=== PATIENT | male | born 1960 | race Caucasian/White ===

== ENCOUNTER 2020-10-14 05:18 | Inpatient (IN) ==
--- OUTSIDE RECORDS SUMMARY | 2020-10-14 05:21 | External Medical Summary | Continuity of Care Document ---
:1960 Author Name Ministerio Mijares Address Unavailable Unavailable , Care Team Providers Name Role Phone Sylvester JACK Unavailable [email or web address] Unavailable Unavailable Problems Active medical history not documented Allergies and Adverse Reactions Allergy history not documented Medications Medications not documented Procedures Procedures not documented Immunizations Immunizations not documented Plan of Treatment Planned Observations Planned Goals not documented Results No Known Results Results not documented Encounters Appointment; Norma Phan DO 31-Oct-2016 14:20 Encounter Diagnosis: Problem not documented
[2020-10-14] MEDS ORDERED: SODIUM CHLORIDE 0.9% 500 ML IV ONE (05:52)
--- NOTE | 2020-10-14 06:05 | Emergency Department Note ---
History of Present Illness General Chief complaint: Diarrhea Stated complaint: DIARRHEA/HEADACHE Time Seen by Provider: 10/14/20 05:35 Source: patient and EMS Mode of arrival: EMS Limitations: no limitations History of Present Illness This patient is a 60-year-old male who presents to the emergency department via EMS for evaluation of an episode of diarrhea. The patient states that he woke up and felt like he had to use the bathroom and was unable to make it there in time. Patient has some slurred speech on arrival here, but when asked about this states "my speech is always slurred when someone wakes me up in the middle of the night." Patient states that he had a very mild headache earlier in the day, but denies any other symptoms. He states that he is feeling fine at this time. He has some chronic back pain which has been unchanged. Patient admits to taking 2 Tylenol PM and 10 mg of oxycodone prior to bed last night. He denies any alcohol use or other drug use. He denies chest pain, shortness of breath, numbness or weakness. Home Medications Medication Instructions Recorded Confirmed Type amlodipine 2.5 mg PO DAILY 10/14/20 10/14/20 History aspirin 650 mg PO DAILY 10/14/20 10/14/20 History duloxetine 30 mg PO BID 10/14/20 10/14/20 History furosemide 40 mg PO DAILY 10/14/20 10/14/20 History gabapentin See Rx Instructions .ROUTE .COMPLEX 10/14/20 10/14/20 History isosorbide mononitrate 60 mg PO DAILY 10/14/20 10/14/20 History levothyroxine 112 mcg PO DAILY 10/14/20 10/14/20 History losartan 25 mg PO DAILY 10/14/20 10/14/20 History metoprolol succinate 100 mg PO DAILY 10/14/20 10/14/20 History nitroglycerin 0.4 mg SUBLINGUAL UD PRN 10/14/20 10/14/20 History oxycodone 10 mg PO QID PRN 10/14/20 10/14/20 History potassium chloride 10 meq PO DAILY 10/14/20 10/14/20 History rosuvastatin 40 mg PO QPM 10/14/20 10/14/20 History spironolactone 25 mg PO DAILY 10/14/20 10/14/20 History Allergies Allergy/AdvReac Type Severity Reaction Status Date / Time No Known Allergies Allergy Unverified 10/14/20 05:49 Past Med/Surg History Medical History Chronic back pain Coronary artery disease "NSTEMI 01/28/14 cardiac cath 01/30/14 demonstrated 3-vessel disease" Dyslipidemia Hypertension Hypothyroidism Non-STEMI (non-ST elevated myocardial infarction) Social History Smoking Status: Never smoker Tobacco Type: Smokeless Tobacco (Dip or Chew) Cigarettes Per Day: Vapes; Second Hand Exposure: No; Do You Dip or Chew Tobacco: No; Tobacco Cessation Education Requested by Patient: No Hx Alcohol Use: No Hx Substance Use: Yes Last Used Substance: Unknown Preferred Language: Panamanian Communication Ability: Effective Communication Ability Comment: too lethargic to follow commands Stores Despatch Hand Required: No Beliefs That Will Affect Care: None Current Living Situation: Spouse Other Information That Helps Us Care for You: No Feels Safe at Home: Yes Safety Concerns: Feels Safe At This Time Assistive Devices: Oxygen - Continuous Review of Systems A total of 10 systems reviewed and were otherwise negative Physical Exam Vital Signs Vital Signs - 24 hr 10/14/20 05:22 10/14/20 05:24 10/14/20 05:34 Temperature 37 C Temperature Source Oral Pulse Rate 82 77 76 Pulse Rate from SpO2 Sensor 83 77 Respiratory Rate 15 16 14 Respiratory Effort / Characteristics Non-Labored Spontaneous Respiratory Depth Normal Respiratory Pattern Regular Blood Pressure 99/58 L 99/58 L 106/67 Blood Pressure Mean 92 71 73 Pulse Oximetry 91 87 L 93 Oxygen Delivery Method Room Air Nasal Cannula Oxygen Flow Rate 2 3 Sepsis Recent Fever Within 48 Hours No Sepsis New/Unexplained Change in Mental Status No Sepsis Action Taken by Nursing No Action Required 10/14/20 06:00 10/14/20 06:27 Temperature Temperature Source Pulse Rate 75 77 Pulse Rate from SpO2 Sensor 75 77 Respiratory Rate 12 11 L Respiratory Effort / Characteristics Respiratory Depth Respiratory Pattern Blood Pressure 140/78 132/101 H Blood Pressure Mean 104 106 Pulse Oximetry 91 96 Oxygen Delivery Method Nasal Cannula Nasal Cannula Oxygen Flow Rate 3 5 Sepsis Recent Fever Within 48 Hours Sepsis New/Unexplained Change in Mental Status Sepsis Action Taken by Nursing VITALS: Vitals are noted on the nurse's note and reviewed by myself. GENERAL: This is a 60-year-old male, lying supine in bed in no significant distress. SKIN: The skin was without rashes, erythema, edema, or bruising. There is no tenting of the skin. Capillary reflex less than 2 seconds. EARS: External auditory canals clear, tympanic membranes pearly lockhart without erythema or effusion bilaterally. EYES: Pupils equal round and reactive to light and accommodation. Extraocular movements intact. MOUTH: Mucous membranes moist. Tonsils are not enlarged. Pharynx without erythema or exudate. NECK: Supple without nuchal rigidity. No lymphadenopathy. HEART: Regular rate and rhythm without murmurs gallops or rubs. LUNGS: Clear to auscultation bilaterally without wheezes, rales or rhonchi. ABDOMEN: Positive bowel sounds x 4. Obese abdomen. Soft, nontender to palpation. MUSCULOSKELETAL: Full range of motion throughout. Strength 5/5 throughout. NEURO: Patient was alert and oriented to person place and time. Normal sensation. No focal neurological deficits. Negative Romberg and pronator drift. Course Administered Medications Discontinued Medications Amlodipine Besylate (Amlodipine Besylate 5 Mg Tab) 2.5 mg PO DAILY BIRD Stop: 11/14/20 08:59 Last Admin: 10/15/20 08:07 Dose: 2.5 mg Documented by: [id number] Aspirin (Aspirin Chew 324 Mg) 324 mg PO NOW STA Stop: 10/14/20 10:09 Last Admin: 10/14/20 10:32 Dose: 324 mg Documented by: [id number] Aspirin (Aspirin 325 Mg Ectab) 650 mg PO DAILY BIRD Stop: 11/14/20 08:59 Last Admin: 10/15/20 08:07 Dose: 650 mg Documented by: [id number] Duloxetine HCl (Duloxetine Hcl 30 Mg Cap) 30 mg PO BID BIRD Stop: 11/13/20 20:59 Last Admin: 10/15/20 08:07 Dose: 30 mg Documented by: [id number] Admin: 10/14/20 20:09 Dose: Not Given Documented by: [id number] Sodium Chloride (Nss) 500 mls @ 999 mls/hr IV .Q31M ONE Stop: 10/14/20 06:22 Last Infusion: 10/14/20 07:07 Dose: 0 mls/hr Documented by: [id number] Admin: 10/14/20 06:30 Dose: 999 mls/hr Documented by: [id number] Naloxone HCl 5 mg/ Sodium (Chloride) 112.5 mls @ 8 mls/hr IV .Q14H4M BIRD; Protocol Stop: 11/13/20 12:29 Last Titration: 10/14/20 18:42 Dose: 0 mg/hr, 0 mls/hr Documented by: [id number] Admin: 10/14/20 13:01 Dose: 0.36 mg/hr, 8 mls/hr Documented by: [id number] Cosigned by: [id number] Sodium Chloride (Nss 1000ml) 1,000 mls @ 125 mls/hr IV .Q8H [facility] Stop: 10/14/20 20:59 Last Infusion: 10/14/20 22:16 Dose: 0 mls/hr Documented by: [id number] Admin: 10/14/20 13:24 Dose: 125 mls/hr Documented by: [id number] Ioversol (Optiray 320 125ml) 120 ml IV ONCE ONE Stop: 10/14/20 12:59 Last Admin: 10/14/20 12:59 Dose: 120 ml Documented by: [id number] Isosorbide Mononitrate (Isosorbide [place] Extended Rel 60 Mg Tabcr) 60 mg PO DAILY [facility] Stop: 11/14/20 08:59 Last Admin: 10/15/20 08:07 Dose: 60 mg Documented by: [id number] Levothyroxine Sodium (Levothyroxine Sodium 112 Mcg Tablet) 112 mcg PO DAILYBB [facility] Stop: 11/14/20 06:29 Last Admin: 10/15/20 05:59 Dose: 112 mcg Documented by: [id number] Metoprolol Succinate (Metoprolol Succ 50mg Ext Rel Tab) 100 mg PO DAILY [facility] Stop: 11/14/20 08:59 Last Admin: 10/15/20 08:07 Dose: 100 mg Documented by: [id number] Naloxone HCl (Naloxone Hcl 0.4 Mg/1 Ml Vial/Carp) Confirm Administered Dose 0.4 mg .ROUTE .STK-MED ONE Stop: 10/14/20 12:08 Last Admin: 10/14/20 12:25 Dose: 0.4 mg Documented by: [id number] Naloxone HCl (Naloxone Hcl 0.4 Mg/1 Ml Vial/Carp) Confirm Administered Dose 0.4 mg .ROUTE .STK-MED ONE Stop: 10/14/20 12:16 Last Admin: 10/14/20 12:24 Dose: 0.2 mg Documented by: [id number] Naloxone HCl (Naloxone Hcl 0.4 Mg/1 Ml Vial/Carp) 0.3 mg IV NOW ONE Stop: 10/14/20 12:46 Last Admin: 10/14/20 13:23 Dose: 0.3 mg Documented by: [id number] Medical Decision Making Differential Diagnosis Overdose, toxicologic, infection, hypoglycemia, electrolyte abnormalities, cardiac sources, intracerebral event, neurologic, trauma, as well as other pathologies. Medical Records Attestation: I reviewed the patient's medical records. Home Medications Current Medication List: was personally reviewed by me Laboratory Data Attestation: I reviewed the patient's lab results. Result diagrams: 10/15/20 04:13 10/15/20 04:13 Lab Results 10/14/20 10/14/20 10/14/20 Range/Units 05:35 05:35 06:04 WBC 12.62 H (4.8-10.8) K/uL RBC 4.69 L (4.7-6.1) M/uL Hgb 14.3 (14.0-18.0) g/dL Hct 44.4 (42-52) % MCV 94.7 (80-100) fL MCH 30.5 (25-34) pg MCHC 32.2 (32-36) g/dL RDW Std Deviation 49.4 H (36.4-46.3) fL RDW Coeff of Maribel 14.4 (11.5-14.5) % Plt Count 231 (130-400) K/uL MPV 10.2 (7.4-10.4) fL Immature Gran % (Auto) 0.5 % Neut % (Auto) 73.3 % Lymph % (Auto) 14.1 % [place] % (Auto) 10.2 % Eos % (Auto) 1.7 % Baso % (Auto) 0.2 % Neut # (Auto) 9.26 H (1.4-6.5) K/uL Lymph # (Auto) 1.78 (1.2-3.4) K/uL [place] # (Auto) 1.29 H (0.11-0.59) K/uL Eos # (Auto) 0.21 (0-0.5) K/uL Baso # (Auto) 0.02 (0-0.2) K/uL Immature Gran # (Auto) 0.06 H (0.00-0.02) K/uL Sodium 133 L (136-145) mmol/L Potassium 3.9 (3.5-5.1) mmol/L Chloride 97 L (98-107) mmol/L Carbon Dioxide 24 (21-32) mmol/L Anion Gap 12.0 H (3-11) BUN 27 H (7-18) mg/dl Creatinine 1.67 H (0.6-1.4) mg/dl Est Cr Clr Drug Dosing 59.5 ml/min Est GFR ( Amer) 50.4 Est GFR (Non-Af Amer) 43.5 BUN/Creatinine Ratio 16.1 (10-20) Glucose 197 H (70-99) mg/dl Calcium 8.8 (8.5-10.1) mg/dl Total Bilirubin 0.4 (0.2-1) mg/dl AST 22 (15-37) U/L ALT 30 (12-78) U/L Alkaline Phosphatase 95 (45-117) U/L Troponin I 0.439 H* (0-0.045) ng/ml Total Protein 7.3 (6.4-8.2) gm/dl Albumin 3.8 (3.4-5.0) gm/dl Globulin 3.5 (2.5-4.0) gm/dl Albumin/Globulin Ratio 1.1 (0.9-2) Ethyl Alcohol mg/dL < 3.0 (0-3) mg/dl Imaging Data Attestation: I personally reviewed and interpreted this imaging study as follows: Radiologist's Impression: CT HEAD: No acute infarct or intracranial hemorrhage Radiologist: Audi Gomez MD ECG Data Attestation: I personally reviewed and interpreted this ECG as follows: Indication: + toxicologic Rate (beats per minute): 79 Rhythm: + normal sinus ECG Intervals/blocks: + Incomplete right bundle branch block ECG [place]: + Right axis deviation ECG ST segments: + Nonspecific ST abnormalities Change: the following changes noted (incomplete RBBB) MDM Narrative The patient is a 60-year-old male who presents today for evaluation of an episode of diarrhea. The patient woke up in the middle of the night with an urgency to have a bowel movement but was unable to make it to the bathroom. On arrival here, he is slurring his speech but otherwise has no complaints other than his chronic back pain. Patient does admit that he took 2 tablets of Tylenol PM as well as 10 mg of oxycodone prior to bed last night. He was hypox ic on arrival. I suspect he is hypoxic secondary to polypharmacy. He has no focal neurological findings and a head CT is negative. Patient was found to have an elevated troponin of 0.439 on blood work. An EKG does not show any acute ischemic changes. Again, patient states that he has no chest pain or shortness of breath but does appear to be somewhat diaphoretic. Patient will need to be admitted for further care. [facility] the patient for further care. Impression & Plan Opioid overdose, Hypoxia, CHAD (acute kidney injury), Non-STEMI (non-ST elevated myocardial infarction) Discharge Plan Visit Data Chief Complaint: Diarrhea Stated Complaint: DIARRHEA/HEADACHE ED Provider: Darci Loving ED Midlevel Provider: Liberty De Anda Discharge Problem: Opioid overdose, Hypoxia, CHAD (acute kidney injury), Non-STEMI (non-ST elevated myocardial infarction) Patient Disposition: Admitted As Inpatient Discharge Instructions Interventions: ED Discharge Assessment Last Done: 10/14/20 15:10 Discharge Problem: Opioid overdose Qualifiers: Encounter type: initial encounter Injury intent: undetermined intent Qualified Code(s): T40.2X4A - Poisoning by other opioids, undetermined, initial encounter
[2020-10-14 06:06] LABS: Basophils # (auto) 0.02 K/uL (0-0.2); Basophils % (auto) 0.2 %; Eosinophils # (auto) 0.21 K/uL (0-0.5); Eosinophils % (auto) 1.7 %; Hematocrit (blood only) 44.4 % (42-52); Hemoglobin 14.3 g/dL (14.0-18.0); Immature Granulocytes # (auto) 0.06 K/uL (0.00-0.02); Immature Granulocytes % (auto) 0.5 %; Lymphocytes # (auto) 1.78 K/uL (1.2-3.4); Lymphocytes % (auto) 14.1 %; Mean Corpuscular Hemoglobin 30.5 pg (25-34); Mean Corpuscular Hgb Conc 32.2 g/dL (32-36); Mean Corpuscular Volume 94.7 fL (80-100); Mean Platelet Volume 10.2 fL (7.4-10.4); Monocytes # (auto) 1.29 K/uL (0.11-0.59); Monocytes % (auto) 10.2 %; Neutrophils # (auto) 9.26 K/uL (1.4-6.5); Neutrophils % (auto) 73.3 %; Platelet Count 231 K/uL (130-400); RDW Coefficient of Variation 14.4 % (11.5-14.5); RDW Standard Deviation 49.4 fL (36.4-46.3); Red Blood Count 4.69 M/uL (4.7-6.1); White Blood Count 12.62 K/uL (4.8-10.8)
[2020-10-14 06:16] LABS: Albumin Level 3.8 gm/dl (3.4-5.0); BUN Creatinine Ratio 16.1 (10-20); Calcium 8.8 mg/dl (8.5-10.1); Creatinine Clr Calc Pharmacy 59.5 ml/min; Est GFR (African American) 50.4; Est GFR (Non-African American) 43.5; Potassium 3.9 mmol/L (3.5-5.1)
[2020-10-14 06:23] LABS: Albumin Globulin Ratio 1.1 (0.9-2); Bilirubin,Total 0.4 mg/dl (0.2-1); Globulin 3.5 gm/dl (2.5-4.0); Total Protein 7.3 gm/dl (6.4-8.2); Troponin I 0.439 ng/ml (0-0.045)
--- NOTE | 2020-10-14 07:23 | CT Scan Report ---
CT SCAN OF THE BRAIN WITHOUT IV CONTRAST CLINICAL HISTORY: Slurred speech. Lethargy. COMPARISON STUDY: No priors. TECHNIQUE: Unenhanced axial CT scan of the brain is performed from the vertex to the skull base. A d ose lowering technique was utilized adhering to the principles of ALARA. CT DOSE: 537.48 mGy.cm FINDINGS: Brain parenchyma: The brain parenchyma is normal in appearance. There is no hemorrhage, mass effect, or evidence of acute territorial ischemia by CT criteria. Nice-white matter differentiation is preser dora. No extra-axial fluid collection is seen. Ventricles, sulci, cisterns: Normal in configuration. Intracranial vasculature: The visualized intracranial vasculature at the skull base is normal in appe arance. Calvarium: Unremarkable. Sinuses and mastoids: The visualized paranasal sinuses are clear. The mastoid air cells are well pneu matized. Orbits: The bony orbits are grossly intact. IMPRESSION: There is no hemorrhage, mass effect, or evidence of acute territorial ischemia by CT shivam reyez. ACT 112: Negative or not required by law. Electronically signed by: Shane Serrato M.D. 10/14/2020 7:21 AM
--- NOTE | 2020-10-14 09:20 | History & Physical Report ---
Date of Service October 14, 2020 Assessment & Plan (1) Acute respiratory failure with hypoxia: Noted to have periods of apnea in ED - spoke with who reported that pt keeps his oxycodone with him typically. ED nursing found in pt's pants. With nursing present, bottle was counted. Script was filled for 120 pills two days ago - 99 pills were left in the bottle. Pt is prescribed 1 tab 4x/day PRN. Pt was also to be worked up for TAI as outpatient but never followed up. notes that pt has had a cough that "sounds wet" for the past 2-3 days with associated orthopnea and chest burning, similar to prior NSTEMI in 2014. - Continue supplemental O2 - Given Narcan in the ED with improvement in mental status although still somewhat confused at times - Trend troponins, monitory on telemetry - Check ECHO - Consult cardiology due to concern for NSTEMI, hx of significant CAD, elevated troponin - ABG checked and reveals pH of 7.09, pCO2 100, pO2 56, HCO3 30 - CTA chest completed ( aware of risk of worsening kidney function with contrast in the setting of CHAD but agreeable to proceed, will give additional IVF) - atelectasis vs. viral pnuemonia, no PE (2) Opioid overdose: Unclear if intentional or accidental. Pt's reports increasing symptoms of depression and irritability with statements of frustration regarding his quality of life. However, she is unaware of an intentional overdose. Pt is missing 21 pills of oxycodone 10 mg from the prescription filled on 10/12/20. Oxycodone pill bottle given to nursing. - Suicide precautions for now - Monitor pt closely s/p Narcan administration (3) Diarrhea: Unclear etiology. Per and pt, this is ongoing for several days - Checked stool for C. diff - negative - Will give IVF hydration - NPO until mental status improves - Consider GI consult if persistent (4) Hypothyroidism: - TSH in AM - Continue levothyroxine (5) Hypertension: BP in ED is stable - reports that she thinks pt took his AM meds. Will continue to monitor. (6) Low back pain with bilateral sciatica: Ongoing issues with chronic back pain that has been worse recently - pt was considering surgery but since he is considered high risk from cardiac standpoint, his reports he has not found a surgeon willing to proceed at this time - Holding opioids in the setting of overdose - Holding NSAIDs due to CHAD - Will use prn Tylenol for now (7) Dyslipidemia: Resume statin once mental status improves and able to tolerate po (8) Coronary artery disease: See plan for #1 - telemetry, trend trops, ECHO, cardio eval (9) Metabolic acidosis: Ongoing issues with diarrhea (10) Respiratory acidosis: Treating with Narcan-patient improved. (11) Acute renal failure: Suspect due to increased use of diuretics at home and ongoing diarrhea - Received one liter of IVF in ED - will give second liter at 125 cc/hr. If c ontinued NPO, may need to give additional fluids - Consult nephrology - spoke with Dr. Rock - Follow labs updated by phone multiple times. All questions answered. Pt seen and evaluated with attending physician, Dr. Menjivar. Plan of care discussed and as outlined above and in her addendum. Hayden Gallego PA-C History of Present Illness Chief Complaint: Diarrhea, confusion Primary Care Provider: Sami Sosa This is a 60 y/o male with a PMH of CAD s/p CABG, prior NSTEMI, hypothyroid, HTN, dyslipidemia, and chronic back pain with radiculopathy who presented to the ED via EMS with diarrhea and confusion. History from the patient is un obtainable so the chart was extensively reviewed. Additional history obtained from pt's via phone. She reports that pt has had ongoing issues with fluid retention over the past several months. Diuretics have been titrated without significant improvement. Legs may be significantly swollen at times. Over the past 2-3 days, pt has developed a cough that "sounds wet" per . Associated orthopnea. He has complained of progressive dyspnea on exertion that takes several minutes of rest to improve. Pt's reports that he will get short of breath just walking to the kitchen and back. Of note, he has also been complaining of chest burning for the past 2-3 days, which is similar to just prior to his CABG in 2013. This burning has become constant per the , but pt has refused to allow her to contact his cardiology. She thinks that a repeat cardiac cath was offered at one point but that pt declined. Also over the past 2-3 days, pt has apparently developed nausea and vomiting. He used his 's Zofran with improvement. Intermittent diarrhea for several days. Early this morning, pt's woke up to find that he had been incontinent of urine and stool in the bed. Pt attempted to get up to go to the bathroom and was lethargic, unsteady and staggering with slurred speech. When she went to try to help him, he became combative so she called the pt's brother, an EMT, to come over and help. EMS was called and was eventually able to get pt calm enough to transport. He was noted to be hypoxic so O2 applied in route but it does not appear that pt received any medications. Per , pt "took a handful of meds" just prior to coming to hospital. She thinks that these were his morning meds. Pt told the ED earlier that he had taken two Tylenol PM around 2 am this morning but his denies that they even have Tylenol PM in the house, stating he likely would have taken regular Tylenol. The pt keeps his oxycodone in his pocket so she is unsure how much of that he may have taken. She reports that pt was acting normally when he went to bed last evening without any confusion, lethargy or slurring of speech. She denies that he has ever been combative before. Allergies Allergy/AdvReac Type Severity Reaction Status Date / Time No Known Allergies Allergy Unverified 10/14/20 05:49 Home Medications Medication Instructions Recorded Confirmed Type amlodipine 2.5 mg PO DAILY 10/14/20 10/14/20 History aspirin 650 mg PO DAILY 10/14/20 10/14/20 History duloxetine 30 mg PO BID 10/14/20 10/14/20 History furosemide 40 mg PO DAILY 10/14/20 10/14/20 History gabapentin See Rx Instructions .ROUTE .COMPLEX 10/14/20 10/14/20 History isosorbide mononitrate 60 mg PO DAILY 10/14/20 10/14/20 History levothyroxine 112 mcg PO DAILY 10/14/20 10/14/20 History losartan 25 mg PO DAILY 10/14/20 10/14/20 History metoprolol succinate 100 mg PO DAILY 10/14/20 10/14/20 History nitroglycerin 0.4 mg SUBLINGUAL UD PRN 10/14/20 10/14/20 History oxycodone 10 mg PO QID PRN 10/14/20 10/14/20 History potassium chloride 10 meq PO DAILY 10/14/20 10/14/20 History rosuvastatin 40 mg PO QPM 10/14/20 10/14/20 History spironolactone 25 mg PO DAILY 10/14/20 10/14/20 History Past Med/Surg History Medical History Chronic back pain Coronary artery disease "NSTEMI 01/28/14 cardiac cath 01/30/14 demonstrated 3-vessel disease" Dyslipidemia Hypertension Hypothyroidism Non-STEMI (non-ST elevated myocardial infarction) Social History Smoking Status: Never smoker Tobacco Type: Smokeless Tobacco (Dip or Chew) Cigarettes Per Day: Vapes; Second Hand Exposure: No; Do You Dip or Chew Tobacco: No; Tobacco Cessation Education Requested by Patient: No Hx Alcohol Use: No Hx Substance Use: Yes Last Used Substance: Unknown Preferred Language: Telugu Communication Ability: Impaired Communication Ability Comment: too lethargic to follow commands Neck Skewer Required: No Beliefs That Will Affect Care: None Current Living Situation: Spouse Other Information That Helps Us Care for You: No Feels Safe at Home: Yes Safety Concerns: Feels Safe At This Time Assistive Devices: Glasses Review of Systems Review of Systems: Unobtainable due to reduced consciousness Physical Exam Constitutional: + obese and + lethargic (but opens eyes to sternal rub - unable to answer any questions); no acute distress Neck: trachea midline Respiratory: no respiratory distress and no labored breathing Auscultation: + diminished lung sounds; no rales, no rhonchi and no wheezes two episodes of apnea while in the room with resultant decrease in sats to upper 70s - pt aroused to sternal rub with immediate improvement of sats to mid 90s Cardiovascular: Rate/Rhythm: regular rate and regular rhythm Heart Sounds: no click, no gallop and no murmur Vessels: radial pulses present Extremities: + edema (1+ bilateral LE edema to just below knees) Gastrointestinal (Abdomen): Inspection/Auscultation: normal bowel sounds Percussion/Palpation: abdomen soft Skin: no rashes, warm and dry Neurologic: + confused Results & Data Results & Data ([facility]) Vital Signs (Past 12 Hours) Vital Signs Temp Pulse Resp BP Pulse Ox 10/14/20 09:00 73 13 112/71 96 10/14/20 08:31 73 12 95 10/14/20 08:30 73 13 116/85 95 10/14/20 08:16 80 91 10/14/20 08:07 125/77 10/14/20 08:06 76 19 93 10/14/20 08:01 76 14 92 10/14/20 08:00 77 16 92 10/14/20 07:31 75 18 93 10/14/20 07:30 75 20 144/100 H 92 10/14/20 07:24 75 24 93 10/14/20 07:01 73 25 H 94 10/14/20 07:00 73 30 H 139/94 94 10/14/20 06:31 75 18 95 10/14/20 06:30 76 26 H 143/104 H 96 10/14/20 06:28 76 17 95 10/14/20 06:27 77 11 L 132/101 H 96 10/14/20 06:00 75 12 140/78 91 10/14/20 05:34 76 14 106/67 93 10/14/20 05:24 37 C 77 16 99/58 L 87 L 10/14/20 05:22 82 15 99/58 L 91 Laboratory Results Laboratory Results - last 24 hr 10/14/20 10/14/20 10/14/20 05:35 05:35 06:04 WBC 12.62 H RBC 4.69 L Hgb 14.3 Hct 44.4 MCV 94.7 MCH 30.5 MCHC 32.2 RDW Std Deviation 49.4 H RDW Coeff of Maribel 14.4 Plt Count 231 MPV 10.2 Immature Gran % (Auto) 0.5 Neut % (Auto) 73.3 Lymph % (Auto) 14.1 [place] % (Auto) 10.2 Eos % (Auto) 1.7 Baso % (Auto) 0.2 Neut # (Auto) 9.26 H Lymph # (Auto) 1.78 [place] # (Auto) 1.29 H Eos # (Auto) 0.21 Baso # (Auto) 0.02 Immature Gran # (Auto) 0.06 H ABG pH ABG pCO2 ABG pO2 ABG HCO3 ABG O2 Saturation ABG Base Excess Parth Test Barometric Pressure Oxygen Given Sodium 133 L Potassium 3.9 Chloride 97 L Carbon Dioxide 24 Anion Gap 12.0 H BUN 27 H Creatinine 1.67 H Est Cr Clr Drug Dosing 59.5 Est GFR ( Amer) 50.4 Est GFR (Non-Af Amer) 43.5 BUN/Creatinine Ratio 16.1 Glucose 197 H Calcium 8.8 Total Bilirubin 0.4 AST 22 ALT 30 Alkaline Phosphatase 95 Troponin I 0.439 H* Total Protein 7.3 Albumin 3.8 Globulin 3.5 Albumin/Globulin Ratio 1.1 Stl C. diff Tox B Gene Acetaminophen Ethyl Alcohol mg/dL < 3.0 COVID-19 Eval Order SARS-CoV-2, RNA, NAAT 10/14/20 10/14/20 10/14/20 10:15 10:20 12:10 WBC RBC Hgb Hct MCV MCH MCHC RDW Std Deviation RDW Coeff of Maribel Plt Count MPV Immature Gran % (Auto) Neut % (Auto) Lymph % (Auto) [place] % (Auto) Eos % (Auto) Baso % (Auto) Neut # (Auto) Lymph # (Auto) [place] # (Auto) Eos # (Auto) Baso # (Auto) Immature Gran # (Auto) ABG pH ABG pCO2 ABG pO2 ABG HCO3 ABG O2 Saturation ABG Base Excess Parth Test Barometric Pressure Oxygen Given Sodium Potassium Chloride Carbon Dioxide Anion Gap BUN Creatinine Est Cr Clr Drug Dosing Est GFR ( Amer) Est GFR (Non-Af Amer) BUN/Creatinine Ratio Glucose Calcium Total Bilirubin AST ALT Alkaline Phosphatase Troponin I 1.370 H* Total Protein Albumin Globulin Albumin/Globulin Ratio Stl C. diff Tox B Gene Negative Cdiff Gene Acetaminophen < 2 L Ethyl Alcohol mg/dL COVID-19 Eval Order SARS-CoV-2, RNA, NAAT 10/14/20 10/14/20 10/14/20 12:10 12:10 Unknown WBC RBC Hgb Hct MCV MCH MCHC RDW Std Deviation RDW Coeff of Maribel Plt Count MPV Immature Gran % (Auto) Neut % (Auto) Lymph % (Auto) [place] % (Auto) Eos % (Auto) Baso % (Auto) Neut # (Auto) Lymph # (Auto) [place] # (Auto) Eos # (Auto) Baso # (Auto) Immature Gran # (Auto) ABG pH 7.09 L* ABG pCO2 100 H ABG pO2 56 L ABG HCO3 30 H ABG O2 Saturation 84.0 L ABG Base Excess -3.2 Parth Test Pos Barometric Pressure 735.5 Oxygen Given 15L Sodium 132 L Potassium 4.8 D Chloride 97 L Carbon Dioxide 30 Anion Gap 5.0 BUN 29 H Creatinine 1.94 H Est Cr Clr Drug Dosing 51.2 Est GFR ( Amer) 42.1 Est GFR (Non-Af Amer) 36.3 BUN/Creatinine Ratio 14.8 Glucose 173 H Calcium 8.3 L Total Bilirubin AST ALT Alkaline Phosphatase Troponin I Total Protein Albumin Globulin Albumin/Globulin Ratio Stl C. diff Tox B Gene Acetaminophen Ethyl Alcohol mg/dL COVID-19 Eval [facility] SARS-CoV-2, RNA, NAAT 10/14/20 Unknown WBC RBC Hgb Hct MCV MCH MCHC RDW Std Deviation RDW Coeff of Maribel Plt Count MPV Immature Gran % (Auto) Neut % (Auto) Lymph % (Auto) [place] % (Auto) Eos % (Auto) Baso % (Auto) Neut # (Auto) Lymph # (Auto) [place] # (Auto) Eos # (Auto) Baso # (Auto) Immature Gran # (Auto) ABG pH ABG pCO2 ABG pO2 ABG HCO3 ABG O2 Saturation ABG Base Excess Parth Test Barometric Pressure Oxygen Given Sodium Potassium Chloride Carbon Dioxide Anion Gap BUN Creatinine Est Cr Clr Drug Dosing Est GFR ( Amer) Est GFR (Non-Af Amer) BUN/Creatinine Ratio Glucose Calcium Total Bilirubin AST ALT Alkaline Phosphatase Troponin I Total Protein Albumin Globulin Albumin/Globulin Ratio Stl C. diff Tox B Gene Acetaminophen Ethyl Alcohol mg/dL COVID-19 Eval Order SARS-CoV-2, RNA, NAAT NEGATIVE Diagnostic Findings CT Head 10/14/20 - IMPRESSION: There is no hemorrhage, mass effect, or evidence of acute territorial ischemia by CT criteria. Chest X-ray 10/14/20 - IMPRESSION: 1. Cardiomegaly. 2. Postsurgical changes of a midline sternotomy. 3. Ill-definition of the left heart border. While likely secondary to prior surgery, airspace opacities in this region cannot be excluded. 4. Low lung volumes. Medications Administered Discontinued Medications Aspirin (Aspirin Chew 324 Mg) 324 mg PO NOW STA Stop: 10/14/20 10:09 Last Admin: 10/14/20 10:32 Dose: 324 mg Documented by: [id number] Sodium Chloride (Nss) 500 mls @ 999 mls/hr IV .Q31M ONE Stop: 10/14/20 06:22 Last Infusion: 10/14/20 07:07 Dose: 0 mls/hr Documented by: [id number] Admin: 10/14/20 06:30 Dose: 999 mls/hr Documented by: [id number] Code Status & VTE Plan VTE Prophylaxis Plan VTE Prophylaxis will be ordered: Yes Supervising Physician Co-Signing Physician Notes I have seen and examined the patient and have discussed the case with the provider above. I agree with the assessment and plan as stated with the following exceptions. The patient is a 60 yo obese man with a h/o chronic oxycodone use for chrnoic pain who presented to the ER via EMS combative and hypoxic after being found in a pool of feces by spouse. On initial discussion with the provider above, the patient was demonstrating intermittent apneic episodes with somnolence that would return to normal when he was awakened. At bedside, the patient was having significant stool incontinence and was in the bathroom independently using the facilities. I was then notified by Cardiology that the patient had later been found to have belly breathing and somnolence, and was given Narcan 0.6mg IV and was placed on a Narcan drip. Within minutes he was oriented to self and place and was more alert and breathing easier. ABG at the time of narcan administration reflected a sever nonanion gap metabolic acidosis likley from the bicarbonate loss from the ongoing diarrhea, and a respiratory acidosis likley 2/2 opiate overdose. Although the patient denied intentional overdose, spouse reports recent concerns of depression, so he was placed on suicide precautions. History from his seemed to suggest a possible heart failure exacerbation with orthopnea, progressive SOB with ex ertion, chest burning, intermittent leg swelling. However, CXR is clear and lungs are clear to auscultation throughout. There is no evidence of JVD or pitting edema. The current clinical picture would be concerning for dehydration from GI losses. C-diff was ruled out. Cont hydration efforts. Check KUB to rule out ileus/obstruction causing nausea and vomiting. Hold narcotics and cont narcan infusion until patient is ventilating normally reliably. Consider bicarb drip to help correct metabolic acidosis-will discuss with Nephrology. Monitor on one to one for now. Appreciate cardiac thoughts regarding elevated trop. Less likely ACS but will cont to trend. NPO until KUB comes back clear and patient is mentating and ventilating at baseline. DO Otto Reassessed patient a couple of hours later. Repeat ABG reveals improving acidosis. Patient awakens to voice and is oriented x 3. He is cooperative and feeling fine aside from some chronic back pain. Narcan drip stopped. Stool culture ordered. UDS pending. Cont 1:1 monitoring for now out of concern for possible intentional overdose. Will ask psychiatry to also evaluate the patient now that he is awake and able to converse. KUB was negative for ileus/obstruction. sms (1) Diarrhea Diarrhea type: unspecified type Qualified Code(s): R19.7 - Diarrhea, unspecified (2) Hypothyroidism Hypothyroidism type: unspecified Qualified Code(s): E03.9 - Hypothyroidism, unspecified (3) Low back pain with bilateral sciatica Chronicity: chronic (4) Hypertension Hypertension type: essential hypertension Qualified Code(s): I10 - Essential (primary) hypertension
--- NOTE | 2020-10-14 09:44 | XRay Report ---
XR chest 1V portable CLINICAL HISTORY: hypoxia COMPARISON STUDY: 01/28/2014 FINDINGS: There are postsurgical changes of a midline sternotomy. The heart is enlarged. There are lo w lung volumes. The left heart border is ill-defined. This may relate to prior surgery. There is no d efinite parenchymal consolidation. There are no pleural effusions. IMPRESSION: 1. Cardiomegaly 2. Postsurgical changes of a midline sternotomy 3. Ill-definition of the left heart border. While likely secondary to prior surgery, airspace opaciti es in this region cannot be excluded 4. Low lung volumes. ACT 112: Negative or not required by law. Electronically signed by: Elmer Wallace M.D. 10/14/2020 9:42 AM
[2020-10-14] MEDS ORDERED: ASPIRIN CHEW 324 MG PO STA (10:08)
[2020-10-14] MEDS ORDERED: ACETAMINOPHEN 325 MG TAB PO PRN (11:16)
[2020-10-14] MEDS ORDERED: NALOXONE HCL 0.4 MG/1 ML VIAL/CARP ONE ×2 (12:07→12:15)
[2020-10-14] MEDS ORDERED: NALOXONE HCL 1 MG in SODIUM CHLORIDE 0.9% 1000ML 1,000 ML IV PRN (12:14)
[2020-10-14] MEDS ORDERED: STAT IV Infusion **Titration per Protocol STA (12:19)
[2020-10-14 12:22] LABS: Base Excess ABG -3.2 mEq/L (-9-1.8); HCO3 ABG 30 mmol/L (19-24); PCO2 ABG 100 mmHg (35-46); PO2 ABG 56 mmHg (80-95)
[2020-10-14 12:24] LABS: pH ABG 7.09 (7.35-7.45)
[2020-10-14 12:25] LABS: Allen Test Pos (Pos)
[2020-10-14] MEDS ORDERED: NALOXONE HCL 5 MG in 0.9 % SODIUM CHLORIDE 100 ML IV SCH (12:30)
[2020-10-14] MEDS: NALOXONE HCL 0.4 MG/1 ML VIAL/CARP IV ONE ×2 (12:30→13:23)
[2020-10-14 12:38] LABS: BUN Creatinine Ratio 14.8 (10-20); Calcium 8.3 mg/dl (8.5-10.1); Creatinine Clr Calc Pharmacy 51.2 ml/min; Est GFR (African American) 42.1; Est GFR (Non-African American) 36.3; Potassium 4.8 mmol/L (3.5-5.1)
[2020-10-14] MEDS ORDERED: OPTIRAY 320 125ml IV ONE (12:58)
[2020-10-14] MEDS ORDERED: SODIUM CHLORIDE 0.9% 1000ML 1,000 ML IV SCH (13:00)
--- NOTE | 2020-10-14 13:11 | CT Scan Report ---
CT angio chest PE protocol CT DOSE: 533.81 mGycm HISTORY: 60 years-old Male with PE. Acute chest pain with shortness of breath and hypoxia TECHNIQUE: Multiple CTA images of the chest were obtained after the intravenous administration of 120 ml Optiray 320. Coronal and sagittal MIPS were obtained from the axial data set and were submitted for review. All measurements were obtained according to NASCET criteria. A dose lowering technique w as utilized adhering to the principles of ALARA. COMPARISON: Chest radiograph of same day FINDINGS: CTA: Moderate cardiomegaly with prior median sternotomy and CABG. Moderate [place] coronary artery calcific ations. There is no thoracic aortic aneurysm or dissection. There is patency of the imaged great vess els. There is suboptimal evaluation of the pulmonary arterial tree secondary to contrast bolus timing and respiratory motion artifact. The segmental and subsegmental branches particularly are not well s een. No pulmonary emboli identified. CT CHEST: The thyroid is not imaged. No adenopathy. Gynecomastia. No pneumothorax, pleural effusion or overt pu lmonary edema. Mild dependent predominant subpleural groundglass densities with linear consolidation. There is decreased AP dimension of the trachea and bronchi. No suspicious pulmonary nodules or kvng s. Mild nonspecific distal esophageal wall thickening. Hepatomegaly with hepatic steatosis. Degenerative changes of the shoulders and spine. No acute fracture or suspicious bone lesion. IMPRESSION: 1. No evidence of pulmonary emboli. 2. Cardiomegaly with prior median sternotomy and CABG. 3. Subpleural and dependent predominant groundglass and linear consolidative opacities are suggestive of atelectasis. A nonspecific pneumonitis such as viral pneumonia could appear similarly however is considered less likely. 4. No pleural effusion or adenopathy. 5. Hepatomegaly with hepatic steatosis. ACT 112: Negative or not required by law. The above report was generated using voice recognition software. It may contain grammatical, syntax o r spelling errors. Electronically signed by: Craig Tidwell M.D. 10/14/2020 1:09 PM
--- NOTE | 2020-10-14 13:17 | Cardiology Consultation ---
Date of Consultation October 14, 2020 Assessment & Plan (1) Opioid overdose: (2) Narcotic induced mental alteration: (3) Acute respiratory failure with hypoxia and hypercapnia: (4) Elevated troponin I level: (5) CHAD (acute kidney injury): (6) Coronary artery disease: 60-year-old patient presented to the emergency department due to bowel incontinence and altered mental status. It appears his symptoms are secondary to narcotic overdose. Treated with 0.6 mg of Narcan acutely at bedside with significant cognitive improvement. Patient no longer obstructing airway with improved oxygen saturations. ABG reviewed while patient obtunded demonstrating significant acidosis with hypercarbia and hypoxia. ER physician/internal medicine to consider continuous Narcan infusion to maintain acceptable mental status. I do not believe the patient requires acute intubation given positive clinical results with IV Narcan. Utilize BiPAP as needed. In regard to his elevated troponin, I suspect this is a type II event in the setting of hypoxia, known severe multivessel coronary disease with incomplete revascularization, and narcotic overdose. Most recent cardiac catheterization results reviewed demonstrating a chronically occluded right coronary artery. Chronic RCA occlusion likely responsible for apical ischemia noted on his last 2 Lexiscan nuclear stress tests. Recommend repeat cardiac enzymes x3 sets. Preliminary review of bedside 2D transthoracic echocardiogram demonstrates hyperdynamic LV systolic function without regional wall motion abnormality. The right ventricle was not well visualized, however, appears grossly normal in size without significant dysfunction. There is no indirect evidence of pulmonary hypertension. Recommend holding diuretic therapy and angiotensin receptor blair given acute renal insufficiency. As mental status improves, beta-blair can be restarted, however, I would recommend divided doses while hospitalized, 25 mg 4 times daily. 45 minutes critical care time spent evaluating patient, discussing instituting plan of care with consultants and ER staff, as well as discussion with patient's via telephone. History of Present Illness Reason for Consultation: Elevated troponin hypoxia Requesting Physician: Dr. Menjivar Attending Physician: Ana Menjivar, DO History of Present Illness Patient seen and examined at the bedside. Minimally responsive to sternal rub. Opens his eyes, however, does not follow commands. Intermittently hypoxic and obstructing his airway with inspiration. Paradoxical thoraco-abdominal respiratory movements noted. Unable to offer history at this time. Per his , patient found in bed this a.m. incontinent of stool. Chart reviewed. Patient apparently consumed 20 mg of oxycodone as well as Tylenol PM early this a.m. reports profound diarrhea over the past 3 days. No fever or chills. Unaware of patients oral intake while she is working. States patient takes oxycodone 3 times per day as prescribed, however, she notes he becomes profoundly diuretic when his prescriptions run out. Patient has a history of severe CAD with incomplete revascularization in the setting of non-STEMI 2015. He received a CRAIG to LAD, and a saphenous vein graft to left circumflex marginal branch. Chronically occluded right coronary artery was not bypassed. Cardiac catheterization performed in 2015 in the setting of chronic angina demonstrated patent bypass grafting x2, severe [place] vessel disease including chronically occluded right coronary artery. Has undergone nuclear stress testing on 2 occasions over the past 4 years. Both test positive for inducible ischemia involving the anterior apex. Repeat cardiac catheterization was not performed due to stable functional capacity and anginal pattern. Complex cardiovascular history (copied from [employer] medical record)noted below. 1. Multivessel coronary disease identified after hospitalization with acute carbon monoxide poisoning, January 2004. 2. Status post coronary artery bypass grafting in 02/14/2014 with incomplete revascularization, receiving a CRAIG graft to the LAD, saphenous vein graft to the circumflex obtuse marginal to ungrafted right coronary artery. 3. Severe [place] vessel disease by cardiac catheterization, 05/2016, with patent grafts. 4. Repeat diagnostic cardiac catheterization 05/19/2016 revealed patent left internal mammary artery graft to left anterior descending, patent saphenous vein graft to the circumflex obtuse marginal with excellent distal runoff, chronically occluded RCA, generally preserved LV systolic function. 5. Class III angina pectoris. 6. Hypertension. 7. Chronic back pain with radiculopathy. Allergies Allergy/AdvReac Type Severity Reaction Status Date / Time No Known Allergies Allergy Unverified 10/14/20 05:49 Home Medications Medication Instructions Recorded Confirmed Type amlodipine 2.5 mg PO DAILY 10/14/20 10/14/20 History aspirin [Aspirin Low Dose] 81 mg PO DAILY 10/14/20 10/14/20 History clotrimazole-betamethasone 1 applic TOPICAL BID 10/14/20 10/14/20 History duloxetine 30 mg PO BID 10/14/20 10/14/20 History furosemide 40 mg PO DAILY 10/14/20 10/14/20 History gabapentin See Rx Instructions .ROUTE .COMPLEX 10/14/20 10/14/20 History isosorbide mononitrate 60 mg PO DAILY 10/14/20 10/14/20 History levothyroxine 112 mcg PO DAILY 10/14/20 10/14/20 History losartan 25 mg PO DAILY 10/14/20 10/14/20 History metoprolol succinate 100 mg PO DAILY 10/14/20 10/14/20 History nitroglycerin 0.4 mg SUBLINGUAL UD PRN 10/14/20 10/14/20 History oxycodone 10 mg PO QID PRN 10/14/20 10/14/20 History potassium chloride 10 meq PO DAILY 10/14/20 10/14/20 History rosuvastatin 40 mg PO QPM 10/14/20 10/14/20 History spironolactone 25 mg PO DAILY 10/14/20 10/14/20 History Patient History Medical History Chronic back pain Coronary artery disease "NSTEMI 01/28/14 cardiac cath 01/30/14 demonstrated 3-vessel disease" Dyslipidemia Hypertension Hypothyroidism Non-STEMI (non-ST elevated myocardial infarction) Social History Smoking Status: Never smoker Tobacco Type: Smokeless Tobacco (Dip or Chew) Cigarettes Per Day: Vapes; Second Hand Exposure: No; Do You Dip or Chew Tobacco: No; Tobacco Cessation Education Requested by Patient: No Hx Alcohol Use: No Hx Substance Use: Yes Last Used Substance: Unknown Preferred Language: Vietnamese Communication Ability: Impaired Communication Ability Comment: too lethargic to follow commands Activity Director Required: No Beliefs That Will Affect Care: None Current Living Situation: Spouse Other Information That Helps Us Care for You: No Feels Safe at Home: Yes Safety Concerns: Feels Safe At This Time Assistive Devices: Glasses Review of Systems Review of Systems: Unobtainable due to cognitive status Physical Exam Constitutional: + intoxicated appearing and + obese; no acute distress Respiratory: + retractions, + uses accessory muscles and + paradoxical thoraco-abdominal movement Cardiovascular: Rate/Rhythm: regular rate and regular rhythm Heart Sounds: normal S1 and normal S2; no murmur Vessels: no JVD and no carotid bruit Extremities: no edema Gastrointestinal (Abdomen): Inspection/Auscultation: + abdomen distended; no abdominal edema Percussion/Palpation: abdomen nontender, no guarding and abdomen not rigid Skin: no rashes and no dry skin Neurologic: + obtunded Results & Data ([facility]) Vital Signs (Past 12 Hours) Vital Signs Temp Pulse Resp BP Pulse Ox 10/14/20 12:01 64 13 162/70 H 93 10/14/20 12:00 68 15 97 10/14/20 11:31 68 10/14/20 11:30 67 13 131/112 H 10/14/20 11:01 67 16 97 10/14/20 11:00 66 13 113/85 90 10/14/20 10:32 66 11 L 96 10/14/20 10:31 63 15 120/70 10/14/20 10:30 66 15 10/14/20 10:28 65 14 92 10/14/20 10:27 66 15 106/71 95 10/14/20 10:25 26 H 95 10/14/20 09:49 93 10/14/20 09:48 74 16 110/62 96 10/14/20 09:31 71 12 110/62 95 10/14/20 09:30 71 12 96 10/14/20 09:01 72 15 96 10/14/20 09:00 73 13 112/71 96 10/14/20 08:31 73 12 95 10/14/20 08:30 73 13 116/85 95 10/14/20 08:16 80 91 10/14/20 08:07 125/77 10/14/20 08:06 76 19 93 10/14/20 08:01 76 14 92 10/14/20 08:00 77 16 92 10/14/20 07:31 75 18 93 10/14/20 07:30 75 20 144/100 H 92 10/14/20 07:24 75 24 93 10/14/20 07:01 73 25 H 94 10/14/20 07:00 73 30 H 139/94 94 10/14/20 06:31 75 18 95 10/14/20 06:30 76 26 H 143/104 H 96 10/14/20 06:28 76 17 95 10/14/20 06:27 77 11 L 132/101 H 96 10/14/20 06:00 75 12 140/78 91 10/14/20 05:34 76 14 106/67 93 10/14/20 05:24 37 C 77 16 99/58 L 87 L 10/14/20 05:22 82 15 99/58 L 91 (1) Opioid overdose Encounter type: initial encounter Injury intent: undetermined intent Qualified Code(s): T40.2X4A - Poisoning by other opioids, undetermined, initial encounter (2) Coronary artery disease Coronary Disease-Associated Artery/Lesion type: [place] artery [place] vs. transplanted heart: [place] heart Associated angina: angina presence unspecified Qualified Code(s): I25.10 - Atherosclerotic heart disease of [place] coronary artery without angina pectoris
--- NOTE | 2020-10-14 14:52 | Electrocardiogram Report ---
Test Reason : Blood Pressure : / mmHG Vent. Rate : 079 BPM Atrial Rate : 079 BPM P-R Int : 162 ms QRS Dur : 098 ms QT Int : 394 ms P-R-T Axes : 041 095 043 degrees QTc Int : 451 ms Normal sinus rhythm Rightward axis Incomplete right bundle branch block Nonspecific T wave abnormality Abnormal ECG When compared with ECG of 29-JAN-2014 08:33, Incomplete right bundle branch block is now Present Confirmed by Primo Ortiz ([id number]) on 10/14/2020 2:51:51 PM Referred By: Confirmed By:Rob Ortiz
--- NOTE | 2020-10-14 15:26 | XRay Report ---
KUB HISTORY: rule out obstruction/opiate use, nausea. Vomiting. COMPARISON: None. FINDINGS: Mildly distended gas and debris filled stomach. There is also a gas and stool-filled colon which is at the upper limits of normal. No dilated loops of small bowel identified. Residual contrast within the urinary system from the recent chest CTA. No renal calculi. No ureteral calculi. No pneu moperitoneum or pneumatosis. IMPRESSION: 1. Mildly distended gas and debris filled stomach. 2. No dilated loops of small bowel identified. ACT 112: Negative or not required by law. Electronically signed by: Alfred Baldwin M.D. 10/14/2020 3:25 PM
[2020-10-14 16:08] LABS: Appearance Urine Clear (Clear); Bilirubin Urine Negative (Negative); Blood Urine Negative (Negative); Color Urine Yellow; Glucose Urine UA Negative (Negative); Ketones Urine Negative (Negative); Leukocyte Esterase Urine Negative (Negative); Nitrite Urine Negative (Negative); Protein Urine Negative (Negative); Specific Gravity Urine > 1.045 (1.000-1.030); Urobilinogen Urine Negative (Negative)
[2020-10-14 16:29] LABS: Base Excess ABG -2.9 mEq/L (-9-1.8); HCO3 ABG 26 mmol/L (19-24); Oxygen Saturation ABG 94.6 % (90-95); PCO2 ABG 62 mmHg (35-46); PO2 ABG 79 mmHg (80-95); pH ABG 7.23 (7.35-7.45)
[2020-10-14 16:47] LABS: Allen Test Pos (Pos)
[2020-10-14] MEDS: DULoxetine HCL 30 MG CAP PO SCH (20:09)
[2020-10-15 03:38] LABS: Amphetamines+Metham, Urine Neg (Neg); Barbiturates, Urine Neg (Neg); Benzodiazepine, Urine Neg (Neg); Cocaine, Urine Neg (Neg); MDMA (Ecstacy), Urine Neg (Neg); Methadone, Urine Neg (Neg); Opiate, Urine Pos (Neg); Phencyclidine, Urine Neg (Neg)
[2020-10-15 04:30] LABS: Base Excess ABG 1.1 mEq/L (-9-1.8); HCO3 ABG 28 mmol/L (19-24); Oxygen Saturation ABG 91.3 % (90-95); PCO2 ABG 58 mmHg (35-46); PO2 ABG 69 mmHg (80-95); pH ABG 7.31 (7.35-7.45)
[2020-10-15 04:36] LABS: Hematocrit (blood only) 38.8 % (42-52); Hemoglobin 12.8 g/dL (14.0-18.0); Mean Corpuscular Hemoglobin 31.1 pg (25-34); Mean Corpuscular Volume 94.2 fL (80-100); Platelet Count 173 K/uL (130-400); Red Blood Count 4.12 M/uL (4.7-6.1); White Blood Count 8.26 K/uL (4.8-10.8)
[2020-10-15 04:37] LABS: Allen Test Pos (Pos); RDW Coefficient of Variation 14.5 % (11.5-14.5); RDW Standard Deviation 49.3 fL (36.4-46.3)
[2020-10-15 04:53] LABS: BUN Creatinine Ratio 21.9 (10-20); Calcium 7.6 mg/dl (8.5-10.1); Creatinine Clr Calc Pharmacy 103.5 ml/min; Est GFR (African American) 98.5
[2020-10-15 04:57] LABS: Basophils # (auto) 0.01 K/uL (0-0.2); Basophils % (auto) 0.1 %; Eosinophils # (auto) 0.21 K/uL (0-0.5); Eosinophils % (auto) 2.5 %; Immature Granulocytes # (auto) 0.02 K/uL (0.00-0.02); Immature Granulocytes % (auto) 0.2 %; Lymphocytes # (auto) 1.26 K/uL (1.2-3.4); Lymphocytes % (auto) 15.3 %; Monocytes # (auto) 0.78 K/uL (0.11-0.59); Monocytes % (auto) 9.4 %; Neutrophils # (auto) 5.98 K/uL (1.4-6.5); Neutrophils % (auto) 72.5 %
[2020-10-15 05:03] LABS: Thyroid Stimulating Hormone 0.984 uIu/ml (0.300-4.500)
[2020-10-15] MEDS ORDERED: LEVOTHYROXINE SODIUM 112 MCG TABLET PO SCH (06:30)
[2020-10-15] MEDS ORDERED: PNEUMOCOCCAL Polysaccharide Vaccine 25mcg/0.5mL vial/Syr IM ONE (08:00)
[2020-10-15] MEDS: DULoxetine HCL 30 MG CAP PO SCH (08:07)
[2020-10-15] MEDS ORDERED: ISOSORBIDE MONO EXTENDED REL 60 MG TABCR PO SCH (09:00)
[2020-10-15] MEDS ORDERED: METOPROLOL SUCC 50MG EXT REL TAB PO SCH (09:00)
[2020-10-15] MEDS ORDERED: ASPIRIN 325 MG ECTAB PO SCH (09:00)
[2020-10-15] MEDS ORDERED: amLODIPine BESYLATE 5 MG TAB PO SCH (09:00)
--- NOTE | 2020-10-15 11:19 | Cardiology Progress Note ---
Date of Service October 15, 2020 Assessment & Plan (1) Opioid overdose: 60-year-old male with chronic narcotic dependence secondary to severe chronic back pain, underlying stable chronic ischemic heart disease and class II-III angina pectoris status post coronary bypass grafting 2013 with incomplete revascularization. Patient admitted yesterday with obtundation with marked acidosis and hypoventilation secondary to narcotic use superimposed on suspected underlying sleep apnea/hypoventilation syndrome. Recent course complicated by diarrhea and dehydration with renal insufficiency Troponins elevated on admission however without associated wall motion abnormality on echocardiogram or EKG abnormality in comparison to prior. Findings reflect type II demand based ischemia secondary to marked acidosis and hypoxia rather than acute coronary syndrome Recommendations: Patient resuming usual metoprolol succinate dosing. Continue to hold losartan and diuretics until GI issues stabilized. Patient previously referred for sleep medicine evaluation unfulfilled but still necessary and may warrant initiation inpatient if to remain in hospital Patient with previous issues with narcotic usage, assessment and treatment warranted (2) Narcotic induced mental alteration: (3) Acute respiratory failure with hypoxia and hypercapnia: (4) Elevated troponin I level: (5) CHAD (acute kidney injury): (6) Coronary artery disease: Admission and Anticipated Discharge Date Admission Date: October 14, 2020 Subjective Patient was seen and examined, chart, medications, telemetry reviewed. Patient denies any complaints this morning. Somewhat unbelieving of severity of condition yesterday Currently no chest pains or shortness of breath no dizziness or lightheadedness. No arrhythmias on telemetry Physical Exam Constitutional: WD/WN, vitals as above Eyes: PERRL, conjunctivae normal, anicteric sclerae ENMT: external ear and nose normal, oropharynx normal Neck: trachea midline, no thyromegaly Respiratory: normal respiratory effort, lungs clear to auscultation Cardiovascular: Rate/Rhythm: regular rate and regular rhythm Heart Sounds: normal S1 and normal S2; no gallop and no murmur Palpation: normal PMI Vessels: normal carotid upstroke and radial pulses present; no JVD and no carotid bruit Extremities: no edema Gastrointestinal (Abdomen): normal bowel sounds, soft, nontender, no hepatosplenomegaly Musculoskeletal: no cyanosis or clubbing, extremities motor strength 5/5 Skin: no rashes, warm and dry Neurologic: PERRL, EOMI, accommodation nl, no face palsy, no dysarthria Psychiatric: A+Ox3, euthymic affect Results & Data ([facility]) Vital Signs (Past 12 Hours) Vital Signs Temp Pulse Pulse Resp BP Pulse Ox 10/15/20 09:45 90 10/15/20 04:27 36.6 C 90 16 122/66 94 10/15/20 03:33 87 16 88 L 10/14/20 23:43 82 16 92 10/14/20 23:42 36.9 C 81 20 104/63 93 Laboratory Results Laboratory Results - last 24 hr 10/14/20 10/14/20 10/14/20 10:15 12:10 12:10 WBC RBC Hgb Hct MCV MCH MCHC RDW Std Deviation RDW Coeff of Maribel Plt Count MPV Immature Gran % (Auto) Neut % (Auto) Lymph % (Auto) Jay % (Auto) Eos % (Auto) Baso % (Auto) Neut # (Auto) Lymph # (Auto) Jay # (Auto) Eos # (Auto) Baso # (Auto) Immature Gran # (Auto) ABG pH ABG pCO2 ABG pO2 ABG HCO3 ABG O2 Saturation ABG Base Excess Parth Test Barometric Pressure Oxygen Given Sodium 132 L Potassium 4.8 D Chloride 97 L Carbon Dioxide 30 Anion Gap 5.0 BUN 29 H Creatinine 1.94 H Est Cr Clr Drug Dosing 51.2 Est GFR ( Amer) 42.1 Est GFR (Non-Af Amer) 36.3 BUN/Creatinine Ratio 14.8 Glucose 173 H Calcium 8.3 L Troponin I 1.370 H* TSH Urine Color Urine Appearance Urine pH Ur Specific Soso Urine Protein Urine Glucose (UA) Urine Ketones Urine Blood Urine Nitrite Urine Bilirubin Urine Urobilinogen Ur Leukocyte Esterase Stl C. diff Tox B Gene Negative Cdiff Gene Urine Opiates Screen U Codeine Confrm GC/MS Ur Morphine (GC/MS) Ur Hydrocodone (GC/MS) Ur Norhydrocodone Ur Noroxycodone Urine Oxycodone (GC/MS) U Oxymorphone GC/MS Ur Methadone, Qual Ur Hydromorphone (GC/MS) Urine Barbiturates Ur Phencyclidine (PCP) U Amphetamin/Meth Scrn MDMA (Ecstasy) Screen U Benzodiazepines Scrn Ur Cocaine Metabolite U Marijuana (THC) Screen Drug Screen Comment 10/14/20 10/14/20 10/14/20 12:10 16:00 16:12 WBC RBC Hgb Hct MCV MCH MCHC RDW Std Deviation RDW Coeff of Maribel Plt Count MPV Immature Gran % (Auto) Neut % (Auto) Lymph % (Auto) Jay % (Auto) Eos % (Auto) Baso % (Auto) Neut # (Auto) Lymph # (Auto) Jay # (Auto) Eos # (Auto) Baso # (Auto) Immature Gran # (Auto) ABG pH 7.09 L* 7.23 L ABG pCO2 100 H 62 H ABG pO2 56 L 79 L ABG HCO3 30 H 26 H ABG O2 Saturation 84.0 L 94.6 ABG Base Excess -3.2 -2.9 Parth Test Pos Pos Barometric Pressure 735.5 735.8 Oxygen Given 15L O2 FLOW RATE 4 Sodium Potassium Chloride Carbon Dioxide Anion Gap BUN Creatinine Est Cr Clr Drug Dosing Est GFR ( Amer) Est GFR (Non-Af Amer) BUN/Creatinine Ratio Glucose Calcium Troponin I TSH Urine Color Yellow Urine Appearance Clear Urine pH 5.0 Ur Specific Soso > 1.045 H Urine Protein Negative Urine Glucose (UA) Negative Urine Ketones Negative Urine Blood Negative Urine Nitrite Negative Urine Bilirubin Negative Urine Urobilinogen Negative Ur Leukocyte Esterase Negative Stl C. diff Tox B Gene Urine Opiates Screen U Codeine Confrm GC/MS Ur Morphine (GC/MS) Ur Hydrocodone (GC/MS) Ur Norhydrocodone Ur Noroxycodone Urine Oxycodone (GC/MS) U Oxymorphone GC/MS Ur Methadone, Qual Ur Hydromorphone (GC/MS) Urine Barbiturates Ur Phencyclidine (PCP) U Amphetamin/Meth Scrn MDMA (Ecstasy) Screen U Benzodiazepines Scrn Ur Cocaine Metabolite U Marijuana (THC) Screen Drug Screen Comment 10/14/20 10/15/20 10/15/20 17:28 01:30 01:30 WBC RBC Hgb Hct MCV MCH MCHC RDW Std Deviation RDW Coeff of Maribel Plt Count MPV Immature Gran % (Auto) Neut % (Auto) Lymph % (Auto) Jay % (Auto) Eos % (Auto) Baso % (Auto) Neut # (Auto) Lymph # (Auto) Jay # (Auto) Eos # (Auto) Baso # (Auto) Immature Gran # (Auto) ABG pH ABG pCO2 ABG pO2 ABG HCO3 ABG O2 Saturation ABG Base Excess Parth Test Barometric Pressure Oxygen Given Sodium Potassium Chloride Carbon Dioxide Anion Gap BUN Creatinine Est Cr Clr Drug Dosing Est GFR ( Amer) Est GFR (Non-Af Amer) BUN/Creatinine Ratio Glucose Calcium Troponin I 0.890 H* TSH Urine Color Urine Appearance Urine pH Ur Specific Soso Urine Protein Urine Glucose (UA) Urine Ketones Urine Blood Urine Nitrite Urine Bilirubin Urine Urobilinogen Ur Leukocyte Esterase Stl C. diff Tox B Gene Urine Opiates Screen Pos H U Codeine Confrm GC/MS Pending Ur Morphine (GC/MS) Pending Ur Hydrocodone (GC/MS) Pending Ur Norhydrocodone Pending Ur Noroxycodone Pending Urine Oxycodone (GC/MS) Pending U Oxymorphone GC/MS Pending Ur Methadone, Qual Neg Ur Hydromorphone (GC/MS) Pending Urine Barbiturates Neg Ur Phencyclidine (PCP) Neg U Amphetamin/Meth Scrn Neg MDMA (Ecstasy) Screen Neg U Benzodiazepines Scrn Neg Ur Cocaine Metabolite Neg U Marijuana (THC) Screen Neg Drug Screen Comment Pending 10/15/20 10/15/20 10/15/20 01:30 04:13 04:13 WBC 8.26 RBC 4.12 L Hgb 12.8 L Hct 38.8 L MCV 94.2 MCH 31.1 MCHC 33.0 RDW Std Deviation 49.3 H RDW Coeff of Maribel 14.5 Plt Count 173 MPV 10.0 Immature Gran % (Auto) 0.2 Neut % (Auto) 72.5 Lymph % (Auto) 15.3 Jay % (Auto) 9.4 Eos % (Auto) 2.5 Baso % (Auto) 0.1 Neut # (Auto) 5.98 Lymph # (Auto) 1.26 Jay # (Auto) 0.78 H Eos # (Auto) 0.21 Baso # (Auto) 0.01 Immature Gran # (Auto) 0.02 ABG pH ABG pCO2 ABG pO2 ABG HCO3 ABG O2 Saturation ABG Base Excess Parth Test Barometric Pressure Oxygen Given Sodium 136 Potassium 4.0 D Chloride 103 Carbon Dioxide 29 Anion Gap 4.0 BUN 21 H Creatinine 0.96 D Est Cr Clr Drug Dosing 103.5 Est GFR ( Amer) 98.5 Est GFR (Non-Af Amer) 85.0 BUN/Creatinine Ratio 21.9 H Glucose 161 H Calcium 7.6 L Troponin I TSH 0.984 Urine Color Urine Appearance Urine pH Ur Specific Soso Urine Protein Urine Glucose (UA) Urine Ketones Urine Blood Urine Nitrite Urine Bilirubin Urine Urobilinogen Ur Leukocyte Esterase Stl C. diff Tox B Gene Urine Opiates Screen U Codeine Confrm GC/MS Cancelled Ur Morphine (GC/MS) Cancelled Ur Hydrocodone (GC/MS) Cancelled Ur Norhydrocodone Cancelled Ur Noroxycodone Cancelled Urine Oxycodone (GC/MS) Cancelled U Oxymorphone GC/MS Cancelled Ur Methadone, Qual Ur Hydromorphone (GC/MS) Cancelled Urine Barbiturates Ur Phencyclidine (PCP) U Amphetamin/Meth Scrn MDMA (Ecstasy) Screen U Benzodiazepines Scrn Ur Cocaine Metabolite U Marijuana (THC) Screen Drug Screen Comment Cancelled 10/15/20 04:13 WBC RBC Hgb Hct MCV MCH MCHC RDW Std Deviation RDW Coeff of Maribel Plt Count MPV Immature Gran % (Auto) Neut % (Auto) Lymph % (Auto) Jay % (Auto) Eos % (Auto) Baso % (Auto) Neut # (Auto) Lymph # (Auto) Jay # (Auto) Eos # (Auto) Baso # (Auto) Immature Gran # (Auto) ABG pH 7.31 L ABG pCO2 58 H ABG pO2 69 L ABG HCO3 28 H ABG O2 Saturation 91.3 ABG Base Excess 1.1 Parth Test Pos Barometric Pressure 734.1 Oxygen Given 4L Sodium Potassium Chloride Carbon Dioxide Anion Gap BUN Creatinine Est Cr Clr Drug Dosing Est GFR ( Amer) Est GFR (Non-Af Amer) BUN/Creatinine Ratio Glucose Calcium Troponin I TSH Urine Color Urine Appearance Urine pH Ur Specific Soso Urine Protein Urine Glucose (UA) Urine Ketones Urine Blood Urine Nitrite Urine Bilirubin Urine Urobilinogen Ur Leukocyte Esterase Stl C. diff Tox B Gene Urine Opiates Screen U Codeine Confrm GC/MS Ur Morphine (GC/MS) Ur Hydrocodone (GC/MS) Ur Norhydrocodone Ur Noroxycodone Urine Oxycodone (GC/MS) U Oxymorphone GC/MS Ur Methadone, Qual Ur Hydromorphone (GC/MS) Urine Barbiturates Ur Phencyclidine (PCP) U Amphetamin/Meth Scrn MDMA (Ecstasy) Screen U Benzodiazepines Scrn Ur Cocaine Metabolite U Marijuana (THC) Screen Drug Screen Comment (1) Opioid overdose Encounter type: initial encounter Injury intent: undetermined intent Qualified Code(s): T40.2X4A - Poisoning by other opioids, undetermined, initial encounter (2) Coronary artery disease Coronary Disease-Associated Artery/Lesion type: [place] artery [place] vs. transplanted heart: [place] heart Associated angina: angina presence unspecified Qualified Code(s): I25.10 - Atherosclerotic heart disease of [place] coronary artery without angina pectoris
--- NOTE | 2020-10-15 13:00 | Psychiatric Consultation ---
Date of Consultation October 15, 2020 Impression / Recommendations Impression 60-year-old male from [place] who has a history of multiple medical problems, no psychiatric history, and presented with altered mental status and hypoxia suspected to be due from polypharmacy/narcotic overdose. He had filled oxycodone 10 mg #120 tabs 2 days prior, and initially it appeared 21 tabs were missing, but 18 of those have now been located. He did respond to Narcan in the ER, so some element of his AMS was related to opiate use. He also had several days of GI and respiratory symptoms, which could have contributed to AMS as well. Although his expresses concerns for worsening mood, he adamantly denies symptoms of depression and other psychiatric conditions, and there may be an element of denial. There is no evidence to suggest an intentional overdose or suicide attempt, and from a psychiatric perspective, he is appropriate for discharge. There is the obvious concern about polypharmacy and respiratory depression with daily opiates in the context of his multiple medical problems, and I advised the patient that this would require ongoing discussion with his prescribing physician/PCP. Primary team indicated they would be contacting him to notify him of the hospitalization and these concerns. Patient is considered low risk for suicide as he does not have a known mental illness, no history of psychiatric treatment or suicide attempts, is , and denies thoughts of harming himself. Although he had an episode of agitation/combativeness while altered/intoxicated, his denies that he has any history of violence, he has not endorsed thoughts to harm others here, and he is at low risk of violence to others. Risk Factors Assessment Male: Yes : Yes Do You Have Access To A Gun?: Yes Health Problems: Yes Mental Health Diagnoses: No Substance Use Disorders: Yes Previous Attempt: No Family History of Suicide: No Previous Psychiatric Hospitalization: No Hopelessness: No Protective Factors Assessment : Yes Responsible for Young Children: No Employed: No Stable Relationships: Yes Supportive Family: Yes Good Rapport with Provider: Yes Psych History Identifying Data 60-year-old male who lives with his in [place], has no psychiatric history, but a history of coronary artery disease, chronic back pain and opiate dependence, presented to the ER yesterday morning via EMS with fecal incontinence and altered mental status, admitted for hypoxia thought to be due to polypharmacy. Psychiatry was consulted due to concerns for oxycodone overdose. Chief Complaint "Just waiting to go home". History of Present Illness According to the records, patient presented to the ER via EMS, had slurred speech on presentation, and said that he had taken oxycodone and Tylenol PM prior to going to bed, then woke up needing to use the bathroom, but was unable to make it in time. In the ER he had acute respiratory failure with hypoxia, and staff found a bottle of oxycodone 10 mg tabs in his pants, #120 pills which had been filled 2 days prior, and only 99 were left in the bottle. He received Narcan in the ED with improved mental status, but remained confused. UDS was positive for opiates, and his reported that he had been more depressed and irritable recently, making frustrated statements about his quality of life. She said he had seemed normal when he went to bed the night prior, was not confused or lethargic, and denied any knowledge of suicidality. In the peer specialist hours, she woke to find that he had been incontinent in the bed, and when he tried to get up to go to the bathroom, he was lethargic, unsteady, staggering, and had slurred speech. When she tried to help him, he became combative, so she called his brother to come over and help. EMS responded and brought him to the hospital. She reported but said that he had taken "a handful of meds" before coming to the hospital, which she thought were his normal morning medications. Cardiology was consulted due to elevated troponin and concerns for NSTEMI, as his said he had been complaining of chest burning, cough, and shortness of breath for the past 2-3 days. The chemistry quality control technician believed his troponin was elevated in response to hypoxia, caused by narcotic overdose. The liaison nurse contacted his for collateral information; she reported he keeps his medications scattered throughout the home and she had been unable to find his pill organizers to confirm his report that his extra oxycodone were at home in his med minder. She is concerned that he is depressed, but he minimizes his issues and has refused to talk to a counselor when she has encouraged it. She thinks that the holidays are difficult for him because their son moved away and cut off all contact with them 6 years ago, and she does not know why. She did not believe he had taken an intentional overdose. was called back with the patient in the room, and she was able to locate #18 tablets of oxycodone in the patient's Synthroid pill bottle at home. In my assessment, the patient states that he does not remember most of the day yesterday, initially stating he remembers eating breakfast, but then says "I have a really bad memory," and cannot tell me anything else that occurred prior to hospitalization. He says he thinks he might have taken a couple of Benadryl tablets in the evening for congestion, but notes that he does this frequently and has never had this type of reaction. He believes he took all his other prescribed medications correctly, and adamantly denies ever taking more oxycodone than he is prescribed. He denies symptoms of depression, anxiety, darron, and psychosis, and denies ever having suicidal thoughts. He states that he relies on his memory to know what medications he has taken throughout the day, but now thinks that he should start using a med minder. He has refused to sign a release for his PCP, stating he does not want him to think "there is something wrong with my head." Past Psychiatric History Previous Psych History: Denies Outpatient Services: None Previous Psych Admissions: Denies Do You Have Access To A Gun?: Yes History of Previous Suicide Attempt: No Past Medication Trials: Cymbalta prescribed for pain Allergies Allergy/AdvReac Type Severity Reaction Status Date / Time No Known Allergies Allergy Unverified 10/14/20 05:49 Home Medications Medication Instructions Recorded Confirmed Type amlodipine 2.5 mg PO DAILY 10/14/20 10/14/20 History aspirin 650 mg PO DAILY 10/14/20 10/14/20 History duloxetine 30 mg PO BID 10/14/20 10/14/20 History furosemide 40 mg PO DAILY 10/14/20 10/14/20 History gabapentin See Rx Instructions .ROUTE .COMPLEX 10/14/20 10/14/20 History isosorbide mononitrate 60 mg PO DAILY 10/14/20 10/14/20 History levothyroxine 112 mcg PO DAILY 10/14/20 10/14/20 History losartan 25 mg PO DAILY 10/14/20 10/14/20 History metoprolol succinate 100 mg PO DAILY 10/14/20 10/14/20 History nitroglycerin 0.4 mg SUBLINGUAL UD PRN 10/14/20 10/14/20 History oxycodone 10 mg PO QID PRN 10/14/20 10/14/20 History potassium chloride 10 meq PO DAILY 10/14/20 10/14/20 History rosuvastatin 40 mg PO QPM 10/14/20 10/14/20 History spironolactone 25 mg PO DAILY 10/14/20 10/14/20 History Substance Abuse History Opiate dependence, states he has been on prescription opiates for 8-10 years for chronic back pain Personal History Living Arrangements: Home Living Arrangements Comments: With in [place] 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) Marital Status: Number Of Children: 1 adult son who lives in [place] and has no contact with him or his Beliefs That Will Affect Care: None Patient History Medical History Chronic back pain Coronary artery disease "NSTEMI 01/28/14 cardiac cath 01/30/14 demonstrated 3-vessel disease" Dyslipidemia Hypertension Hypothyroidism Non-STEMI (non-ST elevated myocardial infarction) Social History Smoking Status: Never smoker Tobacco Type: Smokeless Tobacco (Dip or Chew) Cigarettes Per Day: Vapes; Second Hand Exposure: No; Do You Dip or Chew Tobacco: No; Tobacco Cessation Education Requested by Patient: No Hx Alcohol Use: No Hx Substance Use: Yes Last Used Substance: Unknown Preferred Language: Comoran Communication Ability: Impaired Communication Ability Comment: too lethargic to follow commands Aniline Press Worker Required: No Beliefs That Will Affect Care: None Current Living Situation: Spouse Other Information That Helps Us Care for You: No Feels Safe at Home: Yes Safety Concerns: Feels Safe At This Time Assistive Devices: Oxygen - Continuous Physical Exam Psychiatric: Orientation: alert and cooperative Overweight white male appearing his stated age, dressed in a hospital gown, reclining in bed awake and in no acute distress. O2 nasal cannula in place. Eye Contact: + fair eye contact Motor Behavior: no abnormal motor movements Speech: normal rate/rhythm/volume of speech Affect: euthymic affect and mood congruent with affect "Fine." Thought Process: goal directed thought process Thought Content: reality based without delusions Suicidal Thoughts: denies suicidal thoughts Homicidal Thoughts: denies homicidal thoughts Hallucinations: no auditory hallucinations and no visual hallucinations Cognition: attention grossly intact and language grossly intact; + recent memory not intact Insight: + poor insight Judgement: + limited judgement Vital Signs (Past 24 Hours): Last Vital Signs Temp 37.2 C 10/15/20 08:00 Pulse 90 10/15/20 09:45 Resp 16 10/15/20 08:00 BP 118/72 10/15/20 08:00 Pulse Ox 94 10/15/20 08:00 Review of Systems All systems reviewed & are unremarkable except as noted in Subjective Results & Data (PSY) Medications Administered Amlodipine Besylate (Amlodipine Besylate 5 Mg Tab) 2.5 mg PO DAILY [facility] Stop: 11/14/20 08:59 Last Admin: 10/15/20 08:07 Dose: 2.5 mg Documented by: [id number] Aspirin (Aspirin 325 Mg Ectab) 650 mg PO DAILY [facility] Stop: 11/14/20 08:59 Last Admin: 10/15/20 08:07 Dose: 650 mg Documented by: [id number] Duloxetine HCl (Duloxetine Hcl 30 Mg Cap) 30 mg PO BID [facility] Stop: 11/13/20 20:59 Last Admin: 10/15/20 08:07 Dose: 30 mg Documented by: [id number] Admin: 10/14/20 20:09 Dose: Not Given Documented by: [id number] Isosorbide Mononitrate (Isosorbide [place] Extended Rel 60 Mg Tabcr) 60 mg PO DAILY [facility] Stop: 11/14/20 08:59 Last Admin: 10/15/20 08:07 Dose: 60 mg Documented by: [id number] Levothyroxine Sodium (Levothyroxine Sodium 112 Mcg Tablet) 112 mcg PO DAILYBB [facility] Stop: 11/14/20 06:29 Last Admin: 10/15/20 05:59 Dose: 112 mcg Documented by: [id number] Metoprolol Succinate (Metoprolol Succ 50mg Ext Rel Tab) 100 mg PO DAILY [facility] Stop: 11/14/20 08:59 Last Admin: 10/15/20 08:07 Dose: 100 mg Documented by: [id number] Coding Level of Care Code 85013 [facility] Intl Hosp Care Lvl 3
--- NOTE | 2020-10-15 16:33 | Hospitalist Progress Note ---
Date of Service October 15, 2020 Assessment & Plan (1) Acute respiratory failure with hypoxia: Noted to have periods of apnea in ED - spoke with who reported that pt keeps his oxycodone with him typically. ED nursing found in pt's pants. With nursing present, bottle was counted. Script was filled for 120 pills two days ago - 99 pills were left in the bottle. Pt is prescribed 1 tab 4x/day PRN. Pt was also to be worked up for [facility] as outpatient but never followed up. notes that pt has had a cough that "sounds wet" for the past 2-3 days with associated orthopnea and chest burning, similar to prior NSTEMI in 2014. - Continue supplemental O2 - Given Narcan in the ED with improvement in mental status although still somewhat confused at times - Trend troponins, monitory on telemetry - Check ECHO - Consult cardiology due to concern for NSTEMI, hx of significant CAD, elevated troponin - ABG checked and reveals pH of 7.09, pCO2 100, pO2 56, HCO3 30 - CTA chest completed ( aware of risk of worsening kidney function with contrast in the setting of CHAD but agreeable to proceed, will give additional IVF) - atelectasis vs. viral pnuemonia, no PE (2) Opioid overdose: Unclear if intentional or accidental. Pt's reports increasing symptoms of depression and irritability with statements of frustration regarding his quality of life. However, she is unaware of an intentional overdose. Pt is missing 21 pills of oxycodone 10 mg from the prescription filled on 10/12/20. Oxycodone pill bottle given to nursing. - Suicide precautions for now - Monitor pt closely s/p Narcan administration (3) Diarrhea: Unclear etiology. Per and pt, this is ongoing for several days - Checked stool for C. diff - negative - Will give IVF hydration - NPO until mental status improves - Consider GI consult if persistent (4) Hypothyroidism: - TSH in AM - Continue levothyroxine (5) Hypertension: BP in ED is stable - reports that she thinks pt took his AM meds. Will continue to monitor. (6) Low back pain with bilateral sciatica: Ongoing issues with chronic back pain that has been worse recently - pt was considering surgery but since he is considered high risk from cardiac standpoint, his reports he has not found a surgeon willing to proceed at this time - Holding opioids in the setting of overdose - Holding NSAIDs due to CHAD - Will use prn Tylenol for now (7) Dyslipidemia: Resume statin once mental status improves and able to tolerate po (8) Coronary artery disease: See plan for #1 - telemetry, trend trops, ECHO, cardio eval (9) Metabolic acidosis: Ongoing issues with diarrhea (10) Respiratory acidosis: Treating with Narcan-patient improved. (11) Acute renal failure: Suspect due to increased use of diuretics at home and ongoing diarrhea - Received one liter of IVF in ED - will give second liter at 125 cc/hr. If c ontinued NPO, may need to give additional fluids - Consult nephrology - spoke with Dr. Rock - Follow labs updated by phone multiple times. All questions answered. Pt seen and evaluated with attending physician, Dr. Menjivar. Plan of care discussed and as outlined above and in her addendum. Hayden Gallego PA-C Admission and Anticipated Discharge Date Admission Date: October 14, 2020 Results & Data Results & Data ([facility]) Vital Signs (Past 12 Hours) Vital Signs Temp Pulse Pulse Resp BP Pulse Ox 10/15/20 09:45 90 10/15/20 08:00 37.2 C 88 16 118/72 94 Laboratory Results Short CBC 10/15/20 Range/Units 04:13 WBC 8.26 (4.8-10.8) K/uL Hgb 12.8 L (14.0-18.0) g/dL Hct 38.8 L (42-52) % Plt Count 173 (130-400) K/uL BMP 10/15/20 04:13 Sodium 136 Potassium 4.0 D Chloride 103 Carbon Dioxide 29 BUN 21 H Creatinine 0.96 D Glucose 161 H Calcium 7.6 L Cardiac Enzymes 10/14/20 Range/Units 17:28 Troponin I 0.890 H* (0-0.045) ng/ml Medications Administered Current Inpatient Medications Acetaminophen (Acetaminophen 325 Mg Tab) 650 mg PO Q6H PRN PRN Reason: Pain or Fever Stop: 11/13/20 11:15 Amlodipine Besylate (Amlodipine Besylate 5 Mg Tab) 2.5 mg PO DAILY [facility] Stop: 11/14/20 08:59 Last Admin: 10/15/20 08:07 Dose: 2.5 mg Documented by: Aspirin (Aspirin 325 Mg Ectab) 650 mg PO DAILY [facility] Stop: 11/14/20 08:59 Last Admin: 10/15/20 08:07 Dose: 650 mg Documented by: Duloxetine HCl (Duloxetine Hcl 30 Mg Cap) 30 mg PO BID [facility] Stop: 11/13/20 20:59 Last Admin: 10/15/20 08:07 Dose: 30 mg Documented by: Isosorbide Mononitrate (Isosorbide [place] Extended Rel 60 Mg Tabcr) 60 mg PO DAILY [facility] Stop: 11/14/20 08:59 Last Admin: 10/15/20 08:07 Dose: 60 mg Documented by: Levothyroxine Sodium (Levothyroxine Sodium 112 Mcg Tablet) 112 mcg PO DAILYBB [facility] Stop: 11/14/20 06:29 Last Admin: 10/15/20 05:59 Dose: 112 mcg Documented by: Metoprolol Succinate (Metoprolol Succ 50mg Ext Rel Tab) 100 mg PO DAILY [facility] Stop: 11/14/20 08:59 Last Admin: 10/15/20 08:07 Dose: 100 mg Documented by: (1) Opioid overdose Encounter type: initial encounter Injury intent: undetermined intent Qualified Code(s): T40.2X4A - Poisoning by other opioids, undetermined, initial encounter (2) Diarrhea Diarrhea type: unspecified type Qualified Code(s): R19.7 - Diarrhea, unspecified (3) Hypothyroidism Hypothyroidism type: unspecified Qualified Code(s): E03.9 - Hypothyroidism, unspecified (4) Hypertension Hypertension type: essential hypertension Qualified Code(s): I10 - Essential (primary) hypertension (5) Low back pain with bilateral sciatica Chronicity: chronic (6) Coronary artery disease Coronary Disease-Associated Artery/Lesion type: [place] artery [place] vs. transplanted heart: [place] heart Associated angina: angina presence unspecified Qualified Code(s): I25.10 - Atherosclerotic heart disease of [place] coronary artery without angina pectoris
[2020-10-15 17:55] VITALS: BP 107/67; PULSE 90; TEMP 98.6; O2SAT 93
--- NOTE | 2020-10-15 23:47 | Discharge Summary ---
Date of Service October 15, 2020 Admission HPI Per Admitting Provider This is a 60 y/o male with a PMH of CAD s/p CABG, prior NSTEMI, hypothyroid, HTN, dyslipidemia, and chronic back pain with radiculopathy who presented to the ED via EMS with diarrhea and confusion. History from the patient is unobtainable so the chart was extensively reviewed. Additional history obtained from pt's via phone. She reports that pt has had ongoing issues with fluid retention over the past several months. Diuretics have been titrated without significant improvement. Legs may be significantly swollen at times. Over the past 2-3 days, pt has developed a cough that "sounds wet" per . Associated orthopnea. He has complained of progressive dyspnea on exertion that takes several minutes of rest to improve. Pt's reports that he will get short of breath just walking to the kitchen and back. Of note, he has also been complaining of chest burning for the past 2-3 days, which is similar to just prior to his CABG in 2013. This burning has become constant per the , but pt has refused to allow her to contact his cardiology. She thinks that a repeat cardiac cath was offered at one point but that pt declined. Also over the past 2-3 days, pt has apparently developed nausea and vomiting. He used his 's Zofran with improvement. Intermittent diarrhea for several days. Early this morning, pt's woke up to find that he had been incontinent of urine and stool in the bed. Pt attempted to get up to go to the bathroom and was lethargic, unsteady and staggering with slurred speech. When she went to try to help him, he became combative so she called the pt's brother, an EMT, to come over and help. EMS was called and was eventually able to get pt calm enough to transport. He was noted to be hypoxic so O2 applied in route but it does not appear that pt received any medications. Per , pt "took a handful of meds" just prior to coming to hospital. She thinks that these were his morning meds. Pt told the ED earlier that he had taken two Tylenol PM ar ound 2 am this morning but his denies that they even have Tylenol PM in the house, stating he likely would have taken regular Tylenol. The pt keeps his oxycodone in his pocket so she is unsure how much of that he may have taken. She reports that pt was acting normally when he went to bed last evening without any confusion, lethargy or slurring of speech. She denies that he has ever been combative before. Principal Diagnosis Acute respiratory failure with hypoxia Toxic metabolic encephalopathy Metabolic acidosis 2/2 diarrhea with additional respiratory acidosis 2/2 hypopnea in setting of opioid overdose Acute renal failure-resolved Demand ischemia Morbid obesity Chronic opiate use Diarrhea Discharge Exam Not performed, Patient left AMA Discharge Data Allergies Allergy/AdvReac Type Severity Reaction Status Date / Time No Known Allergies Allergy Unverified 10/14/20 05:49 Consultations 10/14/20 06:57 ED Decision to Admit Stat 10/14/20 08:36 Consult Cardiology Routine 10/14/20 18:35 Consult Psychiatry Routine Ordered Studies 10/14/20 05:51 CT head/brain wo con Urgent 10/14/20 11:30 CT angio chest PE protocol Stat Hospital Course (1) Acute respiratory failure with hypoxia: Noted to have periods of apnea in ED - spoke with who reported that pt keeps his oxycodone with him typically. ED nursing found in pt's pants. With nursing present, bottle was counted. Script was filled for 120 pills two days ago - 99 pills were left in the bottle. Pt is prescribed 1 tab 4x/day PRN. Pt was also to be worked up for [facility] as outpatient but never followed up. notes that pt has had a cough that "sounds wet" for the past 2-3 days with associated orthopnea and chest burning, similar to prior NSTEMI in 2013. - Continue supplemental O2 - Given Narcan in the ED with improvement in mental status although still somewhat confused at times - Trend troponins, monitory on telemetry - Check ECHO - Consult cardiology due to concern for NSTEMI, hx of significant CAD, elevated troponin - ABG checked and reveals pH of 7.09, pCO2 100, pO2 56, HCO3 30 - CTA chest completed ( aware of risk of worsening kidney function with contrast in the setting of CHAD but agreeable to proceed, will give additional IVF) - atelectasis vs. viral pnuemonia, no PE (2) Opioid overdose: Unclear if intentional or accidental. Pt's reports increasing symptoms of depression and irritability with statements of frustration regarding his quality of life. However, she is unaware of an intentional overdose. Pt is missing 21 pills of oxycodone 10 mg from the prescription filled on 10/12/20. Oxycodone pill bottle given to nursing. - Suicide precautions for now - Monitor pt closely s/p Narcan administration (3) Diarrhea: Unclear etiology. Per and pt, this is ongoing for several days - Checked stool for C. diff - negative - Will give IVF hydration - NPO until mental status improves - Consider GI consult if persistent (4) Hypothyroidism: - TSH in AM - Continue levothyroxine (5) Hypertension: BP in ED is stable - reports that she thinks pt took his AM meds. Will continue to monitor. (6) Low back pain with bilateral sciatica: Ongoing issues with chronic back pain that has been worse recently - pt was considering surgery but since he is considered high risk from cardiac standpoint, his reports he has not found a surgeon willing to proceed at this time - Holding opioids in the setting of overdose - Holding NSAIDs due to CHAD - Will use prn Tylenol for now (7) Dyslipidemia: Resume statin once mental status improves and able to tolerate po (8) Coronary artery disease: See plan for #1 - telemetry, trend trops, ECHO, cardio eval (9) Metabolic acidosis: Ongoing issues with diarrhea (10) Respiratory acidosis: Treating with Narcan-patient improved. (11) Acute renal failure: Suspect due to increased use of diuretics at home and ongoing diarrhea - Received one liter of IVF in ED - will give second liter at 125 cc/hr. If continued NPO, may need to give additional fluids - Consult nephrology - spoke with Dr. Rock - Follow labs updated by phone multiple times. All questions answered. Pt seen and evaluated with attending physician, Dr. Menjivar. Plan of care discussed and as outlined above and in her addendum. Hayden Gallego PA-C (12) Toxic encephalopathy: Discharge Plan Discharge Items Patient Disposition: Against Medical Advice Reason For Visit: DIARRHEA,HYPOXIA Activity: Resume your previous activity Non-emergency contact: Primary Care Provider Follow-up/Referrals: Sami Sosa [Primary Care Provider] - Pending Studies at Discharge: No Stand-Alone Forms: [facility] Medications and DC Order Prescriptions: Continued spironolactone 25 mg tablet 25 mg PO DAILY RF: 0 nitroglycerin 0.4 mg tablet, sublingual 0.4 mg sublingual UD PRN (Reason: Chest Pain) RF: 0 oxycodone 10 mg tablet 10 mg PO QID PRN (Reason: Pain) RF: 0 losartan 25 mg tablet 25 mg PO DAILY RF: 0 potassium chloride 10 mEq tablet,ER particles/crystals 10 meq PO DAILY RF: 0 furosemide 40 mg tablet 40 mg PO DAILY RF: 0 gabapentin 300 mg capsule See Rx Instructions .ROUTE .COMPLEX RF: 0 isosorbide mononitrate 60 mg tablet extended release 24 hr 60 mg PO DAILY RF: 0 duloxetine 30 mg capsule,delayed release(DR/EC) 30 mg PO BID RF: 0 amlodipine 5 mg tablet 2.5 mg PO DAILY RF: 0 levothyroxine 112 mcg tablet 112 mcg PO DAILY RF: 0 rosuvastatin 40 mg tablet 40 mg PO QPM RF: 0 metoprolol succinate 100 mg tablet extended release 24 hr 100 mg PO DAILY RF: 0 aspirin 325 mg Tablet 650 mg PO DAILY RF: 0 Discharge Orders: Left Against Medical Advice (Routine); Ordered 10/15/20 Ordered By: Ana Menjivar Admission Data Admit Date/Time: 10/14/20 08:36 Attending Provider: Ana Menjivar Admit Provider: Ana Menjivar Primary Care Provider: Sami Sosa Other Providers: Ayden Duque ; Haile Dias ; Nancy Taylor ; Alirio Dickey ; Hayes Loving ; Daryn Helm ; Janeth Angulo ; Gilmar Horowitz ; Dianne Barragan ; Caron Smith ; Shilpa Sanches ; Julius Soria I. ; Elicia Crowder ; Mary Benitez ; Khushi Calix ; Santi Peacock
[2020-10-17 11:47] LABS: Codeine Urine NEGATIVE ng/mL (<50); Hydrocodone Urine NEGATIVE ng/mL (<50); Hydromor Urine NEGATIVE ng/mL (<50); Morphine Urine NEGATIVE ng/mL (<50); Norhydrocodone Conf Ur NEGATIVE ng/mL (<50); Noroxycodone Urine 4610 ng/mL (<50); Oxycodone Urine 7330 ng/mL (<50); Oxymorph Urine 1510 ng/mL (<50)
== END 2020-10-15 17:55 | disposition left against medical advice (07) | DRG 917 ==
LOC: ED 05:18 → EDINP 08:36 → 1E 15:59 → 2S 22:50 → 1E 23:41

== ENCOUNTER 2022-04-27 00:29 | Inpatient (IN) ==
[2022-04-27] MEDS ORDERED: HYDROmorphone INJ 1 MG/ML SYRINGE IV STA (00:55)
[2022-04-27] MEDS ORDERED: ONDANSETRON INJ 2 MG/ML 2 ML VIAL IV STA (00:55)
--- NOTE | 2022-04-27 01:11 | Emergency Department Note ---
Impression & Plan Dental abscess, Hypoxia Admit to the [facility] ED Provider Note NAME: ADILIA ACHARYA AGE: 61 SEX: M ARRIVES VIA: Walk-In INFORMANT: Patient and his ED PROVIDER(S): Ellie Benson DO CHIEF COMPLAINT: Dental infection PLAN: Disposition: Admit to the [facility] Condition: Guarded MEDICAL DECISION MAKING: This is a 61-year-old male patient who presents to the emergency department with a fractured tooth and swelling to the left side of his face. Patient is a type II diabetic. Throughout his work-up in the emergency department, the patient had episodes of hypoxia and hypotension. He was placed on supplemental oxygen. His O2 dropped as low as 71% on room air. He had to be placed on supplemental oxygen and remained there. He had a CTA of his chest to rule out PE. This was negative. He required supplemental oxygen and IV crystalloid therapy to support his pressure. I am unsure as to the cause of the hypoxia. Chest CT was negative. I did add on CT of the soft tissues of the neck as a possible cause of compression of his airway. This is currently pending. Although, the patient is not having any stridor, respiratory distress or difficulty with his breathing. I di the patient has received IV antibiotics for the dental abscess. [facility] for [facility] to the hospital. Triage Nursing notes reviewed and agree with them. Additional history obtained from his is at the bedside Vital Signs: reviewed and remarkable for tachycardia Differential diagnosis: Dental abscess, dentalgia, fractured tooth, PE, pneumonia, airway impingement ER treatment provided: IV Dilaudid, IV Zofran, IV normal saline boluses IV Rocephin Diagnostics interpreted by me: ECG: Normal sinus rhythm at a rate of 89 with flattened T waves in the lateral leads. No ST segment elevation or signs of ischemia. There is no ectopy. Cardiac Monitoring: Normal sinus rhythm at a rate of 82 Laboratory studies: See below Imaging studies: As per stat rad CTA CHEST: No pulmonary embolism detected. No acute findings along the aorta. Dependent atelectatic changes within the visualized lungs. Please note that the lung bases are incompletely visualized. Sternotomy and CABG changes. No other acute findings. CT septations of neck: Pending Portable chest x-ray: As per my interpretation No acute pulmonary infiltrates or consolidations HPI: 61/M arrives for evaluation of dental pain. The patient presents to the emergency department with left-sided jaw pain and swelling. He states that he fractured a tooth and contacted his dentist who recommended he come to the emergency department because of his previous history of cardiac issues. Patient is also noticed some shortness of breath and diaphoresis. ROS: See above HPI for pertinent positives & negatives. A total of 10 systems reviewed and were otherwise negative. PAST MEDICAL HISTORY:See Below PAST SURGICAL HISTORY:See Below FAMILY HISTORY:See Below SOCIAL HISTORY:See Below HOME MEDICATIONS:See list ALLERGIES:None VITALS:See Below PHYSICAL EXAMINATION: HEENT: Head - normocephalic and atraumatic. Pupils are equal, round, and reactive to light. Extraocular eye muscles are intact, and sclera are anicteric. Nose - moist nasal mucosa without discharge. Mouth - moist buccal mucosa. There is a fractured molar on the left lower mouth. This is quite tender to palpation. There is surrounding gingival erythema and edema. Oropharynx is nonerythematous and there is no tonsillar exudate or edema noted. Ears-normal TMs. There is significant edema to the left side of the face over the left mandible that extends down to the neck and posterior towards the ear. Neck: Supple; no cervical lymphadenopathy or JVD Heart: Regular rate and rhythm. There is a normal S1 and S2 with no murmurs, clicks, or gallops appreciated. Lungs: Clear to auscultation bilaterally with no wheezes, rales, or rhonchi. Abdomen: Soft, completely nontender, nondistended, with good bowel sounds. There are no palpable pulsatile masses or hepatosplenomegaly. There is no g uarding, rigidity, or rebound noted. Extremities: No evidence of cyanosis, clubbing, or edema. There are easily palpable peripheral pulses. Skin: Pale, warm and diaphoretic with good turgor and no rashes. ED COURSE: Times/Reassessments: 0040: Patient was evaluated in room C 12. IV lock was initiated and labs were drawn as above. An order was placed for continuous cardiac monitoring. The patient was in a sinus tachycardia at 102. Patient will go for a chest x-ray. An order was placed for IV Dilaudid and IV Zofran. The patient kept having episodes of hypoxia and hypotension. He was bolused with IV normal saline solution and went for CT a of the chest to rule out PE. This was negative. Patient was treated with IV Rocephin for the dental abscess. The decision was made to admit the patient. I will talk to the [facility] Hospitalist. Patient will go back for a soft tissue neck x-ray to ensure there is no evidence of impingement upon the airway from this dental abscess. I have personally spent greater than 50 minutes of critical care time in the direct management of this patient. This includes bedside care, interpretation of diagnostic studies, and testing, discussion with consultants, patient, and family members, and other required patient management activities. This 50 minutes is in excess of all separately billable procedures. Ellie Benson DO Past Med/Surg History Medical History Chronic back pain Coronary artery disease "NSTEMI 01/28/14 cardiac cath 01/30/14 demonstrated 3-vessel disease" Dyslipidemia Hypertension Hypothyroidism Non-STEMI (non-ST elevated myocardial infarction) Social History Smoking Status: Never smoker Tobacco Type: Smokeless Tobacco (Dip or Chew) Cigarettes Per Day: Vapes; Second Hand Exposure: No; Hx Alcohol Use: No Hx Substance Use: No Preferred Language: Canadian Communication Ability: Effective Double Needle Stitcher Required: No Beliefs That Will Affect Care: None marital status: Current Living Situation: Spouse Other Information That Helps Us Care for You: No Feels Safe at Home: Yes Safety Concerns: Feels Safe At This Time Assistive Devices: Cane Allergies Allergies Allergy/AdvReac Type Severity Reaction Status Date / Time No Known Allergies Allergy Unverified 10/14/20 05:49 Home Meds Home Medications Medication Instructions Recorded Confirmed amlodipine 5 mg tablet 2.5 mg PO DAILY 10/14/20 04/27/22 aspirin 325 mg tablet 650 mg PO DAILY 10/14/20 04/27/22 gabapentin 300 mg capsule See Rx Instructions .Route .COMPLEX 10/14/20 04/27/22 isosorbide mononitrate 60 mg 60 mg PO DAILY 10/14/20 04/27/22 tablet,extended release 24 hr levothyroxine 112 mcg tablet 112 mcg PO DAILY 10/14/20 04/27/22 losartan 25 mg tablet 25 mg PO DAILY 10/14/20 04/27/22 metoprolol succinate 100 mg 100 mg PO DAILY 10/14/20 04/27/22 tablet,extended release 24 hr nitroglycerin 0.4 mg sublingual 0.4 mg sublingual UD PRN Chest Pain 10/14/20 04/27/22 tablet potassium chloride 10 mEq 10 meq PO DAILY 10/14/20 04/27/22 tablet,extended release(part/cryst) rosuvastatin 40 mg tablet 40 mg PO QPM 10/14/20 04/27/22 spironolactone 25 mg tablet 25 mg PO DAILY 10/14/20 04/27/22 diclofenac sodium 75 mg 75 tab PO BID 04/27/22 04/27/22 tablet,delayed release empagliflozin 25 mg tablet 25 mg PO DAILY 04/27/22 04/27/22 (Jardiance) evolocumab 140 mg/mL subcutaneous 1 ea subcut 04/27/22 pen injector (Salomón Edgar) fenofibrate 54 mg tablet 54 mg PO DAILY 04/27/22 04/27/22 furosemide 40 mg tablet 40 mg PO DAILY 04/27/22 04/27/22 metformin 500 mg tablet 500 mg PO BID 04/27/22 04/27/22 venlafaxine 75 mg capsule,extended 75 cap PO DAILY 04/27/22 04/27/22 release 24 hr Previous Rx's Medication Instructions Recorded penicillin V potassium 500 mg 500 mg PO BID 10 days #20 tabs 04/27/22 tablet Results & Data (ED) Vital Signs Vital Signs - 24 hr 04/27/22 00:34 04/27/22 01:40 04/27/22 01:40 Temperature 36.7 C Temperature Source Temporal Artery Scan Pulse Rate 100 H 85 Pulse Rhythm Regular Respiratory Rate 18 Respiratory Effort / Characteristics Non-Labored Spontaneous Respiratory Depth Normal Blood Pressure 105/67 Blood Pressure Mean 79 Blood Pressure Position Sitting Pulse Oximetry 95 87 L 97 Oxygen Delivery Method Room Air Nasal Cannula Nasal Cannula Oxygen Flow Rate 0 2 Sepsis Recent Fever Within 48 Hours No Sepsis New/Unexplained Change in Mental Status N/A Sepsis Action Taken by Nursing No Action Required Oxygen Flow Rate - Titration 2 Pulse Oximetry Post Tiitration 97 Laboratory Data Result diagrams: 04/28/22 05:40 04/28/22 05:40 Lab Results 04/27/22 04/27/22 04/27/22 Range/Units 01:12 01:12 04:16 WBC 7.47 (4.8-10.8) K/ul RBC 4.94 (4.63-6.08) M/uL Hgb 14.8 (14.0-18.0) g/dl Hct 45.0 (40.1-51.0) % MCV 91.1 (80.0-100.0) fL MCH 30.0 (25.0-34.0) pg MCHC 32.9 (32.0-36.0) g/dL RDW Std Deviation 48.6 H (36.4-46.3) fL RDW Coeff of Maribel 14.6 H (11.5-14.5) % Plt Count 181 (130-400) K/uL MPV 10.4 (9.4-12.4) fL Immature Gran % (Auto) 0.7 % Neut % (Auto) 72.9 % Lymph % (Auto) 15.0 % Sherman % (Auto) 9.2 % Eos % (Auto) 1.5 % Baso % (Auto) 0.7 % Neut # (Auto) 5.45 (1.4-6.5) K/uL Lymph # (Auto) 1.12 L (1.2-3.4) K/uL Sherman # (Auto) 0.69 (0.24-0.82) K/uL Eos # (Auto) 0.11 (0-0.50) K/uL Baso # (Auto) 0.05 (0-0.2) K/uL Immature Gran # (Auto) 0.05 H (0.00-0.02) K/uL Sodium 136 (136-145) mmol/L Potassium 3.4 L (3.5-5.1) mmol/L Chloride 98 (98-107) mmol/L Carbon Dioxide 26 (21-32) mmol/L Anion Gap 12 H (3-11) BUN 19 (6-23) mg/dl Creatinine 1.40 (0.6-1.4) mg/dl Est Cr Clr Drug Dosing 68.0 ml/min Est GFR ( Amer) 62.0 ml/min Est GFR (Non-Af Amer) 53.5 ml/min BUN/Creatinine Ratio 13.6 (10-20) Glucose 178 H (70-99(Fasting)) mg/dl Calcium 9.2 (8.5-10.1) mg/dl Troponin I High Sens 6.7 (0-20) pg/ml SARS-CoV-2, RNA, NAAT NEGATIVE (NEGATIVE) Administered Medications Acetaminophen (Acetaminophen 325 Mg Tab) 650 mg PO Q4H PRN PRN Reason: Pain or Fever Stop: 05/27/22 08:22 Last Admin: 04/28/22 08:19 Dose: 650 mg Documented By: Admin: 04/27/22 22:52 Dose: 650 mg Documented By: Admin: 04/27/22 14:29 Dose: 650 mg Documented By: Fenofibrate (Fenofibrate Nanocrystallized 48 Mg Tablet) 48 mg PO DAILY [facility] Stop: 05/28/22 08:59 Last Admin: 04/28/22 08:19 Dose: 48 mg Documented By: TAMIKA Furosemide (Furosemide 40 Mg Tab) 40 mg PO DAILY [facility] Stop: 05/28/22 08:59 Last Admin: 04/28/22 08:19 Dose: 40 mg Documented By: TAMIKA Gabapentin (Gabapentin 300 Mg Cap) 300 mg PO BID@1400,2100 [facility] Stop: 05/27/22 14:59 Last Admin: 04/28/22 15:48 Dose: 300 mg Documented By: Admin: 04/27/22 19:55 Dose: 300 mg Documented By: Admin: 04/27/22 16:22 Dose: 300 mg Documented By: Gabapentin (Gabapentin 600 Mg Tab) 600 mg PO DAILY@0800 [facility] Stop: 05/28/22 07:59 Last Admin: 04/28/22 08:19 Dose: 600 mg Documented By: TAMIKA Hydromorphone HCl (Hydromorphone Inj 1 Mg/Ml Syringe) 1 mg IV Q8H PRN PRN Reason: Severe Pain Stop: 05/11/22 09:14 Last Admin: 04/28/22 02:42 Dose: 1 mg Documented By: Admin: 04/27/22 19:15 Dose: 1 mg Documented By: Admin: 04/27/22 10:20 Dose: 1 mg Documented By: Ampicillin Sodium/Sulbactam Sodium 3,000 mg/ Sodium Chloride 108 mls @ 200 mls/hr IV Q6H BIRD; Protocol Stop: 05/04/22 08:22 Last Admin: 04/28/22 15:48 Dose: 200 mls/hr Documented By: Infusion: 04/28/22 09:23 Dose: 0 mls/hr Documented By: Admin: 04/28/22 08:28 Dose: 200 mls/hr Documented By: Infusion: 04/28/22 02:35 Dose: 0 mls/hr Documented By: Admin: 04/28/22 02:02 Dose: 200 mls/hr Documented By: Infusion: 04/27/22 20:28 Dose: 0 mls/hr Documented By: Admin: 04/27/22 19:55 Dose: 200 mls/hr Documented By: Infusion: 04/27/22 13:53 Dose: 0 mls/hr Documented By: Admin: 04/27/22 13:20 Dose: 200 mls/hr Documented By: Infusion: 04/27/22 09:52 Dose: 0 mls/hr Documented By: Admin: 04/27/22 09:19 Dose: 200 mls/hr Documented By: Isosorbide Mononitrate (Isosorbide Sherman Extended Rel 60 Mg Tabcr) 60 mg PO DAILY [facility] Stop: 05/28/22 08:59 Last Admin: 04/28/22 08:19 Dose: 60 mg Documented By: TAMIKA Levothyroxine Sodium (Levothyroxine Sodium 112 Mcg Tablet) 112 mcg PO DAILYBB [facility] Stop: 05/28/22 06:29 Last Admin: 04/28/22 06:18 Dose: 112 mcg Documented By: BLAYNE Metoprolol Succinate (Metoprolol Succ 50mg Ext Rel Tab) 100 mg PO DAILY [facility] Stop: 05/28/22 08:59 Last Admin: 04/28/22 08:19 Dose: 100 mg Documented By: TAMIKA Ondansetron HCl (Ondansetron Inj 2 Mg/Ml 2 Ml Vial) 4 mg IV Q6H PRN PRN Reason: Nausea Stop: 05/27/22 08:22 Last Admin: 04/27/22 15:54 Dose: 4 mg Documented By: Rosuvastatin Calcium (Rosuvastatin Calcium 20 Mg Tab) 40 mg PO QPM B[facility] Stop: 05/27/22 20:59 Last Admin: 04/27/22 19:55 Dose: 40 mg Documented By: BLAYNE Venlafaxine HCl (Venlafaxine Hcl Xr 75 Mg Capxr) 75 mg PO DAILY [facility] Stop: 05/28/22 08:59 Last Admin: 04/28/22 08:19 Dose: 75 mg Documented By: TAMIKA Discontinued Medications Bupivacaine HCl (Bupivacaine/Epinephrine 0.5% 1:200,000 1.8 Ml Carp) Confirm Administered Dose 10.8 ml .ROUTE .STK-MED ONE Stop: 04/28/22 11:45 Last Admin: 04/28/22 13:10 Dose: 5.4 ml Documented By: CALLUM Chlorhexidine Gluconate (Chlorhexidine Gluconate 0.12% 480 Ml) Confirm Administered Dose 480 ml .ROUTE .STK-MED ONE Stop: 04/28/22 11:45 Last Admin: 04/28/22 13:02 Dose: 60 ml Documented By: CALLUM Hydromorphone HCl (Hydromorphone Inj 1 Mg/Ml Syringe) 1 mg IV NOW STA Stop: 04/27/22 00:56 Last Admin: 04/27/22 01:19 Dose: 1 mg Documented By: EMILI Ceftriaxone Sodium (Rocephin) 2,000 mg in 70 mls @ 140 mls/hr IV NOW STA Stop: 04/27/22 02:18 Last Infusion: 04/27/22 02:40 Dose: 0 mls/hr Documented By: Admin: 04/27/22 02:03 Dose: 140 mls/hr Documented By: EMILI Sodium Chloride (Nss 1000ml) 1,000 mls @ 100 mls/hr IV .Q10H BIRD Stop: 05/27/22 08:22 Last Infusion: 04/27/22 17:33 Dose: 0 mls/hr Documented By: Admin: 04/27/22 09:01 Dose: 100 mls/hr Documented By: Insulin Aspart (Insulin Aspart Per Unit) 0 units SC Q6H BIRD Stop: 05/27/22 08:22 Last Admin: 04/28/22 13:24 Dose: Not Given Documented By: Admin: 04/28/22 06:11 Dose: Not Given Documented By: Admin: 04/28/22 00:10 Dose: Not Given Documented By: Admin: 04/27/22 17:57 Dose: 4 units Documented By: Co-signed By: ROLANDA Admin: 04/27/22 12:28 Dose: Not Given Documented By: Co-signed By: ROLANDA Admin: 04/27/22 09:21 Dose: Not Given Documented By: Co-signed By: ROLANDA Ioversol (Optiray 320 125ml) 125 ml IV ONCE ONE Stop: 04/27/22 04:37 Last Admin: 04/27/22 04:37 Dose: 106 ml Documented By: EUGENIO Ketorolac Tromethamine (Ketorolac 30 Mg/Ml Vial) Confirm Administered Dose 30 mg .ROUTE .STK-MED ONE Stop: 04/27/22 02:21 Last Admin: 04/27/22 06:49 Dose: Not Given Documented By: EMILI Ketorolac Tromethamine (Ketorolac Tromethamine 15 Mg/Ml Vial) 15 mg IV NOW ONE Stop: 04/27/22 22:30 Last Admin: 04/27/22 22:52 Dose: 15 mg Documented By: BLAYNE Ondansetron HCl (Ondansetron Inj 2 Mg/Ml 2 Ml Vial) 4 mg IV NOW STA Stop: 04/27/22 00:56 Last Admin: 04/27/22 01:18 Dose: 4 mg Documented By: EMILI Ondansetron HCl (Ondansetron Inj 2 Mg/Ml 2 Ml Vial) 4 mg IV ONCE PRN PRN Reason: PACU Use Only-Nausea/Vomiting Stop: 04/28/22 21:44 Last Admin: 04/28/22 13:53 Dose: 4 mg Documented By: RADHA Oxycodone/Acetaminophen (Oxycodone/Acetaminophen 5mg/325mg Tab) Confirm Administered Dose 2 tab PO .STK-MED ONE Stop: 04/27/22 03:12 Last Admin: 04/27/22 06:49 Dose: Not Given Documented By: EMILI Oxycodone/Acetaminophen (Oxycodone/Acetaminophen 10-325 Tab) 1 tab PO NOW STA Stop: 04/28/22 10:42 Last Admin: 04/28/22 11:12 Dose: 1 tab Documented By: TAMIKA Potassium Chloride (Potassium Chloride Crtab 20 Meq Tabcr) 40 meq PO NOW STA Stop: 04/27/22 09:14 Last Admin: 04/27/22 10:20 Dose: 40 meq Documented By: Discharge Plan Visit Data Chief Complaint: Dental/Oral Stated Complaint: L SIDE JAW PAIN, SWELLING - X3 DAYS ED Provider: Ellie Benson Discharge Problem: Dental abscess, Hypoxia Patient Disposition: Admitted As Inpatient Discharge Instructions Interventions: ED Discharge Assessment Last Done: 04/27/22 07:53
[2022-04-27 01:22] LABS: Basophils # (auto) 0.05 K/uL (0-0.2); Basophils % (auto) 0.7 %; Eosinophils # (auto) 0.11 K/uL (0-0.50); Eosinophils % (auto) 1.5 %; Hemoglobin 14.8 g/dl (14.0-18.0); Immature Granulocytes # (auto) 0.05 K/uL (0.00-0.02); Immature Granulocytes % (auto) 0.7 %; Lymphocytes # (auto) 1.12 K/uL (1.2-3.4); Mean Corpuscular Hgb Conc 32.9 g/dL (32.0-36.0); Mean Corpuscular Volume 91.1 fL (80.0-100.0); Mean Platelet Volume 10.4 fL (9.4-12.4); Monocytes # (auto) 0.69 K/uL (0.24-0.82); Monocytes % (auto) 9.2 %; Neutrophils # (auto) 5.45 K/uL (1.4-6.5); Neutrophils % (auto) 72.9 %; Platelet Count 181 K/uL (130-400); RDW Coefficient of Variation 14.6 % (11.5-14.5); RDW Standard Deviation 48.6 fL (36.4-46.3); Red Blood Count 4.94 M/uL (4.63-6.08); White Blood Count 7.47 K/ul (4.8-10.8)
[2022-04-27 01:41] LABS: BUN Creatinine Ratio 13.6 (10-20); Calcium 9.2 mg/dl (8.5-10.1); Est GFR (Non-African American) 53.5 ml/min; Potassium 3.4 mmol/L (3.5-5.1)
[2022-04-27] MEDS ORDERED: cefTRIAXone SODIUM 2,000 MG/70 ML BAG IV STA (01:49)
[2022-04-27] MEDS ORDERED: KETOROLAC 30 MG/ML VIAL ONE (02:20)
[2022-04-27] MEDS ORDERED: oxyCODONE/ACETAMINOPHEN 5mg/325mg TAB PO ONE (03:11)
[2022-04-27] MEDS ORDERED: OPTIRAY 320 125ml IV ONE (04:36)
[2022-04-27 05:32] LABS: Troponin I High Sensitivity 6.7 pg/ml (0-20)
--- NOTE | 2022-04-27 07:12 | CT Scan Report ---
CT angio chest PE protocol CLINICAL HISTORY: HYPOXIA, R/O PE TECHNIQUE: Multidetector row helical CT of the chest was performed with angiographic protocol. Radford l and sagittal reformations were obtained. Coronal and sagittal MIPS were obtained from the axial naomi a set and were submitted for review. Automated dose lowering techniques and/or adjustment according to patient size were utilized for this exam. Comparison: Comparison is made to CTA chest 10/14/2020 FINDINGS: Lungs and pleura: Atelectasis versus scarring is seen in the dependent portions of the lungs. There i s a pleural-based 5 mm nodule at the left lower lobe (series 4 image 77). Heart and pericardium: Heart size is normal. No pericardial effusion. Vessels: No evidence of pulmonary embolism. Mediastinum and alaina: There is a 7 mm right hilar node. Chest wall and lower neck: Gynecomastia is noted bilaterally. Abdomen: Unremarkable. Bones: Degenerative changes in the thoracic spine. IMPRESSION: 1. No evidence of pulmonary embolism. 2. 5 mm nodule at the left lower lobe. According to Fleischner criteria, no follow-up is required in low risk patients, in high-risk patients, a 12 month follow-up CT can be optionally performed. ACT 112: Negative or not required by law. Electronically signed by: Vik House M.D. 04/27/2022 7:11 AM
--- NOTE | 2022-04-27 07:30 | CT Scan Report ---
CT SCAN OF THE NECK WITHOUT IV CONTRAST CLINICAL HISTORY: Hypoxia. Clinical concern for airway narrowing. COMPARISON STUDY: Cervical spine radiographs dated 08/06/2015. TECHNIQUE: Unenhanced CT scan of the soft tissues of the neck was performed from the skull base to th e upper chest. Images are reviewed in the axial, sagittal, and coronal planes. IV contrast was not a dministered for this examination. Note that the examination is significantly suboptimal without IV co ntrast. A dose lowering technique was utilized adhering to the principles of ALARA. CT DOSE: 655.67 mGycm FINDINGS: Pharynx: The unenhanced pharyngeal soft tissues are grossly normal in appearance. The pharyngeal airw ay is widely patent. There is no evidence of mass lesion. The vocal cords are symmetric. The paraphar yngeal fat is well maintained. The prevertebral/retropharyngeal soft tissues are within normal limits . The epiglottis is normal. Soft tissues: There is superficial and deep soft tissue infiltration identified overlying the left as pect of the mandible. Subcutaneous soft tissue edema extends inferiorly to the level of the thyroid c artilage. No organized fluid collection is identified on this unenhanced examination. There is underl delio periodontal disease involving left mandibular molars. Lymphadenopathy: No cervical lymphadenopathy is seen Thyroid: Normal in size and attenuation. Salivary glands: The parotid and submandibular glands are within normal limits. Brain parenchyma: The visualized brain parenchyma at the skull base is normal in appearance. Skeletal structures: Imaged portions of the calvarium at the skull base are within normal limits. The cervical spine appears intact. No lytic or blastic lesion is seen. Sinuses and mastoids: The paranasal sinuses are clear. The mastoid air cells are well pneumatized. Orbits: The bony orbits are intact. Orbital contents are normal as visualized. Upper chest: The patient is status post midline sternotomy. The visualized upper lobe lung parenchyma appears clear. The trachea is widely patent. IMPRESSION: 1. There is evidence of cellulitis involving the left facial soft tissues overlying the mandible and extending into the left anterior neck as above. This may related to underlying periodontal disease an d clinical correlation will be required. 2. No organized fluid collection is seen to suggest abscess on this unenhanced examination. 3. The unenhanced pharyngeal soft tissues are grossly normal. ACT 112: Negative or not required by law. Electronically signed by: Shane Serrato M.D. 04/27/2022 7:28 AM
--- NOTE | 2022-04-27 07:39 | XRay Report ---
XR chest 1V portable CLINICAL HISTORY: sob TECHNIQUE: Single frontal radiograph of the chest was obtained. Comparison: Comparison is made to chest radiograph 10/14/2020 FINDINGS: Median sternotomy wires are unchanged. Cardiomegaly is noted. The lungs are clear. No evidence of ple ural effusion or pneumothorax. IMPRESSION: No acute chest disease. ACT 112: Negative or not required by law. Electronically signed by: Vik House M.D. 04/27/2022 7:37 AM
[2022-04-27] MEDS ORDERED: NITROGLYCERIN SL 0.4 MG/TAB TAB SL PRN (08:23)
[2022-04-27] MEDS ORDERED: SODIUM CHLORIDE 0.9% 1000ML 1,000 ML IV SCH (08:23)
[2022-04-27] MEDS ORDERED: POLYETHYLENE (MIRALAX) 17 GM PACK PO PRN (08:23)
[2022-04-27] MEDS ORDERED: ONDANSETRON INJ 2 MG/ML 2 ML VIAL IV PRN (08:23)
[2022-04-27] MEDS ORDERED: POTASSIUM CHLORIDE CRTAB 20 MEQ TABCR PO STA (09:13)
[2022-04-27] MEDS: AMPICILLIN/SULBACTAM SOD 3,000 MG in 0.9 % SODIUM CHLORIDE 100 ML IV SCH ×3 (09:19→19:55)
[2022-04-27] MEDS: INSULIN ASPART PER UNIT SC SCH ×3 (09:21→17:57)
--- NOTE | 2022-04-27 09:48 | History and Physical Report ---
DATE OF ADMISSION: 04/27/2022. CHIEF COMPLAINT: Left dental abscess and facial cellulitis. HISTORY OF PRESENT ILLNESS: This 61-year-old male with past medical history significant for type 2 diabetes, hyperlipidemia, CAD status post CABG in 2013, hypertension, chronic kidney disease stage II, back pain, depression, obesity, who presents with a left lower dental abscess and facial cellulitis. The patient since 2 weeks ago, he broke up the teeth and filling came out, and he tried to call his dentist, but could not get an appointment, but last 2 days, the swelling got worse and has a lot of pain, he called a dentist on the phone and because of his cardiac history, they advised to get cleared by Cardiology and advised to go to the ER. In the ER, he was somewhat hypoxic oxygen sats in 80s, requiring 2 liters of oxygen. The patient says even before Dilaudid was given, he was hypoxic. The patient says since he had CABG in 2013 he gets short of breath on exertion but rest is okay. He says he did not check if he has any fever. He is swallowing okay, has some mild headache because of this pain is shooting into the left ear and head. Denies any dizziness. In the right eye he is somewhat blurry from the pain, some runny nose from the pain, no cough, no chest pain. He was taking Advil for last few days and thinks it irritated his stomach and caused nausea, he was given Zofran in the ER, the nausea improved. Denies abdominal pain. Denies any blood in stools. He says his stools are always black because of what he eats. Denies any hematuria, no swelling in the legs, no rash, resting comfortably currently. ALLERGIES: No known drug allergies. PAST MEDICAL HISTORY: As mentioned above. PAST SURGICAL HISTORY: CABG. MEDICATIONS: As per [facility], the patient is on gabapentin 800 mg p.o. t.i.d., metformin 500 mg p.o. b.i.d., lovastatin 40 mg p.o. daily, diclofenac sodium 75 mg p.o. b.i.d. with food, venlafaxine 75 mg p.o. daily, Jardiance 25 mg p.o. daily, Repatha 140 mg in the skin every 14 days, isosorbide mononitrate ER 60 mg p.o. daily, Tylenol 500 mg p.o. q. 6 hours p.r.n., amlodipine 2.5 mg p.o. daily, fenofibrate 54 mg p.o. daily, Lasix 40 mg p.o. daily plus additional 1, 2, 3 days per week, levothyroxine 112 mcg p.o. daily, losartan 25 mg p.o. daily, nitroglycerin 0.4 mg sublingual p.r.n., Klor-Con 10 mEq p.o. daily, Toprol-XL 100 mg p.o. daily, spironolactone 25 mg p.o. daily, aspirin 650 mg p.o. daily. FAMILY HISTORY: Significant for father has cancer, heart disorder. Brother has heart disorder. Mother has heart disorder. SOCIAL HISTORY: . No smoking. Chews one can every couple of days. No alcohol use. No drug use. REVIEW OF SYSTEMS: As per HPI. Rest of the review of systems is negative. PHYSICAL EXAMINATION: GENERAL: The patient is obese, not in acute distress. VITAL SIGNS: Temperature 36.7, pulse 67, respiratory rate 16, blood pressure 96/79, oxygen 96% on 2 liters, was 87% on room air. HEENT: Pupils equal, round and reactive to light. Oral mucosa moist. Left facial swelling seen with tenderness on touch and redness. NECK: No JVD. No neck masses seen. CARDIOVASCULAR: S1 and S2 heard. Regular rate and rhythm. No murmur, no gallop. RESPIRATORY SYSTEM: Normal AP diameter. No accessory muscle use. No wheezing, no crackles. ABDOMEN: Soft, bowel sounds present, nontender, no distention. CENTRAL NERVOUS SYSTEM: Cranial nerves II-XII grossly intact, nonfocal. EXTREMITIES: No edema, no erythema. LABORATORY DATA: WBC 7.4, hemoglobin 14.8, hematocrit 45, platelets 181. Sodium 136, potassium 3.4, chloride 98, bicarbonate 26, BUN 19, creatinine 1.4, serum glucose 178, calcium 9.2, total troponin I high sensitivity 6.7. SARS-CoV-2 rapid test negative. IMAGING: Chest CTA, no evidence of pulmonary embolism. 5 mm left lower lobe. Soft tissue and neck CT results are pending. EKG: Normal sinus rhythm at a rate of 89, No acute st changes. ASSESSMENT AND PLAN: This 61-year-old male presents with a dental abscess and hypoxemia in the ER. 1. Dental abscess, dental pain going on for the last 2 weeks when the teeth broke in left lower jaw. ladt couple of days pain got worse and face started swelling We will treat him with IV Unasyn. Orofacial surgery consult. Will keep him n.p.o. until seen by dental surgeon. Monitor in the hospital. 2. Hypoxia. The patient does get short of breath on exertion since his CABG in 2013. He is requiring oxygen in the ER, probably from the pain. The CTA of the chest was unremarkable. Soft tissue neck CT is pending. We will closely monitor. 3. History of coronary artery disease, status post coronary artery bypass grafting. Continue his home medication of statin, beta blair and aspirin. The patient is on high-dose of aspirin. Cardiology consulted for cardiac clearance. 4. Chronic kidney disease, stage II. We will follow the labs. 5. History of hypertension. Continue his home medication of amlodipine, isosorbide mononitrate, Lasix, metoprolol, losartan, spironolactone. We will monitor the blood pressure. 6. Depression. Follow up with PCP. 7. Diabetes. Hold his metformin and Jardiance. Placed on insulin sliding scale, we will follow the blood sugars. 8. Obesity. Needs counseling. 9. Deep venous thrombosis prophylaxis. Sequential compression devices for now. DISPOSITION: Closely monitor in [employer]. Level 1 full code. Expect to discharge home and follow up with family doctor. Job ID: [id number] [facility]
[2022-04-27] MEDS: HYDROmorphone INJ 1 MG/ML SYRINGE IV PRN ×2 (10:20→19:15)
--- NOTE | 2022-04-27 11:27 | Electrocardiogram Report ---
Test Reason : Blood Pressure : / mmHG Vent. Rate : 089 BPM Atrial Rate : 089 BPM P-R Int : 150 ms QRS Dur : 088 ms QT Int : 360 ms P-R-T Axes : 000 060 130 degrees QTc Int : 438 ms Poor data quality, interpretation may be adversely affected Normal sinus rhythm Lateral infarct , age undetermined Incomplete right bundle branch block Poor R wave progression, consider anterior UT vs. lead placement vs. LVH Abnormal ECG When compared with ECG of 14-OCT-2020 05:25, Lateral infarct is now Present T wave inversion now evident in Lateral leads Confirmed by Primo Ortiz ([id number]) on 04/27/2022 11:27:01 AM Referred By: REFERRED SELF Confirmed By:Rob Ortiz
[2022-04-27] MEDS: ACETAMINOPHEN 325 MG TAB PO PRN ×2 (14:29→22:52)
--- NOTE | 2022-04-27 15:14 | Cardiology Consultation ---
Date of Consultation April 27, 2022 Assessment & Plan (1) Preop cardiovascular exam: (2) Coronary artery disease of kashia artery with stable angina pectoris: (3) Dental abscess: (4) Hypoxia: (5) CHAD (acute kidney injury): Plan 61-year-old patient presented to ER secondary to facial swelling, dental abscess, and cellulitis. No recent anginal symptoms or decline in functional capacity. He is not use sublingual nitroglycerin in several months. No ischemic changes per ECG. Incidentally, hypoxia noted on admission although he is relatively asymptomatic. Chronicity unknown. CTA of the chest without evidence of pulmonary embolus. Does not appear overtly volume overloaded, however, recommend discontinuation of IV fluids due to history of chronic heart failure with preserved ejection fraction. Consider dose of IV Lasix pending review of a.m. labs. Repeat resting 2D transthoracic echocardiogram. Continue other outpatient cardiovascular medications as previously ordered. History of Present Illness Reason for Consultation: preop cardiac evaluation Requesting Physician: Dr. Peacock Attending Physician: Luis Alberto Pepper MD History of Present Illness 61-year-old patient presented emergency department with left-sided facial abscess and cellulitis. Complex cardiovascular history listed below. Presented to the emergency department per direction of oral surgeon regarding left-sided abscess and facial swelling. Denies any recent chest pain or unusual shortness of breath. In the ER, noted to be hypoxic. Reports intermittent low oxygen level since his bypass surgery in 2013. No history of obstructive sleep apnea. CTA performed on admission without evidence of pulmonary embolus. He restarted on intravenous normal saline due to mildly elevated creatinine. Denies orthopnea or PND. No edema or recent weight gain. Cardiac problem list: 1. Multivessel coronary disease identified after hospitalization with acute carbon monoxide poisoning, January 2004. 2. Status post coronary artery bypass grafting in 02/14/2014 with incomplete rev ascularization, receiving a CRAIG graft to the LAD, saphenous vein graft to the circumflex obtuse marginal to ungrafted right coronary artery. 3. Severe kashia vessel disease by cardiac catheterization, 05/2016, with patent grafts. 4. Repeat diagnostic cardiac catheterization 05/19/2016 revealed patent left internal mammary artery graft to left anterior descending, patent saphenous vein graft to the circumflex obtuse marginal with excellent distal runoff, chronically occluded RCA, generally preserved LV systolic function. 5. Class III angina pectoris. 6. Hypertension. 7. Chronic back pain with radiculopathy. 8. Type 2 diabetes mellitus 9. Dyslipidemia, with past poor tolerance to ezetimibe. 10. Hypertriglyceridemia 11. Hyponatremia Allergies Allergy/AdvReac Type Severity Reaction Status Date / Time No Known Allergies Allergy Unverified 10/14/20 05:49 Home Medications Medication Instructions Recorded Confirmed Type amlodipine 5 mg tablet 2.5 mg PO DAILY 10/14/20 04/27/22 History aspirin 325 mg tablet 650 mg PO DAILY 10/14/20 04/27/22 History gabapentin 300 mg capsule See Rx Instructions .Route .COMPLEX 10/14/20 04/27/22 History isosorbide mononitrate 60 mg 60 mg PO DAILY 10/14/20 04/27/22 History tablet,extended release 24 hr levothyroxine 112 mcg tablet 112 mcg PO DAILY 10/14/20 04/27/22 History losartan 25 mg tablet 25 mg PO DAILY 10/14/20 04/27/22 History metoprolol succinate 100 mg 100 mg PO DAILY 10/14/20 04/27/22 History tablet,extended release 24 hr nitroglycerin 0.4 mg sublingual 0.4 mg sublingual UD PRN Chest Pain 10/14/20 04/27/22 History tablet potassium chloride 10 mEq 10 meq PO DAILY 10/14/20 04/27/22 History tablet,extended release(part/cryst) rosuvastatin 40 mg tablet 40 mg PO QPM 10/14/20 04/27/22 History spironolactone 25 mg tablet 25 mg PO DAILY 10/14/20 04/27/22 History diclofenac sodium 75 mg 75 tab PO BID 04/27/22 04/27/22 History tablet,delayed release empagliflozin 25 mg tablet 25 mg PO DAILY 04/27/22 04/27/22 History (Jardiance) evolocumab 140 mg/mL subcutaneous 1 ea subcut 04/27/22 History pen injector (Salomón Edgar) fenofibrate 54 mg tablet 54 mg PO DAILY 04/27/22 04/27/22 History furosemide 40 mg tablet 40 mg PO DAILY 04/27/22 04/27/22 History metformin 500 mg tablet 500 mg PO BID 04/27/22 04/27/22 History penicillin V potassium 500 mg 500 mg PO BID 10 days #20 tabs 04/27/22 Rx tablet venlafaxine 75 mg capsule,extended 75 cap PO DAILY 04/27/22 04/27/22 History release 24 hr Patient History Medical History Chronic back pain Coronary artery disease "NSTEMI 01/28/14 cardiac cath 01/30/14 demonstrated 3-vessel disease" Dyslipidemia Hypertension Hypothyroidism Non-STEMI (non-ST elevated myocardial infarction) Social History Smoking Status: Never smoker Tobacco Type: Smokeless Tobacco (Dip or Chew) Cigarettes Per Day: Vapes; Second Hand Exposure: No; Hx Alcohol Use: No Hx Substance Use: No Preferred Language: Ecuadorean Communication Ability: Effective Blocker And Polisher Gold Wheel Required: No Beliefs That Will Affect Care: None marital status: Current Living Situation: Spouse Other Information That Helps Us Care for You: No Feels Safe at Home: Yes Safety Concerns: Feels Safe At This Time Assistive Devices: Cane Review of Systems Review of Systems: All systems reviewed & are unremarkable except as noted in Subjective Physical Exam Constitutional: WD/WN, vitals as above Respiratory: normal respiratory effort, lungs clear to auscultation Cardiovascular: Rate/Rhythm: regular rate and regular rhythm Heart Sounds: normal S1 and normal S2; no murmur Vessels: no JVD and no carotid bruit Extremities: no edema Gastrointestinal (Abdomen): Inspection/Auscultation: abdomen normal to inspection; abdomen not distended Percussion/Palpation: abdomen soft; abdomen nontender, no guarding and abdomen not rigid Neurologic: CN's II-XI intact bilaterally and moves all extremities; no focal motor deficits Psychiatric: A+Ox3, euthymic affect Results & Data ([facility]) Vital Signs (Past 12 Hours) Vital Signs Temp Pulse Pulse Resp BP Pulse Ox Pulse Ox 04/27/22 11:33 70 04/27/22 08:23 96 04/27/22 11:07 36.5 C 74 19 102/63 92 04/27/22 08:32 04/27/22 08:25 36.5 C 70 20 123/71 90 04/27/22 07:03 67 16 96/79 L 96 04/27/22 06:07 114/73 04/27/22 05:59 70 16 94/55 L 96 O2 Del Method O2 Del Method O2 Flow Rate O2 Flow Rate 04/27/22 11:33 04/27/22 08:23 Nasal Cannula 2 04/27/22 11:07 Nasal Cannula 2 04/27/22 08:32 Nasal Cannula 2 04/27/22 08:25 Nasal Cannula 2 04/27/22 07:03 Nasal Cannula 2 04/27/22 06:07 04/27/22 05:59 Nasal Cannula 2 Diagnostic Findings June 01, 2020 TTE Interpretation Summary (as per Dr. Brown): The LV wall thickness is mildly increased (concentric). The left ventricular wall motion is normal by limited analysis. All left ventricular segments are not visualized. The qualitative LV ejection fraction is 55-59% (normal). The left ventricular diastolic function is mildly abnormal (grade I). There is no significant valvular heart disease noted on technically limited assessement June 01, 2020 Lexiscan Interpretation Summary (as per Dr. Brown): Lexiscan nuclear cardiac stress test positive for reversible ischemia involving the apical anterior wall and apex. Gated SPECT imaging reveals subtle apical hypokinesis. The left ventricular ejection fraction was calculated to be >70 % Compared to the prior study dated 01/24/2018, the findings are similar without significant interval change. ECG Additional Comments: ECG: Normal sinus rhythm, age-indeterminate lateral infarct, incomplete right bundle branch block, poor R wave progression.
--- NOTE | 2022-04-27 15:18 | Hospitalist Progress Note ---
Date of Service April 27, 2022 Assessment & Plan (1) Preop cardiovascular exam: (2) Dental abscess: Plan 61-year-old male with PMH of T2DM, HLD, CAD s/p CABG 2013, HTN, CKD stage II, back pain, depression, obesity presented to our ED 04/27 with left lower dental abscess and facial cellulitis. Per patient, his tooth broke up 2 weeks ago [employer] and filling came out, was not able to get hold of his dentist, and since last 2 days [employer] the swelling got worse with lot of pain and finally he was able to get hold of his dentist who advised him to get cleared by cardiology given his cardiac history and advised him to go to ER. Is being managed for the following: #. Dental abscess/facial cellulitis x left side Broke left molar 2 weeks ago, dental filling came out, had increased swelling and pain since 2 days [employer]. Patient's dentist directed him to ER and also advised him for cardiology clearance. At presentation, patient reported swallowing was fine but he had pain opening his mouth and hence his eating had been affected. Admitting soft tissue neck CT: Evidence of cellulitis on left facial soft tissues overlying the mandible and extending into the left anterior neck. No fluid collection noted. Pharyngeal soft tissues grossly normal. Patient started on Unasyn 04/27, continue with the same. Pain Mx. Pt reporting better pain control at bedside. Cardiology and orofacial surgery consult placed, await recommendation. Patient n.p.o. until seen by OF surgeon. C/w iVF for now. #. Abnormal CTA chest: Admitting CTA chest with 5 mm nodule at left lower lobe. Needs follow-up CT chest in 12-month if headaches patient, will d/w with the patient tomorrow. #. Hypoxia: Patient reports shortness of breath on exertion since CABG in 2013. He is currently requiring 2 L nasal cannula oxygen. We will get a two-step test prior to discharge. CT of the chest was unremarkable at admission. #. Other chronic medical conditions: CAD status post CABG, CKD stage II, HTN, depression, diabetes, obesity Continue with/resume home meds as and when able. Hypertensive medication on hold due to blood pressure being low normal side, resume gradually. #. DVT prophylaxis: SCDs for now in anticipation of any surgical intervention. Chemoprophylaxis if no surgery planned. #. CODE STATUS: Full code Admission and Anticipated Discharge Date Admission Date: April 27, 2022 Subjective Patient seen and examined at bedside as a follow-up of dental abscess/dental pain and dyspnea on exertion since his CABG 2013. Patient was lying in bed, on 2 L bilateral lower EXTR, LAD, no new acute events overnight. Patient reports left cheek pain overnight and in the morning requiring pain medication. At bedside exam, patient reports pain getting better. Patient remains n.p.o. until seen by dental surgeon. Patient reports moving bowels okay. Patient reports shortness of breath on exertion since his CABG 2013. Patient denies fever/headache/dizziness/chest pain/palpitation/belly pain/other review of symptoms. Physical Exam Physical Exam: GENERAL: Alert and oriented x3. NAD, on 2L NC O2. HEENT: No pallor, no icterus. Pupils equal, round and reactive to light. Oral mucosa moist. Lt cheek with induration, tenderness and swelling. Rt buccal mucosa looks engorged and erythematous. NECK: No JVD, no neck masses. HEART: S1 and S2 heard. Regular rate and rhythm. No murmur, no gallop. RESPIRATORY SYSTEM: Normal AP diameter. No accessory muscle use. No wheezing, no crackles. ABDOMEN: Soft, bowel sounds present, nontender, no distention. CENTRAL NERVOUS SYSTEM: No facial droop. Speech is clear. Obeys simple commands. Moves extremities. EXTREMITIES: No edema, no erythema seen. Results & Data Results & Data ([facility]) Vital Signs (Past 12 Hours) Vital Signs Temp Pulse Pulse Resp BP Pulse Ox Pulse Ox 04/27/22 11:33 70 04/27/22 08:23 96 04/27/22 11:07 36.5 C 74 19 102/63 92 04/27/22 08:32 04/27/22 08:25 36.5 C 70 20 123/71 90 04/27/22 07:03 67 16 96/79 L 96 04/27/22 06:07 114/73 04/27/22 05:59 70 16 94/55 L 96 O2 Del Method O2 Del Method O2 Flow Rate O2 Flow Rate 04/27/22 11:33 04/27/22 08:23 Nasal Cannula 2 04/27/22 11:07 Nasal Cannula 2 04/27/22 08:32 Nasal Cannula 2 04/27/22 08:25 Nasal Cannula 2 04/27/22 07:03 Nasal Cannula 2 04/27/22 06:07 04/27/22 05:59 Nasal Cannula 2
[2022-04-27] MEDS: GABAPENTIN 300 MG CAP PO SCH ×2 (16:22→19:55)
--- NOTE | 2022-04-27 17:29 | Oral/Maxillofacial Consult ---
Date of Consultation April 27, 2022 History of Present Illness Reason for Consultation: acute facial swelling left side Attending Physician: Luis Alberto Pepper MD History of Present Illness Oral Maxillofacial Surgery Exam Present Complaint: I have pain/swelling/drainage from my infected lower left molar tooth. Symptoms have been ongoing for a while about 2 week ever since a large filling fractured # 19 area. Oral Exam: Finding--Gross subperiosteal infection left side from area #17-22, tender gingival tissue with deep pocket formation.Tooth # 19 is fractured and removal is clinical indicated. Imaging: large fracture # 19 and deep lesion associated with # 21--extraction # 19 with I &D needed CT SCAN OF THE NECK WITHOUT IV CONTRAST CLINICAL HISTORY: Hypoxia. Clinical concern for airway narrowing. FINDINGS: Pharynx: The unenhanced pharyngeal soft tissues are grossly normal in appearance. The pharyngeal airway is widely patent. There is no evidence of mass lesion. The vocal cords are symmetric. The parapharyngeal fat is well maintained. The prevertebral/retropharyngeal soft tissues are within normal limits. The epiglottis is normal. Soft tissues: There is superficial and deep soft tissue infiltration identified overlying the left aspect of the mandible. Subcutaneous soft tissue edema extends inferiorly to the level of the thyroid cartilage. No organized fluid collection is identified on this unenhanced examination. There is underlying periodontal disease involving left mandibular molars. Lymphadenopathy: No cervical lymphadenopathy is seen Thyroid: Normal in size and attenuation. Salivary glands: The parotid and submandibular glands are within normal limits. Brain parenchyma: The visualized brain parenchyma at the skull base is normal in appearance. Skeletal structures: Imaged portions of the calvarium at the skull base are within normal limits. The cervical spine appears intact. No lytic or blastic lesion is seen. Sinuses and mastoids: The paranasal sinuses are clear. The mastoid air cells are well pneumatized. Orbits: The bony orbits are intact. Orbital contents are normal as visualized. Upper chest: The patient is status post midline sternotomy. The visualized upper lobe lung parenchyma appears clear. The trachea is widely patent. IMPRESSION: 1. There is evidence of cellulitis involving the left facial soft tissues overlying the mandible and extending into the left anterior neck as above. This may related to underlying periodontal disease and clinical correlation will be required. 2. No organized fluid collection is seen to suggest abscess on this unenhanced examination. 3. The unenhanced pharyngeal soft tissues are grossly normal. Soft tissue: floor of the mouth, tongue, hard/soft palate, posterior pharyngeal area all with in normal limits, no pathology or abnormal findings noted. Gross swelling lower left mucobuccal fold and submandibular gland area. Oral Care: Overall oral care is fair Occlusion: Class I TMJ exam: No pop, clicking, pain, good ROM, No history of TMJ injury or dysfunction Periodontal exam: moderate gingival tissue inflammation with evidence of ongoing chronic periodontal pathology. Has not been to a dentist for some time Head/Neck exam: Neck is supple, FROM, Able to extend and flex neck w/o difficulty, no masses, no abnormalities, no airway issues, ? sleep apnea by history and neck size Treatment Plan: Extraction of # 19 is medically necessary to establish drainage and for adequate treatment of the acute infection with an oral I&D Set up with general anesthesia in hospital vs. surgical due to complexity of the procedure I reviewed the treatment plan and consent with the patient Understanding was expressed. Time was given for questions regarding the surgery, risks and post op care. Discussed alternative to treatment--procedure as planned, Do not do surgery I&D with extraction of # 19 is medically necessary The following teeth are decayed and fractured and removal is indicated SAADIA:# 19 possible others depending on findings at the time of the surgery Risks discussed: Bleeding,Pain,swelling,infection, dry socket, delayed healing, nerve injury to face,lips,tongue,chin area which could be permanent (rare). TMJ, jaw stiffness, change in bite (rare), ear pain (referred). Sinus problems like fistula or infection. Need to leave a small root fragment in place to avoid injury to nerve or sinus. Relationship of wisdom teeth to nerve/sinus and risk of jaw fracture. Home care reviewed: tooth brushing, rinsing, follow up care with Dr Winslow. diet=oydct-ktdk-hyke dental. need for general dental evaluation for on going care Discussed activity level, driving/work while on Rx pain Meds. Surgery to be set up once medically cleared by Hospital medicine and Cardiology Allergies Allergy/AdvReac Type Severity Reaction Status Date / Time No Known Allergies Allergy Unverified 10/14/20 05:49 Home Medications Medication Instructions Recorded Confirmed Type amlodipine 5 mg tablet 2.5 mg PO DAILY 10/14/20 04/27/22 History aspirin 325 mg tablet 650 mg PO DAILY 10/14/20 04/27/22 History gabapentin 300 mg capsule See Rx Instructions .Route .COMPLEX 10/14/20 04/27/22 History isosorbide mononitrate 60 mg 60 mg PO DAILY 10/14/20 04/27/22 History tablet,extended release 24 hr levothyroxine 112 mcg tablet 112 mcg PO DAILY 10/14/20 04/27/22 History losartan 25 mg tablet 25 mg PO DAILY 10/14/20 04/27/22 History metoprolol succinate 100 mg 100 mg PO DAILY 10/14/20 04/27/22 History tablet,extended release 24 hr nitroglycerin 0.4 mg sublingual 0.4 mg sublingual UD PRN Chest Pain 10/14/20 04/27/22 History tablet potassium chloride 10 mEq 10 meq PO DAILY 10/14/20 04/27/22 History tablet,extended release(part/cryst) rosuvastatin 40 mg tablet 40 mg PO QPM 10/14/20 04/27/22 History spironolactone 25 mg tablet 25 mg PO DAILY 10/14/20 04/27/22 History diclofenac sodium 75 mg 75 tab PO BID 04/27/22 04/27/22 History tablet,delayed release empagliflozin 25 mg tablet 25 mg PO DAILY 04/27/22 04/27/22 History (Jardiance) evolocumab 140 mg/mL subcutaneous 1 ea subcut 04/27/22 History pen injector (Salomón Edgar) fenofibrate 54 mg tablet 54 mg PO DAILY 04/27/22 04/27/22 History furosemide 40 mg tablet 40 mg PO DAILY 04/27/22 04/27/22 History metformin 500 mg tablet 500 mg PO BID 04/27/22 04/27/22 History penicillin V potassium 500 mg 500 mg PO BID 10 days #20 tabs 04/27/22 Rx tablet venlafaxine 75 mg capsule,extended 75 cap PO DAILY 04/27/22 04/27/22 History release 24 hr Patient History Medical History Chronic back pain Coronary artery disease "NSTEMI 01/28/14 cardiac cath 01/30/14 demonstrated 3-vessel disease" Dyslipidemia Hypertension Hypothyroidism Non-STEMI (non-ST elevated myocardial infarction) Social History (Reviewed 07/13/22 @ 16:20 by FABIÁN Bajwa Smoking Status: Never smoker Tobacco Type: Smokeless Tobacco (Dip or Chew) Cigarettes Per Day: Vapes; Second Hand Exposure: No; Hx Alcohol Use: No Hx Substance Use: No Preferred Language: Barbadian Communication Ability: Effective Development Chemist Required: No Beliefs That Will Affect Care: None marital status: Current Living Situation: Spouse Other Information That Helps Us Care for You: No Feels Safe at Home: Yes Safety Concerns: Feels Safe At This Time Assistive Devices: Cane Results & Data ([facility]) Vital Signs (Past 12 Hours) Vital Signs Temp Pulse Pulse Resp BP Pulse Ox Pulse Ox 04/27/22 16:42 68 04/27/22 15:28 36.7 C 64 20 125/71 95 04/27/22 11:33 70 04/27/22 08:23 96 04/27/22 11:07 36.5 C 74 19 102/63 92 04/27/22 08:32 04/27/22 08:25 36.5 C 70 20 123/71 90 04/27/22 07:03 67 16 96/79 L 96 04/27/22 06:07 114/73 04/27/22 05:59 70 16 94/55 L 96 O2 Del Method O2 Del Method O2 Flow Rate O2 Flow Rate 04/27/22 16:42 04/27/22 15:28 Nasal Cannula 2 04/27/22 11:33 04/27/22 08:23 Nasal Cannula 2 04/27/22 11:07 Nasal Cannula 2 04/27/22 08:32 Nasal Cannula 2 04/27/22 08:25 Nasal Cannula 2 04/27/22 07:03 Nasal Cannula 2 04/27/22 06:07 04/27/22 05:59 Nasal Cannula 2 PG Care Time/CCT Total # of Minutes Spent Total Time Spent with Patient: Total time spent is greater than 50% in coordination of care (as documented) at patient's floor/unit and/or counseling patient: Coding Level of Care Code 92858 Inpt Consult Level 3
[2022-04-27] MEDS: ROSUVASTATIN CALCIUM 20 MG TAB PO SCH (19:55)
[2022-04-27] MEDS ORDERED: KETOROLAC TROMETHAMINE 15 MG/ML VIAL IV ONE (22:29)
[2022-04-28] MEDS: INSULIN ASPART PER UNIT SC SCH ×5 (00:10→21:31)
[2022-04-28] MEDS: AMPICILLIN/SULBACTAM SOD 3,000 MG in 0.9 % SODIUM CHLORIDE 100 ML IV SCH ×4 (02:02→20:41)
[2022-04-28] MEDS: HYDROmorphone INJ 1 MG/ML SYRINGE IV PRN (02:42)
[2022-04-28 06:11] LABS: Hematocrit (blood only) 39.3 % (40.1-51.0); Hemoglobin 12.6 g/dl (14.0-18.0); Mean Corpuscular Hemoglobin 30.3 pg (25.0-34.0); Mean Corpuscular Hgb Conc 32.1 g/dL (32.0-36.0); Mean Corpuscular Volume 94.5 fL (80.0-100.0); Mean Platelet Volume 9.6 fL (9.4-12.4); Platelet Count 154 K/uL (130-400); RDW Coefficient of Variation 14.6 % (11.5-14.5); RDW Standard Deviation 50.6 fL (36.4-46.3); Red Blood Count 4.16 M/uL (4.63-6.08); White Blood Count 5.97 K/ul (4.8-10.8)
[2022-04-28] MEDS: LEVOTHYROXINE SODIUM 112 MCG TABLET PO SCH (06:18)
[2022-04-28 06:48] LABS: BUN Creatinine Ratio 15.1 (10-20); Calcium 8.3 mg/dl (8.5-10.1); Creatinine Clr Calc Pharmacy 111.4 ml/min; Est GFR (African American) 107.7 ml/min; Est GFR (Non-African American) 92.9 ml/min; Magnesium 2.3 mg/dl (1.7-2.4); Potassium 3.9 mmol/L (3.5-5.1)
[2022-04-28 07:41] LABS: Estimated Average Glucose 174 mg/dl; Hemoglobin A1C 7.7 % (4.5-5.6)
[2022-04-28] MEDS: GABAPENTIN 600 MG TAB PO SCH (08:19)
[2022-04-28] MEDS: METOPROLOL SUCC 50MG EXT REL TAB PO SCH (08:19)
[2022-04-28] MEDS: ISOSORBIDE MONO EXTENDED REL 60 MG TABCR PO SCH (08:19)
[2022-04-28] MEDS: VENLAFAXINE HCL XR 75 MG CAPXR PO SCH (08:19)
[2022-04-28] MEDS: FENOFIBRATE NANOCRYSTALLIZED 48 MG TABLET PO SCH (08:19)
[2022-04-28] MEDS: FUROSEMIDE 40 MG TAB PO SCH (08:19)
[2022-04-28] MEDS: ACETAMINOPHEN 325 MG TAB PO PRN (08:19)
[2022-04-28] MEDS ORDERED: oxyCODONE/ACETAMINOPHEN 10-325 TAB PO STA (10:41)
[2022-04-28] MEDS ORDERED: SUGAMMADEX SODIUM 200 MG/2 ML VIAL IV ONE (11:24)
[2022-04-28] MEDS ORDERED: PROPOFOL IV EMULSION 10 MG/ML 20 ML VIAL IV ONE ×2 (11:32→12:53)
[2022-04-28] MEDS ORDERED: ONDANSETRON INJ 2 MG/ML 2 ML VIAL ONE (11:32)
[2022-04-28] MEDS ORDERED: DEXAMETHASONE SOD INJ 4 MG/ML VIAL ONE (11:32)
[2022-04-28] MEDS ORDERED: fentaNYL citrate 100 MCG/2 ML VIAL ONE (11:33)
[2022-04-28] MEDS ORDERED: SUCCINYLCHOLINE CHLORIDE 20 MG/ML 10 ML VIAL IV ONE (11:33)
[2022-04-28] MEDS ORDERED: BUPIVACAINE/EPINEPHRINE 0.5% 1:200,000 1.8 ML CARP ONE (11:44)
[2022-04-28] MEDS ORDERED: CHLORHEXIDINE GLUCONATE 0.12% 480 ML ONE (11:44)
--- NOTE | 2022-04-28 11:54 | Anesthesiology Consultation ---
Date of Service April 28, 2022 Assessment & Plan Chart Review Chart Review: Acceptable Risk for Surgery and Patient NOT seen in Pre Admission Testing Consults Requested none ASA ASA4 Proposed Anesthesia Anesthesia Type: General History Surgery Operation Date: 04/28/22 08:20 Proposed Procedures p Incision and Drainage Left Face - Benigno Winslow, DMD s Extraction Tooth 19 - Benigno Winslow DMD Height/Weight Height: 5 ft 9 in Weight: 115 kg Allergies Allergy/AdvReac Type Severity Reaction Status Date / Time No Known Allergies Allergy Unverified 10/14/20 05:49 Medications Home Medications Medication Instructions Recorded Confirmed Last Taken amlodipine 5 mg tablet 2.5 mg PO DAILY 10/14/20 04/27/22 Unknown aspirin 325 mg tablet 650 mg PO DAILY 10/14/20 04/27/22 Unknown gabapentin 300 mg capsule See Rx Instructions .Route .COMPLEX 10/14/20 04/27/22 Unknown isosorbide mononitrate 60 mg 60 mg PO DAILY 10/14/20 04/27/22 Unknown tablet,extended release 24 hr levothyroxine 112 mcg tablet 112 mcg PO DAILY 10/14/20 04/27/22 Unknown losartan 25 mg tablet 25 mg PO DAILY 10/14/20 04/27/22 Unknown metoprolol succinate 100 mg 100 mg PO DAILY 10/14/20 04/27/22 Unknown tablet,extended release 24 hr nitroglycerin 0.4 mg sublingual 0.4 mg sublingual UD PRN Chest Pain 10/14/20 04/27/22 Unknown tablet potassium chloride 10 mEq 10 meq PO DAILY 10/14/20 04/27/22 Unknown tablet,extended release(part/cryst) rosuvastatin 40 mg tablet 40 mg PO QPM 10/14/20 04/27/22 Unknown spironolactone 25 mg tablet 25 mg PO DAILY 10/14/20 04/27/22 Unknown diclofenac sodium 75 mg 75 tab PO BID 04/27/22 04/27/22 Unknown tablet,delayed release empagliflozin 25 mg tablet 25 mg PO DAILY 04/27/22 04/27/22 Unknown (Jardiance) evolocumab 140 mg/mL subcutaneous 1 ea subcut 04/27/22 Unknown pen injector (Salomón Edgar) fenofibrate 54 mg tablet 54 mg PO DAILY 04/27/22 04/27/22 Unknown furosemide 40 mg tablet 40 mg PO DAILY 04/27/22 04/27/22 Unknown metformin 500 mg tablet 500 mg PO BID 04/27/22 04/27/22 Unknown penicillin V potassium 500 mg 500 mg PO BID 10 days #20 tabs 04/27/22 Unknown tablet venlafaxine 75 mg capsule,extended 75 cap PO DAILY 04/27/22 04/27/22 Unknown release 24 hr Active Medications Generic Name Dose Route Start Last Admin Trade Name Freq PRN Reason Stop Dose Admin Acetaminophen 650 mg 04/27/22 08:23 04/28/22 08:19 Acetaminophen 325 Mg Tab PO 05/27/22 08:22 650 mg Q4H PRN Administration Pain or Fever Fenofibrate 48 mg 04/28/22 09:00 04/28/22 08:19 Fenofibrate Nanocrystallized 48 Mg Tablet PO 05/28/22 08:59 48 mg DAILY BIRD Administration Furosemide 40 mg 04/28/22 09:00 04/28/22 08:19 Furosemide 40 Mg Tab PO 05/28/22 08:59 40 mg DAILY BIRD Administration Gabapentin 300 mg 04/27/22 15:00 04/27/22 19:55 Gabapentin 300 Mg Cap PO 05/27/22 14:59 300 mg BID@1400,2100 BIRD Administration Gabapentin 600 mg 04/28/22 08:00 04/28/22 08:19 Gabapentin 600 Mg Tab PO 05/28/22 07:59 600 mg DAILY@0800 BIRD Administration Hydromorphone HCl 1 mg 04/27/22 09:15 04/28/22 02:42 Hydromorphone Inj 1 Mg/Ml Syringe IV 05/11/22 09:14 1 mg Q8H PRN Administration Severe Pain Ampicillin Sodium/Sulbactam 108 mls @ 200 mls/hr 04/27/22 08:23 04/28/22 09:23 Sodium 3,000 mg/ Sodium IV 05/04/22 08:22 Infused Chloride Q6H BIRD Infusion Protocol Insulin Aspart 0 units 04/27/22 08:23 04/28/22 06:11 Insulin Aspart Per Unit SC 05/27/22 08:22 Not Given Q6H BIRD Isosorbide Mononitrate 60 mg 04/28/22 09:00 04/28/22 08:19 Isosorbide [place] Extended Rel 60 Mg Tabcr PO 05/28/22 08:59 60 mg DAILY BIRD Administration Levothyroxine Sodium 112 mcg 04/28/22 06:30 04/28/22 06:18 Levothyroxine Sodium 112 Mcg Tablet PO 05/28/22 06:29 112 mcg DAILYBB BIRD Administration Metoprolol Succinate 100 mg 04/28/22 09:00 04/28/22 08:19 Metoprolol Succ 50mg Ext Rel Tab PO 05/28/22 08:59 100 mg DAILY BIRD Administration Ondansetron HCl 4 mg 04/27/22 08:23 04/27/22 15:54 Ondansetron Inj 2 Mg/Ml 2 Ml Vial IV 05/27/22 08:22 4 mg Q6H PRN Administration Nausea Rosuvastatin Calcium 40 mg 04/27/22 21:00 04/27/22 19:55 Rosuvastatin Calcium 20 Mg Tab PO 05/27/22 20:59 40 mg QPM BIRD Administration Venlafaxine HCl 75 mg 04/28/22 09:00 04/28/22 08:19 Venlafaxine Hcl Xr 75 Mg Capxr PO 05/28/22 08:59 75 mg DAILY BIRD Administration Past Medical History Medical History Chronic back pain Coronary artery disease "NSTEMI 01/28/14 cardiac cath 01/30/14 demonstrated 3-vessel disease" Dyslipidemia Hypertension Hypothyroidism Non-STEMI (non-ST elevated myocardial infarction) Exercise / Class Metabolic Activity III < 4 Walking/Shop/Light housework Past Surgical History s/p CABG 2013; s/p cardiac cath 2015 Past Anesthesia History No Hx of Anesthesia Complications and No Family Hx of Anesthesia Complications History of PONV No Hx of PONV and No Hx of Motion Sickness Social History Smoking Status: Never smoker tobacco type: smokeless tobacco Smoking cigarettes per day: Vapes Hx Alcohol Use: No Hx Substance Use: No substance use type: opiates Last Used Substance: Unknown Physical Exam Vital Signs Last Vital Signs Temp 36.7 C 04/28/22 10:57 Pulse 72 04/28/22 10:57 Resp 19 04/28/22 10:57 BP 107/57 L 04/28/22 10:57 Pulse Ox 90 04/28/22 10:57 O2 Del Method 04/28/22 10:57 O2 Flow Rate 2 04/28/22 03:08 Testing Laboratory Results 04/28/22 05:40 04/28/22 05:40 Hemoglobin A1c 7.7 % (4.5-5.6) H 04/28/22 05:40 04/28/22 04/28/22 04/28/22 11:37 06:04 00:05 POC Glucose 231 H 96 148 H Electrocardiogram Date: 04/27/22 Findings: + NSR @ (@ 89;Lateral infarct,age ?;IRBBB;poor R wave progression) Chest X-Ray Date: 04/27/22 Findings: + NAD and + cardiomegaly Echocardiogram Date: 04/28/22 EF: 60% LV Function: normal RWMA: + none Other Findings: + LVH (mild) and + diastolic dysfunction (Grade 1) Valvular Disease: + no significant valvular disease RV-mildly dilated;NL RV Fxn
--- NOTE | 2022-04-28 12:31 | History & Physical Bridge Note ---
Date of Service April 28, 2022 History & Physical Bridge Note I have examined the patient, reviewed the History & Physical and in the interval since the performance of the History & Physical I have noted the following changes of clinical significance: no changes noted. OK for surgery Echo - WNL We will plan I&D and extraction of # 19
[2022-04-28] MEDS ORDERED: SUCCINYLCHOLINE 100MG/5ML SYR IV ONE (12:47)
[2022-04-28] MEDS ORDERED: FLUMAZENIL 0.1 MG/1 ML 10 ML VIAL IV PRN (13:44)
[2022-04-28] MEDS ORDERED: ePHEDrine sulfate 50 MG/ML AMP IV PRN (13:44)
[2022-04-28] MEDS ORDERED: NALOXONE HCL 0.4 MG/1 ML VIAL/CARP IV PRN (13:44)
[2022-04-28] MEDS ORDERED: PROMETHAZINE HCL 12.5 MG in SODIUM CHLORIDE 0.9% 50 ML IV PRN (13:44)
[2022-04-28] MEDS ORDERED: LABETALOL HCL IV 5 MG/ML 20ML IV PRN (13:44)
[2022-04-28] MEDS ORDERED: ONDANSETRON INJ 2 MG/ML 2 ML VIAL IV PRN (13:44)
[2022-04-28] MEDS ORDERED: ATROPINE SULFATE 0.1 MG/ML 10ML SYR IV PRN (13:44)
[2022-04-28] MEDS ORDERED: HYDROmorphone INJ 1 MG/ML SYRINGE IV PRN (13:44)
[2022-04-28] MEDS ORDERED: fentaNYL citrate 100 MCG/2 ML VIAL IV PRN (13:44)
--- NOTE | 2022-04-28 14:23 | Anesthesiology Progress Note ---
Date of Service April 28, 2022 Anesthesia Post Procedure Vital Signs Vital Signs: Temp Pulse Pulse Pulse Resp BP BP 04/28/22 14:20 36.6 C 81 20 133/81 04/28/22 13:50 83 20 146/81 H 04/28/22 13:40 87 18 151/89 H 04/28/22 14:10 82 18 148/81 H 04/28/22 14:00 83 18 158/85 H 04/28/22 13:30 94 H 20 124/71 04/28/22 13:28 36.3 C L 91 H 18 157/105 H 04/28/22 12:05 04/28/22 12:05 37.2 C 75 20 107/60 04/28/22 10:57 36.7 C 72 19 107/57 L 04/28/22 06:20 36.5 C 68 18 130/81 04/28/22 06:21 76 04/28/22 03:08 36.7 C 70 17 128/78 04/27/22 22:25 71 04/27/22 22:38 36.4 C L 69 17 138/82 04/27/22 19:15 04/27/22 19:52 36.4 C L 68 18 126/82 04/27/22 16:42 68 04/27/22 15:28 36.7 C 64 20 125/71 Pulse Ox O2 Del Method O2 Flow Rate 04/28/22 14:20 94 Nasal Cannula 3 04/28/22 13:50 94 Nasal Cannula 3 04/28/22 13:40 92 Oxymask 4 04/28/22 14:10 95 Nasal Cannula 3 04/28/22 14:00 93 Nasal Cannula 3 04/28/22 13:30 90 Oxymask 6 04/28/22 13:28 89 L Oxymask 6 04/28/22 12:05 Nasal Cannula 2 04/28/22 12:05 93 Room Air 04/28/22 10:57 90 Room Air 04/28/22 06:20 95 Room Air 04/28/22 06:21 04/28/22 03:08 97 Nasal Cannula 2 04/27/22 22:25 04/27/22 22:38 98 Nasal Cannula 2 04/27/22 19:15 Nasal Cannula 2 04/27/22 19:52 95 Nasal Cannula 2 04/27/22 16:42 04/27/22 15:28 95 Nasal Cannula 2 Pain Intensity Left Face: Pain Intensity: 0 Transfer of Care Handoff Completed per policy Notes Mental Status: alert / awake / arousable Patient Amnestic to Procedure: Yes Nausea / Vomiting: adequately controlled Pain: adequately controlled Airway Patency, RR, SpO2: stable & adequate BP & HR: stable & adequate Hydration State: stable & adequate Anesthetic Complications: no major complications apparent
[2022-04-28] MEDS ORDERED: Nursing to Pharmacy Communication SCH (14:45)
[2022-04-28] MEDS: GABAPENTIN 300 MG CAP PO SCH ×2 (15:48→20:41)
[2022-04-28] MEDS ORDERED: ACETAMINOPHEN 325 MG TAB PO PRN (16:43)
--- NOTE | 2022-04-28 16:51 | Hospitalist Progress Note ---
Date of Service April 28, 2022 Assessment & Plan (1) Preop cardiovascular exam: (2) Dental abscess: Plan 61-year-old male with PMH of T2DM, HLD, CAD s/p CABG 2013, HTN, CKD stage II, back pain, depression, obesity presented to our ED 04/27 with left lower dental abscess and facial cellulitis. Per patient, his tooth broke up 2 weeks ago [employer] and filling came out, was not able to get hold of his dentist, and since last 2 days [employer] the swelling got worse with lot of pain and finally he was able to get hold of his dentist who advised him to get cleared by cardiology given his cardiac history and advised him to go to ER. Is being managed for the following: #. Dental abscess/facial cellulitis x left side Broke left molar 2 weeks ago, dental filling came out, had increased swelling and pain since 2 days [employer]. Patient's dentist directed him to ER and also advised him for cardiology clearance. At presentation, patient reported swallowing was fine but he had pain opening his mouth and hence his eating had been affected. Admitting soft tissue neck CT: Evidence of cellulitis on left facial soft tissues overlying the mandible and extending into the left anterior neck. No fluid collection noted. Pharyngeal soft tissues grossly normal. Patient started on Unasyn 04/27, continue with the same. Pain Mx. Pt reports percocet works better than dilaudid, changing prn dilaudid to percocet. Cardiology eval for preop clearance. 04/28 ECHO: EF 60-65%, Gr I diastolic dysfxn, no significant valvular pathology. Orofacial surgery on board, for likely Sx today. Resume diet when cleared per OFMS. #. Abnormal CTA chest: Admitting CTA chest with 5 mm nodule at left lower lobe. Pt reports never smoking. #. Hypoxia: Patient reports shortness of breath on exertion since CABG in 2013. He is using 1-2 L O2 NC on and off. We will get a two-step test prior to discharge. CTA chest was unremarkable at admission. #. Other chronic medical conditions: CAD status post CABG, CKD stage II, HTN, depression, diabetes, obesity Continue with/resume home meds as and when able. Pt reports taking aspirin 1-2 tabs 325 mg daily as needed for pain but aware he is supposed to take 81 mg daily. will change to baby aspirin upon DC. Hypertensive medication on hold due to blood pressure being low normal side, resume as appropriate. #. DVT prophylaxis: SCDs for now in anticipation of any surgical intervention. Chemoprophylaxis when cleared per surgeon. #. CODE STATUS: Full code Admission and Anticipated Discharge Date Admission Date: April 27, 2022 Subjective Patient seen and examined at bedside as a follow-up of dental abscess/dental pain and dyspnea on exertion since his CABG 2013. Patient was lying in bed, on RA, LAD, no new acute events overnight. Patient reports left cheek pain ongoing but not worsening, somewhat better w/ pain meds. Patient remains n.p.o. until seen by dental surgeon//??Sx today. Patient reports moving bowels okay. Patient reports shortness of breath on exertion since his CABG 2013 but appears to be doing fine on RA at bedside exam today. Patient denies fever/headache/dizziness/chest pain/palpitation/belly pain/other review of symptoms. Physical Exam Physical Exam: GENERAL: Alert and oriented x3. NAD, on RA HEENT: No pallor, no icterus. Pupils equal, round and reactive to light. Oral mucosa moist. Lt cheek with induration, tenderness and swelling. Rt buccal mucosa looks engorged and erythematous. NECK: No JVD, no neck masses. HEART: S1 and S2 heard. Regular rate and rhythm. No murmur, no gallop. RESPIRATORY SYSTEM: Normal AP diameter. No accessory muscle use. No wheezing, no crackles. ABDOMEN: Soft, bowel sounds present, nontender, no distention. CENTRAL NERVOUS SYSTEM: No facial droop. Speech is clear. Obeys simple commands. Moves extremities. EXTREMITIES: No edema, no erythema seen. Results & Data Results & Data ([facility]) Vital Signs (Past 12 Hours) Vital Signs Temp Pulse Pulse Pulse Resp BP BP 04/28/22 16:15 36.6 C 75 16 108/72 04/28/22 15:45 36.6 C 80 16 106/67 04/28/22 15:15 36.8 C 82 16 120/82 04/28/22 15:00 36.8 C 78 14 118/78 04/28/22 14:45 36.8 C 79 14 115/75 04/28/22 14:20 36.6 C 81 20 133/81 04/28/22 13:50 83 20 146/81 H 04/28/22 13:40 87 18 151/89 H 04/28/22 14:10 82 18 148/81 H 04/28/22 14:00 83 18 158/85 H 04/28/22 13:30 94 H 20 124/71 04/28/22 13:28 36.3 C L 91 H 18 157/105 H 04/28/22 12:05 04/28/22 12:05 37.2 C 75 20 107/60 04/28/22 10:57 36.7 C 72 19 107/57 L 04/28/22 06:20 36.5 C 68 18 130/81 04/28/22 06:21 76 Pulse Ox O2 Del Method O2 Flow Rate 04/28/22 16:15 92 Nasal Cannula 1 04/28/22 15:45 92 Nasal Cannula 1 04/28/22 15:15 93 Nasal Cannula 2 04/28/22 15:00 92 Nasal Cannula 2 04/28/22 14:45 92 Nasal Cannula 2 04/28/22 14:20 94 Nasal Cannula 3 04/28/22 13:50 94 Nasal Cannula 3 04/28/22 13:40 92 Oxymask 4 04/28/22 14:10 95 Nasal Cannula 3 04/28/22 14:00 93 Nasal Cannula 3 04/28/22 13:30 90 Oxymask 6 04/28/22 13:28 89 L Oxymask 6 04/28/22 12:05 Nasal Cannula 2 04/28/22 12:05 93 Room Air 04/28/22 10:57 90 Room Air 04/28/22 06:20 95 Room Air 04/28/22 06:21
[2022-04-28] MEDS: oxyCODONE/ACETAMINOPHEN 10-325 TAB PO PRN (17:14)
[2022-04-28] MEDS: ROSUVASTATIN CALCIUM 20 MG TAB PO SCH (20:41)
--- NOTE | 2022-04-28 21:39 | Operative Report ---
PG Post Operative Report Pre & Post Diagnosis Operation Date: 04/28/22 08:20 Pre-Op Diagnosis: Left Submandibular Abscess Post-Op Diagnosis: Left Submandibular Abscess I identified the patient and participated in the time-out.: Yes Procedure Operation Date: 04/28/22 08:20 Actual Procedures p Incision and Drainage Left Submandibular Abscess, (Not Applicable) - Benigno Winslow DMD s Extraction of Tooth #19(Not Applicable) - Benigno Winslow DMD Surgeon Benigno Winslow DMD Spray Painter none Estimated Blood Loss 10 Findings Consistent with Post-Op Diagnosis very swollen submandibular, subperiosteal and masseteric space left side Specimens I&D Drains not needed Anesthesia Type General Complications none Indications acute facial swelling Description of Procedure Diagnosis: K12.2 / K04.6 Left submandibular gland space, subperiosteal and masseteric space left side, infected # 19 Procedures: Intraoral I&D CPT 17808 K12.2 Extraction of # 19 D7210 K04.6 Actual Procedures p Incision and Drainage Submandibular Abscess; Removal of Tooth #19 (Not Applicable) - Benigno Winslow DMD Once cleared for surgery general anesthesia was achieved, the eyes were protected by the anesthesia dept criteria. A time out was take for patient ID, antibiotics, equipment and position verification once all agreed the procedure began. Local anesthesia using Marcaine with a vasoconstrictor ( 1.8 ml per site) given into right inferior alveolar nerve A throat pack was placed after the oral cavity was irrigated with saline. Once a surgical level of anesthesia was obtained and the local anesthesia was given time for the blocks the surgery was started. I turned my attention to the infection which was located in the floor subperiosteal, submandibular and masseter space The tongue was slightly elevated and there was also swelling associated with tooth # 19 ( see CT scan report) Incision and Drainage Using a 15 blade an incision was made lateral to the alveolar ridge to the very swollen mucobuccal fold to drain the submandibular gland space, subperiosteal and masseteric space left side Once the incision was made a lot of pus extruded from the site. This drainage was cultured for anaerobic and aerobic bacteria. A curved hemostat was carefully placed into the infected space along the lateral side of the lower jaw and into the very swollen submandibular, subperiosteal and masseteric spaces. Some further drainage was now allowed to escape. I palpated the cheek and submandibular area and no further drainage was expressed. The area was irrigated with at least 100 ml of NS solution. I now turned my attention to remove the # 19 tooth. Lower # 19 The full thick Muco-periosteal flap was made on the facial aspect from # 17-21. The flap was reflected to expose the the subperiosteal space the bone adjacent to # 19 The bone rongeur was used to remove bone, the tooth was removed with a 301 elevator, the nerve was intact, there was a large amount of granulation tissue on the apex and some more pus that was expressed. The socket was irrigated and curetted. The surrounding tissue was grossly infected and was trimmed to allow closure with a 2-0 chromic. Completion of case: I inspected the sites to insure all bleeding was controlled. I removed the throat pack and suctioned the throat. Al gauze pressure dressing was placed. All instrument and sponge count was correct. the patient was allowed to awake from the anesthesia. Once full awake the anesthesia tube was removed and the patient was taken to the recovery room with all vital sign stable. The patient tolerated the surgery very well. I will follow the patient in my office, Rx and instructions will be given upon discharge. I attest to the content of the Intraoperative Record and any orders documented therein. Any exceptions are noted below.
[2022-04-29] MEDS: oxyCODONE/ACETAMINOPHEN 10-325 TAB PO PRN ×2 (00:48→13:19)
[2022-04-29] MEDS: AMPICILLIN/SULBACTAM SOD 3,000 MG in 0.9 % SODIUM CHLORIDE 100 ML IV SCH ×3 (01:56→14:17)
[2022-04-29] MEDS: LEVOTHYROXINE SODIUM 112 MCG TABLET PO SCH (05:19)
[2022-04-29] MEDS: FUROSEMIDE 40 MG TAB PO SCH (08:02)
[2022-04-29] MEDS: GABAPENTIN 600 MG TAB PO SCH (08:03)
[2022-04-29] MEDS: FENOFIBRATE NANOCRYSTALLIZED 48 MG TABLET PO SCH (08:03)
[2022-04-29] MEDS: VENLAFAXINE HCL XR 75 MG CAPXR PO SCH (08:03)
[2022-04-29] MEDS: ISOSORBIDE MONO EXTENDED REL 60 MG TABCR PO SCH (08:03)
[2022-04-29] MEDS: METOPROLOL SUCC 50MG EXT REL TAB PO SCH (08:03)
[2022-04-29] MEDS: INSULIN ASPART PER UNIT SC SCH ×3 (08:08→17:14)
[2022-04-29 08:56] LABS: Hematocrit (blood only) 36.8 % (40.1-51.0); Hemoglobin 12.2 g/dl (14.0-18.0); Mean Corpuscular Hgb Conc 33.2 g/dL (32.0-36.0); Mean Corpuscular Volume 90.4 fL (80.0-100.0); Mean Platelet Volume 9.3 fL (9.4-12.4); Platelet Count 198 K/uL (130-400); RDW Coefficient of Variation 14.3 % (11.5-14.5); RDW Standard Deviation 46.8 fL (36.4-46.3); Red Blood Count 4.07 M/uL (4.63-6.08); White Blood Count 6.15 K/ul (4.8-10.8)
[2022-04-29 09:09] LABS: BUN Creatinine Ratio 16.7 (10-20); Calcium 8.4 mg/dl (8.5-10.1); Creatinine Clr Calc Pharmacy 99.7 ml/min; Est GFR (African American) 97.8 ml/min; Est GFR (Non-African American) 84.4 ml/min; Potassium 3.9 mmol/L (3.5-5.1)
[2022-04-29 09:15] LABS: Magnesium 2.4 mg/dl (1.7-2.4); Phosphorus 1.2 mg/dl (2.5-4.9)
[2022-04-29] MEDS ORDERED: SODIUM PHOSPHATE 3 MMOL/1 ML INFUSION IV STA (09:53)
[2022-04-29] MEDS ORDERED: SODIUM PHOSPHATE 30 MMOL in DEXTROSE 5% 500 ML IV ONE (10:15)
--- NOTE | 2022-04-29 13:08 | Discharge Summary ---
Date of Service April 29, 2022 Admission HPI Per Admitting Provider DATE OF ADMISSION: 04/27/2022. CHIEF COMPLAINT: Left dental abscess and facial cellulitis. HISTORY OF PRESENT ILLNESS: This 61-year-old male with past medical history significant for type 2 diabetes, hyperlipidemia, CAD status post CABG in 2013, hypertension, chronic kidney disease stage II, back pain, depression, obesity, who presents with a left lower dental abscess and facial cellulitis. The patient since 2 weeks ago, he broke up the teeth and filling came out, and he tried to call his dentist, but could not get an appointment, but last 2 days, the swelling got worse and has a lot of pain, he called a dentist on the phone and because of his cardiac history, they advised to get cleared by Cardiology and advised to go to the ER. In the ER, he was somewhat hypoxic oxygen sats in 80s, requiring 2 liters of oxygen. The patient says even before Dilaudid was given, he was hypoxic. The patient says since he had CABG in 2013 he gets short of breath on exertion but rest is okay. He says he did not check if he has any fever. He is swallowing okay, has some mild headache because of this pain is shooting into the left ear and head. Denies any dizziness. In the right eye he is somewhat blurry from the pain, some runny nose from the pain, no cough, no chest pain. He was taking Advil for last few days and thinks it irritated his stomach and caused nausea, he was given Zofran in the ER, the nausea improved. Denies abdominal pain. Denies any blood in stools. He says his stools are always black because of what he eats. Denies any hematuria, no swelling in the legs, no rash, resting comfortably currently. ALLERGIES: No known drug allergies. PAST MEDICAL HISTORY: As mentioned above. PAST SURGICAL HISTORY: CABG. MEDICATIONS: As per [facility], the patient is on gabapentin 800 mg p.o. t.i.d., metformin 500 mg p.o. b.i.d., lovastatin 40 mg p.o. daily, diclofenac sodium 75 mg p.o. b.i.d. with food, venlafaxine 75 mg p.o. daily, Jardiance 25 mg p.o. daily, Repatha 140 mg in the skin every 14 days, isosorbide mononitrate ER 60 mg p.o. daily, Tylenol 500 mg p.o. q. 6 hours p.r.n., amlodipine 2.5 mg p.o. daily, fenofibrate 54 mg p.o. daily, Lasix 40 mg p.o. daily plus additional 1, 2, 3 days per week, levothyroxine 112 mcg p.o. daily, losartan 25 mg p.o. daily, nitroglycerin 0.4 mg sublingual p.r.n., Klor-Con 10 mEq p.o. daily, Toprol-XL 100 mg p.o. daily, spironolactone 25 mg p.o. daily, aspirin 650 mg p.o. daily. FAMILY HISTORY: Significant for father has cancer, heart disorder. Brother has heart disorder. Mother has heart disorder. SOCIAL HISTORY: . No smoking. Chews one can every couple of days. No alcohol use. No drug use. REVIEW OF SYSTEMS: As per HPI. Rest of the review of systems is negative. Admission Exam Per Admitting Provider GENERAL: The patient is obese, not in acute distress. VITAL SIGNS: Temperature 36.7, pulse 67, respiratory rate 16, blood pressure 96/79, oxygen 96% on 2 liters, was 87% on room air. HEENT: Pupils equal, round and reactive to light. Oral mucosa moist. Left facial swelling seen with tenderness on touch and redness. NECK: No JVD. No neck masses seen. CARDIOVASCULAR: S1 and S2 heard. Regular rate and rhythm. No murmur, no gallop. RESPIRATORY SYSTEM: Normal AP diameter. No accessory muscle use. No wheezing, no crackles. ABDOMEN: Soft, bowel sounds present, nontender, no distention. CENTRAL NERVOUS SYSTEM: Cranial nerves II-XII grossly intact, nonfocal. EXTREMITIES: No edema, no erythema. Principal Diagnosis Facial infection left side Discharge Exam GENERAL: Alert and oriented x3. NAD, on RA, obese. HEENT: No pallor, no icterus. Pupils equal, round and reactive to light. Oral mucosa moist. Lt cheek w/ improved swelling and tenderness, no induration. Rt buccal mucosa looks w/ improved erythema and some swelling, # 19 extracted. NECK: No JVD, no neck masses. HEART: S1 and S2 heard. Regular rate and rhythm. No murmur, no gallop. RESPIRATORY SYSTEM: Normal AP diameter. No accessory muscle use. No wheezing, no crackles. ABDOMEN: Soft, bowel sounds present, nontender, no distention. CENTRAL NERVOUS SYSTEM: No facial droop. Speech is clear. Obeys simple commands. Moves extremities. EXTREMITIES: No edema, no erythema seen. Discharge Data Allergies Allergy/AdvReac Type Severity Reaction Status Date / Time No Known Allergies Allergy Unverified 10/14/20 05:49 Consultations 04/27/22 06:11 ED Decision to Admit Stat 04/27/22 08:23 Consult Cardiology Routine Consult Oromaxillofacial Surgery Routine Procedures Performed Operation Date: 04/28/22 08:20 Actual Procedures p Incision and Drainage Left Submandibular Abscess, (Not Applicable) - Benigno Winslow DMD s Extraction of Tooth #19(Not Applicable) - Benigno Winslow DMD Ordered Studies 04/27/22 04:35 CT angio chest PE protocol Urgent 04/27/22 05:59 CT neck soft tissues [CT soft tissue neck wo con] Stat Hospital Course (1) Preop cardiovascular exam: (2) Dental abscess: Plan 61-year-old male with PMH of T2DM, HLD, CAD s/p CABG 2013, HTN, CKD stage II, back pain, depression, obesity presented to our ED 04/27 with left lower dental abscess and facial cellulitis. Per patient, his tooth broke up 2 weeks ago PHYSICAL MEDICINE PHYSICIAN and filling came out, was not able to get hold of his dentist, and since last 2 days PHYSICAL MEDICINE PHYSICIAN the swelling got worse with lot of pain and finally he was able to get hold of his dentist who advised him to get cleared by cardiology given his cardiac history and advised him to go to ER. He was managed for the following: #. Dental abscess/facial cellulitis x left side Broke left molar 2 weeks ago, dental filling came out, had increased swelling and pain since 2 days PHYSICAL MEDICINE PHYSICIAN. Patient's dentist directed him to ER and also advised him for cardiology clearance. At presentation, patient reported swallowing was fine but he had pain opening his mouth and hence his eating had been affected. Admitting soft tissue neck CT: Evidence of cellulitis on left facial soft tissues overlying the mandible and extending into the left anterior neck. No fluid collection noted. Pharyngeal soft tissues grossly normal. Cardiology eval for preop clearance. 04/28 ECHO: EF 60-65%, Gr I diastolic dysfxn, no significant valvular pathology. Unasyn 04/27, being changed to oral penicillin upon discharge. Probiotics added. Percocet added as needed for pain. Patient to follow-up with PCP in 1 week and dentist in 1 to 2 weeks upon discharge. Continue with soft diet. #. Abnormal CTA chest: Admitting CTA chest with 5 mm nodule at left lower lobe. Pt reports never smoking. #. Hypoxia: Patient reports shortness of breath on exertion since CABG in 2013. Not needing oxygen and does not feel any discomfort or chest pain. CTA chest was unremarkable at admission. #. Other chronic medical conditions: CAD status post CABG, CKD stage II, HTN, depression, diabetes, obesity Continue with/resume home meds as and when able. Pt reports taking aspirin 1-2 tabs 325 mg daily as needed for pain but aware he is supposed to take 81 mg daily. will change to baby aspirin upon DC. Home meds: Resume as appropriate. #. CODE STATUS: Full code Patient being discharged to home with following instruction at the point of discharge: Follow-up with your PCP within 1 week time. Follow-up with your dentist in 1 to 2-week time upon discharge. Take antibiotics as prescribed to complete the course. Probiotics will be added. Get your blood work CBC, Phosphorous level and CMP in a week time and have the results forwarded to your primary care physician. You will be discharged with few days worth of pain medication, if you have ongoing/increasing pain, you will need evaluation by your PCP for further management/prescription of pain meds. Take your medications as prescribed. Total Time Total Time Spent Total Time Spent (In Minutes): 35 Discharge Plan Discharge Items Patient Disposition: Home - Self-Care Reason For Visit: DENTAL ABCESS Discharge Diagnosis: Facial infection left side Activity: Resume your previous activity Bathing: No limitations Exercise/Sports: Gradually increase as tolerated Driving/Machine Use: Resume 3 days after discharge Weightbearing: Full weightbearing Non-emergency contact: Primary Care Provider, Surgeon and Photoengraving Printer Call non-emergency contact if: your temperature is above 101.5 and your wound has increased drainage Follow-up/Referrals: Cristian Desai MD [Primary Care Provider] - (Date & Time 05/02/2022 11:20 AM Provider Cristian Desai MD Department Family Medicine [facility] ) Benigno Winslow, DMD [Physician] - Diet: Full liquid Diet Texture: Easy to Chew Addtl Attending Provider Instructions: ADDITIONAL ACTIVITY RECOMMENDATIONS: * Helm teeth after every meal. It is very important to keep your mouth clean to prevent infection. * Starting tonight rinse with the Peridex as directed then 2 x a day * it is very important to keep well hydrated, this prevents fever and possible dry socket pain SPECIAL CARE INSTRUCTIONS: *It is not uncommon that between day 2-4 that your swelling will be at its worst this is very normal, do not be alarmed. * To help with the tissue swelling and hardness apply heat (hot water bottle or heating pad) for the next 4-5 days, as often as possible. * Tomorrow start rinsing your mouth with 1/2 teaspoon salt in 8 ounces warm water. This rinse should be used every 4-6 hours. * You may experience slight nausea. To prevent this, never take your medication on an empty stomach. If nauseated, take small sips of shona melecio until you feel better; then you may start on applesauce and toast. * Some swelling is common. It should gradually decrease within 4-5 days. * A certain amount of bleeding is to be expected. It is often possible to control mild oozing by placing folded gauze over the area and biting down for 30 minutes. If you are unable to control excessive bleeding, call Dr Winslow at [phone] * You may experience some discomfort for a few days. If pain or swelling increases, Call Dr Winslow * There is no need for a follow up check up - if you need to see me please call so we can arrange follow up--Seeing a dentist for a cleaning and general dental exam would be best. * office address--[address] phone # [phone] Addtl Project Management Professor Provider Instructions: Follow-up with your PCP within 1 week time. Follow-up with your dentist in 1 to 2-week time upon discharge. Take antibiotics as prescribed to complete the course. Probiotics will be added. Get your blood work CBC, Phosphorous level and CMP in a week time and have the results forwarded to your primary care physician. You will be discharged with few days worth of pain medication, if you have ongoing/increasing pain, you will need evaluation by your PCP for further management/prescription of pain meds. Take your medications as prescribed. Pending Studies at Discharge: Yes (04/28 left mandibular operative culture) Stand-Alone Forms: My [facility], Smoking Cessation Medications and DC Order Prescriptions: New penicillin V potassium 500 mg tablet 500 mg PO BID 10 Days Qty: 20 0RF Probiotic 3 billion cell capsule 3,000 mmu cells PO DAILY 14 Days Qty: 14 0RF Rx Instructions: administer with a meal oxycodone-acetaminophen [Percocet] 10-325 mg tablet 1 tab PO Q8H PRN (Reason: pain (scale score 7-10)) 5 Days Qty: 15 0RF aspirin 81 mg tablet,delayed release (DR/EC) 81 mg PO DAILY Qty: 30 0RF Continued spironolactone 25 mg tablet 25 mg PO DAILY nitroglycerin 0.4 mg tablet, sublingual 0.4 mg sublingual UD PRN (Reason: Chest Pain) losartan 25 mg tablet 25 mg PO DAILY potassium chloride 10 mEq tablet,ER particles/crystals 10 meq PO DAILY gabapentin 300 mg capsule See Rx Instructions .ROUTE .COMPLEX Rx Instructions: take 2 capsules in the morning,1 in the afternoon and 1 in the evening isosorbide mononitrate 60 mg tablet extended release 24 hr 60 mg PO DAILY amlodipine 5 mg tablet 2.5 mg PO DAILY levothyroxine 112 mcg tablet 112 mcg PO DAILY rosuvastatin 40 mg tablet 40 mg PO QPM metoprolol succinate 100 mg tablet extended release 24 hr 100 mg PO DAILY furosemide 40 mg tablet 40 mg PO DAILY metformin 500 mg tablet 500 mg PO BID venlafaxine 75 mg capsule,extended release 24hr 75 cap PO DAILY diclofenac sodium 75 mg tablet,delayed release (DR/EC) 75 tab PO BID fenofibrate 54 mg tablet 54 mg PO DAILY Jardiance 25 mg tablet 25 mg PO DAILY Repatha SureClick 140 mg/mL pen injector 1 ea SUBCUT Discontinued aspirin 325 mg Tablet 650 mg PO DAILY Discharge Orders: Discharge Order (Routine); Ordered 04/29/22 Ordered By: Luis Alberto Pepper Admission Data Admit Date/Time: 04/27/22 07:09 Attending Provider: Luis Alberto Pepper Admit Provider: Santi Peacock Primary Care Provider: Cristian Desai Other Providers: Santi Peacock ; Kael Martínez ; Benigno Winslow
[2022-04-29] MEDS: GABAPENTIN 300 MG CAP PO SCH (13:20)
== END 2022-04-29 18:28 | disposition home or self-care (01) | DRG 158 ==
LOC: SUATTDRO → ED 00:29 → SUATTDRO 07:09 → 2S 07:09
DX: I50.32 Chronic diastolic (congestive) heart failure; Z79.890 Hormone replacement therapy; I25.110 Atherosclerotic heart disease of native coronary artery with unstable angina pectoris; Z79.82 Long term (current) use of aspirin; F32.A Depression, unspecified; E78.5 Hyperlipidemia, unspecified; E03.9 Hypothyroidism, unspecified; F17.220 Nicotine dependence, chewing tobacco, uncomplicated; N18.2 Chronic kidney disease, stage 2 (mild); Z79.84 Long term (current) use of oral hypoglycemic drugs; E66.9 Obesity, unspecified; Z95.1 Presence of aortocoronary bypass graft; K12.2 Cellulitis and abscess of mouth; I13.0 Hypertensive heart and chronic kidney disease with heart failure and stage 1 through stage 4 chronic kidney disease, or unspecified chronic kidney disease; L03.211 Cellulitis of face; E11.22 Type 2 diabetes mellitus with diabetic chronic kidney disease; R09.02 Hypoxemia; Z68.37 Body mass index [BMI] 37.0-37.9, adult

== ENCOUNTER 2024-02-21 00:33 | Inpatient (IN) ==
[2024-02-21] MEDS: ONDANSETRON INJ 2 MG/ML 2 ML VIAL IV STA (01:21)
[2024-02-21] MEDS: KETOROLAC 30 MG/ML VIAL IV STA (01:22)
[2024-02-21] MEDS: MoRPHine SULFATE 4 MG/ML 1 ML CARP\\VIAL IV PRN ×2 (01:23→12:15)
[2024-02-21] MEDS: dexAMETHasone**PF** 10 MG/ML VIAL IV ONE (01:23)
[2024-02-21 02:03] LABS: Alanine Aminotransferase 23 U/L (7-52); Albumin Globulin Ratio 1.4 (0.9-2); Albumin Level 3.9 gm/dl (3.4-5.0); Alkaline Phosphatase 50 U/L (34-104); Anion Gap 11 (3-11); BUN Creatinine Ratio 35.4 (10-20); Bilirubin,Total 0.4 mg/dl (0.2-1.0); Blood Urea Nitrogen 34 mg/dl (6-23); Calcium 9.1 mg/dl (8.6-10.3); Carbon Dioxide 25 mmol/L (21-32); Chloride 101 mmol/L (98-107); Creatinine Clr Calc Pharmacy 96.4 ml/min; Est GFR (African American) 96.4 ml/min; Est GFR (Non-African American) 83.2 ml/min; Globulin 2.7 gm/dl (2.5-4.0); Glucose 140 mg/dl (70-99(Fasting)); Sodium 137 mmol/L (136-145); Total Protein 6.6 gm/dl (6.0-8.3); Troponin I High Sensitivity 7.4 pg/ml (0-20)
[2024-02-21 03:01] LABS: Potassium 3.5 mmol/L (3.5-5.1)
--- NOTE | 2024-02-21 03:02 | Emergency Department Note ---
History of Present Illness General Chief complaint: Back Injury/Pain Stated complaint: LOW BACK PAIN Time Seen by Provider: 02/21/24 00:35 History of Present Illness Maximum Pain Intensity: 8 This is a 63-year-old male presenting to the emergency department for evaluation of low back pain. Patient has history of low back pain that seems to be worsening over the past few weeks. He does not have any previous injury or trauma, and no previous back surgery. Patient was initially seen in this ER about [address] scan was performed and showed some chronic disease. He was given medication here which did help his symptoms. Patient followed up with his PCP, and was started on steroids. Patient states over the past 2 days his back pain has worsened. Tonight the patient was having more pain in his bilateral legs and into his thighs, when he had acute onset back pain causing him to fall down stairs at home. He primarily has injuries to his lower legs and feet, and was unable to stand and walk because of his fall. He does arrive to the ER via EMS. He rates his discomfort an 8/10 that worsens with certain movement. No fevers or chills. No head, neck, or chest symptoms. Home Medications Medication Instructions Recorded Confirmed Type amlodipine 5 mg tablet (Norvasc) 2.5 mg PO QAM 10/14/20 02/21/24 History isosorbide mononitrate 60 mg 90 mg PO QAM 10/14/20 02/21/24 History tablet,extended release 24 hr losartan 25 mg tablet (Cozaar) 25 mg PO QAM 10/14/20 02/21/24 History metoprolol succinate 100 mg 100 mg PO QAM 10/14/20 02/21/24 History tablet,extended release 24 hr nitroglycerin 0.4 mg sublingual 0.4 mg sublingual UD PRN Chest Pain 10/14/20 02/21/24 History tablet potassium chloride 10 mEq 10 meq PO QAM 10/14/20 02/21/24 History tablet,extended release(part/cryst) rosuvastatin 40 mg tablet (Crestor) 40 mg PO QPM 10/14/20 02/21/24 History spironolactone 25 mg tablet 25 mg PO QAM 10/14/20 02/21/24 History diclofenac sodium 75 mg 75 mg PO BID 04/27/22 02/21/24 History tablet,delayed release fenofibrate 54 mg tablet 54 mg PO QAM 04/27/22 02/21/24 History furosemide 40 mg tablet 40 mg PO QAM 04/27/22 02/21/24 History metformin 500 mg tablet 500 mg PO BIDM 04/27/22 02/21/24 History aspirin 325 mg tablet 650 mg PO QAM 02/07/23 02/21/24 History bupropion HCl 300 mg 24 hr tablet, 300 mg PO QAM 02/07/23 02/21/24 History extended release (Wellbutrin XL) acetaminophen 500 mg tablet 1,000 mg PO Q6H PRN Pain 04/05/23 02/21/24 History levothyroxine 200 mcg tablet 200 mcg PO DAILYBB 07/18/23 02/21/24 History duloxetine 30 mg capsule,delayed 30 mg PO QAM #30 caps 07/25/23 02/21/24 Rx release empagliflozin 10 mg tablet 10 mg PO DAILY 09/06/23 02/21/24 History (Jardiance) gabapentin 800 mg tablet 800 mg PO TID 09/06/23 02/21/24 History semaglutide 0.25 mg or 0.5 mg (2 0.5 mg subcut WK 09/06/23 02/21/24 History mg/3 mL) subcutaneous pen injector (Ozempic) glipizide 5 mg tablet, extended 5 mg PO DAILYBB 02/21/24 02/21/24 History release 24 hr tramadol 50 mg tablet 50 mg PO Q8H PRN Pain 02/21/24 02/21/24 History Allergies Allergy/AdvReac Type Severity Reaction Status Date / Time ezetimibe [From Zetia] AdvReac Intermediate HALLUCINATIONS/DIZZINESS/DISORIENTATION--PER Verified 02/21/24 01:10 GMG Past Med/Surg History Medical History Metabolic encephalopathy Angina, class III Postoperative pulmonary edema Obesity Hx of shortness of breath "has been ongoing for the past couple of years, had told his doctors, but they have not done anything about it. mainly feels its due to weight and body changes over the last few years." RG (dyspnea on exertion) ongoing "years" Chronic ischemic heart disease Peripheral neuropathy Nausea after anesthesia Diabetes mellitus, type 2 03/07/23 Ha1c: 9.1% Depression Scrotal swelling s/p trauma 01/14/23 Acute renal failure CHAD (acute kidney injury) Chronic back pain L4-L5-S1, HERNIATED DISCS Coronary artery disease NSTEMI 2013- s/p CABG x2 (CRAIG to LAD, SVG to OM, RCA not bypassed). Cath 2016: patent bypass grafts but severe [place] vessel CAD Dyslipidemia familial hypercholesterolemia Hypothyroidism Hypertension Surgical History History of hydrocelectomy 04/05/23 R scrotal hydrocelectomy, scrotal exploration R; [place]: Glidescope #3, ETT#7.5 HiLo Oral (per records, elective Glidescope 11/17 Mallampati III, thick neck) Hx of hernia repair LT INGUINAL A CHILD History of tonsillectomy and adenoidectomy Hx of CABG CABG x 2 2013, with incomplete revascularization, receiving a CRAIG graft to the LAD, saphenous vein graft to the circumflex obtuse marginal to ungrafted right coronary artery History of cardiac cath 05/19/2016 revealed patent left internal mammary artery graft to left anterior descending, patent saphenous vein graft to the circumflex obtuse marginal with excellent distal runoff, chronically occluded RCA, generally preserved LV systolic function History of incision and drainage (04/28/22) Incision and Drainage Left Submandibular Abscess, Dr. Winslow, DMD 04/28/22 ([place]: Glidescope #3, ETT# 7.5 HiLo Oral) Social History Smoking Status: Former smoker Tobacco Type: Smokeless Tobacco (Dip or Chew) Cigarettes Per Day: Vapes; Second Hand Exposure: No; Do You Dip or Chew Tobacco: No; Hx Alcohol Use: No Hx Substance Use: No Preferred Language: Kazakh Communication Ability: Effective Community Service Officer Required: No Beliefs That Will Affect Care: None marital status: Current Living Situation: Spouse Current Living Situation Comment: with Feels Safe at Home: Yes Assistive Devices: Cane Review of Systems A total of 10 systems reviewed and were otherwise negative Physical Exam Vital Signs Vital Signs - 24 hr 02/21/24 00:31 02/21/24 00:43 02/21/24 01:40 Temperature 36.7 C Temperature Source Oral Pulse Rate 72 78 Pulse Rate [Apical] 76 Pulse Rhythm Regular Pulse Rhythm [Apical] Regular Pulse Strength Normal Pulse Strength [Apical] Normal Respiratory Rate 18 16 Respiratory Effort / Characteristics Non-Labored Non-Labored Respiratory Depth Normal Normal Respiratory Pattern Regular Regular Blood Pressure 154/75 H Blood Pressure [Right Arm] 160/86 H Blood Pressure Mean 101 Blood Pressure Mean [Right Arm] 110 Blood Pressure Position Sitting Blood Pressure Position [Right Arm] Pulse Oximetry 90 92 Oxygen Delivery Method Room Air Room Air Oxygen Flow Rate Sepsis Recent Fever Within 48 Hours No Sepsis New/Unexplained Change in Mental Status No Sepsis Action Taken by Nursing No Action Required 02/21/24 02:30 02/21/24 04:00 02/21/24 04:32 Temperature Temperature Source Pulse Rate 76 Pulse Rate [Apical] 69 76 Pulse Rhythm Pulse Rhythm [Apical] Regular Regular Pulse Strength Pulse Strength [Apical] Normal Normal Respiratory Rate 16 16 Respiratory Effort / Characteristics Spontaneous Non-Labored Labored Respiratory Depth Normal Normal Respiratory Pattern Regular Agonal Blood Pressure Blood Pressure [Right Arm] 131/84 178/103 H Blood Pressure Mean Blood Pressure Mean [Right Arm] 99 128 Blood Pressure Position Blood Pressure Position [Right Arm] Right Lateral Pulse Oximetry 95 93 Oxygen Delivery Method Nasal Cannula Nasal Cannula Oxygen Flow Rate 2 2 Sepsis Recent Fever Within 48 Hours Sepsis New/Unexplained Change in Mental Status Sepsis Action Taken by Nursing VITALS: Vitals are noted on the nurse's note and reviewed by myself. Vital signs stable. GENERAL: Well-developed, well-nourished, obese white male, who is in no acute distress and resting comfortably. Patient is cooperative with the examination. HEAD: Normocephalic atraumatic. NECK: Supple without nuchal rigidity. No lymphadenopathy. No thyromegaly. Cervical spine is nontender. HEART: Regular rate and rhythm without murmurs gallops or rubs. LUNGS: Clear to auscultation bilaterally without wheezes, rales or rhonchi. No retractions or accessory muscle use. BACK: Diffuse tenderness throughout the lower lumbar spine. Movement of the patient causes significant reported discomfort and exam is limited. ABDOMEN: Positive normal bowel sounds x 4. Soft, nontender, without masses or organomegaly. No guarding or rebound tenderness. MUSCULOSKELETAL: Multiple abrasions noted to the bilateral lower legs. No saddle paresthesias. DTRs intact. Notable ecchymosis and edema to the midfoot of the bilateral feet. NEURO: Patient was alert and oriented to person place and time. CN II through XII grossly intact. Course Administered Medications Insulin Aspart (Insulin Aspart Per Unit Charge) 0 units SC ACHS BIRD Stop: 03/22/24 05:34 Last Admin: 02/21/24 06:04 Dose: Not Given Documented By: KG Lidocaine (Lidocaine 5% 1 Patch) 1 patch TD QAM BIRD Stop: 03/22/24 04:19 Last Admin: 02/21/24 06:08 Dose: 1 patch Documented By: KG Discontinued Medications Dexamethasone Sodium Phosphate (DexamethasonePf 10 Mg/Ml Vial) 10 mg IV NOW ONE Stop: 02/21/24 00:49 Last Admin: 02/21/24 01:23 Dose: 10 mg Documented By: KG Hydromorphone HCl (Hydromorphone Inj 0.5 Mg/0.5 Ml Syr) 0.5 mg IV NOW STA Stop: 02/21/24 01:57 Last Admin: 02/21/24 03:21 Dose: 0.5 mg Documented By: KG Ketorolac Tromethamine (Ketorolac 30 Mg/Ml Vial) 30 mg IV NOW STA Stop: 02/21/24 00:49 Last Admin: 02/21/24 01:22 Dose: 30 mg Documented By: KG Lorazepam (Lorazepam 1 Mg/1 Ml Syr Ed Inj Use) 1 mg IV ONE STA Stop: 02/21/24 01:56 Last Admin: 02/21/24 03:21 Dose: 1 mg Documented By: KG Losartan Potassium (Losartan Potassium 50 Mg Tab) 50 mg PO NOW STA Stop: 02/21/24 04:44 Last Admin: 02/21/24 06:08 Dose: 50 mg Documented By: KG Morphine Sulfate (Morphine Sulfate 4 Mg/Ml 1 Ml Carp\\Vial) 4 mg IV Q30M PRN PRN Reason: Pain Stop: 03/06/24 00:47 Last Admin: 02/21/24 01:23 Dose: 4 mg Documented By: KG Ondansetron HCl (Ondansetron Inj 2 Mg/Ml 2 Ml Vial) 4 mg IV NOW STA Stop: 02/21/24 00:51 Last Admin: 02/21/24 01:21 Dose: 4 mg Documented By: KG Medical Decision Making Differential Diagnosis Differential diagnosis: Etiologies such as tendon or ligamentous injury, contusion, fracture, cervical/vertebral injury, dislocation, intra-abdominal process, pneumothorax, intrathoracic trauma, intracranial injury, soft tissue injury, neurologic process, as well as other traumatic pathologies were entertained. Laboratory Data 02/21/24 02:33 02/21/24 02:33 Lab Results 02/21/24 02/21/24 Range/Units 01:10 02:33 WBC Cancelled 12.29 H RBC Cancelled 4.41 L Hgb Cancelled 13.2 L Hct Cancelled 40.5 L MCV Cancelled 91.8 MCH Cancelled 29.9 MCHC Cancelled 32.6 RDW Std Deviation Cancelled 52.0 H RDW Coeff of Maribel Cancelled 15.7 H Plt Count Cancelled 196 MPV Cancelled 9.8 Immature Gran % (Auto) Cancelled 1.7 Neut % (Auto) Cancelled 65.7 Lymph % (Auto) Cancelled 19.0 [place] % (Auto) Cancelled 6.0 Eos % (Auto) Cancelled 7.2 Baso % (Auto) Cancelled 0.4 Neut # (Auto) Cancelled 8.07 H Lymph # (Auto) Cancelled 2.33 [place] # (Auto) Cancelled 0.74 H Eos # (Auto) Cancelled 0.89 H Baso # (Auto) Cancelled 0.05 Immature Gran # (Auto) Cancelled 0.21 H Absolute Nucleated RBC Cancelled Nucleated RBC % (auto) Cancelled Neutrophils % (Manual) Cancelled Band Neutrophils % Cancelled Lymphocytes % (Manual) Cancelled Prolymphocyte % Cancelled Reactive Lymphs % (Man) Cancelled Monocytes % (Manual) Cancelled Eosinophils % (Manual) Cancelled Basophils % (Manual) Cancelled Metamyelocytes % (Man) Cancelled Myelocytes % (Man) Cancelled Promyelocytes % (Man) Cancelled Blast Cells % (Manual) Cancelled Plasma Cell % (Manual) Cancelled Other Cells % Cancelled Nucleated RBC % Cancelled Neutrophils # (Manual) Cancelled Band Neutrophils # Cancelled Total Absolute Neuts Cancelled Lymphocytes # (Manual) Cancelled Prolymphocyte # Cancelled Reactive Lymphs # Cancelled Total Abs Lymphocytes Cancelled Monocytes # (Manual) Cancelled Eosinophils # (Manual) Cancelled Basophils # (Manual) Cancelled Metamyelocytes # (Man) Cancelled Myelocytes # (Manual) Cancelled Promyelocytes # (Man) Cancelled Blast Cells # (Man) Cancelled Plasma Cell # (Manual) Cancelled Other Cells # Cancelled Nucleated RBCs # (Man) Cancelled Hypersegmented Neuts Cancelled Hyposegmented Neuts Cancelled Hypogranular Neuts Cancelled Large Granular Lymphs Cancelled # Lrg Granular Lymphs Cancelled Hairy Cells Cancelled Smudge Cells Cancelled Toxic Granulation Cancelled Toxic Vacuolation Cancelled Dohle Bodies Cancelled Tanisha Rods Cancelled Platelet Estimate Cancelled Hypogranular Platelets Cancelled Giant Platelets Cancelled Platelet Satelliting Cancelled RBC Morphology Cancelled Polychromasia Cancelled Hypochromasia Cancelled Poikilocytosis Cancelled Basophilic Stippling Cancelled Anisocytosis Cancelled Microcytosis Cancelled Macrocytosis Cancelled Spherocytes Cancelled Pappenheimer Bodies Cancelled Sickle Cells Cancelled Target Cells Cancelled Tear Drop Cells Cancelled Ovalocytes Cancelled Stomatocytes Cancelled [place] Bodies Cancelled Echinocytes Cancelled Acanthocytes (Spur) Cancelled Rouleaux Cancelled RBC Agglutinates Cancelled Schistocytes Cancelled Peripher Smr Path Cons Cancelled Sezary Cell Cancelled Sodium 137 (136-145) mmol/L Potassium TNP 3.5 Chloride 101 (98-107) mmol/L Carbon Dioxide 25 (21-32) mmol/L Anion Gap 11 (3-11) BUN 34 H (6-23) mg/dl Creatinine 0.96 (0.6-1.4) mg/dl Est Cr Clr Drug Dosing 96.4 ml/min Est GFR ( Amer) 96.4 ml/min Est GFR (Non-Af Amer) 83.2 ml/min BUN/Creatinine Ratio 35.4 H (10-20) Glucose 140 H (70-99(Fasting)) mg/dl Calcium 9.1 (8.6-10.3) mg/dl Magnesium 2.4 (1.7-2.4) mg/dl Total Bilirubin 0.4 (0.2-1.0) mg/dl AST TNP 17 ALT 23 (7-52) U/L Alkaline Phosphatase 50 (34-104) U/L Troponin I High Sens 7.4 (0-20) pg/ml B-Natriuretic Peptide 47 (0-100) pg/ml Total Protein 6.6 (6.0-8.3) gm/dl Albumin 3.9 (3.4-5.0) gm/dl Globulin 2.7 (2.5-4.0) gm/dl Albumin/Globulin Ratio 1.4 (0.9-2) TSH 5.305 H (0.300-4.500) uIu/ml Free T4 0.78 (0.61-1.60) ng/dl Blood Parasites ID Cancelled MDM Narrative Physical exam and history were performed. Nursing notes, EMR, and Medication List were personally reviewed. No social concerns were identified as barriers to patients care. Patient appears to have ongoing back pain that seems to have worsened this evening. He did have a fall down several stairs due to his back pain this evening. IV access was established and labs were obtained. Patient was given IV morphine, IV Zofran, IV Toradol, IV Decadron, IV Dilaudid, and IV Ativan. MRI was ordered. Patient's blood work is as above and was reviewed. He does not have a grossly elevated white blood cell count, gross anemia, bandemia, or significant electrolyte imbalance. Transaminases are not diagnostic. X-rays of his feet were reviewed and do not show obvious fracture. Chest x-ray without obvious findings. Patient had continued and significant pain with laying flat. We did attempt MRI twice, and he was not able to tolerate the imaging study. The patient did start to desaturate after being given the Dilaudid, and additional narcotics were paused. He did recover with nasal cannula oxygen. Overall the patient does not appear well for discharge home. He has significant difficulty with ambulating. Escalation of care is necessary. I did reach out to the on-call [facility] hospitalist, who agreed to evaluate the patient here in the ER. Please see their dictation for further patient course, plan, disposition. The chart was completed utilizing [employer] Speech Voice Recognition Software. Grammatical errors, random word insertions, pronoun errors, and incomplete sentences are an occasional consequence of this system due to software limitations, ambient noise, and hardware issues. Any formal questions or concerns about the content, text, or information contained within the body of this dictation should be directly addressed to the provider for clarification. . Impression & Plan Intractable back pain, Low back pain with bilateral sciatica, Fall Discharge Plan Visit Data Chief Complaint: Back Injury/Pain Stated Complaint: LOW BACK PAIN ED Provider: Raimundo Zepeda ED Midlevel Provider: Gurinder Boateng Discharge Problem: Intractable back pain, Low back pain with bilateral sciatica, Fall Discharge Instructions Interventions: ED Discharge Assessment Last Done: 02/21/24 06:15
[2024-02-21 03:08] LABS: Basophils # (auto) 0.05 K/uL (0.00-0.20); Basophils % (auto) 0.4 %; Eosinophils # (auto) 0.89 K/uL (0.00-0.50); Eosinophils % (auto) 7.2 %; Hematocrit (blood only) 40.5 % (42.0-52.0); Hemoglobin 13.2 g/dl (14.0-18.0); Immature Granulocytes # (auto) 0.21 K/uL (0.01-0.20); Immature Granulocytes % (auto) 1.7 %; Lymphocytes # (auto) 2.33 K/uL (1.20-3.40); Mean Corpuscular Hemoglobin 29.9 pg (25.0-34.0); Mean Corpuscular Hgb Conc 32.6 g/dL (32.0-36.0); Mean Corpuscular Volume 91.8 fL (80.0-100.0); Mean Platelet Volume 9.8 fL (9.4-12.4); Monocytes # (auto) 0.74 K/uL (0.11-0.59); Neutrophils # (auto) 8.07 K/uL (1.40-6.50); Neutrophils % (auto) 65.7 %; Platelet Count 196 K/uL (130-400); RDW Coefficient of Variation 15.7 % (11.5-14.5); Red Blood Count 4.41 M/uL (4.70-6.10); White Blood Count 12.29 K/ul (4.8-10.8)
[2024-02-21] MEDS: LORazepam 1 MG/1 ML SYR ED Inj Use IV STA (03:21)
[2024-02-21] MEDS: HYDROmorphone INJ 0.5 MG/0.5 ML SYR IV STA (03:21)
[2024-02-21] MEDS ORDERED: MoRPHine SULFATE 4 MG/ML 1 ML CARP\\VIAL IV PRN (04:21)
[2024-02-21 04:41] LABS: Magnesium 2.4 mg/dl (1.7-2.4)
[2024-02-21 05:14] LABS: Thyroid Stimulating Hormone 5.305 uIu/ml (0.300-4.500)
[2024-02-21] MEDS ORDERED: CARBOHYDRATES FOR HYPOGLYCEMIA PO PRN (05:33)
[2024-02-21] MEDS ORDERED: GLUCOSE 10 TAB/TUBE PO PRN (05:33)
[2024-02-21] MEDS ORDERED: GLUCOSE 40% GEL 15 GM TUBE PO PRN (05:33)
[2024-02-21] MEDS ORDERED: GLUCAGON FOR INJ 1 MG VIAL SQ PRN (05:33)
[2024-02-21] MEDS ORDERED: DEXTROSE 50% 50 ML SYRINGE IV PRN (05:33)
[2024-02-21] MEDS ORDERED: NITROGLYCERIN SL 0.4 MG/TAB TAB SL PRN (05:41)
[2024-02-21 05:50] LABS: T4 Free Thyroxine 0.78 ng/dl (0.61-1.60)
[2024-02-21] MEDS: INSULIN ASPART PER UNIT CHARGE SC SCH (06:04)
[2024-02-21] MEDS: LOSARTAN POTASSIUM 50 MG TAB PO STA (06:08)
[2024-02-21] MEDS: LIDOCAINE 5% 1 PATCH TD SCH (06:08)
--- NOTE | 2024-02-21 06:34 | History & Physical Report ---
Date of Service February 21, 2024 Assessment & Plan (1) Chest pain: Plan: Possibly from uncontrolled hypertension secondary to worsening lumbar radiculopathy, history weightbearing and recent fall, home NSAID Rx contributory to uncontrolled BP Rule out ACS given nitro relief, history CAD status post CABG Traumatic back/feet contusions rule out hematoma hyperlipidemia, on statin Rx DM2 on oral medications, suboptimal control as of recent hemoglobin A1c of 9.8 last year Hypothyroidism, TSH slightly elevated TAI on CPAP chronic anemia, hemoglobin at baseline mood disorder, stable OBS PCU Analgesia Titrate home BP meds Hold home NSAID given uncontrolled BP Follow troponin Cardiology consult Re: Chest pain N.p.o. until patient seen by cardiology in anticipation of ischemic workup CT lumbar spine, CT feet Re: Traumatic contusion rule out hematomae Hold home aspirin for now given possible hematoma Resume if H&H stable MRI lumbar spine if patient able to tolerate Orthopedic spine consult Re: Worsening back pain with radiculopathy symptoms Basal bolus insulin adjusted for n.p.o. status for now, ISS BG goal 1 10-1 40, update hemoglobin A1c DVT prophylaxis. SCDs Re: Multiple contusions/possible hematoma Full code Patient requesting updates providers. Ms. Jordyn Frias, contact #[phone]. Text document was generated using [employer] voice recognition software. It may contain grammatical or spelling errors. Kindly contact undersigned for clarification of any documentation item in question. Admission and Anticipated Discharge Date Admission Date: February 21, 2024 History of Present Illness Chief Complaint: Worsening back pain, fall, chest pain Primary Care Provider: Elroy Hughes MD History obtained from patient, family, and records. Medical history significant for CAD status post CABG, hypertension, hyperlipidemia, DM2 on oral medications, TAI on CPAP, hypothyroidism, chronic anemia (baseline hemoglobin 12-13), mood disorder Last confinement July 2023 under Urology service for right hydrocele. Postop course complicated by hypoxemia. 2 weeks ago, patient noted worsening of chronic back pain symptoms with radiation to his legs after carrying dog food over his shoulder. No fever, no chills, no incontinence symptoms. Patient consulted ER [address] days ago. Lumbar spine CT showed 1. Degenerative changes, as detailed above. 2. At L3-L4, moderate-severe central canal narrowing, effacement of the lateral recesses, and severe bilateral foraminal narrowing. 3. At L4-L5, severe bilateral foraminal narrowing with only mild central spinal canal narrowing. 4. At L5-S1, left central disc extrusion as detailed above. Mild canal narrowing with effacement of the left lateral recess, possibly impinging on the traversing left S1 nerve root. Severe bilateral foraminal narrowing. Patient discharged home with Flexeril prescription. Patient later started by PCP a few days later on prednisone course after follow- up visit. Last week, patient noted intermittent chest tightness occasionally going to his left arm. Some shortness of breath. Symptoms somewhat similar to heart attack in the past. Chest pain precipitated by uncontrolled back pain. Denies headache symptoms. Some fluid retention. Symptoms improved by nitroglycerin intake at home. Patient eventually ran out of nitro tabs as per . Worsening back pain causing patient to fall down the stairs at home yesterday. Patient unable to stand and walk because of fall. Painful bruising noted at the low back post fall as per . Bruising and swelling noted in the feet. Left leg somewhat weak No head trauma. Intractable discomfort at the ER. Highest SBP of 170s documented at the ER. Medical History as above Surgical History : CABG, hydrocele surgery, tonsillectomy, hernia repair Family History : Heart disease Personal/Social history : Non-smoker, no EtOH intake, disabled Allergies Allergy/AdvReac Type Severity Reaction Status Date / Time ezetimibe [From Zetia] AdvReac Intermediate HALLUCINATIONS/DIZZINESS/DISORIENTATION--PER Verified 02/21/24 01:10 GMG Home Medications Medication Instructions Recorded Confirmed Type amlodipine 5 mg tablet (Norvasc) 2.5 mg PO QAM 10/14/20 02/21/24 History isosorbide mononitrate 60 mg 90 mg PO QAM 10/14/20 02/21/24 History tablet,extended release 24 hr losartan 25 mg tablet (Cozaar) 25 mg PO QAM 10/14/20 02/21/24 History metoprolol succinate 100 mg 100 mg PO QAM 10/14/20 02/21/24 History tablet,extended release 24 hr nitroglycerin 0.4 mg sublingual 0.4 mg sublingual UD PRN Chest Pain 10/14/20 02/21/24 History tablet potassium chloride 10 mEq 10 meq PO QAM 10/14/20 02/21/24 History tablet,extended release(part/cryst) rosuvastatin 40 mg tablet (Crestor) 40 mg PO QPM 10/14/20 02/21/24 History spironolactone 25 mg tablet 25 mg PO QAM 10/14/20 02/21/24 History diclofenac sodium 75 mg 75 mg PO BID 04/27/22 02/21/24 History tablet,delayed release fenofibrate 54 mg tablet 54 mg PO QAM 04/27/22 02/21/24 History furosemide 40 mg tablet 40 mg PO QAM 04/27/22 02/21/24 History metformin 500 mg tablet 500 mg PO BIDM 04/27/22 02/21/24 History aspirin 325 mg tablet 650 mg PO QAM 02/07/23 02/21/24 History bupropion HCl 300 mg 24 hr tablet, 300 mg PO QAM 02/07/23 02/21/24 History extended release (Wellbutrin XL) acetaminophen 500 mg tablet 1,000 mg PO Q6H PRN Pain 04/05/23 02/21/24 History levothyroxine 200 mcg tablet 200 mcg PO DAILYBB 07/18/23 02/21/24 History duloxetine 30 mg capsule,delayed 30 mg PO QAM #30 caps 07/25/23 02/21/24 Rx release empagliflozin 10 mg tablet 10 mg PO DAILY 09/06/23 02/21/24 History (Jardiance) gabapentin 800 mg tablet 800 mg PO TID 09/06/23 02/21/24 History semaglutide 0.25 mg or 0.5 mg (2 0.5 mg subcut WK 09/06/23 02/21/24 History mg/3 mL) subcutaneous pen injector (Ozempic) glipizide 5 mg tablet, extended 5 mg PO DAILYBB 02/21/24 02/21/24 History release 24 hr tramadol 50 mg tablet 50 mg PO Q8H PRN Pain 02/21/24 02/21/24 History Past Med/Surg History Medical History Metabolic encephalopathy Angina, class III Postoperative pulmonary edema Obesity Hx of shortness of breath "has been ongoing for the past couple of years, had told his doctors, but they have not done anything about it. mainly feels its due to weight and body changes over the last few years." RG (dyspnea on exertion) ongoing "years" Chronic ischemic heart disease Peripheral neuropathy Nausea after anesthesia Diabetes mellitus, type 2 03/07/23 Ha1c: 9.1% Depression Scrotal swelling s/p trauma 01/14/23 Acute renal failure CHAD (acute kidney injury) Chronic back pain L4-L5-S1, HERNIATED DISCS Coronary artery disease NSTEMI 2013- s/p CABG x2 (CRAIG to LAD, SVG to OM, RCA not bypassed). Cath 2016: patent bypass grafts but severe [place] vessel CAD Dyslipidemia familial hypercholesterolemia Hypothyroidism Hypertension Surgical History History of hydrocelectomy 04/05/23 R scrotal hydrocelectomy, scrotal exploration R; [place]: Glidescope #3, ETT#7.5 HiLo Oral (per records, elective Glidescope / Mallampati III, thick neck) Hx of hernia repair LT INGUINAL A CHILD History of tonsillectomy and adenoidectomy Hx of CABG CABG x 2 2013, with incomplete revascularization, receiving a CRAIG graft to the LAD, saphenous vein graft to the circumflex obtuse marginal to ungrafted right coronary artery History of cardiac cath 05/19/2016 revealed patent left internal mammary artery graft to left anterior descending, patent saphenous vein graft to the circumflex obtuse marginal with excellent distal runoff, chronically occluded RCA, generally preserved LV systolic function History of incision and drainage (04/28/22) Incision and Drainage Left Submandibular Abscess, Dr. 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 Required: No Beliefs That Will Affect Care: None marital status: Current Living Situation: Spouse Current Living Situation Comment: with Other Information That Helps Us Care for You: No Feels Safe at Home: Yes Safety Concerns: Feels Safe At This Time Assistive Devices: BiPap, Cane and Walker Review of Systems Review of Systems: As per HPI, all other systems reviewed and negative Physical Exam Physical Exam: GENERAL: Slightly uncomfortable, pleasant, obese, no respiratory distress SKIN: Pallor, warm HEENT: Pale palpebral conjunctivae, no ptosis, dry buccal mucosa, nasal cannula in place NECK : Supple, short neck, no tenderness CHEST : CTA, no tenderness HEART : RRR, no obvious murmurs ABDOMEN: Marked distention, nontender BACK : Low back tenderness, positive bilateral straight leg raise test EXTREMITIES : Bilateral LE swelling, bipedal edema with overlying ecchymosis, multiple abrasions over upper and lower extremities NEUROLOGIC : Coherent, no facial asymmetry, gait and stance not assessed Results & Data Results & Data Vital Signs (Past 12 Hours) Vital Signs Temp Pulse Pulse Resp BP BP Pulse Ox 02/21/24 04:32 76 02/21/24 04:00 76 16 178/103 H 93 02/21/24 02:30 69 16 131/84 95 02/21/24 01:40 76 16 160/86 H 92 02/21/24 00:43 78 02/21/24 00:31 36.7 C 72 18 154/75 H 90 O2 Del Method O2 Flow Rate 02/21/24 04:32 02/21/24 04:00 Nasal Cannula 2 02/21/24 02:30 Nasal Cannula 2 02/21/24 01:40 Room Air 02/21/24 00:43 02/21/24 00:31 Room Air Laboratory Results Laboratory Results WBC 12.29 K/ul (4.8-10.8) H 02/21/24 02:33 RBC 4.41 M/uL (4.70-6.10) L 02/21/24 02:33 Hgb 13.2 g/dl (14.0-18.0) L 02/21/24 02:33 Hct 40.5 % (42.0-52.0) L 02/21/24 02:33 MCV 91.8 fL (80.0-100.0) 02/21/24 02:33 MCH 29.9 pg (25.0-34.0) 02/21/24 02:33 MCHC 32.6 g/dL (32.0-36.0) 02/21/24 02:33 RDW Std Deviation 52.0 fL (36.4-46.3) H 02/21/24 02:33 RDW Coeff of Maribel 15.7 % (11.5-14.5) H 02/21/24 02:33 Plt Count 196 K/uL (130-400) 02/21/24 02:33 MPV 9.8 fL (9.4-12.4) 02/21/24 02:33 Immature Gran % (Auto) 1.7 % 02/21/24 02:33 Neut % (Auto) 65.7 % 02/21/24 02:33 Lymph % (Auto) 19.0 % 02/21/24 02:33 Brown % (Auto) 6.0 % 02/21/24 02:33 Eos % (Auto) 7.2 % 02/21/24 02:33 Baso % (Auto) 0.4 % 02/21/24 02:33 Neut # (Auto) 8.07 K/uL (1.40-6.50) H 02/21/24 02:33 Lymph # (Auto) 2.33 K/uL (1.20-3.40) 02/21/24 02:33 Brown # (Auto) 0.74 K/uL (0.11-0.59) H 02/21/24 02:33 Eos # (Auto) 0.89 K/uL (0.00-0.50) H 02/21/24 02:33 Baso # (Auto) 0.05 K/uL (0.00-0.20) 02/21/24 02:33 Immature Gran # (Auto) 0.21 K/uL (0.01-0.20) H 02/21/24 02:33 Absolute Nucleated RBC Cancelled 02/21/24 01:10 Nucleated RBC % (auto) Cancelled 02/21/24 01:10 Neutrophils % (Manual) Cancelled 02/21/24 01:10 Band Neutrophils % Cancelled 02/21/24 01:10 Lymphocytes % (Manual) Cancelled 02/21/24 01:10 Prolymphocyte % Cancelled 02/21/24 01:10 Reactive Lymphs % (Man) Cancelled 02/21/24 01:10 Monocytes % (Manual) Cancelled 02/21/24 01:10 Eosinophils % (Manual) Cancelled 02/21/24 01:10 Basophils % (Manual) Cancelled 02/21/24 01:10 Metamyelocytes % (Man) Cancelled 02/21/24 01:10 Myelocytes % (Man) Cancelled 02/21/24 01:10 Promyelocytes % (Man) Cancelled 02/21/24 01:10 Blast Cells % (Manual) Cancelled 02/21/24 01:10 Plasma Cell % (Manual) Cancelled 02/21/24 01:10 Other Cells % Cancelled 02/21/24 01:10 Nucleated RBC % Cancelled 02/21/24 01:10 Neutrophils # (Manual) Cancelled 02/21/24 01:10 Band Neutrophils # Cancelled 02/21/24 01:10 Total Absolute Neuts Cancelled 02/21/24 01:10 Lymphocytes # (Manual) Cancelled 02/21/24 01:10 Prolymphocyte # Cancelled 02/21/24 01:10 Reactive Lymphs # Cancelled 02/21/24 01:10 Total Abs Lymphocytes Cancelled 02/21/24 01:10 Monocytes # (Manual) Cancelled 02/21/24 01:10 Eosinophils # (Manual) Cancelled 02/21/24 01:10 Basophils # (Manual) Cancelled 02/21/24 01:10 Metamyelocytes # (Man) Cancelled 02/21/24 01:10 Myelocytes # (Manual) Cancelled 02/21/24 01:10 Promyelocytes # (Man) Cancelled 02/21/24 01:10 Blast Cells # (Man) Cancelled 02/21/24 01:10 Plasma Cell # (Manual) Cancelled 02/21/24 01:10 Other Cells # Cancelled 02/21/24 01:10 Nucleated RBCs # (Man) Cancelled 02/21/24 01:10 Hypersegmented Neuts Cancelled 02/21/24 01:10 Hyposegmented Neuts Cancelled 02/21/24 01:10 Hypogranular Neuts Cancelled 02/21/24 01:10 Large Granular Lymphs Cancelled 02/21/24 01:10 # Lrg Granular Lymphs Cancelled 02/21/24 01:10 Hairy Cells Cancelled 02/21/24 01:10 Smudge Cells Cancelled 02/21/24 01:10 Toxic Granulation Cancelled 02/21/24 01:10 Toxic Vacuolation Cancelled 02/21/24 01:10 Dohle Bodies Cancelled 02/21/24 01:10 Tanisha Rods Cancelled 02/21/24 01:10 Platelet Estimate Cancelled 02/21/24 01:10 Hypogranular Platelets Cancelled 02/21/24 01:10 Giant Platelets Cancelled 02/21/24 01:10 Platelet Satelliting Cancelled 02/21/24 01:10 RBC Morphology Cancelled 02/21/24 01:10 Polychromasia Cancelled 02/21/24 01:10 Hypochromasia Cancelled 02/21/24 01:10 Poikilocytosis Cancelled 02/21/24 01:10 Basophilic Stippling Cancelled 02/21/24 01:10 Anisocytosis Cancelled 02/21/24 01:10 Microcytosis Cancelled 02/21/24 01:10 Macrocytosis Cancelled 02/21/24 01:10 Spherocytes Cancelled 02/21/24 01:10 Pappenheimer Bodies Cancelled 02/21/24 01:10 Sickle Cells Cancelled 02/21/24 01:10 Target Cells Cancelled 02/21/24 01:10 Tear Drop Cells Cancelled 02/21/24 01:10 Ovalocytes Cancelled 02/21/24 01:10 Stomatocytes Cancelled 02/21/24 01:10 Cobian-Novice Bodies Cancelled 02/21/24 01:10 Echinocytes Cancelled 02/21/24 01:10 Acanthocytes (Spur) Cancelled 02/21/24 01:10 Rouleaux Cancelled 02/21/24 01:10 RBC Agglutinates Cancelled 02/21/24 01:10 Schistocytes Cancelled 02/21/24 01:10 Peripher Smr Path Cons Cancelled 02/21/24 02:33 Sezary Cell Cancelled 02/21/24 01:10 Sodium 137 mmol/L (136-145) 02/21/24 01:10 Potassium 3.5 mmol/L (3.5-5.1) 02/21/24 02:33 Chloride 101 mmol/L (98-107) 02/21/24 01:10 Carbon Dioxide 25 mmol/L (21-32) 02/21/24 01:10 Anion Gap 11 (3-11) 02/21/24 01:10 BUN 34 mg/dl (6-23) H 02/21/24 01:10 Creatinine 0.96 mg/dl (0.6-1.4) 02/21/24 01:10 Est Cr Clr Drug Dosing 96.4 ml/min 02/21/24 01:10 Est GFR ( Amer) 96.4 ml/min 02/21/24 01:10 Est GFR (Non-Af Amer) 83.2 ml/min 02/21/24 01:10 BUN/Creatinine Ratio 35.4 (10-20) H 02/21/24 01:10 Glucose 140 mg/dl (70-99(Fasting)) H 02/21/24 01:10 Calcium 9.1 mg/dl (8.6-10.3) 02/21/24 01:10 Magnesium 2.4 mg/dl (1.7-2.4) 02/21/24 02:33 Total Bilirubin 0.4 mg/dl (0.2-1.0) 02/21/24 01:10 AST 17 U/L (13-39) 02/21/24 02:33 ALT 23 U/L (7-52) 02/21/24 01:10 Alkaline Phosphatase 50 U/L (34-104) 02/21/24 01:10 Troponin I High Sens 7.4 pg/ml (0-20) 02/21/24 01:10 B-Natriuretic Peptide 47 pg/ml (0-100) 02/21/24 02:33 Total Protein 6.6 gm/dl (6.0-8.3) 02/21/24 01:10 Albumin 3.9 gm/dl (3.4-5.0) 02/21/24 01:10 Globulin 2.7 gm/dl (2.5-4.0) 02/21/24 01:10 Albumin/Globulin Ratio 1.4 (0.9-2) 02/21/24 01:10 TSH 5.305 uIu/ml (0.300-4.500) H 02/21/24 02:33 Free T4 0.78 ng/dl (0.61-1.60) 02/21/24 02:33 Blood Parasites ID Cancelled 02/21/24 01:10 Diagnostic Findings Chest x-ray as per my interpretation no congestion EKG as per my interpretation : Rate 80, NSR, RAD, T wave abnormalities inferior and septal leads Code Status & VTE Plan VTE Prophylaxis Plan VTE Prophylaxis will be ordered: Yes
--- NOTE | 2024-02-21 06:45 | CT Scan Report ---
CT lumbar spine wo con CLINICAL HISTORY: worseing pain, contusion TECHNIQUE: Multidetector row helical CT of the lumbar spine was performed without administration of i ntravenous contrast. Coronal and sagittal reformations were obtained. Automated dose lowering techniq ues and/or adjustment according to patient size were utilized for this exam. Comparison: Comparison is made to CT lumbar spine 02/12/2024 FINDINGS: For counting purposes, the last complete intervertebral disc space is considered L5-S1. No acute fractures are identified. Degenerative changes are noted in the visualized spine. Vertebral body alignment is within normal limits. Surrounding soft tissues are unremarkable. IMPRESSION: Degenerative changes without evidence of acute bony injury. ACT 112: Negative or not required by law. Electronically signed by: Vik House M.D. 02/21/2024 6:42 AM
--- NOTE | 2024-02-21 06:50 | CT Scan Report ---
CT foot RT wo con, CT foot LT wo con CLINICAL HISTORY: swelling, hematoma TECHNIQUE: Multidetector row helical CT of the bilateral feet was performed without intravenous contr ast. Coronal and sagittal reformations were obtained. Automated dose lowering techniques and/or adjus tment according to patient size were utilized for this examination. CT DOSE: 2731.56 mGy.cm Comparison: None available at the time of this dictation. FINDINGS: The osseous structures are without fracture or dislocation. Mild degenerative changes are seen bilate rally. There is incidental note of bilateral os trigonum. Soft tissue swelling is seen on the dorsal aspect of the bilateral feet. IMPRESSION: Soft tissue swelling predominantly on the dorsal aspect of the bilateral feet. No acute bony abnormal ities. ACT 112: Negative or not required by law. Electronically signed by: Vik House M.D. 02/21/2024 6:48 AM
--- NOTE | 2024-02-21 06:56 | XRay Report ---
XR foot RT min 3V routine CLINICAL HISTORY: fall COMPARISON: None FINDINGS: Alignment of the right foot is anatomic. Tarsometatarsal joints are intact. There are no a cute fractures within the right foot. Dorsal forefoot soft tissue swelling is present. There are no o sseous lesions. There are no erosions. IMPRESSION: 1. No fracture or dislocation within the right foot. 2. Dorsal forefoot soft tissue swelling. ACT 112: Negative or not required by law. Electronically signed by: Terence Green M.D. 02/21/2024 6:54 AM
[2024-02-21 06:58] LABS: Estimated Average Glucose 166 mg/dl; Hemoglobin A1C 7.4 % (4.5-5.6)
[2024-02-21 07:03] LABS: Hematocrit (blood only) 42.3 % (42.0-52.0); Hemoglobin 13.8 g/dl (14.0-18.0)
--- NOTE | 2024-02-21 07:15 | XRay Report ---
XR chest 1V portable CLINICAL HISTORY: fall TECHNIQUE: Single frontal radiograph of the chest was obtained. Comparison: Comparison is made to chest radiograph 07/19/2023 FINDINGS: Median sternotomy wires are unchanged. Cardiomegaly is noted. The lungs are clear. No evidence of ple ural effusion or pneumothorax. IMPRESSION: No acute chest disease. ACT 112: Negative or not required by law. Electronically signed by: Vik House M.D. 02/21/2024 7:13 AM
--- NOTE | 2024-02-21 07:29 | XRay Report ---
XR foot LT min 3V routine CLINICAL HISTORY: fall TECHNIQUE: 3 views of the left foot were obtained. Comparison: None available at the time of this dictation. FINDINGS: No fractures are present. Mild degenerative changes are seen with a plantar enthesophyte noted. Os tr igonum is incidentally noted. Dorsal soft tissue swelling is seen. IMPRESSION: Soft tissue swelling is seen without evidence of underlying bony abnormality. ACT 112: Negative or not required by law. Electronically signed by: Vik House M.D. 02/21/2024 7:27 AM
[2024-02-21] MEDS: LEVOTHYROXINE SODIUM 200 MCG TABLET PO SCH (08:40)
[2024-02-21] MEDS: amLODIPine BESYLATE 5 MG TAB PO SCH (08:40)
[2024-02-21] MEDS: buPROPion XL 300 MG TABCR PO SCH (08:41)
[2024-02-21] MEDS: DULoxetine HCL 30 MG CAP PO SCH (08:41)
[2024-02-21] MEDS: FUROSEMIDE 40 MG TAB PO SCH (08:42)
[2024-02-21] MEDS: GABAPENTIN 800 MG TAB PO SCH (08:42)
[2024-02-21] MEDS: METOPROLOL SUCC 50MG EXT REL TAB PO SCH (08:43)
[2024-02-21] MEDS: ISOSORBIDE MONO EXTENDED REL 30 MG TABCR PO SCH (08:43)
[2024-02-21] MEDS: POTASSIUM CHLORIDE CRTAB 20 MEQ TABCR PO SCH (08:44)
[2024-02-21] MEDS: SPIRONOLACTONE 25 MG TAB PO SCH (08:44)
[2024-02-21] MEDS: LANTUS PER UNIT CHARGE SQ SCH (09:42)
--- NOTE | 2024-02-21 09:47 | Cardiology Consultation ---
Date of Consultation February 21, 2024 Assessment & Plan (1) Acute exacerbation of chronic low back pain: (2) Chest pain: (3) ASCVD (arteriosclerotic cardiovascular disease): (4) HTN, goal below 130/80: Plan Complex 63-year-old male admitted with acute on chronic back pain with car diology consultation requested due to chronic chest burning/indigestion. EKG without acute change. High-sensitivity troponin negative x 2. Chest x-ray clear though examination does reveal evidence of mild acute decompensated right heart failure. Chest discomfort likely precipitated by hypertension in the setting of increased NSAID use as well as volume overload with symptoms suggestive of both GI etiology and stable CCS class 3 angina pectoralis. Recommendations: Resting echocardiography Supplement potassium then low dose IV furosemide this afternoon Pantoprazole 40 mg/day Discontinue and avoid NSAID's if possible Resume ASA 81 mg/day as soon as possible (held on admission due to possible hematoma) Continue beta-blair therapy (metoprolol succinate), statin (rosuvastatin), amlodipine, isosorbide, losartan 25 mg/day, spironolactone, and Jardiance Improved compliance with medications and BiPAP therapy recommended. I spent a total of 64 minutes on the date of service in preparation, delivery, and documentation of the care provided to this patient excluding any time spent in the performance of separately billed services. This visit was a split-shared visit with the substantive portion of the medical decision making performed by the supervising net washer/billing provider. Supervising Physician Co-Signing Physician Notes I have reviewed the advance practitioner's documentation, and I agree with, and take responsibility for the plan of care. I have personally performed a history and physical examination on the patient. Patient was seen and personally examined.Complex 63-year-old known to cardiovascular service. Presents with predominant complaints of worsening back pain as well as chronic burning chest and indigestion after multiple nonsteroidal intake. No evidence of acute injury by troponin Exam suggest mild volume overload as well as uncontrolled hypertension on presentation now improved Plan as well outlined above I spent a total of 25 minutes on the date of service in preparation, delivery, and documentation of the care provided to this patient, excluding any time spent in the performance of separately billed services. History of Present Illness Reason for Consultation: Chest pain Requesting Physician: Dr. Gold Attending Physician: Dr. Rodriguez History of Present Illness Mr. Marcial Frias Sr. is a 63-year-old male who was in his usual state of health until about 2 weeks ago. Patient notes aggravating his lower back towards the end of January when carrying bags of dog food over his shoulder. Due to ongoing symptoms despite additional doses of Tylenol and Advil at home patient presented to [facility] ER on February 12, 2024. Imaging at that time was without acute findings. Patient was treated with acetaminophen, cyclobenzaprine, IM Toradol, and lidocaine patch. He was also given an IM injection of dexamethasone and 1 dose of Oxy IR and advised to follow-up with his PCP. Despite these measures he continued to have discomfort and was evaluated by his PCP on February 15, 2024 at which time a course of prednisone was prescribed unfortunately with ongoing lower back pain, bilateral thigh discomfort, left-sided sciatica, chronic urinary incontinence which may be a little worse over the last few weeks. Patient did suffer a fall down the stairs yesterday at home with bruising and swelling of the feet, worsening leg weakness. Cardiology consultation requested due to chest discomfort. Patient notes chronic burning indigestion type discomfort into the neck and down into the left arm. This can occur without rhyme or reason, both at rest and with activity. He notes difficulty distinguishing true indigestion from angina. Home nitroglycerin was reportedly outdated, last utilized a couple weeks ago. EKG on presentation revealed normal sinus rhythm at [address] segment change. High-sensitivity troponin 7.4 then 7.0 pg/mL. BNP 47. Chest x-ray without acute disease, clear lungs. 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 BiPAP therapy prescribed with patient averaging approximately 2 hours per night. Compliant with medications more or less. Problem List 1. Multivessel coronary disease identified after hospitalization with acute carbon monoxide poisoning, January 2004. 2. Status post coronary artery bypass grafting in 02/14/2014 with incomplete revascularization, receiving a CRAIG graft to the LAD, saphenous vein graft to the circumflex obtuse marginal to ungrafted right coronary artery. 3. Severe [place] vessel disease by cardiac catheterization, 05/2016, with patent grafts. 4. Repeat diagnostic cardiac catheterization 05/19/2016 revealed patent left internal mammary artery graft to left anterior descending, patent saphenous vein graft to the circumflex obtuse marginal with excellent distal runoff, chronically occluded RCA, generally preserved LV systolic function. 5. Class III angina pectoris. 6. Hypertension. 7. Chronic back pain with radiculopathy. 8. Type 2 diabetes mellitus Neuropathy Chronic kidney disease 9. Dyslipidemia 10. Hypertriglyceridemia 11. Hyponatremia 12. Hypothyroidism 13. Obstructive sleep apnea, prescribed BiPAP therapy, intermittently compliant 14. Depression 15. Hydrocele repair 16. Tonsillectomy 17. Inguinal hernia Family History: Positive for CAD in mother, father, and brother. Social History: Never smoker. Smokeless tobacco user. Social alcohol. No illegal drug use. 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 . Grown children. Allergies Allergy/AdvReac Type Severity Reaction Status Date / Time ezetimibe [From Zetia] AdvReac Intermediate HALLUCINATIONS/DIZZINESS/DISORIENTATION--PER Verified 02/21/24 01:10 GMG Home Medications Medication Instructions Recorded Confirmed Type amlodipine 5 mg tablet (Norvasc) 2.5 mg PO QAM 10/14/20 02/21/24 History isosorbide mononitrate 60 mg 90 mg PO QAM 10/14/20 02/21/24 History tablet,extended release 24 hr losartan 25 mg tablet (Cozaar) 25 mg PO QAM 10/14/20 02/21/24 History metoprolol succinate 100 mg 100 mg PO QAM 10/14/20 02/21/24 History tablet,extended release 24 hr nitroglycerin 0.4 mg sublingual 0.4 mg sublingual UD PRN Chest Pain 10/14/20 02/21/24 History tablet potassium chloride 10 mEq 10 meq PO QAM 10/14/20 02/21/24 History tablet,extended release(part/cryst) rosuvastatin 40 mg tablet (Crestor) 40 mg PO QPM 10/14/20 02/21/24 History spironolactone 25 mg tablet 25 mg PO QAM 10/14/20 02/21/24 History diclofenac sodium 75 mg 75 mg PO BID 04/27/22 02/21/24 History tablet,delayed release fenofibrate 54 mg tablet 54 mg PO QAM 04/27/22 02/21/24 History furosemide 40 mg tablet 40 mg PO QAM 04/27/22 02/21/24 History metformin 500 mg tablet 500 mg PO BIDM 04/27/22 02/21/24 History aspirin 325 mg tablet 650 mg PO QAM 02/07/23 02/21/24 History bupropion HCl 300 mg 24 hr tablet, 300 mg PO QAM 02/07/23 02/21/24 History extended release (Wellbutrin XL) acetaminophen 500 mg tablet 1,000 mg PO Q6H PRN Pain 04/05/23 02/21/24 History levothyroxine 200 mcg tablet 200 mcg PO DAILYBB 07/18/23 02/21/24 History duloxetine 30 mg capsule,delayed 30 mg PO QAM #30 caps 07/25/23 02/21/24 Rx release empagliflozin 10 mg tablet 10 mg PO DAILY 09/06/23 02/21/24 History (Jardiance) gabapentin 800 mg tablet 800 mg PO TID 09/06/23 02/21/24 History semaglutide 0.25 mg or 0.5 mg (2 0.5 mg subcut WK 09/06/23 02/21/24 History mg/3 mL) subcutaneous pen injector (Ozempic) glipizide 5 mg tablet, extended 5 mg PO DAILYBB 02/21/24 02/21/24 History release 24 hr tramadol 50 mg tablet 50 mg PO Q8H PRN Pain 02/21/24 02/21/24 History Patient History Medical History Metabolic encephalopathy Angina, class III Postoperative pulmonary edema Obesity Hx of shortness of breath "has been ongoing for the past couple of years, had told his doctors, but they have not done anything about it. mainly feels its due to weight and body changes over the last few years." RG (dyspnea on exertion) ongoing "years" Chronic ischemic heart disease Peripheral neuropathy Nausea after anesthesia Diabetes mellitus, type 2 03/07/23 Ha1c: 9.1% Depression Scrotal swelling s/p trauma 01/14/23 Acute renal failure CHAD (acute kidney injury) Chronic back pain L4-L5-S1, HERNIATED DISCS Coronary artery disease NSTEMI 2013- s/p CABG x2 (CRAIG to LAD, SVG to OM, RCA not bypassed). Cath 2016: patent bypass grafts but severe [place] vessel CAD Dyslipidemia familial hypercholesterolemia Hypothyroidism Hypertension Surgical History History of hydrocelectomy 04/05/23 R scrotal hydrocelectomy, scrotal exploration R; [place]: Glidescope #3, ETT#7.5 HiLo Oral (per records, elective Glidescope 2/ Mallampati III, thick neck) Hx of hernia repair LT INGUINAL A CHILD History of tonsillectomy and adenoidectomy Hx of CABG CABG x 2 2013, with incomplete revascularization, receiving a CRAIG graft to the LAD, saphenous vein graft to the circumflex obtuse marginal to ungrafted right coronary artery History of cardiac cath 05/19/2016 revealed patent left internal mammary artery graft to left anterior descending, patent saphenous vein graft to the circumflex obtuse marginal with excellent distal runoff, chronically occluded RCA, generally preserved LV systolic function History of incision and drainage (04/28/22) Incision and Drainage Left Submandibular Abscess, Dr. Winslow, DMD 04/28/22 ([place]: Glidescope #3, ETT# 7.5 HiLo Oral) Social History Smoking Status: Never smoker Tobacco Type: Smokeless Tobacco (Dip or Chew) Cigarettes Per Day: Vapes; Second Hand Exposure: No; Do You Dip or Chew Tobacco: Yes; Tobacco Cessation Education Requested by Patient: No Hx Alcohol Use: No Hx Substance Use: No Preferred Language: Tajik Communication Ability: Effective Fitter Helper Required: No Beliefs That Will Affect Care: None marital status: Current Living Situation: Spouse Current Living Situation Comment: with Other Information That Helps Us Care for You: No Feels Safe at Home: Yes Safety Concerns: Feels Safe At This Time Assistive Devices: BiPap, Cane and Walker Review of Systems Review of Systems: Complete review of systems is otherwise as stated above, negative, or noncontributory. Physical Exam Physical Exam: General: A&Ox3. NAD. HENT: Normocephalic. Atraumatic. Eyes: PER. Conjunctiva pink, sclera clear. Neck: No carotid bruits. Normal JVD. Heart: RRR, 74 bpm. No murmur. PMI is nondisplaced. Lungs: Diminished at the bases however clear to auscultation. Abdomen: +BS. Soft. No organomegaly. Extremities: 1+ pretibial edema. 1-2+ distal edema with soft tissue swelling and ecchymosis on the doral aspects of both feet. No overt cellulitis. No overt ischemia, cyanosis, or clubbing. Dorsalis pedis pulses are 1/4 bilaterally. Limited neurological examination is without focal deficits. Results & Data Vital Signs (Past 12 Hours) Vital Signs Temp Pulse Pulse Resp BP BP Pulse Ox 02/21/24 08:48 75 02/21/24 08:30 78 20 116/83 93 02/21/24 07:10 02/21/24 06:23 75 18 157/74 H 94 02/21/24 04:32 76 02/21/24 04:00 76 16 178/103 H 93 02/21/24 02:30 69 16 131/84 95 02/21/24 01:40 76 16 160/86 H 92 02/21/24 00:43 78 02/21/24 00:31 36.7 C 72 18 154/75 H 90 Pulse Ox O2 Del Method O2 Del Method O2 Flow Rate 02/21/24 08:48 02/21/24 08:30 Room Air 02/21/24 07:10 94 Room Air 02/21/24 06:23 Nasal Cannula 2 02/21/24 04:32 02/21/24 04:00 Nasal Cannula 2 02/21/24 02:30 Nasal Cannula 2 02/21/24 01:40 Room Air 02/21/24 00:43 02/21/24 00:31 Room Air Laboratory Results Cardiac Enzymes 02/21/24 02/21/24 02/21/24 Range/Units 01:10 02:33 06:30 AST TNP 17 Troponin I High Sens 7.4 7.0 (0-20) pg/ml B-Natriuretic Peptide 47 (0-100) pg/ml Coagulation 02/21/24 Range/Units 02:33 B-Natriuretic Peptide 47 (0-100) pg/ml CBC 02/21/24 02/21/24 02/21/24 Range/Units 01:10 02:33 06:30 WBC Cancelled 12.29 H RBC Cancelled 4.41 L Hgb Cancelled 13.2 L 13.8 L Hct Cancelled 40.5 L 42.3 Plt Count Cancelled 196 Neut # (Auto) Cancelled 8.07 H Lymph # (Auto) Cancelled 2.33 [place] # (Auto) Cancelled 0.74 H Eos # (Auto) Cancelled 0.89 H Baso # (Auto) Cancelled 0.05 Comprehensive Metabolic Panel 02/21/24 02/21/24 Range/Units 01:10 02:33 Sodium 137 (136-145) mmol/L Potassium TNP 3.5 Chloride 101 (98-107) mmol/L Carbon Dioxide 25 (21-32) mmol/L BUN 34 H (6-23) mg/dl Creatinine 0.96 (0.6-1.4) mg/dl Glucose 140 H (70-99(Fasting)) mg/dl Calcium 9.1 (8.6-10.3) mg/dl AST TNP 17 ALT 23 (7-52) U/L Alkaline Phosphatase 50 (34-104) U/L Total Protein 6.6 (6.0-8.3) gm/dl Albumin 3.9 (3.4-5.0) gm/dl Intake and Output 02/20/24 02/21/24 02/21/24 22:59 06:59 14:59 Other: Weight 113.2 kg Weight Measurement Method Built in [facility]
[2024-02-21] MEDS: POTASSIUM CHLORIDE CRTAB 20 MEQ TABCR PO ONE (12:14)
[2024-02-21] MEDS: PANTOprazole 40 MG TAB PO SCH (12:14)
[2024-02-21] MEDS: *FENOFIBRATE*ORDER AWAITING ACTION SCH (15:13)
--- NOTE | 2024-02-21 18:05 | Communication Note ---
Date of Service: February 21, 2024 Patient seen and examined at bedside. Is lying in the bed; reports pain in lower back and weakness in bilateral lower extremity (left > right) Evaluated by cardiology; recommend echocardiogram, IV Lasix, aspirin, beta- blair, amlodipine. Patient unable to undergo MRI lumbar spine due to pain. IV Dilaudid and Xanax order for possible scan Appreciate orthospine input PT OT eval Will order Medrol Dosepak On physical examination; Constitutional: Alert oriented x 3; not in distress. Respiratory: normal respiratory effort, lungs clear to auscultation, no wheeze, rales, rhonchi. Normal insp/exp effort, no accessory muscle use Cardiovascular: RRR, no murmur, no edema Vessels: no JVD or carotid bruit Chest: normal inspection of chest Abdomen: normal bowel sounds, soft, nontender, no hepatosplenomegaly Skin: no rashes, warm and dry normal turgor Neurologic: PERRL, EOMI, accommodation nl, no face palsy, no dysarthria CN's II- XI intact. Strength in left lower extremity3/ 5; otherwise no other focal deficit Psychiatric: A+Ox3, euthymic affect
[2024-02-21] MEDS ORDERED: methylPREDNISolone 4 MG TAB, 6 DAY TAPER PO SCH (18:15)
[2024-02-21] MEDS: oxyCODONE HCL IR 5 MG TAB (IMMEDIATE RELEASE) PO PRN (19:25)
[2024-02-21] MEDS: methylPREDNISolone 4 MG TAB PO SCH ×2 (19:52)
[2024-02-21] MEDS: ALPRAZolam 0.25 MG TABLET PO ONE (20:08)
[2024-02-21] MEDS: ROSUVASTATIN CALCIUM 20 MG TAB PO SCH (21:59)
[2024-02-22 00:25] LABS: Appearance Urine Clear (Clear); Bacteria Urine Automated None Seen (None Seen); Bilirubin Urine Negative (Negative); Blood Urine Trace (Negative); Cast Urine Automated 0-2 /lpf (0-2); Color Urine Yellow; Epithelial Cell Urine Auto 0-2 /hpf (0-2); Glucose Urine UA 3+ (Negative); Ketones Urine Negative (Negative); Leukocyte Esterase Urine Negative (Negative); Nitrite Urine Negative (Negative); Protein Urine Negative (Negative); RBC Urine Automated 0-2 /hpf (0-2); Specific Gravity Urine 1.028 (1.000-1.030); Urobilinogen Urine Negative (Negative); WBC Urine Automated 0-5 /hpf (0-5); pH Urine 6.5 (4.5-7.5)
[2024-02-22] MEDS: LORazepam 0.5 MG TAB PO PRN (01:32)
[2024-02-22] MEDS: methylPREDNISolone 4 MG TAB PO SCH ×2 (06:13→20:16)
[2024-02-22 07:30] LABS: Potassium 4.3 mmol/L (3.5-5.1)
[2024-02-22 07:34] LABS: BUN Creatinine Ratio 32.9 (10-20); Calcium 7.6 mg/dl (8.6-10.3); Creatinine Clr Calc Pharmacy 132.2 ml/min; Est GFR (African American) 115.6 ml/min; Est GFR (Non-African American) 99.7 ml/min
[2024-02-22 07:38] LABS: Basophils # (auto) 0.02 K/uL (0.00-0.20); Basophils % (auto) 0.2 %; Hematocrit (blood only) 38.6 % (42.0-52.0); Hemoglobin 12.4 g/dl (14.0-18.0); Immature Granulocytes # (auto) 0.18 K/uL (0.01-0.20); Immature Granulocytes % (auto) 1.5 %; Lymphocytes # (auto) 1.15 K/uL (1.20-3.40); Lymphocytes % (auto) 9.4 %; Mean Corpuscular Hemoglobin 30.1 pg (25.0-34.0); Mean Corpuscular Hgb Conc 32.1 g/dL (32.0-36.0); Mean Corpuscular Volume 93.7 fL (80.0-100.0); Mean Platelet Volume 9.5 fL (9.4-12.4); Monocytes # (auto) 0.64 K/uL (0.11-0.59); Monocytes % (auto) 5.2 %; Neutrophils # (auto) 10.28 K/uL (1.40-6.50); Neutrophils % (auto) 83.7 %; Platelet Count 202 K/uL (130-400); RDW Coefficient of Variation 15.9 % (11.5-14.5); RDW Standard Deviation 53.9 fL (36.4-46.3); Red Blood Count 4.12 M/uL (4.70-6.10); White Blood Count 12.27 K/ul (4.8-10.8)
[2024-02-22] MEDS: LOSARTAN POTASSIUM 50 MG TAB PO SCH (08:44)
[2024-02-22] MEDS ORDERED: ALPRAZolam 0.25 MG TABLET PO PRN (09:07)
--- NOTE | 2024-02-22 09:59 | Cardiology Progress Note ---
Date of Service February 22, 2024 Assessment & Plan (1) Acute exacerbation of chronic low back pain: (2) Chest pain: (3) ASCVD (arteriosclerotic cardiovascular disease): (4) HTN, goal below 130/80: Plan Complex 63-year-old male admitted with acute on chronic back pain with cardiolo gy consultation requested due to chronic chest burning/indigestion. EKG without acute change. High-sensitivity troponin negative. Chest x-ray clear. Examination with improved mild decompensated right heart failure. Suspect chest discomfort precipitated by hypertension in the setting of increased NSAID use as well as volume overload, symptoms primarily suggestive of GI etiology though with chronic CCS Class 3 angina pectoris. Recommendations: 1. Resume ASA 81 mg/day as soon as able (held on admission due to possible hematoma) 2. Continue beta-blair therapy (metoprolol succinate), statin (rosuvastatin), amlodipine, isosorbide, losartan, spironolactone, and Jardiance 3. Continue PPI 4. Avoid NSAID's 5. Medication compliance and BiPAP therapy recommended. 6. Please contact with any questions or concerns Admission and Anticipated Discharge Date Admission Date: February 21, 2024 Supervising Physician Co-Signing Physician Notes Patient seen and personally examined. Full assessment and plan as outlined above by advanced provider. Care and management discussed in detail and plan personally endorsed Clinically improved. Will give an additional dose of oral furosemide today given chronic lower extremity edema, NSAID and steroid use. Renal function stable Otherwise treatment as above Subjective Patient seen and examined. Chart, medications, and telemetry reviewed. Notes feeling "more human again." Pain pills are "taking the edge off" the lower back pain. No further chest burning or indigestion. Fluid has improved. No shortness of breath. No orthopnea or PND. No palpitations. No headaches or dizziness. Telemetry: Sinus in the 60s and 70s. Review of Systems Review of Systems: Complete review of systems is otherwise as stated above, negative, or noncontributory. Physical Exam Physical Exam: General: A&Ox3. NAD. HENT: Normocephalic. Atraumatic. Eyes: PER. Conjunctiva pink, sclera clear. Neck: No carotid bruits. Normal JVD. Heart: RRR, 68 bpm. No murmur. PMI is nondisplaced. Lungs: Diminished at the bases however clear to auscultation. Abdomen: +BS. Soft. No organomegaly. Extremities: Trace to 1+ pretibial edema. Soft tissue swelling and ecchymosis on the doral aspects of both feet. No overt cellulitis. No overt ischemia. No clubbing. Dorsalis pedis pulses are 1/4 bilaterally. Limited neurological examination is without focal deficits. Results & Data Vital Signs (Past 12 Hours) Vital Signs Temp Pulse Pulse Resp BP BP Pulse Ox 02/22/24 08:00 70 02/22/24 08:00 02/22/24 07:16 36.2 C L 68 19 134/70 91 02/22/24 03:00 36.6 C 78 18 121/68 91 02/21/24 23:03 74 02/21/24 23:00 02/21/24 22:50 36.5 C 75 20 100/63 90 02/21/24 22:10 76 18 110/57 L 91 O2 Del Method 02/22/24 08:00 02/22/24 08:00 Room Air 02/22/24 07:16 Room Air 02/22/24 03:00 Room Air 02/21/24 23:03 02/21/24 23:00 Room Air 02/21/24 22:50 Room Air 02/21/24 22:10 Room Air Laboratory Results CBC 02/22/24 Range/Units 06:27 WBC 12.27 H (4.8-10.8) K/ul RBC 4.12 L (4.70-6.10) M/uL Hgb 12.4 L (14.0-18.0) g/dl Hct 38.6 L (42.0-52.0) % Plt Count 202 (130-400) K/uL Neut # (Auto) 10.28 H (1.40-6.50) K/uL Lymph # (Auto) 1.15 L (1.20-3.40) K/uL [place] # (Auto) 0.64 H (0.11-0.59) K/uL Eos # (Auto) 0.00 (0.00-0.50) K/uL Baso # (Auto) 0.02 (0.00-0.20) K/uL Comprehensive Metabolic Panel 02/22/24 Range/Units 06:27 Sodium 136 (136-145) mmol/L Potassium 4.3 D (3.5-5.1) mmol/L Chloride 102 (98-107) mmol/L Carbon Dioxide 27 (21-32) mmol/L BUN 23 (6-23) mg/dl Creatinine 0.70 (0.6-1.4) mg/dl Glucose 160 H (70-99(Fasting)) mg/dl Calcium 7.6 L (8.6-10.3) mg/dl Intake and Output 02/21/24 02/22/24 02/22/24 22:59 06:59 14:59 Intake Total 200 / 200 Output Total 1050 / 1050 Balance -850 / -850 Intake: Oral 200 / 200 Output: Urine 1050 / 1050
[2024-02-22] MEDS: FENOFIBRATE NANOCRYSTALLIZED 48 MG TABLET PO SCH (10:46)
[2024-02-22] MEDS: HYDROmorphone INJ 1 MG/ML SYRINGE IV PRN (11:02)
[2024-02-22] MEDS: ALPRAZolam 0.25 MG TABLET PO SCH (11:17)
[2024-02-22] MEDS: GADOBUTROL 65ML VIAL IV ONE (13:03)
--- NOTE | 2024-02-22 13:19 | Magnetic Resonance Report ---
MR lumbar spine wo/w con CLINICAL HISTORY: Left lower extremity weakness TECHNIQUE: 3 plane localizer images, sagittal T2, sagittal T1, sagittal STIR, axial T1, axial T2 isabel g with postcontrast axial T1 and sagittal T1 fat-saturated sequences were obtained of the lumbar spin e, before and after intravenous administration of 12 mL of MultiHance. Comparison: Comparison is made to lumbar spine MRI 01/26/2014 FINDINGS: Exam is highly limited by patient motion. L1-L2: No significant abnormality. L2-L3: There is a broad-based posterior disc bulge with moderate canal and neural foraminal stenosis. L3-L4: There is a large posterior disc bulge with severe canal stenosis and likely severe bilateral n eural foraminal stenosis. L4-L5: Prominent disc extrusion is seen, left greater than right. There is severe bilateral neural fo raminal stenosis without significant canal stenosis. L5-S1: No significant abnormality. The spinal ligaments are intact, without evidence of disruption or abnormal signal intensity. The spi nal cord is normal in signal intensity and there is no evidence of cord contusion. There is no eviden ce of an extradural, intradural, extramedullary or intramedullary lesion. Visualized soft tissues are normal. IMPRESSION: Highly limited exam due to patient motion. There is disc extrusion at L4-L5, new from 2013, and up to severe canal and neuroforaminal stenosis ACT 112: Negative or not required by law. Electronically signed by: Vik House M.D. 02/22/2024 1:16 PM
--- NOTE | 2024-02-22 13:34 | Hospitalist Progress Note ---
Date of Service February 22, 2024 Assessment & Plan (1) Chest pain: (2) Acute exacerbation of chronic low back pain: (3) Lumbar radiculopathy: Plan: Patient is a 63yoM with PMHx significant for CAD status post CABG x2, T2DM, HTN, HLD presents to the hospital with worsening back pain and lower extremity weakness along with chest pain. History of chronic back pain with radicular symptoms; presents with radiating back pain and left lower extremity weakness CT of lumbar spine do not show any bony injury MRI of the lumbar spine shows decrease extrusion at L4-L5 and severe cannel and neuroforaminal stenosis Pain control with oxycodone, Dilaudid and Zanaflex as needed PT OT evaluation Medrol Dosepak Will appreciate orthospine input Chest pain, ACS ruled out Patient had reported chest pain on presentation EKG on admission showed normal sinus rhythm; no significant ST or T wave changes High sensitive troponin negative Evaluated by cardiology. Recommended to resume aspirin, continue on beta- blair, statin, antihypertensives Telemonitoring Continue BiPAP Chronic conditions; Type 2 diabetes mellitushold oral agents. On Lantus and NovoLog while inpatient. Monitor while patient is on a steroid Hypertensioncontinue on amlodipine, Lasix, losartan, isosorbide mononitrate, spironolactone Hypothyroidismcontinue levothyroxine Hyperlipidemiacontinue on fenofibrate Mood disordercontinue on Wellbutrin DVT prophylaxis heparin Full code Time spent evaluating patient, direct bedside care, chart review, placing orders, interpretation of diagnostic studies, discussion with consultants, patient, and family members, as well as other required patient management activities is 50 minutes Please note the above document was generated using voice recognition software. It may contain grammatical, syntax or spelling errors. Any formal questions or concerns about the content, text or information contained within the body of this dictation should be directly addressed to the provider for clarification Plan Admission and Anticipated Discharge Date Admission Date: February 21, 2024 Subjective Patient seen and examined at bedside. He reports that the pain has improved compared to previous days. Review of Systems Review of Systems: All systems reviewed & are unremarkable except as noted in Subjective Physical Exam Physical Exam: Constitutional: Alert oriented x 3; not in distress. Respiratory: normal respiratory effort, lungs clear to auscultation, no wheeze, rales, rhonchi. Normal insp/exp effort, no accessory muscle use Cardiovascular: RRR, no murmur, no edema Vessels: no JVD or carotid bruit Chest: normal inspection of chest Abdomen: normal bowel sounds, soft, nontender, no hepatosplenomegaly Skin: no rashes, warm and dry normal turgor Neurologic: PERRL, EOMI, accommodation nl, no face palsy, no dysarthria CN's II- XI intact. Strength in left lower extremity3/ 5;Bruise present over the left foot Psychiatric: A+Ox3, euthymic affect Results & Data Results & Data Vital Signs (Past 12 Hours) Vital Signs Temp Pulse Pulse Resp BP Pulse Ox O2 Del Method 02/22/24 11:14 36.6 C 66 23 112/68 91 Room Air 02/22/24 08:00 70 02/22/24 08:00 Room Air 02/22/24 07:16 36.2 C L 68 19 134/70 91 Room Air 02/22/24 03:00 36.6 C 78 18 121/68 91 Room Air
[2024-02-22] MEDS ORDERED: PHARMACY GLYCEMIC MGMT CONSULT PRN (13:56)
--- NOTE | 2024-02-22 14:01 | Orthopedic Consultation ---
Date of Service February 22, 2024 Assessment & Plan (1) Lower extremity dysfunction: (2) Lumbar disc herniation: (3) Intractable back pain: (4) Acute exacerbation of chronic low back pain: Plan Patient being consulted today due to intractable back pain with bilateral lower extremity dysfunction. He was found to have a large disc herniation on MRI as well as acute motor weakness in the bilateral lower extremities. Due to the acute neurological deficits noted on exam as well as the findings on MRI, surgical intervention in a timely fashion would be the best option for this patient. However, his MRI from today is very motion degraded. Would recommend a repeat MRI of the lumbar spine without contrast today to assist in getting a definitive surgical plan. I have already spoke to the hospitalist about obtaining a repeat MRI today with additional medications to ensure the exam is n ot motion degraded. Would also recommend an NPO status at midnight tonight in the case surgical intervention is to occur tomorrow. Patient was also evaluated by Dr. Patrick today. He had a lengthy discussion with the patient and family about the diagnosis, prognosis as well as the treatment options including risks, benefits and alternatives. We would also recommend a cardiology clearance due to the urgency of his surgery. Lastly, would recommend NV checks Q4H. Thank you for the consult. Please contact Dr. Patrick with any updates on the MRI or Cardio clearance. Impression: High-grade stenosis involving the lumbar spine at L3-4 due to disc herniation/extrusion, with bilateral lower extremity weakness. Multilevel degenerative changes involving lumbar spine. Plan: Today I reviewed the imaging studies with the patient and also his who was in the room, I discussed with them that certainly I feel the patient should undergo operative intervention, specifically at the L3-4 level, our initial procedure to attempt would be a decompression of this level and also removal of disc herniation fragments. Currently though the MRI we have has significant motion artifact I am requesting a new MRI to do better evaluation with adequate pain medication so we can get better clear imaging as this could affect how the procedure is performed. The patient will be scheduled on Monday, our goal of which would be to attempt a surgery at that particular time, and I did discuss with him the nature of the surgery as I think the patient due to the lower extremity weakness, continued falling is indication for the surgical procedure. They were in agreement with this plan. History of Present Illness Reason for Consultation: persistent and intractable back pain, bilateral lower extremity dysfunction Requesting Physician: . Attending Physician: Geremias Rodriguez MD Marcial is a 63 year old male who is being consulted today due to persistent back pain and lower extremity that has been worsening over the few weeks, but specifically over the last few days. The patient states that he has had chronic issues with his lower back for quite some time, specifically that he has flareups in the lumbar spine area 1-2 times a year that he states is usually treated with a prednisone taper and some pain medications for about a week and then he feels better. He states that this time, his flareup did not go away and was getting progressively worse. He did report to the emergency department on 02/12/2024 where he states that after he lifted a bag of dog food, his back began to flareup. He was discharged home as he was found to be ambulatory without difficulty or assistive devices. He was given an IM injection of dexamethasone and some oxycodone. He did have a CT of his lumbar spine done at this time which did not show any acute bony abnormalities, fractures, dislocations or significant stenosis noted. He then reported back to the emergency department on 02/21/2024 where he states that his back pain became unbearable nd that his needed to start carrying him due to weakness in his legs. He states that due to the weakness in his legs, he then had a fall down a set of stairs. he reported the emergency department for this issue. Due to his leg weakness and intractable back pain, he was admitted to the hospitalist service. Upon our consultation today, the patient is resting comfortably in his hospital bed. He did just return from his MRI from his lumbar spine. He states that it was quite difficult to lie still due to pain in his lower legs. He also notes pain in his back. They did attempt to do 2 MRIs at his emergency department visit yesterday, however he was unable to lie still for it due to the pain. He does note that he has difficulty with movement of his bilateral lower extremities. He is unsure if 1 leg is worse than the other. He also notes that his back pain is now traveling along the lumbar area, around his bilateral hips and into his thighs. This is new from his previous symptoms. He denies ever having his flareups get this bad. He denies any bowel or bladder disturbances. Also to note, the patient does have a complex medical history including coronary artery disease, history of multiple CABGs, cardiac catheterizations, angina, hypertension, type 2 diabetes, TAI. Allergies Allergy/AdvReac Type Severity Reaction Status Date / Time ezetimibe [From Zetia] AdvReac Intermediate HALLUCINATIONS/DIZZINESS/DISORIENTATION--PER Verified 02/21/24 01:10 GMG Home Medications Medication Instructions Recorded Confirmed Type amlodipine 5 mg tablet (Norvasc) 2.5 mg PO QAM 10/14/20 02/21/24 History isosorbide mononitrate 60 mg 90 mg PO QAM 10/14/20 02/21/24 History tablet,extended release 24 hr losartan 25 mg tablet (Cozaar) 25 mg PO QAM 10/14/20 02/21/24 History metoprolol succinate 100 mg 100 mg PO QAM 10/14/20 02/21/24 History tablet,extended release 24 hr nitroglycerin 0.4 mg sublingual 0.4 mg sublingual UD PRN Chest Pain 10/14/20 02/21/24 History tablet potassium chloride 10 mEq 10 meq PO QAM 10/14/20 02/21/24 History tablet,extended release(part/cryst) rosuvastatin 40 mg tablet (Crestor) 40 mg PO QPM 10/14/20 02/21/24 History spironolactone 25 mg tablet 25 mg PO QAM 10/14/20 02/21/24 History diclofenac sodium 75 mg 75 mg PO BID 04/27/22 02/21/24 History tablet,delayed release fenofibrate 54 mg tablet 54 mg PO QAM 04/27/22 02/21/24 History furosemide 40 mg tablet 40 mg PO QAM 04/27/22 02/21/24 History metformin 500 mg tablet 500 mg PO BIDM 04/27/22 02/21/24 History aspirin 325 mg tablet 650 mg PO QAM 02/07/23 02/21/24 History bupropion HCl 300 mg 24 hr tablet, 300 mg PO QAM 02/07/23 02/21/24 History extended release (Wellbutrin XL) acetaminophen 500 mg tablet 1,000 mg PO Q6H PRN Pain 04/05/23 02/21/24 History levothyroxine 200 mcg tablet 200 mcg PO DAILYBB 07/18/23 02/21/24 History duloxetine 30 mg capsule,delayed 30 mg PO QAM #30 caps 07/25/23 02/21/24 Rx release empagliflozin 10 mg tablet 10 mg PO DAILY 09/06/23 02/21/24 History (Jardiance) gabapentin 800 mg tablet 800 mg PO TID 09/06/23 02/21/24 History semaglutide 0.25 mg or 0.5 mg (2 0.5 mg subcut WK 09/06/23 02/21/24 History mg/3 mL) subcutaneous pen injector (Ozempic) glipizide 5 mg tablet, extended 5 mg PO DAILYBB 02/21/24 02/21/24 History release 24 hr tramadol 50 mg tablet 50 mg PO Q8H PRN Pain 02/21/24 02/21/24 History Past Med/Surg History Medical History Lower extremity dysfunction Metabolic encephalopathy Angina, class III Postoperative pulmonary edema Obesity Hx of shortness of breath "has been ongoing for the past couple of years, had told his doctors, but they have not done anything about it. mainly feels its due to weight and body changes over the last few years." RG (dyspnea on exertion) ongoing "years" Chronic ischemic heart disease Peripheral neuropathy Nausea after anesthesia Diabetes mellitus, type 2 03/07/23 Ha1c: 9.1% Depression Scrotal swelling s/p trauma 01/14/23 Acute renal failure CHAD (acute kidney injury) Chronic back pain L4-L5-S1, HERNIATED DISCS Coronary artery disease NSTEMI 2013- s/p CABG x2 (CRAIG to LAD, SVG to OM, RCA not bypassed). Cath 2016: patent bypass grafts but severe [place] vessel CAD Dyslipidemia familial hypercholesterolemia Hypothyroidism Hypertension Surgical History History of hydrocelectomy 04/05/23 R scrotal hydrocelectomy, scrotal exploration R; [place]: Glidescope #3, ETT#7.5 HiLo Oral (per records, elective Glidescope 2/2 Mallampati III, thick neck) Hx of hernia repair LT INGUINAL A CHILD History of tonsillectomy and adenoidectomy Hx of CABG CABG x 2 2013, with incomplete revascularization, receiving a CRAIG graft to the LAD, saphenous vein graft to the circumflex obtuse marginal to ungrafted right coronary artery History of cardiac cath 05/19/2016 revealed patent left internal mammary artery graft to left anterior descending, patent saphenous vein graft to the circumflex obtuse marginal with excellent distal runoff, chronically occluded RCA, generally preserved LV systolic function History of incision and drainage (04/28/22) Incision and Drainage Left Submandibular Abscess, Dr. Winslow, DMD 04/28/22 ([place]: Glidescope #3, ETT# 7.5 HiLo Oral) Social History Smoking Status: Never smoker Tobacco Type: Smokeless Tobacco (Dip or Chew) Cigarettes Per Day: Vapes; Second Hand Exposure: No; Do You Dip or Chew Tobacco: Yes; Tobacco Cessation Education Requested by Patient: No Hx Alcohol Use: No Hx Substance Use: No Preferred Language: Dutch Communication Ability: Effective Promotion Specialist Required: No Beliefs That Will Affect Care: None marital status: Current Living Situation: Spouse Current Living Situation Comment: with Other Information That Helps Us Care for You: No Feels Safe at Home: Yes Safety Concerns: Feels Safe At This Time Assistive Devices: BiPap, Cane and Walker Review of Systems All systems reviewed & are unremarkable except as noted in HPI & below. Physical Exam Patient has returned from his lumbar spine MRI upon evaluation. He is resting comfortably in hospital bed. Please see dedicated spine exam below. Constitutional WD/WN, vitals as above Respiratory normal respiratory effort Cardiovascular distal pulses palpated. Musculoskeletal Examination of the lumbar spine: Patient was resting in the hospital bed today. Was unable to palpate the lumbar spine due to pain and limited motion. Motor power lower extremities: Bilateral hip flexors 5 out of 5. Bilateral knee extensors 4+ out of 5. Left ankle dorsiflexion 4+ out of 5, right ankle dorsiflexion 4 out of 5. Bilateral EHL absent. His sensation is intact bilateral lower extremities however it is diminished more in his left vs his right. Additional note to the ecchymosis involving the dorsum of the left foot, limited tenderness to palpation in this region. Psychiatric A+Ox3, euthymic affect Results & Data Results & Data Laboratory Results . Abnormal lab results 02/21/24 02/21/24 02/22/24 Range/Units 18:00 21:38 00:05 WBC (4.8-10.8) K/ul RBC (4.70-6.10) M/uL Hgb (14.0-18.0) g/dl Hct (42.0-52.0) % RDW Std Deviation (36.4-46.3) fL RDW Coeff of Maribel (11.5-14.5) % Neut # (Auto) (1.40-6.50) K/uL Lymph # (Auto) (1.20-3.40) K/uL [place] # (Auto) (0.11-0.59) K/uL BUN/Creatinine Ratio (10-20) Glucose (70-99(Fasting)) mg/dl POC Glucose 148 H 139 H (70-99) mg/dl Calcium (8.6-10.3) mg/dl Urine Glucose (UA) 3+ H (Negative) Urine Blood Trace H (Negative) 02/22/24 02/22/24 02/22/24 Range/Units 06:27 07:14 13:14 WBC 12.27 H (4.8-10.8) K/ul RBC 4.12 L (4.70-6.10) M/uL Hgb 12.4 L (14.0-18.0) g/dl Hct 38.6 L (42.0-52.0) % RDW Std Deviation 53.9 H (36.4-46.3) fL RDW Coeff of Maribel 15.9 H (11.5-14.5) % Neut # (Auto) 10.28 H (1.40-6.50) K/uL Lymph # (Auto) 1.15 L (1.20-3.40) K/uL [place] # (Auto) 0.64 H (0.11-0.59) K/uL BUN/Creatinine Ratio 32.9 H (10-20) Glucose 160 H (70-99(Fasting)) mg/dl POC Glucose 146 H 141 H (70-99) mg/dl Calcium 7.6 L (8.6-10.3) mg/dl Urine Glucose (UA) (Negative) Urine Blood (Negative) Diagnostic Findings MRI Lumbar Spine without contrast on 02/21/2024 was reviewed independently. The MRI is highly motion degraded. There is a large disc protrusion seen at the L4- L5 level causing severe central canal stenosis. Difficult to say the severity on the exiting nerve roots due to the quality of the MRI. Recommend a repeat MRI. No acute bony abnormalities noted. PG Care Time/CCT Total # of Minutes Spent Total Time Spent with Patient: Total time spent is greater than 50% in coordination of care (as documented) at patient's floor/unit and/or counseling patient: Coding Level of Care Code 92643 IN/OBS CONSULT LVL 4,60M Diagnoses Lower extremity dysfunction R29.898 Lumbar disc herniation M51.26 Intractable back pain M54.9 Acute exacerbation of chronic low back pain M54.50; G89.29
[2024-02-22] MEDS ORDERED: LORazepam 1 MG in SYRINGE 0.5 ML IV PRN (14:26)
--- NOTE | 2024-02-22 14:48 | Pharmacy Report ---
Pharmacy Glycemic Short Note 2 - Date of Service February 22, 2024 - Glycemic Short BSG Results (Last 24 hours): 02/21/24 02/21/24 02/22/24 18:00 21:38 06:27 Glucose 160 H POC Glucose 148 H 139 H 02/22/24 02/22/24 07:14 13:14 Glucose POC Glucose 146 H 141 H OUTPATIENT ANTIDIABETIC REGIMEN: * semaglutide 0.5mg SQ weekly * empagliflozin 10mg daily * glyburide 5mg daily w/ breakfast * metformin 500mg BID * A1c 7.4% 02/21/24 ASSESSMENT: * Type 2 diabetic admitted for CP, back pain, r/o ACS, LE weakness * BSGs have been well controlled thus far * Patient did start Medrol Dose Alberto * Will initiate basal/bolus SQ regimen using weight and "mild-moderate" stress level. PLAN FOR INPATIENT GLYCEMIC CONTROL: * Hold outpatient oral diabetes medications * Basal insulin * Lantus 10 units SQ BID * Bolus insulin * NovoLog per scale ACHS or Q6hrs while NPO * Goal Range: Low 110 mg/dL - High 140 mg/dL * Correction Factor: 25 mg/dL/unit * Nutritional / Prandial insulin per carb ratio of 1 unit per 8 grams CHO consumed
[2024-02-22] MEDS: FUROSEMIDE 40 MG TAB PO ONE (16:46)
[2024-02-22] MEDS: HEPARIN SOD 5,000 UNIT/0.5 ML VIAL SQ SCH (16:46)
--- OUTSIDE RECORDS SUMMARY | 2024-02-22 19:17 | External Medical Summary | Summary of Care ---
Author Name Unknown Organization [facility] Address [address] [place] [address] Phone [phone] Care Team Providers Care Apns Name Role Phone Elroy Hughes MD Primary Care Provide r Reason for Visit * Reason Comments Emergency Department Follow-Up Encounter Details Date Type Department Care Team (Late st Contact Info) Description 02/15/2024 2:20 PM EDT Office Visit Family Medicine [address] [phone] Star Landa PA-C [address] [place] [address] [phone] Chronic bilateral low back pain with bilateral sciatica* Allergies Active Allergy Reactions Criticality Noted Date Comments Ezetimibe Other (Please comment) 08/18/2020 Dizziness, Disorientation and Hallucinations documented as of this encounter (statuses as of 02/15/2024) Medications Medication Sig Dispensed Refills Start Date End Date Status Misc. Devices MISCIndications:Pl hannah fasciitis, bilateral,Equinus contracture of ankle,Pain in both feet,Chronic low back pain with bilateral sciatica, unspecified back pain laterality,Pes planus of both feet Please mold/fit/dispense one pair custom foot orthoses. Accommodative top cover, full length. Diagnosis: M72.2 M21.41. 1 Each 0 10/13/2017 Active Misc. Devices (CANE) MISC Please dispense one cane - Radiculopathy, Sciatica, Chronic heel pain 1 Each 0 10/11/2018 Active Aspirin 325 MG Oral Tablet Take 2 Tablets by mouth in the morning. 0 Active Acetaminophen 500 MG Oral Tablet (Tylenol) Take 2 Tablets by mouth every 6 hours as needed. 0 Active glipiZIDE ER 5 MG Oral Tablet Extended Release 24 Hour (glipiZIDE XL)Indications:DM type 2, goal HbA1c < 7% (HCC) Take 1 Tablet by mouth in the morning. 30 minutes before a meal.. 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),S/P CABG x 2,HTN, goal below 130/80 TAKE 1 TAB BY MOUTH DAILY PLUS ADDITIONAL ONE 3-4 DAYS PER WEEK 150 Tablet 3 07/10/2023 Active Klor-Con M10 10 MEQ Oral Tablet Extended Release (potassium chloride ER)Indications:Hyp okalemia,Acute right-sided heart failure (HCC) TAKE 1 TABLET BY MOUTH EVERY DAY 90 Tablet 3 07/10/2023 Active Metoprolol Succinate ER 100 MG Oral Tablet Extended Release 24 Hour (toPROL XL)Indications:HTN , goal below 130/80 TAKE 1 TABLET BY MOUTH EVERY DAY 90 Tablet 3 07/10/2023 Active Spironolactone 25 MG Oral Tablet (Aldactone)Indicat ions:Acute right-sided heart failure (HCC),Hypervolemia , unspecified hypervolemia type TAKE 1 TABLET BY MOUTH EVERY DAY 90 Tablet 3 07/10/2023 Active amLODIPine Besylate 5 MG Oral Tablet (Norvasc)Indicatio ns:HTN, goal below 130/80 TAKE 1/2 TAB BY MOUTH EVERY MORNING 45 Tablet 3 08/07/2023 Active Isosorbide Mononitrate ER 60 MG Oral Tablet Extended Release 24 Hour (Imdur)Indications :HTN, goal below 130/80 TAKE 1.5 TABLETS BY MOUTH EVERY DAY 135 Tablet 3 09/11/2023 Active Fenofibrate 54 MG Oral Tablet (Lofibra)Indicatio ns:Dyslipidemia, goal LDL below 70,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) TAKE 1 TABLET BY MOUTH EVERY DAY 90 Tablet 3 11/01/2023 Active metFORMIN HCl 500 MG Oral Tablet (Glucophage)Indica tions:DM type 2, goal HbA1c < 7% (HCC) TAKE 1 TABLET BY MOUTH TWICE A DAY WITH BREAKFAST AND DINNER 180 Tablet 1 11/02/2023 Active buPROPion HCl ER (XL) 300 MG Oral Tablet Extended Release 24 Hour (Wellbutrin XL)Indications:Rishi or depressive disorder, single episode, moderate (HCC) TAKE 1 TABLET BY MOUTH EVERY DAY IN THE MORNING 90 Tablet 1 11/02/2023 Active Gabapentin 800 MG Oral Tablet (Neurontin)Indicat ions:DM type 2, goal HbA1c < 7% (HCC),Diabetic peripheral neuropathy (HCC) TAKE 1 TABLET BY MOUTH IN THE MORNING AT AT NOON AND BEFORE BEDTIME 270 Tablet 3 11/17/2023 Active DULoxetine HCl 30 MG Oral Capsule Delayed Release Particles (Cymbalta)Indicati ons:Major depressive disorder, single episode, moderate (HCC) TAKE 1 CAPSULE BY MOUTH EVERY MORNING 90 Capsule 0 12/15/2023 Active Diclofenac Sodium 75 MG Oral Tablet Delayed Release (Voltaren)Indicati ons:Chronic bilateral low back pain with bilateral sciatica TAKE 1 TABLET BY MOUTH TWICE A DAY WITH FOOD 60 Tablet 3 01/30/2024 Active Rosuvastatin Calcium 40 MG Oral Tablet (Crestor)Indicatio ns:Dyslipidemia, goal LDL below 70 TAKE 1 TABLET BY MOUTH EVERY DAY 90 Tablet 3 01/31/2024 Active Jardiance 10 MG Oral Tablet (Empagliflozin)Ind ications:DM type 2, goal HbA1c < 7% (HCC) TAKE 1 TABLET BY MOUTH EVERY DAY IN THE MORNING 90 Tablet 1 01/30/2024 Active Ozempic (0.25 or 0.5 MG/DOSE) 2 MG/3ML Solution Pen-injector (Semaglutide(0.25 or 0.5MG/DOS))Indicat ions:DM type 2, goal HbA1c < 7% (HCC),Morbid obesity with BMI of 40.0-44.9, adult (HCC) Inject 0.5 mg under the skin once a week. 3 mL 5 01/30/2024 Active Levothyroxine Sodium 200 MCG Oral Tablet (Levoxyl) TAKE 1 TAB BY MOUTH DAILY EVERY MORNING AT LEAST 30 MINUTES PRIOR TO BREAKFAST OR OTHER MEDS 90 Tablet 1 01/30/2024 Active predniSONE 20 MG Oral Tablet (Deltasone) 2 tablets daily for 5 days then 1 tablet daily 15 Tablet 0 02/15/2024 Active traMADol HCl 50 MG Oral Tablet (Ultram)Indication s:Chronic bilateral low back pain with bilateral sciatica Take 1 Tablet by mouth every 8 hours as needed for Pain, Moderate. 12 Tablet 0 02/15/2024 Active documented as of this encounter (statuses as of 02/15/2024) Active Problems Problem Noted Date Diagnosed Date Morbid obesity with BMI of 40.0-44.9, adult 11/2022 Overview: 271 CKD (chronic kidney disease), stage II Overview: EGFR 72 Major depressive disorder, single episode, moder ate 06/29/2021 DM type 2, goal HbA1c < 7% 02/27/2021 Overview: hgba1c 13.6 Coronary artery disease invo lving nome coronary artery of nome heart without angina pectoris 08/31/2015 S/P CABG x 2 08/31/2015 Dyslipidemia, goal LDL below 70 08/31/2015 History of NE (myocardial infarction) 08/31/2015 Primary hypertension 08/31/2015 documented as of this encounter (statuses as of 02/15/2024) Resolved Problems Problem Noted Date Diagnosed Date Resolved Date Thrombocytopenia 08/13/2018 2021 NSTEMI (non-ST elevation gregorio cardial infarction) 08/31/2015 2021 HTN, goal below 130/80 08/31/201505/06 Back pain 08/31/2015 09/06/2022 documented as of this encounter (statuses as of 02/15/2024) Immunizations Name Administration Dates Next Due COVID-19 mRNA, LNP-s, No Pre serve, 2-Dose Series (Buyoo) 09/14/2021,01/28/2021,12/28/2020 COVID-19, MRNA-LNP, 23-24, P F, 30 MCG/0.3 mL, 12 YRS AND ABOVE, IM (PFIZER-Comirnaty) 08/30/2023 Covid-19, Mrna, Lnp-s, Pf, B ivalent, 30 Mcg, IM, 12 yrs and above (Pfizer) 09/06/2022 Pneumococcal Conjugate Vacci ne, 20-valent (Oyyeoup33) 11/17/2022 Pneumococcal Polysaccharide PPV23 (Pneumovax) 2021,02/18/2014 Seasonal Influenza, PF, 6 M & above, IM , (FluLaval or Fluzone) 08/30/2023,09/06/2022,09/14/2021,08/18 TDAP (age 10 and older)(Boostrix) 11/17/2022 Zoster Vaccine Recombinant (Shingrix) 11/17/2022 documented as of this encounter Social History Tobacco Use Types Packs/Day Years Used Date Smoking Tobacco: Never Smokeless Tobacco: Current Snuff Tobacco Cessation:Ready to Q uit: Not Asked; Counseling Given: Not Answered Comments:1 can every couple days Alcohol Use Standard Drinks/Week Comments No 0 (1 standard drink = 0.6 oz pur e alcohol) Sex and Gender Information Value Date Recorded Sex Assigned at Not on file Gender Identity Not on file Sexual Orientation Not on file Job Start Date Occupation Industry Not on file Not on file Not on file documented as of this encounter Last Filed Vital Signs Vital Sign Reading Time Taken Comments Blood Pressure 120/70 02/15/2024 2:29 PM EDT Pulse 74 02/15/2024 2:29 PM EDT Temperature 35.6 C (96 F) 02/15/2024 2:29 PM EDT Respiratory Rate - - Oxygen Saturation 97% 02/15/2024 2:29 PM EDT Inhaled Oxygen Concentration - - Weight 109.3 kg (241 lb) 02/15/2024 2:29 PM EDT Height - - Body Mass Index 36.64 01/27/2023 2:59 PM EDT documented in this encounter Progress Notes * Star Landa PA-C - 02/15/2024 2:25 PM EDT Nursing Notes: Anil Aguilar LPN 02/15/24 1430 Sign at exiting of workspace Chief Complaint Patient presents with Emergency Department Follow-Up [facility] on 02/09/2024 Dx:spinal Stenosis and Herniated disc Was given shot Tordol, Steroid , and 1 per They did CAT scan No relief Got back jeep and picked up 30 lb dog food bags The patient has been properly identified by confirmation of name and date of . Pt was in [facility] ER on 02/09/24 with lower back pain. Pt does have spinal stenosis, herniated disc. Ptwas given toradol shot, steroid shot. They did do CT scan. Pt has no relief. He is in a wheelchair,coming back the fuller, today. Usually, oral prednisone helps. They didn't give him any of this. Pt has been to ortho, pain clinic. Injections didn't really help and he can't have surgery. Review of patient's allergies indicates: Allergen Reactions Zetia [Ezetimibe] Other (Please comment) Dizziness, Disorientation and Hallucinations Current Outpatient Medications Medication Sig Dispense Refill Misc. Devices MISC Please mold/fit/dispense one pair custom foot orthoses. Accommodative top cover,full length. Diagnosis: M72.2 M21.41. 1 Each 0 Misc. Devices (CANE) MISC Please dispense one cane - Radiculopathy, Sciatica, Chronic heel pain 1 Each 0 Aspirin 325 MG Oral Tablet Take 2 Tablets by mouth in the morning. Acetaminophen 500 MG Oral Tablet (Tylenol) Take 2 Tablets by mouth every 6 hours as needed. glipiZIDE ER 5 MG Oral Tablet Extended Release 24 Hour (glipiZIDE XL) Take 1 Tablet by mouth in themorning. 30 minutes before a meal.. 90 Tablet 1 Losartan Potassium 25 MG Oral Tablet (Cozaar) TAKE 1 TABLET BY MOUTH EVERY DAY IN THE MORNING 90 Tablet 3 Furosemide 40 MG Oral Tablet (Lasix) TAKE 1 TAB BY MOUTH DAILY PLUS ADDITIONAL ONE 3-4 DAYS PER WEEK 150 Tablet 3 Klor-Con M10 10 MEQ Oral Tablet Extended Release (potassium chloride ER) TAKE 1 TABLET BY MOUTH EVERY DAY 90 Tablet 3 Metoprolol Succinate ER 100 MG Oral Tablet Extended Release 24 Hour (toPROL XL) TAKE 1 TABLET BY MOUTH EVERY DAY 90 Tablet 3 Spironolactone 25 MG Oral Tablet (Aldactone) TAKE 1 TABLET BY MOUTH EVERY DAY 90 Tablet 3 amLODIPine Besylate 5 MG Oral Tablet (Norvasc) TAKE 1/2 TAB BY MOUTH EVERY MORNING 45 Tablet 3 Isosorbide Mononitrate ER 60 MG Oral Tablet Extended Release 24 Hour (Imdur) TAKE 1.5 TABLETS BY MOUTH EVERY DAY 135 Tablet 3 Fenofibrate 54 MG Oral Tablet (Lofibra) TAKE 1 TABLET BY MOUTH EVERY DAY 90 Tablet 3 metFORMIN HCl 500 MG Oral Tablet (Glucophage) TAKE 1 TABLET BY MOUTH TWICE A DAY WITH BREAKFAST ANDDINNER 180 Tablet 1 buPROPion HCl ER (XL) 300 MG Oral Tablet Extended Release 24 Hour (Wellbutrin XL) TAKE 1 TABLET BY MOUTH EVERY DAY IN THE MORNING 90 Tablet 1 Gabapentin 800 MG Oral Tablet (Neurontin) TAKE 1 TABLET BY MOUTH IN THE MORNING AT AT NOON AND BEFORE BEDTIME 270 Tablet 3 DULoxetine HCl 30 MG Oral Capsule Delayed Release Particles (Cymbalta) TAKE 1 CAPSULE BY MOUTH EVERY MORNING 90 Capsule 0 Diclofenac Sodium 75 MG Oral Tablet Delayed Release (Voltaren) TAKE 1 TABLET BY MOUTH TWICE A DAY WITH FOOD 60 Tablet 3 Rosuvastatin Calcium 40 MG Oral Tablet (Crestor) TAKE 1 TABLET BY MOUTH EVERY DAY 90 Tablet 3 Jardiance 10 MG Oral Tablet (Empagliflozin) TAKE 1 TABLET BY MOUTH EVERY DAY IN THE MORNING 90 Tablet 1 Ozempic (0.25 or 0.5 MG/DOSE) 2 MG/3ML Solution Pen-injector (Semaglutide(0.25 or 0.5MG/DOS)) Inject 0.5 mg under the skin once a week. 3 mL 5 Levothyroxine Sodium 200 MCG Oral Tablet (Levoxyl) TAKE 1 TAB BY MOUTH DAILY EVERY MORNING AT LEAST30 MINUTES PRIOR TO BREAKFAST OR OTHER MEDS 90 Tablet 1 No current facility-administered medications for this visit. Past Medical History: Diagnosis Date Back pain 08/31/2015 BMI 39.0-39.9,adult 03/03/2021 259 CKD (chronic kidney disease), stage II 09/14/2021 EGFR 72 Coronary artery disease involving nome coronary artery of nome heart without angina pectoris 08/31/2015 DM type 2, goal HbA1c < 7% (HCC) 02/27/2021 hgba1c 13.6 Dyslipidemia, goal LDL below 70 08/31/2015 Encounter for hepatitis C screening test for low risk patient 05/05/2021 negative History of NE (myocardial infarction) 08/31/2015 Hypothyroidism Major depressive disorder, single episode, moderate (HCC) 06/29/2021 NSTEMI (non-ST elevation myocardial infarction) ([facility]) 08/31/2015 Primary hypertension 08/31/2015 Radiculopathy S/P CABG x 2 08/31/2015 Thrombocytopenia ([facility]) 08/13/2018 Social History Socioeconomic History Marital status: Spouse name: Not on file Number of children: Not on file Years of education: Not on file Highest education level: Not on file Occupational History Not on file Tobacco Use Smoking status: Never Smokeless tobacco: Current Types: Snuff Tobacco comments: 1 can every couple days Vaping Use Vaping Use: Never used Substance and Sexual Activity Alcohol use: No Drug use: No Sexual activity: Yes Partners: Female Other Topics Concern Not on file Social History Narrative Not on file Social Determinants of Health Financial Resource Strain: Not on file Food Insecurity: Not on file Transportation Needs: Not on file Physical Activity: Not on file Stress: Not on file Social Connections: Not on file Intimate Partner Violence: Not on file Housing Stability: Not on file O:Blood pressure 120/70, pulse 74, temperature 35.6 C (96 F), temperature source Tympanic, weight 109.3 kg (241 lb), SpO2 97%. GENERAL: alert and mild distress A:Chronic bilateral low back pain with bilateral sciatica (Primary) Other orders - predniSONE 20 MG Oral Tablet (Deltasone); 2 tablets daily for 5 days then 1 tablet daily Start prednisone. Any questions/problems, please call. If anything changes, worsens, develops new sx, please call [facility]. Follow Up: Return if symptoms worsen or fail to improve. Star Landa PA-C documented in this encounter Nursing Notes * Anil Aguilar LPN - 02/15/2024 2:22 PM EDT Chief Complaint Patient presents with Emergency Department Follow-Up [facility] on 02/09/2024 Dx:spinal Stenosis and Herniated disc Was given shot Tordol, Steroid , and 1 per They did CAT scan No relief Got back jeep and picked up 30 lb dog food bags The patient has been properly identified by confirmation of name and date of . documented in this encounter Miscellaneous Notes * Addendum Note - Star Landa PA-C - 02/15/2024 3:15 PM EDTAddended by: STAR LANDA on: 02/15/2024 03:15 PM Modules accepted: Orders documented in this encounter Plan of Treatment Upcoming Encounters Date Type Department Care Team (Late st Contact Info) Description 02/20/2024 2:30 PM EDT Office Visit Cardiology, [facility] [address] [place] [address] Julius Santiago DO [address] [place] [id number] 03/04/2024 12:00 PM EDT Office Visit Family Medicine [address] [place] [phone] Elroy Hughes MD [address] [place] [address] [place] [id number] Health Maintenance Due Date Last Done Comments HIV Screening 1974 Cologuard 2004 Colonoscopy 2004 Colorectal Cancer Screening 2004 Fecal Occult Blood Test 2004 Sigmoidoscopy 2004 Zoster Vaccines (2 of 2) 01/12/2023 11/17/2022 HbA1c 09/07/2023 03/07/2023, 05/17, 09/14/2021, Additional history exists Diabetic Eye Exam 11/17/2023 11/17/2022, 2021 Diabetic Foot Exam 11/17/2023 11/17/2022, 2021 Albumin/Creatinine Ratio 03/07/2024 03/07/2023, 08/18 GFR 03/07/2024 03/07/2023, 05/17, 09/14/2021, Additional history exists TSH 03/07/2024 03/07/2023, 0806/2022, 09/14/2021, Additional history exists DTaP,Tdap,and Td Vaccines (2 - Td or Tdap) 11/17/2032 11/17/2022 Pneumococcal Vaccine: Pediatrics (0 to 5 Years) and At-Risk Patients (6 to 64 Years) Completed 11/17/2022, 2021, 02/18/2014 COVID-19 Vaccine Completed 08/30/2023, , 09/14/2021, Additional history exists Influenza Vaccine (FLU shot) Completed , 09/06/2022, 09/14/2021, Additional history exists GARDASIL-HPV IMMUNIZATION SERIES Aged Out No longer eligible based on patient's age to complete this topic Hepatitis B Aged Out No longer eligi ble based on patient's age to complete this topic MENINGOCOCCAL (MENACTRA/MENVEO) Aged Out No longer eligible based on patient's age to complete this topic documented as of this encounter Medical Devices Not on filedocumented as of this encounter Visit Diagnoses Diagnosis Chronic bilateral low back pain with bilateral sciatica- Primary documented in this encounter Care Teams Apns Relationship Specialty Start Date End Date Elroy Hughes MD [address] [place] [address] [place] [id number] PCP - General Family Medicine 11/13/23 documented as of this encounter
--- OUTSIDE RECORDS SUMMARY | 2024-02-22 19:17 | External Medical Summary | Summary of Care ---
Author Name Unknown Organization [facility] Address [address] [place] [address] Phone [phone] Care Team Providers Care Commercial Service Technician Name Role Phone Elroy Hughes MD Primary Care Provide r Reason for Visit * Reason Onset Date Comments Pre Cert/Prior Auth 11/15/2023 Ozempic Encounter Details Date Type Department Care Team (Late st Contact Info) Description 11/15/2023 Telephone Family Medicine [address] [address] Elroy Hughes MD [address] [place] [address] [place] [address] Pre Cert/Prior Auth (Ozempic) Allergies Active Allergy Reactions Criticality Noted Date Comments Ezetimibe Other (Please comment) 08/18/2020 Dizziness, Disorientation and Hallucinations documented as of this encounter (statuses as of 02/14/2024) Medications Medication Sig Dispensed Refills Start Date End Date Status Misc. Devices MISCIndications: Plantar fasciitis, bilateral,Equinu s contracture of ankle,Pain in both feet,Chronic low back pain with bilateral sciatica, unspecified back pain laterality,Pes planus of both feet Please mold/fit/dispense one pair custom foot orthoses. Accommodative top cover, full length. Diagnosis: M72.2 M21.41. 1 Each 0 7 Active Misc. Devices (CANE) MISC Please dispense one cane - Radiculopathy, Sciatica, Chronic heel pain 1 Each 0 8 Active Aspirin 325 MG Oral Tablet Take 2 Tablets by mouth in the morning. 0 Active Acetaminophen 500 MG Oral Tablet (Tylenol) Take 2 Tablets by mouth every 6 hours as needed. 0 Active glipiZIDE ER 5 MG Oral Tablet Extended Release 24 Hour (glipiZIDE XL)Indications:D M type 2, goal HbA1c < 7% (HCC) Take 1 Tablet by mouth in the morning. 30 minutes before a meal.. 90 Tablet 1 3 Active Losartan Potassium 25 MG Oral Tablet (Cozaar)Indicati ons:Coronary artery disease of [place] artery of [place] heart with stable angina pectoris (HCC) TAKE 1 TABLET BY MOUTH EVERY DAY IN THE MORNING 90 Tablet 3 3 Active Furosemide 40 MG Oral Tablet (Lasix)Indicatio ns:Coronary artery disease of [place] artery of [place] heart with stable angina pectoris (HCC),S/P CABG x 2,HTN, goal below 130/80 TAKE 1 TAB BY MOUTH DAILY PLUS ADDITIONAL ONE 3-4 DAYS PER WEEK 150 Tablet 3 3 Active Klor-Con M10 10 MEQ Oral Tablet Extended Release (potassium chloride ER)Indications:H ypokalemia,Acute right-sided heart failure (HCC) TAKE 1 TABLET BY MOUTH EVERY DAY 90 Tablet 3 3 Active Metoprolol Succinate ER 100 MG Oral Tablet Extended Release 24 Hour (toPROL XL)Indications:H TN, goal below 130/80 TAKE 1 TABLET BY MOUTH EVERY DAY 90 Tablet 3 3 Active Spironolactone 25 MG Oral Tablet (Aldactone)Indic ations:Acute right-sided heart failure (HCC),Hypervolem ia, unspecified hypervolemia type TAKE 1 TABLET BY MOUTH EVERY DAY 90 Tablet 3 3 Active amLODIPine Besylate 5 MG Oral Tablet (Norvasc)Indicat ions:HTN, goal below 130/80 TAKE 1/2 TAB BY MOUTH EVERY MORNING 45 Tablet 3 3 Active Isosorbide Mononitrate ER 60 MG Oral Tablet Extended Release 24 Hour (Imdur)Indicatio ns:HTN, goal below 130/80 TAKE 1.5 TABLETS BY MOUTH EVERY DAY 135 Tablet 3 3 Active Fenofibrate 54 MG Oral Tablet (Lofibra)Indicat ions:Dyslipidemi a, goal LDL below 70,Coronary artery disease of [place] artery of [place] heart with stable angina pectoris (HCC) TAKE 1 TABLET BY MOUTH EVERY DAY 90 Tablet 3 4 Active metFORMIN HCl 500 MG Oral Tablet (Glucophage)Flora cations:DM type 2, goal HbA1c < 7% (HCC) TAKE 1 TABLET BY MOUTH TWICE A DAY WITH BREAKFAST AND DINNER 180 Tablet 1 4 Active buPROPion HCl ER (XL) 300 MG Oral Tablet Extended Release 24 Hour (Wellbutrin XL)Indications:M ajor depressive disorder, single episode, moderate (HCC) TAKE 1 TABLET BY MOUTH EVERY DAY IN THE MORNING 90 Tablet 1 4 Active Diclofenac Sodium 75 MG Oral Tablet Delayed Release (Voltaren)Indica tions:Chronic bilateral low back pain with bilateral sciatica TAKE 1 TABLET BY MOUTH TWICE A DAY WITH FOOD 60 Tablet 3 3 024 Discontinued Rosuvastatin Calcium 40 MG Oral Tablet (Crestor)Indicat ions:Dyslipidemi a, goal LDL below 70 TAKE 1 TABLET BY MOUTH EVERY DAY 90 Tablet 3 3 024 Discontinued Ozempic (0.25 or 0.5 MG/DOSE) 2 MG/3ML Solution Pen-injector (Semaglutide(0.2 5 or 0.5MG/DOS))Indic ations:DM type 2, goal HbA1c < 7% (HCC),Morbid obesity with BMI of 40.0-44.9, adult (HCC) 0.5 mg under skin weekly 3 mL 5 3 024 Discontinued Empagliflozin 10 MG Oral Tablet (Jardiance)Indic ations:DM type 2, goal HbA1c < 7% (HCC) Take 1 Tablet by mouth in the morning. 90 Tablet 1 3 024 Discontinued DULoxetine HCl 30 MG Oral Capsule Delayed Release Particles (Cymbalta)Indica tions:Major depressive disorder, single episode, moderate (HCC) Take 1 Capsule by mouth in the morning. 90 Capsule 1 3 024 Discontinued Levothyroxine Sodium 200 MCG Oral Tablet (Levoxyl) TAKE 1 TAB BY MOUTH DAILY EVERY MORNING AT LEAST 30 MINUTES PRIOR TO BREAKFAST OR OTHER MEDS 90 Tablet 1 3 024 Discontinued(Re fill) documented as of this encounter (statuses as of 02/14/2024) Active Problems Problem Noted Date Diagnosed Date Morbid obesity with BMI of 40.0-44.9, adult 11/2022 Overview: 271 CKD (chronic kidney disease), stage II Overview: EGFR 72 Major depressive disorder, single episode, moder ate 06/29/2021 DM type 2, goal HbA1c < 7% 02/27/2021 Overview: hgba1c 13.6 Coronary artery disease invo lving [place] coronary artery of [place] heart without angina pectoris 08/31/2015 S/P CABG x 2 08/31/2015 Dyslipidemia, goal LDL below 70 08/31/2015 History of [place] (myocardial infarction) 08/31/2015 Primary hypertension 08/31/2015 documented as of this encounter (statuses as of 02/14/2024) Resolved Problems Problem Noted Date Diagnosed Date Resolved Date Thrombocytopenia 08/13/2018 2021 NSTEMI (non-ST elevation gregorio cardial infarction) 08/31/2015 2021 HTN, goal below 130/80 08/31/201505/06 Back pain 08/31/2015 09/06/2022 documented as of this encounter (statuses as of 02/14/2024) Immunizations Name Administration Dates Next Due COVID-19 mRNA, LNP-s, No Pre serve, 2-Dose Series ([employer]) 09/14/2021,01/28/2021,12/28/2020 COVID-19, MRNA-LNP, 23-24, P F, 30 MCG/0.3 mL, 12 YRS AND ABOVE, IM ([employer]Comirnat) 08/30/2023 Covid-19, Mrna, Lnp-s, Pf, B ivalent, 30 Mcg, IM, 12 yrs and above ([employer]) 09/06/2022 Pneumococcal Conjugate Vacci ne, 20-valent ([id number]) 11/17/2022 Pneumococcal Polysaccharide PPV23 (Pneumovax) 2021,02/18/2014 Seasonal Influenza, PF, 6 M & above, IM , (FluLaval or Fluzone) 08/30/2023,09/06/2022,09/14/2021,08/18 TDAP (age 10 and older)(Boostrix) 11/17/2022 Zoster Vaccine Recombinant (Shingrix) 11/17/2022 documented as of this encounter Social History Tobacco Use Types Packs/Day Years Used Date Smoking Tobacco: Never Smokeless Tobacco: Current Snuff Comments:1 can every couple days Alcohol Use Standard Drinks/Week Comments No 0 (1 standard drink = 0.6 oz pur e alcohol) Sex and Gender Information Value Date Recorded Sex Assigned at Not on file Gender Identity Not on file Sexual Orientation Not on file Job Start Date Occupation Industry Not on file Not on file Not on file documented as of this encounter Miscellaneous Notes * Telephone Encounter - Afua Balckmon CPhT - 12/07/2023 3:27 PM EST Started a new encounter 12/07/23 for prior auth for ozempic with updated insurance information fromthe pharmacy and sent out our prior auth pool. Thank you, Afua Blackmon CPhT Med Peds II [facility] ( [facility]) 12/07/2023,3:29 PM * Telephone Encounter - Jennyfer Li LPN - 11/20/2023 1:04 PM EST Started on [facility]. Electronic Prior Authorization not supported. Submit via other methods. Payer: [employer] Pharmacy benefit information is incomplete, please verify the patient?s pharmacy benefits information and restart in the [employer] portal. Myg sent. * Telephone Encounter - Otilia Gaytan LPN - 11/15/2023 4:12 PM EST Patient was informed by his pharmacy today that his insurance isn't covering the Ozempic. He needs a new PA completed. Last PA done 03/2023. Patient is due for his injection now. Informed we will get a PA initiated. Please contact patient with an update once the determination is received. documented in this encounter Plan of Treatment Upcoming Encounters Date Type Department Care Team (Late st Contact Info) Description 02/15/2024 2:20 PM EDT Office Visit Family Medicine [address] [phone] Leslie Rosales PA-C [address] [place] [address] [place] [phone] 02/20/2024 2:30 PM EDT Office Visit Cardiology, [facility] [address] [place] [address] Julius Santiago DO [address] [place] [address] 03/04/2024 12:00 PM EDT Office Visit Family Medicine [address] [place] [phone] Elroy Hughes MD [address] [place] [address] [place] [phone] Health Maintenance Due Date Last Done Comments [...] 09/14/2021, Additional history exists TSH 03/07/2024 03/07/2023, 05/17, 09/14/2021, Additional history exists DTaP,Tdap,and Td Vaccines [...] Not on filedocumented as of this encounter Care Teams Commercial Service Technician Relationship Specialty Start Date End Date Elroy Hughes MD [address] [place] [address] [place] [phone] PCP - General Family Medicine 11/13/23 documented as of this encounter
--- OUTSIDE RECORDS SUMMARY | 2024-02-22 19:17 | External Medical Summary | Summary of Care ---
Author Name Unknown Organization [facility] Address [address] [place] [address] Phone [phone] Care Team Providers Care Inspector Final Assembly Electrical Name Role Phone Elroy Hughes MD Primary Care Provide r Reason for Visit * Reason Comments Emergency Department Follow-Up Encounter Details Date Type Department Care Team (Late st Contact Info) Description 02/15/2024 2:20 PM EDT Office Visit Family Medicine [address] [phone] Star Landa PA-C [address] [place] [address] [phone] Chronic bilateral low back pain with bilateral [...] Oral Tablet (Cozaar)Indication s:Coronary artery disease of [place] artery of [place] heart with stable angina pectoris (HCC) TAKE 1 TABLET BY MOUTH EVERY DAY IN THE MORNING 90 Tablet 3 07/05/2023 Active Furosemide 40 MG Oral Tablet (Lasix)Indications :Coronary artery disease of [place] artery of [place] heart with stable angina pectoris (HCC),S/P CABG [...] goal LDL below 70,Coronary artery disease of [place] artery of [place] heart with stable angina pectoris (HCC) TAKE [...] hgba1c 13.6 Coronary artery disease invo lving [place] coronary artery of [place] heart without angina pectoris 08/31/2015 S/P CABG x 2 08/31/2015 Dyslipidemia, goal LDL below 70 08/31/2015 History of [place] (myocardial infarction) 08/31/2015 Primary hypertension 08/31/2015 documented [...] mRNA, LNP-s, No Pre serve, 2-Dose Series ([employer]) 09/14/2021,01/28/2021,12/28/2020 COVID-19, MRNA-LNP, 23-24, P F, 30 MCG/0.3 mL, 12 YRS AND ABOVE, IM (P[employer]ER-Comirnaty) 08/30/2023 Covid-19, Mrna, Lnp-s, Pf, B ivalent, 30 Mcg, IM, 12 yrs and above (Pfizer) 09/06/2022 Pneumococcal Conjugate Vacci ne, 20-valent ([id number]) 11/17/2022 Pneumococcal Polysaccharide PPV23 (Pneumovax) 2021,02/18/2014 Seasonal [...] Complaint Patient presents with Emergency Department Follow-Up [facility] on 02/09/2024 Dx:spinal Stenosis and Herniated disc Was given shot Tordol, Steroid , and 1 per They did CAT scan No relief Got back jeep and picked up 30 lb dog food bags The patient has been properly identified by confirmation of name and date of . Pt was in [facility] ER on 02/09/24 with lower back pain. [...] 09/14/2021 EGFR 72 Coronary artery disease involving [place] coronary artery of [place] heart without angina pectoris 08/31/2015 DM type 2, goal HbA1c < 7% (HCC) 02/27/2021 hgba1c 13.6 Dyslipidemia, goal LDL below 70 08/31/2015 Encounter for hepatitis C screening test for low risk patient 05/05/2021 negative History of [place] (myocardial infarction) 08/31/2015 Hypothyroidism Major depressive disorder, single episode, moderate (HCC) 06/29/2021 NSTEMI (non-ST elevation myocardial infarction) ([facility]) 08/31/2015 Primary hypertension 08/31/2015 Radiculopathy S/P CABG x 2 08/31/2015 Thrombocytopenia ([facility]) 08/13/2018 Social History Socioeconomic History Marital status: [...] Complaint Patient presents with Emergency Department Follow-Up [facility] on 02/09/2024 Dx:spinal Stenosis and Herniated disc [...] 02/20/2024 2:30 PM EDT Office Visit Cardiology, [facility] [address] [place] [address] Julius Santiago DO [address] [place] [phone] 03/04/2024 12:00 PM EDT Office Visit Family Medicine [address] [place] [address] Elroy Hughes MD [address] [place] [address] [place] [address] Health Maintenance Due Date Last Done Comments [...] Primary documented in this encounter Care Teams Inspector Final Assembly Electrical Relationship Specialty Start Date End Date Elroy Hughes MD [address] [place] [address] [place] [phone] PCP - General Family Medicine 11/13/23 documented as of this encounter
--- OUTSIDE RECORDS SUMMARY | 2024-02-22 19:17 | External Medical Summary | Summary of Care ---
Author Name Unknown Organization [facility] Address [address] [place] [address] Phone [phone] Care Team Providers Care Manager Architecture Name Role Phone Elroy Hughes MD Primary Care Provide r Reason for Visit * Reason Comments eRx-Medication Refill Encounter Details Date Type Department Care Team (Late st Contact Info) Description 01/12/2024 Refill Family Medicine [address] [phone] Cristian Desai MD [address] [place] [address] [place] [address] DM type 2, goal HbA1c < 7% ([facility]); Morbid obesity with BMI of 40.0-44.9, adult ([facility]) Allergies Active Allergy Reactions Criticality Noted Date Comments Ezetimibe Other (Please comment) 08/18/2020 Dizziness, Disorientation and Hallucinations documented as of this encounter (statuses as of 01/12/2024) Medications Medication Sig Dispensed Refills Start Date End Date Status Misc. Devices MISCIndications:Pl hannah fasciitis, bilateral,Equinus contracture of ankle,Pain in both feet,Chronic low back pain with bilateral sciatica, unspecified back pain laterality,Pes planus of both feet Please mold/fit/dispense one pair custom foot orthoses. Accommodative top cover, full length. Diagnosis: M72.2 M21.41. 1 Each 0 10/13/2017 Active Misc. Devices (CANE) [facility] Please dispense one cane - Radiculopathy, Sciatica, Chronic heel pain 1 Each 0 10/11/2018 Active Aspirin 325 MG Oral Tablet Take 2 Tablets by mouth in the morning. 0 Active Acetaminophen 500 MG Oral Tablet (Tylenol) Take 2 Tablets by mouth every 6 hours as needed. 0 Active Diclofenac Sodium 75 MG Oral Tablet Delayed Release (Voltaren)Indicati ons:Chronic bilateral low back pain with bilateral sciatica TAKE 1 TABLET BY MOUTH TWICE A DAY WITH FOOD 60 Tablet 3 03/17/2023 Active Rosuvastatin Calcium 40 MG Oral Tablet (Crestor)Indicatio ns:Dyslipidemia, goal LDL below 70 TAKE 1 TABLET BY MOUTH EVERY DAY 90 Tablet 3 03/20/2023 Active glipiZIDE ER 5 MG Oral Tablet Extended Release 24 Hour (glipiZIDE XL)Indications:DM type 2, goal HbA1c < 7% (HCC) Take 1 Tablet by mouth in the morning. 30 minutes before a meal.. 90 Tablet 1 06/05/2023 Active Losartan Potassium 25 MG Oral Tablet (Cozaar)Indication s:Coronary artery disease of [place] artery of [place] heart with stable angina pectoris (HCC) TAKE 1 TABLET BY MOUTH EVERY DAY IN THE MORNING 90 Tablet 3 07/05/2023 Active Furosemide 40 MG Oral Tablet (Lasix)Indications :Coronary artery disease of [place] artery of [place] heart with stable angina pectoris (HCC),S/P CABG [...] EVERY MORNING 45 Tablet 3 08/07/2023 Active Ozempic (0.25 or 0.5 MG/DOSE) 2 MG/3ML Solution Pen-injector (Semaglutide(0.25 or 0.5MG/DOS))Indicat ions:DM type 2, goal HbA1c < 7% (HCC),Morbid obesity with BMI of 40.0-44.9, adult (HCC) 0.5 mg under skin weekly 3 mL 5 08/30/2023 Active Empagliflozin 10 MG Oral Tablet (Jardiance)Indicat ions:DM type 2, goal HbA1c < 7% (HCC) Take 1 Tablet by mouth in the morning. 90 Tablet 1 08/30/2023 Active Isosorbide Mononitrate ER 60 MG Oral Tablet Extended Release 24 Hour (Imdur)Indications :HTN, goal below 130/80 TAKE 1.5 TABLETS BY MOUTH EVERY DAY 135 Tablet 3 09/11/2023 Active Levothyroxine Sodium 200 MCG Oral Tablet (Levoxyl) TAKE 1 TAB BY MOUTH DAILY EVERY MORNING AT LEAST 30 MINUTES PRIOR TO BREAKFAST OR OTHER MEDS 90 Tablet 1 09/08/2023 Active Fenofibrate 54 MG Oral Tablet (Lofibra)Indicatio ns:Dyslipidemia, goal LDL below 70,Coronary artery disease of [place] artery of [place] heart with stable angina pectoris (HCC) TAKE [...] EVERY MORNING 90 Capsule 0 12/15/2023 Active documented as of this encounter (statuses as of 01/12/2024) Active Problems Problem Noted Date Diagnosed Date Morbid obesity with BMI of 40.0-44.9, adult 11/2022 Overview: 271 CKD (chronic kidney disease), stage II Overview: EGFR 72 Major depressive disorder, single episode, moder ate 06/29/2021 DM type 2, goal HbA1c < 7% 02/27/2021 Overview: hgba1c 13.6 Coronary artery disease invo lving douglas coronary artery of [place] heart without angina pectoris 08/31/2015 S/P CABG x 2 08/31/2015 Dyslipidemia, goal LDL below 70 08/31/2015 History of [place] (myocardial infarction) 08/31/2015 Primary hypertension 08/31/2015 documented as of this encounter (statuses as of 01/12/2024) Resolved Problems Problem Noted Date Diagnosed Date Resolved Date Thrombocytopenia 08/13/2018 2021 NSTEMI (non-ST elevation gregorio cardial infarction) 08/31/2015 2021 HTN, goal below 130/80 08/31/201505/06 Back pain 08/31/2015 09/06/2022 documented as of this encounter (statuses as of 01/12/2024) Immunizations Name Administration Dates Next Due COVID-19 mRNA, LNP-s, No Pre serve, 2-Dose Series ([employer]) 09/14/2021,01/28/2021,12/28/2020 COVID-19, MRNA-LNP, 23-24, P F, 30 MCG/0.3 mL, 12 YRS AND ABOVE, IM ([facility]) 08/30/2023 Covid-19, Mrna, Lnp-s, Pf, B ivalent, 30 Mcg, IM, 12 yrs and above (Pfizer) 09/06/2022 Pneumococcal Conjugate Vacci ne, 20-valent ([id number]) 11/17/2022 Pneumococcal Polysaccharide PPV23 (Pneumovax) 2021,02/18/2014 Seasonal [...] encounter Miscellaneous Notes * Telephone Encounter - Ofelia Barrera RPh - 01/12/2024 4:01 PM EDTRefused Prescriptions: Disp Refills Ozempic (0.25 or 0.5 MG/DOSE) 2 MG/3ML Kaylah* 5 Sig: INJECT 0.25MG UNDER THE SKIN ONCE A WEEK.Refused By: OFELIA BARRERA for Refusal: Refill Not Appropriate- documented in this encounter Plan of Treatment Upcoming Encounters Date Type Department Care Team (Late st Contact Info) Description 03/04/2024 12:00 PM EDT Office Visit Family Medicine [address] [place] [address] Elroy Hughes MD [address] [place] [address] [place] [phone] Health Maintenance Due Date Last Done Comments Depression Screening 1971 HIV Screening 1974 Cologuard 2004 Colonoscopy 2004 [...] as of this encounter Visit Diagnoses Diagnosis DM type 2, goal HbA1c < 7% (HCC) Morbid obesity with BMI of 40.0-44.9, adult (HCC) Morbid obesity documented in this encounter Care Teams Manager Architecture Relationship Specialty Start Date End Date Elroy Hughes MD [address] [place] [address] [place] [address] PCP - General Family Medicine 11/13/23 documented as of this encounter
--- OUTSIDE RECORDS SUMMARY | 2024-02-22 19:17 | External Medical Summary | Summary of Care ---
Author Name Unknown Organization [facility] Address [address] [place] [address] Phone [phone] Care Team Providers Care Telephone Surveyor Name Role Phone Elroy Hughes MD Primary Care Provide r Reason for Visit * Reason Comments eRx-Medication Refill Encounter Details Date Type Department Care Team (Late st Contact Info) Description 01/27/2024 Refill Cardiology, [facility] [address] [place] [address] Jose G Calvillo PA-C [address] [facility] [place] [address] Dyslipidemia, goal LDL below 70 Allergies Active Allergy Reactions Criticality Noted Date Comments Ezetimibe Other (Please comment) 08/18/2020 Dizziness, Disorientation and Hallucinations documented as of this encounter (statuses as of 01/31/2024) Medications Medication Sig Dispensed Refills Start Date [...] Oral Tablet (Cozaar)Indicati ons:Coronary artery disease of [place] artery of [place] heart with stable angina pectoris (HCC) TAKE 1 TABLET BY MOUTH EVERY DAY IN THE MORNING 90 Tablet 3 3 Active Furosemide 40 MG Oral Tablet (Lasix)Indicatio ns:Coronary artery disease of [place] artery of [place] heart with stable angina pectoris (HCC),S/P CABG [...] goal LDL below 70,Coronary artery disease of [place] artery of [place] heart with stable angina pectoris (HCC) TAKE [...] THE MORNING 90 Tablet 1 4 Active Gabapentin 800 MG Oral Tablet (Neurontin)Indic ations:DM type 2, goal HbA1c < 7% (HCC),Diabetic peripheral neuropathy (HCC) TAKE 1 TABLET BY MOUTH IN THE MORNING AT AT NOON AND BEFORE BEDTIME 270 Tablet 3 4 Active DULoxetine HCl 30 MG Oral Capsule Delayed Release Particles (Cymbalta)Indica tions:Major depressive disorder, single episode, moderate (HCC) TAKE 1 CAPSULE BY MOUTH EVERY MORNING 90 Capsule 0 4 Active Rosuvastatin Calcium 40 MG Oral Tablet (Crestor)Indicat ions:Dyslipidemi a, goal LDL below 70 TAKE 1 TABLET BY MOUTH EVERY DAY 90 Tablet 3 4 Active Diclofenac Sodium 75 MG Oral [...] morning. 90 Tablet 1 3 024 Discontinued Levothyroxine Sodium 200 MCG Oral Tablet (Levoxyl) TAKE 1 TAB BY MOUTH DAILY EVERY MORNING AT LEAST 30 MINUTES PRIOR TO BREAKFAST OR OTHER MEDS 90 Tablet 1 3 024 Discontinued(Re fill) documented as of this encounter (statuses as of 01/31/2024) Active Problems Problem Noted Date Diagnosed Date Morbid obesity with BMI of 40.0-44.9, adult 11/2022 Overview: 271 CKD (chronic kidney disease), stage II Overview: EGFR 72 Major depressive disorder, single episode, moder ate 06/29/2021 DM type 2, goal HbA1c < 7% 02/27/2021 Overview: hgba1c 13.6 Coronary artery disease invo lving [place] coronary artery of [place] heart without angina pectoris 08/31/2015 S/P CABG x 2 08/31/2015 Dyslipidemia, goal LDL below 70 08/31/2015 History of PR (myocardial infarction) 08/31/2015 Primary hypertension 08/31/2015 documented as of this encounter (statuses as of 01/31/2024) Resolved Problems Problem Noted Date Diagnosed Date Resolved Date Thrombocytopenia 08/13/2018 2021 NSTEMI (non-ST elevation gregorio cardial infarction) 08/31/2015 2021 HTN, goal below 130/80 08/31/201505/06 Back pain 08/31/2015 09/06/2022 documented as of this encounter (statuses as of 01/31/2024) Immunizations Name Administration Dates Next Due COVID-19 mRNA, LNP-s, No Pre serve, 2-Dose Series (ClearStar) 09/14/2021,01/28/2021,12/28/2020 COVID-19, MRNA-LNP, 23-24, P F, 30 MCG/0.3 mL, 12 YRS AND ABOVE, IM (PFIZER-Comirnaty) 08/30/2023 Covid-19, Mrna, Lnp-s, Pf, B ivalent, 30 Mcg, IM, 12 yrs and above (Pfizer) 09/06/2022 Pneumococcal Conjugate Vacci ne, 20-valent ([id number]) 11/17/2022 Pneumococcal Polysaccharide PPV23 (Pneumovax) 2021,02/18/2014 Seasonal [...] encounter Miscellaneous Notes * Telephone Encounter - Dianne Kerr CMA - 01/29/2024 9:42 AM EDTPending Prescriptions: Disp Refills Rosuvastatin Calcium 40 MG Oral Tablet [Ph*90 Tab*3 Sig: TAKE 1 TABLET BY MOUTH EVERY DAY * Telephone Encounter - Dianne Kerr CMA - 01/29/2024 9:42 AM EDT Scheduling -- please contact pt for follow up. * Telephone Encounter - Dianne Kerr CMA - 01/29/2024 9:42 AM EDT Did you pend patient's preferred pharmacy and medication before forwarding?yes Pharmacy: [id number] [id number] [facility] Pending Prescriptions: Disp Refills Rosuvastatin Calcium 40 MG Oral Tablet (C*90 Tab*3 Sig: TAKE 1 TABLET BY MOUTH EVERY DAY Last Visit: 03/07/2023 (in office), 01/29/2020 (telemedicine) Next Visit: Visit date not found If no future appointments scheduled, and last appointment is greater than a year ago, please schedule patient for a follow-up appointment Last date the medication was ordered: 03-20-2023 Is this request for a controlled substance?No Urine Drug Screen:No results found for this or any previous visit. Patient Phone Numbers Labs: Lab Results Component Value Date/Time CREAT 1.2 03/07/2023 04:04 PM CREAT 0.98 06/13/2022 12:00 AM CREAT 0.7 05/12/2020 01:28 PM POTASSIUM 4.4 03/07/2023 04:04 PM POTASSIUM 4.1 06/13/2022 12:00 AM POTASSIUM 4.2 05/12/2020 01:28 PM TSH 17.00 (H) 03/07/2023 04:04 PM TSH 18.500 (A) 06/13/2022 12:00 AM TSH 3.33 05/12/2020 01:28 PM LDLCALC 10/30/2019 03:33 PM Uninterpretable, recommend direct LDL cholesterol testing. LDLDIRECT 90 09/14/2021 04:12 PM LDLDIRECT 94 05/12/2020 01:28 PM ALT 21 03/07/2023 04:04 PM ALT 21 10/30/2019 03:33 PM HGBA1C 9.1 (H) 03/07/2023 04:04 PM HGBA1C 7.8 (A) 06/13/2022 12:00 AM HGBA1C 5.5 02/05/2014 03:56 PM documented in this encounter Plan of Treatment Upcoming Encounters Date Type Department Care Team (Late st Contact Info) Description 03/04/2024 12:00 PM EDT Office Visit Family Medicine [address] [place] [phone] Elroy Hughes MD [address] [place] [address] [place] [phone] Health Maintenance Due Date Last Done Comments [...] as of this encounter Visit Diagnoses Diagnosis Dyslipidemia, goal LDL below 70 Other and unspecified hyperlipidemia documented in this encounter Care Teams Telephone Surveyor Relationship Specialty Start Date End Date Elroy Hughes MD [address] [place] [address] [place] [phone] PCP - General Family Medicine 11/13/23 documented as of this encounter
--- OUTSIDE RECORDS SUMMARY | 2024-02-22 19:17 | External Medical Summary | Summary of Care ---
Author Name Unknown Organization [facility] Address [address] [place] [address] Phone [phone] Care Team Providers Care Regional Dedicated Truck Driver Name Role Phone Elroy Hughes MD Primary Care Provide r Reason for Visit * Reason Comments eRx-Medication Refill Encounter Details Date Type Department Care Team (Late st Contact Info) Description 01/27/2024 Refill Family Medicine [address] [phone] Cristian Desai MD [address] [place] [address] [place] [address] Chronic bilateral low back pain with bilateral sciatica; DM type 2, goal HbA1c < 7% ([facility]); Morbid obesity with BMI of 40.0-44.9, adult ([facility]) Allergies Active Allergy Reactions Criticality Noted Date Comments Ezetimibe Other (Please comment) 08/18/2020 Dizziness, Disorientation and Hallucinations documented as of this encounter (statuses as of 01/30/2024) Medications Medication Sig Dispensed Refills Start Date [...] every 6 hours as needed. 0 Active Rosuvastatin Calcium 40 MG Oral Tablet (Crestor)Indicat ions:Dyslipidemi a, goal LDL below 70 TAKE 1 TABLET BY MOUTH EVERY DAY 90 Tablet 3 3 Active glipiZIDE ER 5 MG Oral Tablet Extended Release 24 Hour (glipiZIDE XL)Indications:D M type 2, goal HbA1c < 7% (HCC) Take 1 Tablet by mouth in the morning. 30 minutes before a meal.. 90 Tablet 1 3 Active Losartan Potassium 25 MG Oral Tablet (Cozaar)Indicati ons:Coronary artery disease of [place] artery of [place] heart with stable angina pectoris (HCC) TAKE 1 TABLET BY MOUTH EVERY DAY IN THE MORNING 90 Tablet 3 3 Active Furosemide 40 MG Oral Tablet (Lasix)Indicatio ns:Coronary artery disease of [place] artery of [place] heart with stable angina pectoris (HCC),S/P CABG [...] goal LDL below 70,Coronary artery disease of [place] artery of [place] heart with stable angina pectoris (HCC) TAKE [...] EVERY MORNING 90 Capsule 0 4 Active Diclofenac Sodium 75 MG Oral Tablet Delayed Release (Voltaren)Indica tions:Chronic bilateral low back pain with bilateral sciatica TAKE 1 TABLET BY MOUTH TWICE A DAY WITH FOOD 60 Tablet 3 4 Active Jardiance 10 MG Oral Tablet (Empagliflozin)I ndications:DM type 2, goal HbA1c < 7% (HCC) TAKE 1 TABLET BY MOUTH EVERY DAY IN THE MORNING 90 Tablet 1 4 Active Ozempic (0.25 or 0.5 MG/DOSE) 2 MG/3ML Solution Pen-injector (Semaglutide(0.2 5 or 0.5MG/DOS))Indic ations:DM type 2, goal HbA1c < 7% (HCC),Morbid obesity with BMI of 40.0-44.9, adult (HCC) Inject 0.5 mg under the skin once a week. 3 mL 5 4 Active Levothyroxine Sodium 200 MCG Oral Tablet (Levoxyl) TAKE 1 TAB BY MOUTH DAILY EVERY MORNING AT LEAST 30 MINUTES PRIOR TO BREAKFAST OR OTHER MEDS 90 Tablet 1 4 Active Diclofenac Sodium 75 MG Oral Tablet Delayed Release (Voltaren)Indica tions:Chronic bilateral low back pain with bilateral sciatica TAKE 1 TABLET BY MOUTH TWICE A DAY WITH FOOD 60 Tablet 3 3 024 Discontinued Ozempic (0.25 [...] as of this encounter (statuses as of 01/30/2024) Active Problems Problem Noted Date Diagnosed Date Morbid obesity with BMI of 40.0-44.9, adult 11/2022 Overview: 271 CKD (chronic kidney disease), stage II Overview: EGFR 72 Major depressive disorder, single episode, moder ate 06/29/2021 DM type 2, goal HbA1c < 7% 02/27/2021 Overview: hgba1c 13.6 Coronary artery disease invo lving [place] coronary artery of [place] heart without angina pectoris 08/31/2015 S/P CABG x 2 08/31/2015 Dyslipidemia, goal LDL below 70 08/31/2015 History of [place] (myocardial infarction) 08/31/2015 Primary hypertension 08/31/2015 documented as of this encounter (statuses as of 01/30/2024) Resolved Problems Problem Noted Date Diagnosed Date Resolved Date Thrombocytopenia 08/13/2018 2021 NSTEMI (non-ST elevation gregorio cardial infarction) 08/31/2015 2021 HTN, goal below 130/80 08/31/201505/06 Back pain 08/31/2015 09/06/2022 documented as of this encounter (statuses as of 01/30/2024) Immunizations Name Administration Dates Next Due COVID-19 mRNA, LNP-s, No Pre serve, 2-Dose Series (AstroloMe) 09/14/2021,01/28/2021,12/28/2020 COVID-19, MRNA-LNP, 23-24, P F, 30 MCG/0.3 mL, 12 YRS AND ABOVE, IM ([facility]) 08/30/2023 Covid-19, Mrna, Lnp-s, Pf, B ivalent, 30 Mcg, IM, 12 yrs and above (AstroloMe) 09/06/2022 Pneumococcal Conjugate Vacci ne, 20-valent ([id number]) 11/17/2022 Pneumococcal Polysaccharide PPV23 (Pneumovax) 2021,02/18/2014 Seasonal [...] encounter Miscellaneous Notes * Telephone Encounter - Sellathurai, Thiviyanath, MD - 01/30/2024 10:59 AM EDT Signed Prescriptions: Disp Refills Diclofenac Sodium 75 MG Oral Tablet Delaye*60 Tab*3 Sig: TAKE 1 TABLET BY MOUTH TWICE A DAY WITH FOOD Authorizing Provider: ELROY HUGHES Jardiance 10 MG Oral Tablet (Empagliflozin)90 Tab*1 Sig: TAKE 1 TABLET BY MOUTH EVERY DAY IN THE MORNING Authorizing Provider: ELROY HUGHES Ozempic (0.25 or 0.5 MG/DOSE) 2 MG/3ML S ol*3 mL 5 Sig: Inject 0.5 mg under the skin once a week. Authorizing Provider: ELROY HUGHES Levothyroxine Sodium 200 MCG Oral Tablet (*90 Tab*1 Sig: TAKE 1 TAB BY MOUTH DAILY EVERY MORNING AT LEAST 30 MINUTES PRIOR TO BREAKFAST OR OTHER MEDS Authorizing Provider: ELROY HUGHES Refused Prescriptions: Disp Refills Levothyroxine Sodium 150 MCG Oral Tablet (*90 Tab*1 Sig: TAKE 1 TAB BY MOUTH DAILY EVERY MORNING AT LEAST 30 MINUTES PRIOR TO BREAKFAST OR OTHER MEDS Refused By: MAYRA ROJAS Reason for Refusal: Dose needs clarification * Telephone Encounter - Mayra Rojas [facility] - 01/29/2024 4:10 PM EDT Pending Prescriptions: Disp Refills Diclofenac Sodium 75 MG Oral Tablet Delaye*60 Tab*3 Sig: TAKE 1 TABLET BY MOUTH TWICE A DAY WITH FOOD Jardiance 10 MG Oral Tablet (Empagliflozin)90 Tab*1 Sig: TAKE 1 TABLET BY MOUTH EVERY DAY IN THE MORNING Ozempic (0.25 or 0.5 MG/DOSE) 2 MG/3ML Kaylah*3 mL 5 Sig: Inject 0.5 mg under the skin once a week. Levothyroxine Sodium 200 MC G Oral Tablet (*90 Tab*1 Sig: TAKE 1 TAB BY MOUTH DAILY EVERY MORNING AT LEAST 30 MINUTES PRIOR TO BREAKFAST OR OTHER MEDS Refused Prescriptions: Disp Refills Levothyroxine Sodium 150 MCG Oral Tablet (*90 Tab*1 Sig: TAKE 1 TAB BY MOUTH DAILY EVERY MORNING AT LEAST 30 MINUTES PRIOR TO BREAKFAST OR OTHER MEDS Refused By: MAYRA ROJAS Reason for Refusal : Dose needs clarification * Telephone Encounter - Mayra Rojas [facility] - 01/29/2024 4:09 PM EDT Forwarding to new PCP. Please approve if appropriate. Thank You Mayra Rojas, PharmD Clinical Pharmacist [facility] ([facility]) (formerly [facility]pharm[facility]) [phone] / [phone] 01/29/2024, 4:09 PM * Telephone Encounter - Mayra Rojas [facility] - 01/29/2024 4:06 PM EDT Did you pend patient's preferred pharmacy and medication before forwarding?yes Pharmacy: [id number] Pending Prescriptions: Disp Refills Diclofenac Sodium 75 MG Oral Tablet Delay*60 Tab*3 Sig: TAKE 1 TABLET BY MOUTH TWICE A DAY WITH FOOD Jardiance 10 MG Oral Tablet (Empagliflozi*90 Tab*1 Sig: TAKE 1 TABLET BY MOUTH EVERY DAY IN THE MORNING Ozempic (0.25 or 0.5 MG/DOSE) 2 MG/3ML So*3 mL 5 Sig: Inject 0.5 mg under the skin once a week. Levothyroxine Sodium 200 MCG Oral Tablet *90 Tab*1 Sig: TAKE 1 TAB BY MOUTH DAILY EVERY MORNING AT LEAST 30 MINUTES PRIOR TO BREAKFAST OR OTHER MEDS Refused Prescriptions: Disp Refills Levothyroxine Sodium 150 MCG Oral Tablet (*90 Tab*1 Sig: TAKE 1 TAB BY MOUTH DAILY EVERY MORNING AT LEAST 30 MINUTES PRIOR TO BREAKFAST OR OTHER MEDS Refused By: MAYRA ROJAS Reason for Refusal: Dose needs clarification Last Visit: 08/30/2023 (in office), Visit date not found (telemedicine) Next Visit: 03/04/2024 If no future appointments scheduled, and last appointment is greater than a year ago, please schedule patient for a follow-up appointment Last date the medication was ordered: 03/17/23,08/30/23, 09/08/23 Is this request for a controlled substance?No [...] 12:00 PM EDT Office Visit Family Medicine [address] [place] [phone] Elroy Hughes MD [address] [place] [address] [place] [phone] Health Maintenance Due Date Last Done Comments [...] Chronic bilateral low back pain with bilateral sciatica DM type 2, goal HbA1c < 7% (HCC) Morbid obesity with BMI of 40.0-44.9, adult (HCC) Morbid obesity documented in this encounter Care Teams Regional Dedicated Truck Driver Relationship Specialty Start Date End Date Elroy Hughes MD [address] [place] [address] [place] [id number] PCP - General Family Medicine 11/13/23 documented as of this encounter
--- OUTSIDE RECORDS SUMMARY | 2024-02-22 19:17 | External Medical Summary | Summary of Care ---
Author Name Unknown Organization [facility] Address [address] [place] [address] Phone [phone] Care Team Providers Care Repair Cameraman Name Role Phone Elroy Hughes MD Primary Care Provide r Reason for Visit * Reason Comments eRx-Medication Refill Encounter Details Date Type Department Care Team (Late st Contact Info) Description 12/14/2023 Refill Family Medicine [address] [phone] Cristian Desai MD [address] [place] [address] [place] [address] Major depressive disorder, single episode, moderate (HCC) Allergies Active Allergy Reactions Criticality Noted Date Comments Ezetimibe Other (Please comment) 08/18/2020 Dizziness, Disorientation and Hallucinations documented as of this encounter (statuses as of 12/15/2023) Medications Medication Sig Dispensed Refills Start Date End Date Status Misc. Devices MISCIndications:P lantar fasciitis, bilateral,Equinus contracture of ankle,Pain in both [...] Sodium 75 MG Oral Tablet Delayed Release (Voltaren)Indicat ions:Chronic bilateral low back pain with bilateral sciatica TAKE 1 TABLET BY MOUTH TWICE A DAY WITH FOOD 60 Tablet 3 3 Active Rosuvastatin Calcium 40 MG Oral Tablet (Crestor)Indicati ons:Dyslipidemia, goal LDL below 70 TAKE 1 TABLET BY MOUTH EVERY DAY 90 Tablet 3 3 Active glipiZIDE ER 5 MG Oral Tablet Extended Release 24 Hour (glipiZIDE XL)Indications:DM type 2, goal HbA1c < 7% (HCC) Take 1 Tablet by mouth in the morning. 30 minutes before a meal.. 90 Tablet 1 3 Active Losartan Potassium 25 MG Oral Tablet (Cozaar)Indicatio ns:Coronary artery disease of [place] artery of [place] heart with stable angina pectoris (HCC) TAKE 1 TABLET BY MOUTH EVERY DAY IN THE MORNING 90 Tablet 3 3 Active Furosemide 40 MG Oral Tablet (Lasix)Indication s:Coronary artery disease of [place] artery of [place] heart with stable angina pectoris (HCC),S/P CABG x 2,HTN, goal below 130/80 TAKE 1 TAB BY MOUTH DAILY PLUS ADDITIONAL ONE 3-4 DAYS PER WEEK 150 Tablet 3 3 Active Klor-Con M10 10 MEQ Oral Tablet Extended Release (potassium chloride ER)Indications:Hy pokalemia,Acute right-sided heart failure (HCC) TAKE 1 TABLET BY MOUTH EVERY DAY 90 Tablet 3 3 Active Metoprolol Succinate ER 100 MG Oral Tablet Extended Release 24 Hour (toPROL XL)Indications:HT N, goal below 130/80 TAKE 1 TABLET BY MOUTH EVERY DAY 90 Tablet 3 3 Active Spironolactone 25 MG Oral Tablet (Aldactone)Indica tions:Acute right-sided heart failure (HCC),Hypervolemi a, unspecified hypervolemia type TAKE 1 TABLET BY MOUTH EVERY DAY 90 Tablet 3 3 Active amLODIPine Besylate 5 MG Oral Tablet (Norvasc)Indicati ons:HTN, goal below 130/80 TAKE 1/2 TAB BY MOUTH EVERY MORNING 45 Tablet 3 3 Active Ozempic (0.25 or 0.5 MG/DOSE) 2 MG/3ML Solution Pen-injector (Semaglutide(0.25 or 0.5MG/DOS))Indica tions:DM type 2, goal HbA1c < 7% (HCC),Morbid obesity with BMI of 40.0-44.9, adult (HCC) 0.5 mg under skin weekly 3 mL 5 3 Active Empagliflozin 10 MG Oral Tablet (Jardiance)Indica tions:DM type 2, goal HbA1c < 7% (HCC) Take 1 Tablet by mouth in the morning. 90 Tablet 1 3 Active Isosorbide Mononitrate ER 60 MG Oral Tablet Extended Release 24 Hour (Imdur)Indication s:HTN, goal below 130/80 TAKE 1.5 TABLETS BY MOUTH EVERY DAY 135 Tablet 3 3 Active Levothyroxine Sodium 200 MCG Oral Tablet (Levoxyl) TAKE 1 TAB BY MOUTH DAILY EVERY MORNING AT LEAST 30 MINUTES PRIOR TO BREAKFAST OR OTHER MEDS 90 Tablet 1 3 Active Fenofibrate 54 MG Oral Tablet (Lofibra)Indicati ons:Dyslipidemia, goal LDL below 70,Coronary artery disease of [place] artery of [place] heart with stable angina pectoris (HCC) TAKE 1 TABLET BY MOUTH EVERY DAY 90 Tablet 3 4 Active metFORMIN HCl 500 MG Oral Tablet (Glucophage)Indic ations:DM type 2, goal HbA1c < 7% (HCC) TAKE 1 TABLET BY MOUTH TWICE A DAY WITH BREAKFAST AND DINNER 180 Tablet 1 4 Active buPROPion HCl ER (XL) 300 MG Oral Tablet Extended Release 24 Hour (Wellbutrin XL)Indications:Ma ron depressive disorder, single episode, moderate (HCC) TAKE 1 TABLET BY MOUTH EVERY DAY IN THE MORNING 90 Tablet 1 4 Active Gabapentin 800 MG Oral Tablet (Neurontin)Indica tions:DM type 2, goal HbA1c < 7% (HCC),Diabetic peripheral neuropathy (HCC) TAKE 1 TABLET BY MOUTH IN THE MORNING AT AT NOON AND BEFORE BEDTIME 270 Tablet 3 4 Active DULoxetine HCl 30 MG Oral Capsule Delayed Release Particles (Cymbalta)Indicat ions:Major depressive disorder, single episode, moderate (HCC) TAKE 1 CAPSULE BY MOUTH EVERY MORNING 90 Capsule 0 4 Active DULoxetine HCl 30 MG Oral Capsule Delayed Release Particles (Cymbalta)Indicat ions:Major depressive disorder, single episode, moderate (HCC) Take 1 Capsule by mouth in the morning. 90 Capsule 1 3 12/15/19 24 Discontinued documented as of this encounter (statuses as of 12/15/2023) Active Problems Problem Noted Date Diagnosed Date Morbid obesity with BMI of 40.0-44.9, adult 11/2022 Overview: 271 CKD (chronic kidney disease), stage II Overview: EGFR 72 Major depressive disorder, single episode, moder ate 06/29/2021 DM type 2, goal HbA1c < 7% 02/27/2021 Overview: hgba1c 13.6 Coronary artery disease invo lving [place] coronary artery of [place] heart without angina pectoris 08/31/2015 S/P CABG x 2 08/31/2015 Dyslipidemia, goal LDL below 70 08/31/2015 History of [place] (myocardial infarction) 08/31/2015 Primary hypertension 08/31/2015 documented as of this encounter (statuses as of 12/15/2023) Resolved Problems Problem Noted Date Diagnosed Date Resolved Date Thrombocytopenia 08/13/2018 2021 NSTEMI (non-ST elevation gregorio cardial infarction) 08/31/2015 2021 HTN, goal below 130/80 08/31/201505/06 Back pain 08/31/2015 09/06/2022 documented as of this encounter (statuses as of 12/15/2023) Immunizations Name Administration Dates Next Due COVID-19 mRNA, LNP-s, No Pre serve, 2-Dose Series (Five minutes) 09/14/2021,01/28/2021,12/28/2020 COVID-19, MRNA-LNP, 23-24, P F, 30 MCG/0.3 mL, 12 YRS AND ABOVE, IM ([facility]) 08/30/2023 Covid-19, Mrna, Lnp-s, Pf, B ivalent, 30 Mcg, IM, 12 yrs and above (Pfizer) 09/06/2022 Pneumococcal Conjugate Vacci ne, 20-valent ([id number]) 11/17/2022 Pneumococcal Polysaccharide PPV23 (Pneumovax) 2021,02/18/2014 Seasonal [...] encounter Miscellaneous Notes * Telephone Encounter - Ambrose [facility] - 12/15/2023 10:20 AM EST Signed Prescriptions: Disp Refills DULoxetine HCl 30 MG Oral Capsule Delayed *90 Cap*0 Sig: TAKE 1CAPSULE BY MOUTH EVERY MORNINGAuthorizing Provider: Jesus HUGHES User: AMBROSE SANTIAGORefused Prescriptions: Disp Refills Levothyroxine Sodium 150 MCG Oral Tablet (*90 Tab*1 Sig: TAKE 1 TAB BY MOUTH DAILY EVERY MORNING AT LEAST 30 MINUTES PRIORTO BREAKFAST OR OTHER MEDSRefused By: AMBROSE SANTIAGOReason for Refusal: Dose needs clarificationReason for Refusal Comment: current dose is levothyroxine 200mcg documented in this encounter Plan of Treatment Upcoming Encounters Date Type Department Care Team (Late st Contact Info) Description 03/04/2024 12:00 PM EDT Office Visit Family Medicine [address] [place] [phone] Elroy Hughes MD [address] [place] [address] [place] [phone] Health Maintenance Due Date Last Done Comments [...] as of this encounter Visit Diagnoses Diagnosis Major depressive disorder, single episode, moderate (HCC) Major depressive disorder, single episode, moderate documented in this encounter Care Teams Repair Cameraman Relationship Specialty Start Date End Date Elroy Hughes MD [address] [place] [address] [place] [id number] PCP - General Family Medicine 11/13/23 documented as of this encounter
--- OUTSIDE RECORDS SUMMARY | 2024-02-22 19:18 | External Medical Summary | Summary of Care ---
Author Name Unknown Organization [facility] Address [address] [place] [address] Phone [phone] Care Team Providers Care Cabin Agent Name Role Phone Cristian Desai MD Primary Care Provider + [phone] Reason for Visit * Reason Comments eRx-Medication Refill Encounter Details Date Type Department Care Team (Late st Contact Info) Description 09/08/2023 Refill Cardiology, [facility] [address] [place] [address] Jose G Calvillo PA-C [address] [facility] [place] [address] HTN, goal below 130/80* Allergies Active Allergy Reactions Criticality Noted Date Comments Ezetimibe Other (Please comment) 08/18/2020 Dizziness, Disorientation and Hallucinations documented as of this encounter (statuses as of 09/11/2023) Medications Medication Sig Dispensed Refills Start Date [...] every 6 hours as needed. 0 Active Fenofibrate 54 MG Oral Tablet (Lofibra)Indicati ons:Dyslipidemia, goal LDL below 70,Coronary artery disease of [place] artery of [place] heart with stable angina pectoris (HCC) TAKE 1 TABLET BY MOUTH EVERY DAY 90 Tablet 3 2 Active buPROPion HCl ER (XL) 300 MG Oral Tablet Extended Release 24 Hour (Wellbutrin XL)Indications:Ma ron depressive disorder, single episode, moderate (HCC) Take 1 Tablet by mouth in the morning. 90 Tablet 1 3 Active Diclofenac Sodium 75 MG Oral Tablet [...] a meal.. 90 Tablet 1 3 Active Gabapentin 800 MG Oral Tablet (Neurontin)Indica tions:DM type 2, goal HbA1c < 7% (HCC),Diabetic peripheral neuropathy (HCC) TAKE 1 TABLET BY MOUTH IN THE MORNING AT AT NOON AND BEFORE BEDTIME 90 Tablet 5 3 Active Losartan Potassium 25 MG Oral Tablet (Cozaar)Indicatio ns:Coronary artery disease of [place] artery of [place] heart with stable angina pectoris (HCC) TAKE 1 TABLET BY MOUTH EVERY DAY IN THE MORNING 90 Tablet 3 3 Active Furosemide 40 MG Oral Tablet (Lasix)Indication s:Coronary artery disease of [place] artery of [place] heart with stable angina pectoris (HCC),S/P CABG [...] EVERY DAY 90 Tablet 3 3 Active metFORMIN HCl 500 MG Oral Tablet (Glucophage)Indic ations:DM type 2, goal HbA1c < 7% (HCC) TAKE 1 TABLET BY MOUTH TWICE A DAY WITH BREAKFAST AND DINNER 180 Tablet 0 3 Active amLODIPine Besylate 5 MG Oral [...] the morning. 90 Tablet 1 3 Active DULoxetine HCl 30 MG Oral Capsule Delayed Release Particles (Cymbalta)Indicat ions:Major depressive disorder, single episode, moderate (HCC) Take 1 Capsule by mouth in the morning. 90 Capsule 1 3 Active Isosorbide Mononitrate ER 60 MG Oral Tablet Extended Release 24 Hour (Imdur)Indication s:HTN, goal below 130/80 TAKE 1.5 TABLETS BY MOUTH EVERY DAY 135 Tablet 3 3 Active Isosorbide Mononitrate ER 60 MG Oral Tablet Extended Release 24 Hour (Imdur) TAKE 1 AND 1/2 TABLETS BY MOUTH EVERY DAY 135 Tablet 3 2 09/11/20 23 Discontinued documented as of this encounter (statuses as of 09/11/2023) Active Problems Problem Noted Date Diagnosed Date Morbid obesity with BMI of 40.0-44.9, adult 11/2022 Overview: 271 CKD (chronic kidney disease), stage II Overview: EGFR 72 Major depressive disorder, single episode, moder ate 06/29/2021 DM type 2, goal HbA1c < 7% 02/27/2021 Overview: hgba1c 13.6 Coronary artery disease invo [place] coronary artery of [place] heart without angina pectoris 08/31/2015 S/P CABG x 2 08/31/2015 Dyslipidemia, goal LDL below 70 08/31/2015 History of [place] (myocardial infarction) 08/31/2015 Primary hypertension 08/31/2015 documented as of this encounter (statuses as of 09/11/2023) Resolved Problems Problem Noted Date Diagnosed Date Resolved Date Thrombocytopenia 08/13/2018 2021 NSTEMI (non-ST elevation gregorio cardial infarction) 08/31/2015 2021 HTN, goal below 130/80 08/31/201505/06 Back pain 08/31/2015 09/06/2022 documented as of this encounter (statuses as of 09/11/2023) Immunizations Name Administration Dates Next Due COVID-19 mRNA, LNP-s, No Pre serve, 2-Dose Series ([employer]) 09/14/2021,01/28/2021,12/28/2020 COVID-19, MRNA-LNP, 23-24, P F, 30 MCG/0.3 mL, 12 YRS AND ABOVE, IM ([facility]) 08/30/2023 Covid-19, Mrna, Lnp-s, Pf, B ivalent, 30 Mcg, IM, 12 yrs and above ([employer]Game) 09/06/2022 Pneumococcal Conjugate Vacci ne, 20-valent ([id number]) 11/17/2022 Pneumococcal Polysaccharide PPV23 (Pneumovax) 2021,02/18/2014 SEASONAL INFLUENZA, PF, 6 M & Above, IM , (FLULAVAL or FLUZONE) 08/30/2023,09/06/2022,09/14/2021,08/18 TDAP (age 10 and older)(Boostrix) 11/17/2022 [...] encounter Miscellaneous Notes * Telephone Encounter - Julius Santiago DO - 09/11/2023 8:53 AM ESTSigned Prescriptions: Disp Refills Isosorbide Mononitrate ER 60 MG Oral Table*135 Ta*3 Sig: TAKE 1.5 TABLETS BY MOUTH EVERY DAY Authorizing Provider: JULIUS SANTIAGO * Telephone Encounter - Dianne Kerr COT - 09/08/2023 9:25 AM ESTPending Prescriptions: Disp Refills Isosorbide Mononitrate ER 60 MG Oral Table*135 Ta*3 Sig: TAKE 1.5 TABLETS BY MOUTH EVERY DAY * Telephone Encounter - Dianne Kerr COT - 09/08/2023 9:24 AM EST Did you pend patient's preferred pharmacy and medication before forwarding?yes Pharmacy: [id number] [facility] Pending Prescriptions: Disp Refills Isosorbide Mononitrate ER 60 MG Oral Tabl*135 Ta*3 Sig: TAKE 1.5 TABLETS BY MOUTH EVERY DAY Last Visit: 03/07/2023 (in office), 01/29/2020 (telemedicine) Next Visit: 10/30/2023 If no future appointments scheduled, and last appointment is greater than a year ago, please schedule patient for a follow-up appointment Last date the medication was ordered: 07-14-2022 Is this request for a controlled substance?No [...] Care Team (Late st Contact Info) Description 10/30/2023 2:00 PM EST Office Visit Cardiology, [facility] [address] [place] [address] Julius Santiago DO [address] [place] [address] 10/30/2023 5:00 PM EST Office Visit [address] [phone] Cristian Desai MD [address] [place] [address] [place] [address] 03/04/2024 4:00 PM EDT Office Visit [address] [place] [phone] Elroy Hughes MD [address] [place] [address] [place] [address] Health Maintenance Due Date Last Done Comments Depression Screening 1971 HIV Screening 1974 Cologuard 2004 Colonoscopy 2004 Colorectal Cancer Screening 2004 Fecal Occult Blood Test 2004 Sigmoidoscopy 2004 Hepatitis B (1 of 3 - Risk 3-dose series) 2019 Zoster Vaccines (2 of 2) 01/12/2023 11/17/2022 [...] as of this encounter Visit Diagnoses Diagnosis HTN, goal below 130/80- Primary Unspecified essential hypertension documented in this encounter Care Teams Cabin Agent Relationship Specialty Start Date End Date Cristian Desai MD [address] [place] [address] [place] [phone] PCP - General Family Medicine 03/03/21 documented as of this encounter
--- OUTSIDE RECORDS SUMMARY | 2024-02-22 19:18 | External Medical Summary | Summary of Care ---
Author Name Unknown Organization [facility] Address [address] [place] [address] Phone [phone] Care Team Providers Care Field Marketing Associate Name Role Phone Elroy Hughes MD Primary Care Provide r Reason for Visit * Reason Onset Date Comments Medication Pre-auth 12/07/2023 Jardiance 10 mg Encounter Details Date Type Department Care Team (Late st Contact Info) Description 12/07/2023 Telephone Family Medicine [address] [phone] Elroy Hughes MD [address] [place] [id number] Medication Pre-auth (Jardiance 10 mg) Allergies Active Allergy Reactions Criticality Noted Date Comments Ezetimibe Other (Please comment) 08/18/2020 Dizziness, Disorientation and Hallucinations documented as of this encounter (statuses as of 12/12/2023) Medications Medication Sig Dispensed Refills Start Date End Date Status Misc. Devices MISCIndications:Pl hannah fasciitis, bilateral,Equinus contracture of ankle,Pain in both feet,Chronic low back pain with bilateral sciatica, unspecified back pain laterality,Pes planus of both feet Please mold/fit/dispense one pair custom foot orthoses. Accommodative top cover, full length. Diagnosis: M72.2 M21.41. 1 Each 0 10/13/2017 Active Misc. Devices (CANE) [facility] Please dispense one cane - Radiculopathy, Sciatica, [...] Oral Tablet (Cozaar)Indication s:Coronary artery disease of [place] artery of [place] heart with stable angina pectoris (HCC) TAKE 1 TABLET BY MOUTH EVERY DAY IN THE MORNING 90 Tablet 3 07/05/2023 Active Furosemide 40 MG Oral Tablet (Lasix)Indications :Coronary artery disease of [place] artery of [place] heart with stable angina pectoris (HCC),S/P CABG [...] the morning. 90 Tablet 1 08/30/2023 Active DULoxetine HCl 30 MG Oral Capsule Delayed Release Particles (Cymbalta)Indicati ons:Major depressive disorder, single episode, moderate (HCC) Take 1 Capsule by mouth in the morning. 90 Capsule 1 08/30/2023 Active Isosorbide Mononitrate ER 60 [...] goal LDL below 70,Coronary artery disease of [place] artery of [place] heart with stable angina pectoris (HCC) TAKE [...] BEFORE BEDTIME 270 Tablet 3 11/17/2023 Active documented as of this encounter (statuses as of 12/12/2023) Active Problems Problem Noted Date Diagnosed Date Morbid obesity with BMI of 40.0-44.9, adult 11/2022 Overview: 271 CKD (chronic kidney disease), stage II Overview: EGFR 72 Major depressive disorder, single episode, moder ate 06/29/2021 DM type 2, goal HbA1c < 7% 02/27/2021 Overview: hgba1c 13.6 Coronary artery disease invo lving [place] coronary artery of [place] heart without angina pectoris 08/31/2015 S/P CABG x 2 08/31/2015 Dyslipidemia, goal LDL below 70 08/31/2015 History of [place] (myocardial infarction) 08/31/2015 Primary hypertension 08/31/2015 documented as of this encounter (statuses as of 12/12/2023) Resolved Problems Problem Noted Date Diagnosed Date Resolved Date Thrombocytopenia 08/13/2018 2021 NSTEMI (non-ST elevation gregorio cardial infarction) 08/31/2015 2021 HTN, goal below 130/80 08/31/201505/06 Back pain 08/31/2015 09/06/2022 documented as of this encounter (statuses as of 12/12/2023) Immunizations Name Administration Dates Next Due COVID-19 mRNA, LNP-s, No Pre serve, 2-Dose Series ([employer] 09/14/2021,01/28/2021,12/28/2020 COVID-19, MRNA-LNP, 23-24, P F, 30 MCG/0.3 mL, 12 YRS AND ABOVE, IM ([employer]-Comirnat) 08/30/2023 Covid-19, Mrna, Lnp-s, Pf, B ivalent, 30 Mcg, IM, 12 yrs and above ([employer] 09/06/2022 Pneumococcal Conjugate Vacci ne, 20-valent ([id number]) 11/17/2022 Pneumococcal Polysaccharide PPV23 (Pneumovax) 2021,02/18/2014 Seasonal [...] encounter Miscellaneous Notes * Telephone Encounter - Charleen Beaver [facility] - 12/12/2023 9:29 AM EST Called insurance and they have been trying to get intouch with patient since Sep 2023. Patient needs to enroll with mail order to continue therapy. Insurance is calling patient and EC right now to get enrolled with variable copay. Thank you, Charleen Beaver [facility] Clinical Pharmacist [facility] ([facility]) (formerly Telepharmacy) 12/12/23 9:33 AM [phone] * Telephone Encounter - Oli Bravo CPhT - 12/12/2023 8:02 AM EST Images from the original note were not included. Checked status of prior authorization for Jardiance through [employer]. Thank you, Ravin Bravo (continuous miner operator helper) Newspaper Delivery Counselor III [facility] ([facility]) (formerly Telepharmacy) 12/12/2023, 8:02 AM * Telephone Encounter - Debi Franco fern picker - 12/08/2023 3:09 PM EST Use [email or web address] Submitted information in previous note via ChatID (EOC: [id number]).. Awaiting payer response. We will follow-up with insurance starting 12/11. Per [facility] request, if no decision is received from insurance by 12/12, we will route back to the [facility] after clarifying with the pharmacy that the claim is still not processing. Thanks, Debi Franco Newspaper Delivery Counselor III [facility] ([facility]) 12/08/2023,3:09 PM * Telephone Encounter - Sami Woods, [facility] - 12/07/2023 3:53 PM EST Please submit PA. Include the following documentation: 08/30/23 OV 03/15/23 OV 03/07/23 A1C Please copy and paste the following information into PA form: N/a What other drugs is there medical record documentation of therapeutic failure on, intolerance to, or contraindication to for this condition? Metformin, Ozempic, glipizide Jose G as urgent: No Diagnosis/ICD-10 Code(s): E11.9 If instantaneous decision is not received after submitting prior auth, please continue to follow upon this and route back to the [facility] pool if no decision is made by the insurance by 12/12, after clarifying with the pharmacy that the claim is still not processing. If PA is denied, please also route back to [facility] pool. Thanks, Sami Woods, [employer] Clinical Pharmacist [facility](formerly telepharmacy) [phone] 12/07/2023, 3:57 PM * Telephone Encounter - Oli Bravo CPhT - 12/07/2023 3:39 PM EST This is a new PA request. Upon review of this prior authorization request, I verified this request is appropriate. This is prescribed by a department for which [facility] is authorized to review prior authorizations This is not a duplicate encounter regarding the same prior authorization The patient is planning to use insurance The insurance information listed in previous note is correct and the plan that is requiring prior authorization The insurance does not cover either brand or generic forms of this script as written without prior authorization The insurance does not cover any NDCs of this script without prior authorization Pharmacy benefits are not in chart (unable to verify coverage via RX Estimate tool) Of note, there is nothing currently pending in [facility] for this request. Please advise how to proceed. Thank you, Ravin Bravo ([facility]) Newspaper Delivery Counselor III [facility] ([facility]) (formerly Telepharmacy) 12/07/2023, 3:39 PM * Telephone Encounter - Afua Blackmon CPhT - 12/07/2023 3:29 PM EST Pharmacy calling to inform doctor that the patient's insurance will not pay for this medication without a completed prior authorization. Did confirm this information with the pharmacy. Pt's current insurance information is as follows: Patient name: Marcial Frias Sr. ID number: [id number] BIN number: [id number] PCN number: SSN Group number: [id number] Subscriber name: Marcial Frias Sr. Primary or Secondary Insurance:Primary Medication: JARDIANCE 10 MG Reason for Request: NOT COVERED Pharmacy and phone number: [id number] [phone] Rx plan and phone number: [facility] [employer] Is this a new medication for the patient? No. How did the patient obtain the medication on the lastfill? It was covered last time on this same insurance. What alternative medications does the pharmacy have in stock?: N/A Thank you, Afua Blackmon CPhT Newspaper Delivery Counselor II [facility] ( Formerly Telepharmacy) 12/07/2023,3:30 PM documented in this encounter Plan of Treatment Upcoming Encounters Date Type Department Care Team (Late st Contact Info) Description 12/14/2023 7:40 AM EST Office Visit [address] [place] [phone] Elroy Hughes MD [address] [place] [address] [place] [address] 03/04/2024 12:00 PM EDT Office Visit [address] [place] [phone] Elroy Hughes MD [address] [place] [address] [place] [address] Health Maintenance Due Date Last Done Comments [...] filedocumented as of this encounter Care Teams Field Marketing Associate Relationship Specialty Start Date End Date Elroy Hughes MD [address] [place] [address] [place] [phone] PCP - General Family Medicine 11/13/23 documented as of this encounter
--- OUTSIDE RECORDS SUMMARY | 2024-02-22 19:18 | External Medical Summary | Summary of Care ---
Author Name Unknown Organization [facility] Address [address] [place] [address] Phone [phone] Care Team Providers Care Dethistler Operator Name Role Phone Cristian Desai MD Primary Care Provider + [phone] Reason for Visit * Reason Comments eRx-Medication Refill Encounter Details Date Type Department Care Team (Late st Contact Info) Description 09/08/2023 Refill Laboratory, [facility] [address] [facility] [place] [phone] Cristian Desai MD [address] [place] [address] [place] [address] Allergies Active Allergy Reactions Criticality Noted Date Comments Ezetimibe Other (Please comment) 08/18/2020 Dizziness, Disorientation and Hallucinations documented as of this encounter (statuses as of 09/08/2023) Medications Medication Sig Dispensed Refills Start Date [...] every 6 hours as needed. 0 Active Isosorbide Mononitrate ER 60 MG Oral Tablet Extended Release 24 Hour (Imdur) TAKE 1 AND 1/2 TABLETS BY MOUTH EVERY DAY 135 Tablet 3 2 Active Fenofibrate 54 MG Oral Tablet (Lofibra)Indicati ons:Dyslipidemia, goal LDL below 70,Coronary artery disease of [place] artery of [place] heart with stable angina pectoris (HCC) TAKE [...] Oral Tablet (Cozaar)Indicatio ns:Coronary artery disease of [place] artery of [place] heart with stable angina pectoris (HCC) TAKE 1 TABLET BY MOUTH EVERY DAY IN THE MORNING 90 Tablet 3 3 Active Furosemide 40 MG Oral Tablet (Lasix)Indication s:Coronary artery disease of [place] artery of [place] heart with stable angina pectoris (HCC),S/P CABG [...] the morning. 90 Capsule 1 3 Active Levothyroxine Sodium 200 MCG Oral Tablet (Levoxyl) TAKE 1 TAB BY MOUTH DAILY EVERY MORNING AT LEAST 30 MINUTES PRIOR TO BREAKFAST OR OTHER MEDS 90 Tablet 1 3 Active Levothyroxine Sodium 200 MCG Oral Tablet (Levoxyl) TAKE 1 TAB BY MOUTH DAILY EVERY MORNING AT LEAST 30 MINUTES PRIOR TO BREAKFAST OR OTHER MEDS 90 Tablet 1 3 09/08/20 23 Discontinued documented as of this encounter (statuses as of 09/08/2023) Active Problems Problem Noted Date Diagnosed Date Morbid obesity with BMI of 40.0-44.9, adult 11/2022 Overview: 271 CKD (chronic kidney disease), stage II Overview: EGFR 72 Major depressive disorder, single episode, moder ate 06/29/2021 DM type 2, goal HbA1c < 7% 02/27/2021 Overview: hgba1c 13.6 Coronary artery disease invo lving [place] coronary artery of [place] heart without angina pectoris 08/31/2015 S/P CABG x 2 08/31/2015 Dyslipidemia, goal LDL below 70 08/31/2015 History of [place] (myocardial infarction) 08/31/2015 Primary hypertension 08/31/2015 documented as of this encounter (statuses as of 09/08/2023) Resolved Problems Problem Noted Date Diagnosed Date Resolved Date Thrombocytopenia 08/13/2018 2021 NSTEMI (non-ST elevation gregorio cardial infarction) 08/31/2015 2021 HTN, goal below 130/80 08/31/201505/06 Back pain 08/31/2015 09/06/2022 documented as of this encounter (statuses as of 09/08/2023) Immunizations Name Administration Dates Next Due COVID-19 mRNA, LNP-s, No Pre serve, 2-Dose Series ([employer]) 09/14/2021,01/28/2021,12/28/2020 COVID-19, MRNA-LNP, 23-24, P F, 30 MCG/0.3 mL, 12 YRS AND ABOVE, IM ([employer]-Comirnat) 08/30/2023 Covid-19, Mrna, Lnp-s, Pf, B ivalent, 30 Mcg, IM, 12 yrs and above (Pfizer) 09/06/2022 Pneumococcal Conjugate Vacci ne, 20-valent ([id number]) 11/17/2022 Pneumococcal Polysaccharide PPV23 (Pneumovax) 2021,02/18/2014 SEASONAL [...] encounter Miscellaneous Notes * Telephone Encounter - Ramón Moreland MD - 09/08/2023 9:40 AM EST Signed Prescriptions: Disp Refills Levothyroxine Sodium 200 MCG Oral Tablet (*90 Tab*1 Sig: TAKE 1TAB BY MOUTH DAILY EVERY MORNING AT LEAST 30 MINUTES PRIOR TO BREAKFAST OR OTHER MEDSAuthorizing Provider: RAMÓN MORELAND documented in this encounter Plan of Treatment Upcoming Encounters Date Type Department Care Team (Late st Contact Info) Description 10/30/2023 2:00 PM EST Office Visit Cardiology, [facility] [address] [place] [address] Julius Santiago, [address] [place] [address] 10/30/2023 5:00 PM EST Office Visit [address] [phone] Cristian Desai MD [address] [place] [address] [place] [phone] 03/04/2024 4:00 PM EDT Office Visit [address] [place] [phone] Elroy Hughes MD [address] [place] [address] [place] [address] Health Maintenance Due Date Last Done Comments [...] filedocumented as of this encounter Care Teams Dethistler Operator Relationship Specialty Start Date End Date Cristian Desai MD [address] [place] [address] [place] [phone] PCP - General Family Medicine 03/03/21 documented as of this encounter
--- OUTSIDE RECORDS SUMMARY | 2024-02-22 19:18 | External Medical Summary | Summary of Care ---
Author Name Unknown Organization [facility] Address [address] [place] [address] Phone [phone] Care Team Providers Care Registered Diet Technician Name Role Phone Elroy Hughes MD Primary Care Provide r Reason for Visit * Reason Comments eRx-Medication Refill Encounter Details Date Type Department Care Team (Late st Contact Info) Description 11/15/2023 Refill Family Medicine [address] [phone] Cristian Desai MD [address] [place] [address] [place] [address] DM type 2, goal HbA1c < 7% ([facility]); Diabetic peripheral neuropathy ([facility]) Allergies Active Allergy Reactions Criticality Noted Date Comments Ezetimibe Other (Please comment) 08/18/2020 Dizziness, Disorientation and Hallucinations documented as of this encounter (statuses as of 11/20/2023) Medications Medication Sig Dispensed Refills Start Date [...] XL)Indications:DM type 2, goal HbA1c < 7% ([facility]) Take 1 Tablet by mouth in the morning. 30 minutes before a meal.. 90 Tablet 1 3 Active Losartan Potassium 25 MG Oral Tablet (Cozaar)Indicatio ns:Coronary artery disease of [place] artery of [place] heart with stable angina pectoris (HCC) TAKE 1 TABLET BY MOUTH EVERY DAY IN THE MORNING 90 Tablet 3 3 Active Furosemide 40 MG Oral Tablet (Lasix)Indication s:Coronary artery disease of [place] artery of [place] heart with stable angina pectoris (HCC),S/P CABG [...] goal LDL below 70,Coronary artery disease of [place] artery of [place] heart with stable angina pectoris (HCC) TAKE [...] BEFORE BEDTIME 270 Tablet 3 4 Active Gabapentin 800 MG Oral Tablet (Neurontin)Indica tions:DM type 2, goal HbA1c < 7% (HCC),Diabetic peripheral neuropathy (HCC) TAKE 1 TABLET BY MOUTH IN THE MORNING AT AT NOON AND BEFORE BEDTIME 90 Tablet 5 3 11/17/19 24 Discontinued documented as of this encounter (statuses as of 11/20/2023) Active Problems Problem Noted Date Diagnosed Date Morbid obesity with BMI of 40.0-44.9, adult 11/2022 Overview: 271 CKD (chronic kidney disease), stage II Overview: EGFR 72 Major depressive disorder, single episode, moder ate 06/29/2021 DM type 2, goal HbA1c < 7% 02/27/2021 Overview: hgba1c 13.6 Coronary artery disease invo lving [place] coronary artery of [place] heart without angina pectoris 08/31/2015 S/P CABG x 2 08/31/2015 Dyslipidemia, goal LDL below 70 08/31/2015 History of [place] (myocardial infarction) 08/31/2015 Primary hypertension 08/31/2015 documented as of this encounter (statuses as of 11/20/2023) Resolved Problems Problem Noted Date Diagnosed Date Resolved Date Thrombocytopenia 08/13/2018 2021 NSTEMI (non-ST elevation gregorio cardial infarction) 08/31/2015 2021 HTN, goal below 130/80 08/31/201505/06 Back pain 08/31/2015 09/06/2022 documented as of this encounter (statuses as of 11/20/2023) Immunizations Name Administration Dates Next Due COVID-19 mRNA, LNP-s, No Pre serve, 2-Dose Series (Counselytics) 09/14/2021,01/28/2021,12/28/2020 COVID-19, MRNA-LNP, 23-24, P F, 30 MCG/0.3 mL, 12 YRS AND ABOVE, IM (Soapbox-Comirnat) 08/30/2023 Covid-19, Mrna, Lnp-s, Pf, B ivalent, 30 Mcg, IM, 12 yrs and above (Pfizer) 09/06/2022 Pneumococcal Conjugate Vacci ne, 20-valent ([id number]) 11/17/2022 Pneumococcal Polysaccharide PPV23 (Pneumovax) 2021,02/18/2014 Seasonal [...] encounter Miscellaneous Notes * Telephone Encounter - Cady Sharif RN - 11/20/2023 1:07 PM EST Charis, can you see if there are any sooner appts for Dr Hughes for this pt to establish, he wants to discuss his labs/meds * Telephone Encounter - Elroy Hughes MD - 11/17/2023 7:33 AM EST Signed Prescriptions: Disp Refills Gabapentin 800 MG Oral Tablet (Neurontin) 270 Ta*3 Sig: TAKE 1 TABLET BY MOUTH IN THE MORNING AT AT NOON AND BEFORE BEDTIME Authorizing Provider: ELROY HUGHES Refused Prescriptions: Disp Refills Levothyroxine Sodium 150 MCG Oral Tablet (*90 Tab*3 Sig: TAKE 1 TAB BY MOUTH DAILY EVERY MORNING A T LEAST 30 MINUTES PRIOR TO BREAKFAST OR OTHER MEDS Refused By: ELROY HUGHES Reason for Refusal: Dose needs clarification * Telephone Encounter - Elroy Hughes MD - 11/17/2023 7:33 AM EST Please advised the pt to set up a clinic visit sooner. For now will continue levo 200 mcg daily due to elevated TSH in the previous lab * Telephone Encounter - Cady Sharif RN - 11/16/2023 3:07 PM ESTPending Prescriptions: Disp Refills Gabapentin 800 MG Oral Tablet (Neurontin) 270 Ta*3 Sig: TAKE 1 TABLET BY MOUTH IN THE MORNING AT AT NOON AND BEFORE BEDTIME Levothyroxine Sodium 150 MCG Oral Tablet (*90 Tab*3 Sig: TAKE 1 TAB BY MOUTH DAILY EVERY MORNING AT LEAST 30 MINUTES PRIOR TO BREAKFAST OR OTHER MEDS * Telephone Encounter - Cady Sharif RN - 11/16/2023 3:06 PM EST Pending Prescriptions: Disp Refills Gabapentin 800 MG Oral Tablet (Neurontin)*90 Tab*5 Sig: TAKE 1 TABLET BY MOUTH IN THE MORNING AT AT NOON AND BEFORE BEDTIME Levothyroxine Sodium 150 MCG Oral Tablet *90 Tab*1 Sig: TAKE 1 TAB BY MOUTH DAILY EVERY MORNING AT LEAST 30 MINUTES PRIOR TO BREAKFAST OR OTHER MEDS Last Visit: 08/30/2023 (in office), Visit date not found (telemedicine) Next Visit: 03/04/2024 Last date the medication was ordered: 09/07 Patient Active Problem List Diagnosis Code Coronary artery disease involving [place] coronary artery of [place] heart without angina pectoris I25.10 S/P CABG x 2 Z95.1 Dyslipidemia, goal LDL below 70 E78.5 Morbid obesity with BMI of 40.0-44.9, adult ([facility]) E66.01, Z68.41 DM type 2, goal HbA1c < 7% ([facility]) E11.9 History of [place] (myocardial infarction) I25.2 Primary hypertension I10 Major depressive disorder, single episode, moderate ([facility]) F32.1 CKD (chronic kidney disease), stage II N18.2 Labs: Lab Results Component Value Date/Time CREATININE - [facility] 1.2 03/07/2023 04:04 PM CREATININE - [facility] 0.7 05/12/2020 01:28 PM CREATININE, RANDOM URINE - [facility] 49 03/07/2023 04:46 PM CREATININE-OU[facility] 0.98 06/13/2022 12:00 AM Lab Results Component Value Date/Time POTASSIUM - [facility] 4.4 03/07/2023 04:04 PM POTASSIUM - [facility] 4.2 05/12/2020 01:28 PM POTASSIUM-OUTSIDE LAB 4.1 06/13/2022 12:00 AM Lab Results Component Value Date/Time TSH - [facility] 17.00 (H) 03/07/2023 04:04 PM TSH - [facility] 3.33 05/12/2020 01:28 PM TSH - OUTSIDE [facility] 18.500 (A) 06/13/2022 12:00 AM Lab Results Component Value Date/Time LDL CHOLESTEROL (CALCULATED) - [facility] 10/30/2019 03:33 PM Uninterpretable, recommend direct LDL cholesterol testing. LDL CHOLESTEROL (CALCULATED) - [facility] 97 12/21/2017 11:51 AM LDL CHOLESTEROL (DIRECT MEASURE) - [facility] 90 09/14/2021 04:12 PM LDL CHOLESTEROL (DIRECT MEASURE) - [facility] 82 02/27/2021 01:58 PM LDL CHOLESTEROL (DIRECT MEASURE) - [facility] 94 05/12/2020 01:28 PM LDL CHOLESTEROL (DIRECT MEASURE) - [facility] 65 01/31/2017 12:11 PM Lab Results Component Value Date/Time ALT - [facility] 21 03/07/2023 04:04 PM ALT - [facility] 10/30/2019 03:33 PM Hemoglobin AIC Results: Lab Results Component Value Date/Time HEMOGLOBIN A1C - [facility] 9.1 (H) 03/07/2023 04:04 PM HEMOGLOBIN A1C - [facility] 6.8 (H) 09/14/2021 04:12 PM HEMOGLOBIN A1C - [facility] 8.7 (H) 05/05/2021 09:52 AM HEMOGLOBIN A1C - [facility] 5.5 02/05/2014 03:56 PM * Telephone Encounter - Jamel Shah - 11/16/2023 4:39 AM ESTPending Prescriptions: Disp Refills Gabapentin 800 MG Oral Tablet [Pharmacy Me*90 Tab*5 Sig: TAKE 1TABLET BY MOUTH IN THE MORNING AT AT NOON AND BEFORE BEDTIME Levothyroxine Sodium 150 MCG Oral Tablet [*90 Tab*1 Sig: TAKE 1 TAB BY MOUTH DAILY EVERY MORNING AT LEAST 30 MINUTES PRIOR TO BREAKFAST OROTHER MEDS documented in this encounter Plan of Treatment Upcoming Encounters Date Type Department Care Team (Late st Contact Info) Description 03/04/2024 12:00 PM EDT Office Visit Family Medicine [address] [place] [phone] Elroy Hughes MD [address] [place] [address] [place] [phone] Health Maintenance Due Date Last Done Comments [...] type 2, goal HbA1c < 7% (HCC) Diabetic peripheral neuropathy (HCC) Type II or unspecified type diabetes mellitus with neurological manifestations, not stated as uncontrolled documented in this encounter Care Teams Registered Diet Technician Relationship Specialty Start Date End Date Elroy Hughes MD [address] [place] [address] [place] [phone] PCP - General Family Medicine 11/13/23 documented as of this encounter
--- OUTSIDE RECORDS SUMMARY | 2024-02-22 19:18 | External Medical Summary | Summary of Care ---
Author Name Unknown Organization [facility] Address [address] [place] [address] Phone [phone] Care Team Providers Care Barley Steeper Name Role Phone Cristian Desai MD Primary Care Provider + [phone] Reason for Visit * Reason Comments eRx-Medication Refill Encounter Details Date Type Department Care Team (Late st Contact Info) Description 11/01/2023 Refill Cardiology, [facility] [address] [facility] [place] [address] Jose G Calvillo PA-C [address] [facility] [place] [address] Dyslipidemia, goal LDL below 70; Coronary artery disease of [place] artery of [place] heart with stable angina pectoris (HCC) Allergies Active Allergy Reactions Criticality Noted Date Comments Ezetimibe Other (Please comment) 08/18/2020 Dizziness, Disorientation and Hallucinations documented as of this encounter (statuses as of 11/01/2023) Medications Medication Sig Dispensed Refills Start Date [...] every 6 hours as needed. 0 Active buPROPion HCl ER (XL) 300 MG [...] Oral Tablet (Cozaar)Indicatio ns:Coronary artery disease of [place] artery of [place] heart with stable angina pectoris (HCC) TAKE 1 TABLET BY MOUTH EVERY DAY IN THE MORNING 90 Tablet 3 3 Active Furosemide 40 MG Oral Tablet (Lasix)Indication s:Coronary artery disease of [place] artery of [place] heart with stable angina pectoris (HCC),S/P CABG [...] goal LDL below 70,Coronary artery disease of [place] artery of [place] heart with stable angina pectoris (HCC) TAKE 1 TABLET BY MOUTH EVERY DAY 90 Tablet 3 4 Active Fenofibrate 54 MG Oral Tablet (Lofibra)Indicati ons:Dyslipidemia, goal LDL below 70,Coronary artery disease of [place] artery of [place] heart with stable angina pectoris (HCC) TAKE 1 TABLET BY MOUTH EVERY DAY 90 Tablet 3 2 11/01/19 24 Discontinued documented as of this encounter (statuses as of 11/01/2023) Active Problems Problem Noted Date Diagnosed Date Morbid obesity with BMI of 40.0-44.9, adult 11/2022 Overview: 271 CKD (chronic kidney disease), stage II Overview: EGFR 72 Major depressive disorder, single episode, moder ate 06/29/2021 DM type 2, goal HbA1c < 7% 02/27/2021 Overview: hgba1c 13.6 Coronary artery disease invo lving [place] coronary artery of [place] heart without angina pectoris 08/31/2015 S/P CABG x 2 08/31/2015 Dyslipidemia, goal LDL below 70 08/31/2015 History of [place] (myocardial infarction) 08/31/2015 Primary hypertension 08/31/2015 documented as of this encounter (statuses as of 11/01/2023) Resolved Problems Problem Noted Date Diagnosed Date Resolved Date Thrombocytopenia 08/13/2018 2021 NSTEMI (non-ST elevation gregorio cardial infarction) 08/31/2015 2021 HTN, goal below 130/80 08/31/201505/06 Back pain 08/31/2015 09/06/2022 documented as of this encounter (statuses as of 11/01/2023) Immunizations Name Administration Dates Next Due COVID-19 mRNA, LNP-s, No Pre serve, 2-Dose Series (Pipette) 09/14/2021,01/28/2021,12/28/2020 COVID-19, MRNA-LNP, 23-24, P F, 30 MCG/0.3 mL, 12 YRS AND ABOVE, IM (Chronicity-Comirnaty) 08/30/2023 Covid-19, Mrna, Lnp-s, Pf, B ivalent, 30 Mcg, IM, 12 yrs and above (Pfizer) 09/06/2022 Pneumococcal Conjugate Vacci ne, 20-valent ([id number]) 11/17/2022 Pneumococcal Polysaccharide PPV23 (Pneumovax) 2021,02/18/2014 Seasonal [...] Telephone Encounter - Julius Santiago DO - 11/01/2023 10:50 AM EST Signed Prescriptions: Disp Refills Fenofibrate 54 MG Oral Tablet (Lofibra) 90 Tab*3 Sig: TAKE 1 TABLET BY MOUTH EVERY DAY Authorizing Provider: JULIUS SANTIAGO * Telephone Encounter - Andres Donald RN - 11/01/2023 9:59 AM ESTPending Prescriptions: Disp Refills Fenofibrate 54 MG Oral Tablet [Pharmacy Me*90 Tab*3 Sig: TAKE 1 TABLET BY MOUTH EVERY DAY * Telephone Encounter - Andres Donald RN - 11/01/2023 9:58 AM EST Pending Prescriptions: Disp Refills Fenofibrate 54 MG Oral Tablet (Lofibra) [*90 Tab*3 Sig: TAKE 1 TABLET BY MOUTH EVERY DAY Last Visit: 03/07/2023 (in office), 01/29/2020 (telemedicine) Next Visit: Visit date not found Last medication order date: 09/19/2022 Have you choosen a preferred pharm?? yes Patient Active Problem List Diagnosis Code Coronary artery disease involving [place] coronary artery of [place] heart without angina pectoris I25.10 S/P CABG x 2 Z95.1 Dyslipidemia, goal LDL below 70 E78.5 Morbid obesity with BMI of 40.0-44.9, adult ([facility]) E66.01, Z68.41 DM type 2, goal HbA1c < 7% ([facility]) E11.9 History of [place] (myocardial infarction) I25.2 Primary hypertension I10 Major depressive disorder, single episode, moderate ([facility]) F32.1 CKD (chronic kidney disease), stage II [...] 21 03/07/2023 04:04 PM ALT - [facility] 21 10/30/2019 03:33 PM Hemoglobin AIC Results: Lab Results Component Value Date/Time HEMOGLOBIN A1C - [facility] 9.1 (H) 03/07/2023 04:04 PM HEMOGLOBIN A1C - [facility] 6.8 (H) 09/14/2021 04:12 PM HEMOGLOBIN A1C - [facility] 8.7 (H) 05/05/2021 09:52 AM HEMOGLOBIN A1C - [facility] 5.5 02/05/2014 03:56 PM documented in this encounter Plan of Treatment Upcoming Encounters Date Type Department Care Team (Late st Contact Info) Description 03/04/2024 12:00 PM EDT Office Visit Family Medicine [address] [place] [phone] Elroy Hughes MD [address] [place] [address] [place] [phone] Health Maintenance Due Date Last Done Comments [...] LDL below 70 Other and unspecified hyperlipidemia Coronary artery disease of [place] artery of [place] heart with stable angina pectoris (HCC) documented in this encounter Care Teams Barley Steeper Relationship Specialty Start Date End Date Cristian Desai MD [address] [place] [address] [place] [phone] PCP - General Family Medicine 03/03/21 documented as of this encounter
--- OUTSIDE RECORDS SUMMARY | 2024-02-22 19:18 | External Medical Summary | Summary of Care ---
Author Name Unknown Organization [facility] Address [address] [place] [address] Phone [phone] Care Team Providers Care Employment Programs Analyst Name Role Phone Elroy Hughes MD Primary Care Provide r Reason for Visit * Reason Comments eRx-Medication Refill Encounter Details Date Type Department Care Team (Late st Contact Info) Description 11/15/2023 Refill Family Medicine [address] [phone] Cristian Desai MD [address] [place] [address] [place] [address] DM type 2, goal HbA1c < 7% ([facility]); Diabetic peripheral neuropathy ([facility]) Allergies Active Allergy Reactions Criticality Noted Date Comments Ezetimibe Other (Please comment) 08/18/2020 Dizziness, Disorientation and Hallucinations documented as of this encounter (statuses as of 11/17/2023) Medications Medication Sig Dispensed Refills Start Date [...] XL)Indications:DM type 2, goal HbA1c < 7% ([facility]) Take 1 Tablet by mouth in the morning. 30 minutes before a meal.. 90 Tablet 1 3 Active Losartan Potassium 25 MG Oral Tablet (Cozaar)Indicatio ns:Coronary artery disease of [place] artery of [place] heart with stable angina pectoris (HCC) TAKE 1 TABLET BY MOUTH EVERY DAY IN THE MORNING 90 Tablet 3 3 Active Furosemide 40 MG Oral Tablet (Lasix)Indication s:Coronary artery disease of [place] artery of [place] heart with stable angina pectoris (HCC),S/P CABG [...] goal LDL below 70,Coronary artery disease of [place] artery of [place] heart with stable angina pectoris (HCC) TAKE [...] as of this encounter (statuses as of 11/17/2023) Active Problems Problem Noted Date Diagnosed Date Morbid obesity with BMI of 40.0-44.9, adult 11/2022 Overview: 271 CKD (chronic kidney disease), stage II Overview: EGFR 72 Major depressive disorder, single episode, moder ate 06/29/2021 DM type 2, goal HbA1c < 7% 02/27/2021 Overview: hgba1c 13.6 Coronary artery disease invo lving [place] coronary artery of [place] heart without angina pectoris 08/31/2015 S/P CABG x 2 08/31/2015 Dyslipidemia, goal LDL below 70 08/31/2015 History of [place] (myocardial infarction) 08/31/2015 Primary hypertension 08/31/2015 documented as of this encounter (statuses as of 11/17/2023) Resolved Problems Problem Noted Date Diagnosed Date Resolved Date Thrombocytopenia 08/13/2018 2021 NSTEMI (non-ST elevation gregorio cardial infarction) 08/31/2015 2021 HTN, goal below 130/80 08/31/201505/06 Back pain 08/31/2015 09/06/2022 documented as of this encounter (statuses as of 11/17/2023) Immunizations Name Administration Dates Next Due COVID-19 mRNA, LNP-s, No Pre serve, 2-Dose Series (Mammotome) 09/14/2021,01/28/2021,12/28/2020 COVID-19, MRNA-LNP, 23-24, P F, 30 MCG/0.3 mL, 12 YRS AND ABOVE, IM ([employer]iPay-Comirnat) 08/30/2023 Covid-19, Mrna, Lnp-s, Pf, B ivalent, 30 Mcg, IM, 12 yrs and above (Pfizer) 09/06/2022 Pneumococcal Conjugate Vacci ne, 20-valent ([id number]) 11/17/2022 Pneumococcal Polysaccharide PPV23 (Pneumovax) 2021,02/18/2014 Seasonal [...] encounter Miscellaneous Notes * Telephone Encounter - Elroy Hughes MD [...] List Diagnosis Code Coronary artery disease involving [place] coronary artery of [place] heart without angina pectoris I25.10 S/P CABG x 2 Z95.1 Dyslipidemia, goal LDL below 70 E78.5 Morbid obesity with BMI of 40.0-44.9, adult ([facility]) E66.01, Z68.41 DM type 2, goal HbA1c < 7% ([facility]) E11.9 History of [place] (myocardial infarction) I25.2 Primary hypertension I10 Major depressive disorder, single episode, moderate ([facility]) F32.1 CKD (chronic kidney disease), stage II [...] 12:00 PM EDT Office Visit Family Medicine [address] [place] [phone] Elroy Hughes MD [address] [place] [address] [place] [phone] Health Maintenance Due Date Last Done Comments Depression Screening 1971 HIV Screening 1974 Cologuard 2004 Colonoscopy 2004 Colorectal Cancer Screening 2004 Fecal Occult Blood Test 2004 Sigmoidoscopy 2004 Hepatitis B (1 of 3 - Risk 3-dose series) 2019 Zoster Vaccines (2 of 2) 01/12/2023 11/17/2022 HbA1c 09/07/2023 03/07/2023, 08/2 06/2022, 09/14/2021, Additional history exists Diabetic Eye Exam [...] uncontrolled documented in this encounter Care Teams Employment Programs Analyst Relationship Specialty Start Date End Date Elroy Hughes MD [address] [place] [address] [place] [phone] PCP - General Family Medicine 11/13/23 documented as of this encounter
--- OUTSIDE RECORDS SUMMARY | 2024-02-22 19:18 | External Medical Summary | Summary of Care ---
Author Name Unknown Organization [facility] Address [address] [place] [address] Phone [phone] Care Team Providers Care Sign Painter Apprentice Name Role Phone Cristian Desai MD Primary Care Provider + [phone] Reason for Visit * Reason Onset Date Comments Re-Check Medication Administration 08/30/2023 Flu an d/or Pneumo Inj Encounter Details Date Type Department Care Team (Late st Contact Info) Description 08/30/2023 5:00 PM EST Office Visit Family Medicine [address] [phone] Cristian Desai MD [address] [place] [address] [place] [address] DM type 2, goal HbA1c < 7% ([facility])*; Need for prophylactic vaccination and inoculation against influenza; CKD (chronic kidney disease), stage II; Coronary artery disease involving pra[place] coronary artery of [place] heart without angina pectoris; Dyslipidemia, goal LDL below 70; Primary hypertension; Morbid obesity with BMI of 40.0-44.9, adult ([facility]); Major depressive disorder, single episode, moderate ([facility]) Allergies Active Allergy Reactions Criticality Noted Date Comments Ezetimibe Other (Please comment) 08/18/2020 Dizziness, Disorientation and Hallucinations documented as of this encounter (statuses as of 08/30/2023) Medications Medication Sig Dispensed Refills Start Date [...] BY MOUTH EVERY DAY 135 Tablet 3 07/14/2022 Active Fenofibrate 54 MG Oral Tablet (Lofibra)Indicati ons:Dyslipidemia, goal LDL below 70,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 90 Tablet 1 01/06/2023 Active Levothyroxine Sodium 200 MCG Oral Tablet (Levoxyl) TAKE 1 TAB BY MOUTH DAILY EVERY MORNING AT LEAST 30 MINUTES PRIOR TO BREAKFAST OR OTHER MEDS 90 Tablet 1 03/08/2023 Active Diclofenac Sodium 75 MG Oral Tablet [...] a meal.. 90 Tablet 1 06/05/2023 Active Gabapentin 800 MG Oral Tablet (Neurontin)Indica tions:DM type 2, goal HbA1c < 7% (HCC),Diabetic peripheral neuropathy (HCC) TAKE 1 TABLET BY MOUTH IN THE MORNING AT AT NOON AND BEFORE BEDTIME 90 Tablet 5 06/14/2023 Active Losartan Potassium 25 MG Oral Tablet (Cozaar)Indicatio ns:Coronary artery disease of [place] artery of [place] heart with stable angina pectoris (HCC) TAKE 1 TABLET BY MOUTH EVERY DAY IN THE MORNING 90 Tablet 3 07/05/2023 Active Furosemide 40 MG Oral Tablet (Lasix)Indication s:Coronary artery disease of [place] artery of [place] heart with stable angina pectoris (HCC),S/P CABG [...] 07/10/2023 Active Spironolactone 25 MG Oral Tablet (Aldactone)Indica tions:Acute right-sided heart failure (HCC),Hypervolemi a, unspecified hypervolemia type TAKE 1 TABLET BY MOUTH EVERY DAY 90 Tablet 3 07/10/2023 Active metFORMIN HCl 500 MG Oral Tablet (Glucophage)Indic ations:DM type 2, goal HbA1c < 7% (HCC) TAKE 1 TABLET BY MOUTH TWICE A DAY WITH BREAKFAST AND DINNER 180 Tablet 0 08/04/2023 Active amLODIPine Besylate 5 MG Oral Tablet [...] 08/30/2023 Active Empagliflozin 10 MG Oral Tablet (Jardiance)Indica tions:DM type 2, goal HbA1c < 7% (HCC) Take 1 Tablet by mouth in the morning. 90 Tablet 1 08/30/2023 Active DULoxetine HCl 30 MG Oral Capsule Delayed Release Particles (Cymbalta)Indicat ions:Major depressive disorder, single episode, moderate (HCC) Take 1 Capsule by mouth in the morning. 90 Capsule 1 08/30/2023 Active buPROPion HCl ER (XL) 150 MG Oral Tablet Extended Release 24 Hour (Wellbutrin XL)Indications:Ma ron depressive disorder, single episode, moderate (HCC) Take 1 Tablet by mouth in the morning. 90 Tablet 0 10/03/2022 3 Discontinu ed(Medicat ion List Clean Up) Ozempic (0.25 or 0.5 MG/DOSE) 2 MG/3ML Solution Pen-injector (Semaglutide(0.25 or 0.5MG/DOS))Indica tions:Morbid obesity with BMI of 40.0-44.9, adult (HCC),DM type 2, goal HbA1c < 7% (HCC) Inject 0.375 mL under the skin once a week. 3 mL 5 03/07/2023 3 Discontinu ed(Refill) DULoxetine HCl 30 MG Oral Capsule Delayed Release Particles (Cymbalta) Take 1 Capsule by mouth in the morning. 0 07/25/2023 3 Discontinu ed(Refill) documented as of this encounter (statuses as of 08/30/2023) Active Problems Problem Noted Date Diagnosed Date Morbid obesity with BMI of 40.0-44.9, adult 11/2022 Overview: 271 CKD (chronic kidney disease), stage II Overview: EGFR 72 Major depressive disorder, single episode, moder ate 06/29/2021 DM type 2, goal HbA1c < 7% 02/27/2021 Overview: hgba1c 13.6 Coronary artery disease invo lving prairie [place] coronary artery of [place] heart without angina pectoris 08/31/2015 S/P CABG x 2 08/31/2015 Dyslipidemia, goal LDL below 70 08/31/2015 History of [place] (myocardial infarction) 08/31/2015 Primary hypertension 08/31/2015 documented as of this encounter (statuses as of 08/30/2023) Resolved Problems Problem Noted Date Diagnosed Date Resolved Date Thrombocytopenia 08/13/2018 2021 NSTEMI (non-ST elevation gregorio cardial infarction) 08/31/2015 2021 HTN, goal below 130/80 08/31/201505/06 Back pain 08/31/2015 09/06/2022 documented as of this encounter (statuses as of 08/30/2023) Immunizations Name Administration Dates Next Due COVID-19 mRNA, LNP-s, No Pre serve, 2-Dose Series ([employer]) 09/14/2021,01/28/2021,12/28/2020 COVID-19, MRNA-LNP, 23-24, P F, 30 MCG/0.3 mL, 12 YRS AND ABOVE, IM ([employer]ix-ComirnatQl[facility]) 08/30/2023 Covid-19, Mrna, Lnp-s, Pf, B ivalent, 30 Mcg, IM, 12 yrs and above ([employer]) 09/06/2022 Pneumococcal Conjugate Vacci ne, 20-valent ([id number]) 11/17/2022 Pneumococcal Polysaccharide PPV23 (Pneumovax) 2021,02/18/2014 SEASONAL [...] Sign Reading Time Taken Comments Blood Pressure 110/70 08/30/2023 4:55 PM EST Pulse 70 08/30/2023 4:55 PM EST Temperature 36.2 C (97.1 F) 08/30/2023 4:55 PM ES T Respiratory Rate 16 08/30/2023 4:55 PM EST Oxygen Saturation 90% 08/30/2023 4:55 PM EST Inhaled Oxygen Concentration - - Weight 118.5 kg (261 lb 3 oz) 08/30/2023 4:55 PM EST Height - - Body Mass Index 39.71 01/27/2023 2:59 PM EDT documented in this encounter Progress Notes * Callie Inman LPN - 08/30/2023 4:50 PM EST PRE - ADMINISTRATION DOCUMENTATION Are you experiencing any cold symptoms or fever? No Have you had Guillain-[place] Syndrome (an illness that causes paralysis) within the last 6 weeks? No Have you had the flu shot in the past? YES Have you ever had a reaction to the flu shot? No Callie Inman LPN, 08/30/2023 4:50 PM Immunization Administration Documentation Time Out Procedure Performed: Yes Patient Identified (Ask Name/Date of ): Yes Does the patient have a fever greater than 101 degrees today? No Patient allergic to latex? No VFC Stock: No Immunization(s) verified: Yes, Immunization Name: Flu, VIS Sheet(s) given: Yes Verified Side and Site: Yes Verified Shot(s) with Parent(s)/Patient: Yes * Cristian Desai MD - 08/30/2023 4:45 PM EST Marcial had a right hydrocelectomy 07/18, had breathing issues postop and was kept until 07/25 so he could a sleep apnea device at home. [facility]. He has seen Dr Mcclelland since discharge and things are stable. He will be following up with pulmonary. Endocrine suggests increasing the Ozempic and restarting Jardiance, which I endorse. He has lost over 10 pounds, feels better. He needs a couple refills. Health Maintenance addressed. Had the Coronovirus vaccine, 4 doses No colonoscopy getting Covid andFlu shot today. Past Medical History: Diagnosis Date Back pain 08/31/2015 BMI 39.0-39.9,adult 03/03/2021 259 CKD (chronic kidney disease), stage II 09/14/2021 EGFR 72 Coronary artery disease involving prairie [place] coronary artery of prairie island heart without angina pectoris 08/31/2015 DM type 2, goal HbA1c < 7% ([facility]) 02/27/2021 hgba1c 13.6 Dyslipidemia, goal LDL below 70 08/31/2015 Encounter for hepatitis C screening test for low risk patient 05/05/2021 negative History of [place] (myocardial infarction) 08/31/2015 Hypothyroidism Major depressive disorder, single episode, moderate ([facility]) 06/29/2021 NSTEMI (non-ST elevation myocardial infarction) ([facility]) 08/31/2015 Primary hypertension 08/31/2015 Radiculopathy S/P CABG x 2 08/31/2015 Thrombocytopenia ([facility]) 08/13/2018 Past Surgical History: Procedure Laterality Date REMOVAL OF TONSILS, UNDER AGE 11 REPAIR INGUINAL HERNIA, UNDER AGE 4 Review of patient's allergies indicates: Allergen Reactions Zetia [Ezetimibe] Other (Please comment) Dizziness, Disorientation and Hallucinations Social History Socioeconomic History Marital status: Spouse [...] on file Housing Stability: Not on file Current Outpatient Medications Medication Sig Dispense Refill [...] by mouth every 6 hours as needed. Isosorbide Mononitrate ER 60 MG Oral Tablet Extended Release 24 Hour (Imdur) TAKE 1 AND 1/2 TABLETSBY MOUTH EVERY DAY 135 Tablet 3 Fenofibrate 54 MG Oral Tablet (Lofibra) TAKE 1 TABLET BY MOUTH EVERY DAY 90 Tablet 3 buPROPion HCl ER (XL) 150 MG Oral Tablet Extended Release 24 Hour (Wellbutrin XL) Take 1 Tablet by mouth in the morning. 90 Tablet 0 buPROPion HCl ER (XL) 300 MG Oral Tablet Extended Release 24 Hour (Wellbutrin XL) Take 1 Tablet by mouth in the morning. 90 Tablet 1 Ozempic (0.25 or 0.5 MG/DOSE) 2 MG/3ML Solution Pen-injector (Semaglutide(0.25 or 0.5MG/DOS)) Inject 0.375 mL under the skin once a week. 3 mL 5 Levothyroxine Sodium 200 MCG Oral Tablet (Levoxyl) TAKE 1 TAB BY MOUTH DAILY EVERY MORNING AT LEAST30 MINUTES PRIOR TO BREAKFAST OR OTHER MEDS 90 Tablet 1 Diclofenac Sodium 75 MG Oral Tablet Delayed Release (Voltaren) TAKE 1 TABLET BY MOUTH TWICE A DAY WITH FOOD 60 Tablet 3 Rosuvastatin Calcium 40 MG Oral Tablet (Crestor) TAKE 1 TABLET BY MOUTH EVERY DAY 90 Tablet 3 glipiZIDE ER 5 MG Oral Tablet Extended Release 24 Hour (glipiZIDE XL) Take 1 Tablet by mouth in themorning. 30 minutes before a meal.. 90 Tablet 1 Gabapentin 800 MG Oral Tablet (Neurontin) TAKE 1 TABLET BY MOUTH IN THE MORNING AT AT NOON AND BEFORE BEDTIME 90 Tablet 5 Losartan Potassium 25 MG Oral Tablet (Cozaar) [...] A DAY WITH BREAKFAST ANDDINNER 180 Tablet 0 amLODIPine Besylate 5 MG Oral Tablet (Norvasc) TAKE 1/2 TAB BY MOUTH EVERY MORNING 45 Tablet 3 No current facility-administered medications for this visit. Immunization History Administered Date(s) Administered COVID-19 mRNA, LNP-s, No Preserve, 2-Dose Series (Pfizer) 12/28/2020, 01/28/2021, 09/14/2021 Covid-19, Mrna, Lnp-s, Pf, Bivalent, 30 Mcg, IM, 12 yrs and above (Pfizer) 09/06/2022 Pneumococcal Conjugate Vaccine, 20-valent ([id number]) 11/17/2022 Pneumococcal Polysaccharide PPV23 (Pneumovax) 02/18/2014, 2021 SEASONAL INFLUENZA, PF, 6 M & Above, IM , (FLULAVAL or FLUZONE) 08/18/2020, 09/14/2021, 09/06/2022 TDAP (age 10 and older)(Boostrix) 11/17/2022 Zoster Vaccine Recombinant (Shingrix) 11/17/2022 Lab Results Component Value Date/Time HEMOGLOBIN A1C - [facility] 9.1 (H) 03/07/2023 04:04 PM HEMOGLOBIN A1C - [facility] 6.8 (H) 09/14/2021 04:12 PM HEMOGLOBIN A1C - [facility] 8.7 (H) 05/05/2021 09:52 AM HEMOGLOBIN A1C - [facility] 5.5 02/05/2014 03:56 PM Results for orders placed or performed in visit on 09/14/21 LIPID PANEL WITH DIRECT LDL IF TG IS HIGH Result Value Ref Range Triglycerides 371 (H) <=174 mg/dL Cholesterol 189 <200 mg/dL HDL Cholesterol 35 (L) >39 mg/dL Non-HDL Cholesterol 154 <=159 mg/dL Lab Results Component Value Date/Time LDL CHOLESTEROL (CALCULATED) - [facility] 10/30/2019 03:33 PM Uninterpretable, recommend direct LDL cholesterol testing. LDL CHOLESTEROL (DIRECT MEASURE) - [facility] 90 09/14/2021 04:12 PM LDL CHOLESTEROL (DIRECT MEASURE) - [facility] 94 05/12/2020 01:28 PM Lab Results Component Value Date/Time TSH - [facility] 17.00 (H) 03/07/2023 04:04 PM TSH - [facility] 2.99 09/14/2021 04:12 PM TSH - [facility] 3.33 05/12/2020 01:28 PM TSH - [facility] 6.25 (H) 10/30/2019 03:33 PM TSH - [facility] 1.85 03/12/2019 01:46 PM TSH - [facility]IDE LAB 18.500 (A) 06/13/2022 12:00 AM Results for orders placed or performed in visit on 03/07/23 COMPREHENSIVE METABOLIC PANEL Result Value Ref Range BUN 23 (H) 6 - 20 mg/dL Creatinine 1.2 0.6 - 1.2 mg/dL Estimated Glomerular Filtration Rate 68 >=60 mL/min Sodium 140 135 - 146 mmol/L Potassium 4.4 3.5 - 5.1 mmol/L Chloride 101 98 - 107 mmol/L CO2 27 22 - 32 mmol/L Anion Gap 12 7 - 15 mmol/L Glucose 179 (H) 70 - 120 mg/dL Albumin 4.7 3.8 - 5.0 g/dL AST 26 10 - 50 U/L Alkaline Phosphatase 64 35 - 130 U/L Bilirubin, Total 0.3 <=1.2 mg/dL Calcium 9.7 8.4 - 10.2 mg/dL Protein 7.3 6.0 - 8.3 g/dL ALT 21 10 - 50 U/L O: Blood pressure 110/70, pulse 70, temperature 36.2 C (97.1 F), temperature source Tympanic, resp. rate 16, weight 118.5 kg (261 lb 3 oz), SpO2 90%. General appearance: well developed, well nourished and in no acute distress. Neck is supple without adenopathy or thyromegaly. Chest is symmetrical and moves normally. The lungs are clear without wheezes, rales, rhonchi or rubs, and the heart isregular without murmurs or gallops, or ectopy. PMI not displaced. A: DM type 2, goal HbA1c < 7% ([facility]) (Primary) - HEMOGLOBIN A1C; Future; Expected date: 08/30/2023 - ALBUMIN / CREATININE RATIO, URINE; Future; Expected date: 08/30/2023 - Ozempic (0.25 or 0.5 MG/DOSE) 2 MG/3ML Solution Pen-injector (Semaglutide(0.25 or 0.5MG/DOS)); 0.5 mg under skin weekly - Empagliflozin 10 MG Oral Tablet (Jardiance); Take 1 Tablet by mouth in the morning. - TSH WITH FREE T4 IF INDICATED; Future; Expected date: 08/30/2023 Need for prophylactic vaccination and inoculation against influenza - INFLUENZA VACC, QUAD, PF, 6 MONTHS & UP, 0.5 ML, IM CKD (chronic kidney disease), stage II - ALBUMIN / CREATININE RATIO, URINE; Future; Expected date: 08/30/2023 Coronary artery disease involving pra[place] coronary artery of prairie island heart without angina pectoris Dyslipidemia, goal LDL below 70 Primary hypertension Morbid obesity with BMI of 40.0-44.9, adult (HCC) - Ozempic (0.25 or 0.5 MG/DOSE) 2 MG/3ML Solution Pen-injector (Semaglutide(0.25 or 0.5MG/DOS)); 0.5 mg under skin weekly Major depressive disorder, single episode, moderate (HCC) - DULoxetine HCl 30 MG Oral Capsule Delayed Release Particles (Cymbalta); Take 1 Capsule by mouth in the morning. Continue other meds as before. Follow Up: Return in about 3 months (around 11/30/2023) for Clinic Visit. | For: Clinic Visit documented in this encounter Nursing Notes * Callie Inman LPN - 08/30/2023 4:47 PM EST [facility] follow up Now has a c pap machine. documented in this encounter Plan of Treatment Upcoming Encounters Date Type Department Care Team (Late st Contact Info) Description 10/30/2023 2:00 PM EST Office Visit Cardiology, [facility] [address] [place] [phone] Julius Santiago DO [address] [place] [phone] 10/30/2023 5:00 PM EST Office Visit [address] [place] [phone] Cristian Desai MD [address] [place] [address] [place] [phone] 03/04/2024 4:00 PM EDT Office Visit [address] [place] [phone] Elroy Hughes MD [address] [place] [address] [place] [id number] Scheduled Orders Name Type Priority Associated Diagnoses Orde r Schedule HEMOGLOBIN A1C Lab Routine DM type 2, goal HbA1c < 7% (HCC) Expected: 08/30/2023 (Approximate), Expires: 08/29/2024 ALBUMIN / CREATININE RATIO, URINE Lab Routine CKD (chronic kidney disease), stage II DM type 2, goal HbA1c < 7% (HCC) Expected: 08/30/2023 (Approximate), Expires: 08/29/2024 TSH WITH FREE T4 IF INDICATED Lab Routine DM type 2, goal HbA1c < 7% (HCC) Expected: 08/30/2023 (Approximate), Expires: 08/29/2024 Health Maintenance Due Date Last Done Comments [...] DM type 2, goal HbA1c < 7% (HCC)- Primary Need for prophylactic vaccination and inoculation against influenza CKD (chronic kidney disease), stage II Chronic kidney disease, Stage II (mild) Coronary artery disease involving [place] coronary artery of [place] heart without angina pectoris Dyslipidemia, goal LDL below 70 Other and unspecified hyperlipidemia Primary hypertension Unspecified essential hypertension Morbid obesity with BMI of 40.0-44.9, adult (HCC) Morbid obesity Major depressive disorder, single episode, moderate (HCC) Major depressive disorder, single episode, moderate documented in this encounter Care Teams Sign Painter Apprentice Relationship Specialty Start Date End Date Cristian Desai MD [address] [place] [address] [place] [id number] PCP - General Family Medicine 03/03/21 documented as of this encounter"
--- OUTSIDE RECORDS SUMMARY | 2024-02-22 19:18 | External Medical Summary | Summary of Care ---
Author Name Unknown Organization [facility] Address [address] [place] [address] Phone [phone] Care Team Providers Care Stereotyper Apprentice Name Role Phone Cristian Desai MD Primary Care Provider + [phone] Encounter Details Date Type Department Care Team (Late st Contact Info) Description 11/04/2023 Orders Only PATIENT PORTAL DO NOT DELETE THIS DEPT USED BY [place] [id number] Allergies Active Allergy Reactions Criticality Noted Date Comments Ezetimibe Other (Please comment) 08/18/2020 Dizziness, Disorientation and Hallucinations documented as of this encounter (statuses as of 11/04/2023) Medications Medication Sig Dispensed Refills Start Date [...] 06/05/2023 Active Gabapentin 800 MG Oral Tablet (Neurontin)Indicat ions:DM type 2, goal HbA1c < 7% (HCC),Diabetic peripheral neuropathy (HCC) TAKE 1 TABLET BY MOUTH IN THE MORNING AT AT NOON AND BEFORE BEDTIME 90 Tablet 5 06/14/2023 Active Losartan Potassium 25 MG Oral Tablet (Cozaar)Indication s:Coronary artery disease of lummi artery of lummi heart with stable angina pectoris (HCC) TAKE 1 TABLET BY MOUTH EVERY DAY IN THE MORNING 90 Tablet 3 07/05/2023 Active Furosemide 40 MG Oral Tablet (Lasix)Indications :Coronary artery disease of lummi artery of lummi heart with stable angina pectoris (HCC),S/P CABG [...] goal LDL below 70,Coronary artery disease of lummi artery of lummi heart with stable angina pectoris (HCC) TAKE [...] THE MORNING 90 Tablet 1 11/02/2023 Active documented as of this encounter (statuses as of 11/04/2023) Active Problems Problem Noted Date Diagnosed Date Morbid obesity with BMI of 40.0-44.9, adult /0 11/2022 Overview: 271 CKD (chronic kidney disease), stage II Overview: EGFR 72 Major depressive disorder, single episode, moder ate 06/29/2021 DM type 2, goal HbA1c < 7% 02/27/2021 Overview: hgba1c 13.6 Coronary artery disease invo lving lummi coronary artery of lummi heart without angina pectoris 08/31/2015 S/P CABG x 2 08/31/2015 Dyslipidemia, goal LDL below 70 08/31/2015 History of [place] (myocardial infarction) 08/31/2015 Primary hypertension 08/31/2015 documented as of this encounter (statuses as of 11/04/2023) Resolved Problems Problem Noted Date Diagnosed Date Resolved Date Thrombocytopenia 08/13/2018 2021 NSTEMI (non-ST elevation gregorio cardial infarction) 08/31/2015 2021 HTN, goal below 130/80 08/31/201505/06 Back pain 08/31/2015 09/06/2022 documented as of this encounter (statuses as of 11/04/2023) Immunizations Name Administration Dates Next Due COVID-19 mRNA, LNP-s, No Pre serve, 2-Dose Series ([employer]) 09/14/2021,01/28/2021,12/28/2020 COVID-19, MRNA-LNP, 23-24, P F, 30 MCG/0.3 mL, 12 YRS AND ABOVE, IM ([facility]) 08/30/2023 Covid-19, Mrna, Lnp-s, Pf, B ivalent, 30 Mcg, IM, 12 yrs and above ([employer]) 09/06/2022 Pneumococcal Conjugate Vacci ne, 20-valent ([id number]) 11/17/2022 Pneumococcal Polysaccharide PPV23 (Pneumovax) 2021,02/18/2014 Seasonal [...] on file documented as of this encounter Plan of Treatment Upcoming Encounters Date Type Department Care Team (Late st Contact Info) Description 03/04/2024 12:00 PM EDT Office Visit Family Medicine [address] [place] [phone] Elroy Hughes MD [address] [place] [address] [place] [phone] Health Maintenance Due Date Last Done Comments [...] filedocumented as of this encounter Care Teams Stereotyper Apprentice Relationship Specialty Start Date End Date Cristian Desai MD [address] [place] [address] [place] [phone] PCP - General Family Medicine 03/03/21 documented as of this encounter
--- OUTSIDE RECORDS SUMMARY | 2024-02-22 19:18 | External Medical Summary | Summary of Care ---
Author Name Unknown Organization [facility] Address [address] [place] [address] Phone [phone] Care Team Providers Care Medical Records Tech Name Role Phone Cristian Desai MD Primary Care Provider + [phone] Reason for Visit * Reason Comments eRx-Medication Refill Encounter Details Date Type Department Care Team (Late st Contact Info) Description 11/01/2023 Refill Family Medicine [address] [phone] Christopher Cadena MD [address] [place] [address] [place] [address] Major depressive disorder, single episode, moderate (HCC) Allergies Active Allergy Reactions Criticality Noted Date Comments Ezetimibe Other (Please comment) 08/18/2020 Dizziness, Disorientation and Hallucinations documented as of this encounter (statuses as of 11/02/2023) Medications Medication Sig Dispensed Refills Start Date [...] Oral Tablet (Cozaar)Indicatio ns:Coronary artery disease of [place] artery of [place] heart with stable angina pectoris (HCC) TAKE 1 TABLET BY MOUTH EVERY DAY IN THE MORNING 90 Tablet 3 3 Active Furosemide 40 MG Oral Tablet (Lasix)Indication s:Coronary artery disease of [place] artery of [place] heart with stable angina pectoris (HCC),S/P CABG [...] goal LDL below 70,Coronary artery disease of [place] artery of [place] heart with stable angina pectoris (HCC) TAKE [...] THE MORNING 90 Tablet 1 4 Active buPROPion HCl ER (XL) 300 MG Oral Tablet Extended Release 24 Hour (Wellbutrin XL)Indications:Ma ron depressive disorder, single episode, moderate (HCC) Take 1 Tablet by mouth in the morning. 90 Tablet 1 3 11/02/19 24 Discontinued documented as of this encounter (statuses as of 11/02/2023) Active Problems Problem Noted Date Diagnosed Date Morbid obesity with BMI of 40.0-44.9, adult 11/2022 Overview: 271 CKD (chronic kidney disease), stage II Overview: EGFR 72 Major depressive disorder, single episode, moder ate 06/29/2021 DM type 2, goal HbA1c < 7% 02/27/2021 Overview: hgba1c 13.6 Coronary artery disease invo lving [place] coronary artery of [place] heart without angina pectoris 08/31/2015 S/P CABG x 2 08/31/2015 Dyslipidemia, goal LDL below 70 08/31/2015 History of [place] (myocardial infarction) 08/31/2015 Primary hypertension 08/31/2015 documented as of this encounter (statuses as of 11/02/2023) Resolved Problems Problem Noted Date Diagnosed Date Resolved Date Thrombocytopenia 08/13/2018 2021 NSTEMI (non-ST elevation gregorio cardial infarction) 08/31/2015 2021 HTN, goal below 130/80 08/31/201505/06 Back pain 08/31/2015 09/06/2022 documented as of this encounter (statuses as of 11/02/2023) Immunizations Name Administration Dates Next Due COVID-19 mRNA, LNP-s, No Pre serve, 2-Dose Series (To8to) 09/14/2021,01/28/2021,12/28/2020 COVID-19, MRNA-LNP, 23-24, P F, 30 MCG/0.3 mL, 12 YRS AND ABOVE, [facility] 08/30/2023 Covid-19, Mrna, Lnp-s, Pf, B ivalent, 30 Mcg, IM, 12 yrs and above (Pfizer) 09/06/2022 Pneumococcal Conjugate Vacci ne, 20-valent ([id number]) 11/17/2022 Pneumococcal Polysaccharide PPV23 (Pneumovax) 2021,02/18/2014 Seasonal [...] Telephone Encounter - Ofelia Barrera RPh - 11/02/2023 10:58 AM ESTSigned Prescriptions: Disp Refills buPROPion HCl ER (XL) 300 MG Oral Tablet E*90 Tab*1 Sig: TAKE 1 TABLET BY MOUTH EVERY DAY IN THE MORNINGAuthorizing Provider: CHRISTOPHER CADENA User:OFELIA BARRERA documented in this encounter Plan of Treatment Upcoming Encounters Date Type Department Care Team (Late st Contact Info) Description 03/04/2024 12:00 PM EDT Office Visit [address] [phone] Elroy Hughes MD [address] [place] [address] [place] [address] Health Maintenance Due Date Last Done Comments [...] moderate documented in this encounter Care Teams Medical Records Tech Relationship Specialty Start Date End Date Cristian Desai MD [address] [place] [address] [place] [address] PCP - General Family Medicine 03/03/21 documented as of this encounter
--- OUTSIDE RECORDS SUMMARY | 2024-02-22 19:18 | External Medical Summary | Summary of Care ---
Author Name Unknown Organization [facility] Address [address] [place] [address] Phone [phone] Care Team Providers Care Reserve Operator Name Role Phone Elroy Hughes MD Primary Care Provide r Reason for Visit * Reason Onset Date Comments Medication Pre-auth 12/07/2023 Jardiance 10 mg Encounter Details Date Type Department Care Team (Late st Contact Info) Description 12/07/2023 Telephone Family Medicine [address] [phone] Elroy Hughes MD [address] [place] [address] Medication Pre-auth (Jardiance 10 mg) Allergies [...] Each 0 10/13/2017 Active Misc. Devices [place]CANE[place] [facility] [place] - Radiculopathy, Sciatica, [...] Oral Tablet (Cozaar)Indication s:Coronary artery disease of [place] artery of [place] heart with stable angina pectoris (HCC) TAKE 1 TABLET BY MOUTH EVERY DAY IN THE MORNING 90 Tablet 3 07/05/2023 Active Furosemide 40 MG Oral Tablet (Lasix)Indications :Coronary artery disease of [place] artery of [place] heart with stable angina pectoris (HCC),S/P [...] goal LDL below 70,Coronary artery disease of [place] artery of [place] heart with stable angina pectoris (HCC) [...] hgba1c 13.6 Coronary artery disease invo lving [place] coronary artery of [place] heart without angina pectoris 08/31/2015 S/P CABG x 2 08/31/2015 Dyslipidemia, goal LDL below 70 08/31/2015 History of [place] (myocardial infarction) 08/31/2015 Primary hypertension 08/31/2015 documented [...] mRNA, LNP-s, No Pre serve, 2-Dose Series (Sticky) 09/14/2021,01/28/2021,12/28/2020 COVID-19, MRNA-LNP, 23-24, P F, 30 MCG/0.3 mL, 12 YRS AND ABOVE, IM ([employer]ir[employer]) 08/30/2023 Covid-19, Mrna, Lnp-s, Pf, B ivalent, 30 Mcg, IM, 12 yrs and above (Sticky) 09/06/2022 Pneumococcal Conjugate Vacci ne, 20-valent ([id number]) 11/17/2022 Pneumococcal Polysaccharide PPV23 (Pneumovax) 2021,02/18/2014 Seasonal [...] Notes * Telephone Encounter - Charleen Beaver RPh - 12/12/2023 10:30 AM EST LMOVM for patient and EC to call to be able to get jardiance 10mg Thank you, Charleen Beaver RPh Clinical Pharmacist [facility] ([facility]) (formerly Telepharmacy) 12/12/23 10:31 AM [phone] * Telephone Encounter - Charleen Beaver RPh - 12/12/2023 9:29 AM EST Called insurance and they have been trying to get intouch with patient since Sep 2023. Patient needs to enroll with mail order to continue therapy. Insurance is calling patient and EC right now to get enrolled with variable copay. Thank you, Charleen Beaver RPh Clinical Pharmacist [facility] ([facility]) (formerly Telepharmacy) 12/12/23 9:33 AM [phone] * Telephone Encounter - Oli Bravo CPhT - 12/12/2023 8:02 AM EST Images from the original note were not included. Checked status of prior authorization for Jardiance through [employer]. Thank you, Ravin Bravo ([facility]) Automotive Consultant III [facility] ([facility]) (formerly Telepharmacy) 12/12/2023, 8:02 AM * Telephone Encounter - Debi Franco retail assistant - 12/08/2023 3:09 PM EST Use [email or web address] Submitted information in previous note via [employer] (EOC: [id number]).. Awaiting payer response. We will follow-up with insurance starting 12/11. Per [facility] request, if no decision is received from insurance by 12/12, we will route back to the [facility] after clarifying with the pharmacy that the claim is still not processing. Thanks, Debi Franco Automotive Consultant III [facility] ([facility]) 12/08/2023,3:09 PM * [facility] 12/07/2023 3:53 PM EST Please submit [...] upon this and route back to the [facility] pool if no decision is made by the insurance by 12/12, after clarifying with the pharmacy that the claim is still not processing. If PA is denied, please also route back to [facility]. Thanks, Sami Wodos, PharmD Clinical Pharmacist [facility] [phone] 12/07/2023, 3:57 PM * Telephone Encounter - Oli Bravo CPhT - 12/07/2023 3:39 PM EST This is a new [place] request. Upon review of this prior authorization request, I verified this request is appropriate. This is prescribed by a department for which [facility] is authorized to review prior authorizations This [...] note, there is nothing currently pending in [facility] for this request. Please advise how to proceed. Thank you, Ravin Bravo ([facility]) Automotive Consultant III [facility] ([facility]) (formerly Telepharmacy) 12/07/2023, 3:39 PM * Telephone Encounter - Afua Blackmon CPhT - 12/07/2023 3:29 PM EST Pharmacy calling to inform doctor that the patient's insurance will not pay for this medication without a completed prior authorization. Did confirm this information with the pharmacy. Pt's current insurance information is as follows: Patient name: Marcial Frias . ID number: [id number] BIN number: [id number] PCN number: SSN Group number: [id number] Subscriber name: Marcial Frias . Primary or Secondary Insurance:Primary Medication: JARDIANCE 10 MG Reason for Request: NOT COVERED Pharmacy and phone number: [id number] [phone] Rx plan and phone number: TYLER CLAYTON Is this a new medication for the patient? No. How did the patient obtain the medication on the lastfill? It was covered last time on this same insurance. What alternative medications does the pharmacy have in stock?: N/A Thank you, Afua Blackmon CPhT Automotive Consultant II [facility] ( Formerly Telepharmacy) 12/07/2023,3:30 PM documented in this encounter Plan of Treatment Upcoming Encounters Date Type Department Care Team (Late st Contact Info) Description 12/14/2023 7:40 AM EST Office Visit [address] [phone] Elroy Hughes MD [address] [place] [address] [place] [phone] 03/04/2024 12:00 PM EDT Office Visit [address] [phone] Elroy Hughes MD [address] [place] [address] [place] [address] Health Maintenance Due Date Last Done Comments [...] filedocumented as of this encounter Care Teams Reserve Operator Relationship Specialty Start Date End Date Elroy Hughes MD [address] [place] [address] [place] [phone] PCP - General Family Medicine 11/13/23 documented as of this encounter
--- OUTSIDE RECORDS SUMMARY | 2024-02-22 19:18 | External Medical Summary | Summary of Care ---
Author Name Unknown Organization [facility] Address [address] [place] [address] Phone [phone] Care Team Providers Care Hedis Review Nurse Name Role Phone Elroy Hughes MD Primary Care Provide r Reason for Visit * Reason Comments eRx-Medication Refill Encounter Details Date Type Department Care Team (Late st Contact Info) Description 11/01/2023 Refill Family Medicine [address] [phone] Cristian Artis MD [address] [place] [address] [place] [address] Encounter for long-term (current) use of other medications*; DM type 2, goal HbA1c < 7% ([facility]); Encounter for vitamin deficiency screening Allergies Active Allergy Reactions Criticality Noted Date Comments Ezetimibe Other (Please comment) 08/18/2020 Dizziness, Disorientation and Hallucinations documented as of this encounter (statuses as of 11/21/2023) Medications Medication Sig Dispensed Refills Start Date [...] Oral Tablet (Cozaar)Indicatio ns:Coronary artery disease of [place] artery of [place] heart with stable angina pectoris (HCC) TAKE 1 TABLET BY MOUTH EVERY DAY IN THE MORNING 90 Tablet 3 3 Active Furosemide 40 MG Oral Tablet (Lasix)Indication s:Coronary artery disease of [place] artery of [place] heart with stable angina pectoris (HCC),S/P CABG [...] goal LDL below 70,Coronary artery disease of [place] artery of [place] heart with stable angina pectoris (HCC) TAKE [...] 90 Tablet 1 3 11/02/19 24 Discontinued Gabapentin 800 MG Oral Tablet (Neurontin)Indica tions:DM type 2, goal HbA1c < 7% (HCC),Diabetic peripheral neuropathy (HCC) TAKE 1 TABLET BY MOUTH IN THE MORNING AT AT NOON AND BEFORE BEDTIME 90 Tablet 5 3 11/17/19 24 Discontinued metFORMIN HCl 500 MG Oral Tablet (Glucophage)Indic ations:DM type 2, goal HbA1c < 7% (HCC) TAKE 1 TABLET BY MOUTH TWICE A DAY WITH BREAKFAST AND DINNER 180 Tablet 0 3 11/02/19 24 Discontinued documented as of this encounter (statuses as of 11/21/2023) Active Problems Problem Noted Date Diagnosed Date Morbid obesity with BMI of 40.0-44.9, adult 11/2022 Overview: 271 CKD (chronic kidney disease), stage II Overview: EGFR 72 Major depressive disorder, single episode, moder ate 06/29/2021 DM type 2, goal HbA1c < 7% 02/27/2021 Overview: hgba1c 13.6 Coronary artery disease invo lving [place] coronary artery of [place] heart without angina pectoris 08/31/2015 S/P CABG x 2 08/31/2015 Dyslipidemia, goal LDL below 70 08/31/2015 History of [place] (myocardial infarction) 08/31/2015 Primary hypertension 08/31/2015 documented as of this encounter (statuses as of 11/21/2023) Resolved Problems Problem Noted Date Diagnosed Date Resolved Date Thrombocytopenia 08/13/2018 2021 NSTEMI (non-ST elevation gregorio cardial infarction) 08/31/2015 2021 HTN, goal below 130/80 08/31/201505/06 Back pain 08/31/2015 09/06/2022 documented as of this encounter (statuses as of 11/21/2023) Immunizations Name Administration Dates Next Due COVID-19 mRNA, LNP-s, No Pre serve, 2-Dose Series ([employer]) 09/14/2021,01/28/2021,12/28/2020 COVID-19, MRNA-LNP, 23-24, P F, 30 MCG/0.3 mL, 12 YRS AND ABOVE, IM (PFI[employer]ER-Comirnaty) 08/30/2023 Covid-19, Mrna, Lnp-s, Pf, B ivalent, 30 Mcg, IM, 12 yrs and above (Pfizer) 09/06/2022 Pneumococcal Conjugate Vacci ne, 20-valent ([id number]) 11/17/2022 Pneumococcal Polysaccharide PPV23 (Pneumovax) 2021,02/18/2014 Seasonal [...] encounter Miscellaneous Notes * Telephone Encounter - Сергей Shah - 11/21/2023 8:33 PM EST Received message from [facility] regarding patient needing labs. Patient was notified. Successfully contacted patient and provided [facility] message. * Telephone Encounter - Juan C Park, [facility] - 11/02/2023 10:56 AM ESTSigned Prescriptions: Disp Refills metFORMIN HCl 500 MG Oral Tablet (Glucopha*180 Ta*1 Sig: TAKE 1 TABLET BY MOUTH TWICE A DAY WITH BREAKFAST AND DINNER Authorizing Provider: CRISTIAN ARTIS Ordering User: JUAN C PARK * Telephone Encounter - Juan C Park RPh - 11/02/2023 10:51 AM EST Provided 90 days supply with 1 refill until upcoming appt. Reviewed AMP report, Care Gaps/Health Maintenance, medications list, and for any routine labs typically ordered for this patient. Lab ordersplaced 11/02/23, 08/30/23, 08/04/23, 06/28/23 . Please contact patient to advise of labs ordered for blood draw AND URINE specimen (patient will have to be able to void to provide sample). Recommend patient to fast if able for labs. Patient may still have water and regular medications. Advise to obtain labs before his scheduled office visit 03/04/2024 . Thanks, Arminda Sow.Ph. Clinical Pharmacist [facility] [phone] ext [phone] 11/02/2023,10:54 AM documented in this encounter Plan of Treatment Upcoming Encounters Date Type Department Care Team (Late st Contact Info) Description 03/04/2024 12:00 PM EDT Office Visit Family Medicine [address] [place] [phone] Elroy Hughes MD [address] [place] [address] [place] [address] Scheduled Orders Name Type Priority Associated Diagnoses Orde r Schedule VITAMIN B12 Lab Routine DM type 2, goal HbA1c < 7% (HCC) Encounter for long-term (current) use of other medications Encounter for vitamin deficiency screening Expected: 11/03/2023 (Approximate), Expires: 11/02/2024 Health Maintenance Due Date Last Done Comments [...] as of this encounter Visit Diagnoses Diagnosis Encounter for long-term (current) use of other medications- Primary DM type 2, goal HbA1c < 7% (HCC) Encounter for vitamin deficiency screening Screening for other and unspecified endocrine, nutritional, metabolic, and immunity disorders documented in this encounter Care Teams Hedis Review Nurse Relationship Specialty Start Date End Date Elroy Hughes MD [address] [place] [address] [place] [address] PCP - General Family Medicine 11/13/23 documented as of this encounter
--- OUTSIDE RECORDS SUMMARY | 2024-02-22 19:18 | External Medical Summary | Summary of Care ---
Author Name Unknown Organization [facility] Address [address] [place] [address] Phone [phone] Care Team Providers Care Fixer Boarding Room Name Role Phone Cristian Desai MD Primary Care Provider + [phone] Encounter Details Date Type Department Care Team (Late st Contact Info) Description 08/30/2023 2:50 PM EST Immunization Ancillary [address] [place] [address] [place], Covid19 Vaccine [address] [place] [address] Arrived Allergies Active Allergy Reactions Criticality Noted Date [...] 07/14/2022 Active Fenofibrate 54 MG Oral Tablet (Lofibra)Indicatio ns:Dyslipidemia, goal LDL below 70,Coronary artery disease of [place] artery of [place] heart with stable angina pectoris (HCC) TAKE 1 TABLET BY MOUTH EVERY DAY 90 Tablet 3 09/19/2022 Active buPROPion HCl ER (XL) 300 MG Oral Tablet Extended Release 24 Hour (Wellbutrin XL)Indications:Rishi or depressive disorder, single episode, moderate (HCC) Take [...] Oral Tablet (Cozaar)Indication s:Coronary artery disease of [place] artery of [place] heart with stable angina pectoris (HCC) TAKE 1 TABLET BY MOUTH EVERY DAY IN THE MORNING 90 Tablet 3 07/05/2023 Active Furosemide 40 MG Oral Tablet (Lasix)Indications :Coronary artery disease of [place] artery of [place] heart with stable angina pectoris (HCC),S/P CABG [...] the morning. 90 Tablet 1 08/30/2023 Active documented as of this encounter (statuses as of 08/30/2023) Active Problems Problem Noted Date Diagnosed Date Morbid obesity with BMI of 40.0-44.9, adult 02/0 11/2022 Overview: 271 CKD (chronic kidney disease), stage II Overview: EGFR 72 Major depressive disorder, single episode, moder ate 06/29/2021 DM type 2, goal HbA1c < 7% 02/27/2021 Overview: hgba1c 13.6 Coronary artery disease invo lving [place] coronary artery of [place] heart without angina pectoris 08/31/2015 S/P CABG x 2 08/31/2015 Dyslipidemia, goal LDL below 70 08/31/2015 History of [place] (myocardial infarction) 08/31/2015 Primary hypertension 08/31/2015 documented [...] mRNA, LNP-s, No Pre serve, 2-Dose Series ([employer]) 09/14/2021,01/28/2021,12/28/2020 COVID-19, MRNA-LNP, 23-24, P F, 30 MCG/0.3 mL, 12 YRS AND ABOVE, IM ([facility]) 08/30/2023 Covid-19, Mrna, Lnp-s, Pf, B ivalent, 30 Mcg, IM, 12 yrs and above ([employer]) 09/06/2022 Pneumococcal Conjugate Vacci ne, 20-valent ([id number]) 11/17/2022 Pneumococcal Polysaccharide PPV23 (Pneumovax) 2021,02/18/2014 SEASONAL [...] 10/30/2023 2:00 PM EST Office Visit Cardiology, [facility] [address] [place] [address] Julius Santiago DO [address] [place] [address] 10/30/2023 5:00 PM EST Office Visit [address] [phone] Cristian Desai MD [address] [place] [address] [place] [address] 03/04/2024 4:00 PM EDT Office Visit [address] [place] [phone] Elroy Hughes MD [address] [place] [address] [place] [address] Health Maintenance Due Date Last Done Comments Depression Screening 1971 HIV Screening 1974 Cologuard 2004 Colonoscopy 2004 Colorectal Cancer Screening 2004 Fecal Occult Blood Test 2004 Sigmoidoscopy 2004 Hepatitis B (1 of 3 - Risk 3-dose series) 2019 Zoster Vaccines (2 of 2) 01/12/2023 11/17/2022 HbA1c 09/07/2023 03/07/2023, 0806/2022, 09/14/2021, Additional history exists Diabetic Eye Exam [...] filedocumented as of this encounter Care Teams Fixer Boarding Room Relationship Specialty Start Date End Date Cristian Desai MD [address] [place] [address] [place] [phone] PCP - General Family Medicine 03/03/21 documented as of this encounter
--- OUTSIDE RECORDS SUMMARY | 2024-02-22 19:18 | External Medical Summary | Summary of Care ---
Author Name Unknown Organization [facility] Address [address] [place] [address] Phone [phone] Care Team Providers Care Parts Counter Associate Name Role Phone Elroy Hughes MD Primary Care Provide r Reason for Visit * Reason Comments eRx-Medication Refill Encounter Details Date Type Department Care Team (Late st Contact Info) Description 11/15/2023 Refill Family Medicine [address] [phone] Cristian Desai MD [address] [place] [address] [place] [address] DM type 2, goal HbA1c < 7% ([facility]); Diabetic peripheral neuropathy ([facility]) Allergies Active Allergy Reactions Criticality Noted Date Comments Ezetimibe Other (Please comment) 08/18/2020 Dizziness, Disorientation and Hallucinations documented as of this encounter (statuses as of 12/04/2023) Medications Medication Sig Dispensed Refills Start Date [...] goal HbA1c < 7% ([facility]) Take 1 Tablet by mouth in the morning. 30 minutes before a meal.. 90 Tablet 1 3 Active Losartan Potassium 25 MG Oral Tablet (Cozaar)Indicatio ns:Coronary artery disease of [place] artery of [place] heart with stable angina pectoris (HCC) TAKE 1 TABLET BY MOUTH EVERY DAY IN THE MORNING 90 Tablet 3 3 Active Furosemide 40 MG Oral Tablet (Lasix)Indication s:Coronary artery disease of [place] artery of [place] heart with stable angina pectoris (HCC),S/P CABG [...] goal LDL below 70,Coronary artery disease of [place] artery of [place] heart with stable angina pectoris (HCC) TAKE [...] as of this encounter (statuses as of 12/04/2023) Active Problems Problem Noted Date Diagnosed Date Morbid obesity with BMI of 40.0-44.9, adult 11/2022 Overview: 271 CKD (chronic kidney disease), stage II Overview: EGFR 72 Major depressive disorder, single episode, moder ate 06/29/2021 DM type 2, goal HbA1c < 7% 02/27/2021 Overview: hgba1c 13.6 Coronary artery disease invo lving [place] coronary artery of [place] heart without angina pectoris 08/31/2015 S/P CABG x 2 08/31/2015 Dyslipidemia, goal LDL below 70 08/31/[address] (myocardial infarction) 08/31/2015 Primary hypertension 08/31/2015 documented as of this encounter (statuses as of 12/04/2023) Resolved Problems Problem Noted Date Diagnosed Date Resolved Date Thrombocytopenia 08/13/2018 2021 NSTEMI (non-ST elevation gregorio cardial infarction) 08/31/2015 2021 HTN, goal below 130/80 08/31/201505/06 Back pain 08/31/2015 09/06/2022 documented as of this encounter (statuses as of 12/04/2023) Immunizations Name Administration Dates Next Due COVID-19 mRNA, LNP-s, No Pre serve, 2-Dose Series (TopTenREVIEWS) 09/14/2021,01/28/2021,12/28/2020 COVID-19, MRNA-LNP, 23-24, P F, 30 MCG/0.3 mL, 12 YRS AND ABOVE, IM (LoopNet-Comirnat) 08/30/2023 Covid-19, Mrna, Lnp-s, Pf, B ivalent, 30 Mcg, IM, 12 yrs and above (Pfizer) 09/06/2022 Pneumococcal Conjugate Vacci ne, 20-valent ([id number]) 11/17/2022 Pneumococcal Polysaccharide PPV23 (Pneumovax) 2021,02/18/2014 Seasonal [...] List Diagnosis Code Coronary artery disease involving [place] coronary artery of [place] heart without angina pectoris I25.10 S/P CABG x 2 Z95.1 Dyslipidemia, goal LDL below 70 E78.5 Morbid obesity with BMI of 40.0-44.9, adult ([facility]) E66.01, Z68.41 DM type 2, goal HbA1c < 7% ([facility]) E11.[address] (myocardial infarction) I25.2 Primary hypertension I10 Major depressive disorder, single episode, moderate ([facility]) F32.1 CKD (chronic kidney disease), stage II [...] Description 12/14/2023 7:40 AM EST Office Visit [address] [place] [phone] Elroy Hughes MD [address] [place] [address] [place] [id number] 03/04/2024 12:00 PM EDT Office Visit [address] [place]ajal [phone] Elroy Hughes MD [address] [place] [address] [place] Sharp [id number] Health Maintenance Due Date Last Done Comments [...] uncontrolled documented in this encounter Care Teams Parts Counter Associate Relationship Specialty Start Date End Date Elroy Hughes MD [address] [place] [address] [place] Sharp [id number] PCP - General Family Medicine 11/13/23 documented as of this encounter
[2024-02-22] MEDS: ACETAMINOPHEN 325 MG TAB PO PRN (20:25)
[2024-02-22] MEDS: LANTUS PER UNIT CHARGE SQ SCH (21:50)
--- NOTE | 2024-02-23 05:36 | Electrocardiogram Report ---
Test Reason : Blood Pressure : / mmHG Vent. Rate : 077 BPM Atrial Rate : 077 BPM P-R Int : 154 ms QRS Dur : 090 ms QT Int : 398 ms P-R-T Axes : 046 102 046 degrees QTc Int : 450 ms Normal sinus rhythm Rightward axis Poor R wave progression, consider anterior [place] vs. lead placement vs. LVH Abnormal ECG When compared with ECG of 18-JUL-2023 17:18, No significant change was found Confirmed by Peter Bejarano ([id number]) on 02/23/2024 5:36:30 AM Referred By: REFERRED SELF Confirmed By:Peter Bejarano
[2024-02-23] MEDS: methylPREDNISolone 4 MG TAB PO SCH (06:35)
--- NOTE | 2024-02-23 06:46 | Anesthesiology Consultation ---
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 History Surgery Operation Date: 02/23/24 12:30 Proposed Procedures p MRI Lumbar/Spine Without Contrast With Anesthesia Sedation - Geremias Rodriguez MD Height/Weight Height: 5 ft 9 in Weight: 113.2 kg Allergies Allergy/AdvReac Type Severity Reaction Status Date / Time ezetimibe [From Zetia] AdvReac Intermediate HALLUCINATIONS/DIZZINESS/DISORIENTATION--PER Verified 02/21/24 01:10 GMG Medications Home Medications Medication Instructions Recorded Confirmed Last Taken amlodipine 5 mg tablet (Norvasc) 2.5 mg PO QAM 10/14/20 02/21/24 02/19/24 isosorbide mononitrate 60 mg 90 mg PO QAM 10/14/20 02/21/24 02/19/24 tablet,extended release 24 hr losartan 25 mg tablet (Cozaar) 25 mg PO QAM 10/14/20 02/21/24 02/19/24 metoprolol succinate 100 mg 100 mg PO QAM 10/14/20 02/21/24 02/19/24 tablet,extended release 24 hr nitroglycerin 0.4 mg sublingual 0.4 mg sublingual UD PRN Chest Pain 10/14/20 02/21/24 Unknown tablet potassium chloride 10 mEq 10 meq PO QAM 10/14/20 02/21/24 02/19/24 tablet,extended release(part/cryst) rosuvastatin 40 mg tablet (Crestor) 40 mg PO QPM 10/14/20 02/21/24 02/19/24 spironolactone 25 mg tablet 25 mg PO QAM 10/14/20 02/21/24 02/19/24 diclofenac sodium 75 mg 75 mg PO BID 04/27/22 02/21/24 02/19/24 tablet,delayed release fenofibrate 54 mg tablet 54 mg PO QAM 04/27/22 02/21/24 02/19/24 furosemide 40 mg tablet 40 mg PO QAM 04/27/22 02/21/24 02/19/24 metformin 500 mg tablet 500 mg PO BIDM 04/27/22 02/21/24 02/19/24 aspirin 325 mg tablet 650 mg PO QAM 02/07/23 02/21/24 02/19/24 bupropion HCl 300 mg 24 hr tablet, 300 mg PO QAM 02/07/23 02/21/24 02/19/24 extended release (Wellbutrin XL) acetaminophen 500 mg tablet 1,000 mg PO Q6H PRN Pain 04/05/23 02/21/24 07/17/23 19:00 levothyroxine 200 mcg tablet 200 mcg PO DAILYBB 07/18/23 02/21/24 02/19/24 duloxetine 30 mg capsule,delayed 30 mg PO QAM #30 caps 07/25/23 02/21/24 02/19/24 release empagliflozin 10 mg tablet 10 mg PO DAILY 09/06/23 02/21/24 02/19/24 (Jardiance) gabapentin 800 mg tablet 800 mg PO TID 09/06/23 02/21/24 02/19/24 semaglutide 0.25 mg or 0.5 mg (2 0.5 mg subcut WK 09/06/23 02/21/24 02/18/24 mg/3 mL) subcutaneous pen injector (Ozempic) glipizide 5 mg tablet, extended 5 mg PO DAILYBB 02/21/24 02/21/24 02/19/24 release 24 hr tramadol 50 mg tablet 50 mg PO Q8H PRN Pain 02/21/24 02/21/24 Unknown Active Medications Generic Name Dose Route Start Last Admin Trade Name Freq PRN Reason Stop Dose Admin Acetaminophen 650 mg 02/21/24 04:20 02/22/24 20:25 Acetaminophen 325 Mg Tab PO 03/22/24 04:19 650 mg QID PRN Administration pain/fever Amlodipine Besylate 2.5 mg 02/21/24 09:00 02/22/24 08:44 Amlodipine Besylate 5 Mg Tab PO 03/22/24 08:59 2.5 mg QAM BIRD Administration Bupropion HCl 300 mg 02/21/24 09:00 02/22/24 08:45 Bupropion Xl 300 Mg Tabcr PO 03/22/24 08:59 300 mg QAM BIRD Administration Duloxetine HCl 30 mg 02/21/24 09:00 02/22/24 08:44 Duloxetine Hcl 30 Mg Cap PO 03/22/24 08:59 30 mg QAM BIRD Administration Fenofibrate 48 mg 02/22/24 09:00 02/22/24 10:46 Fenofibrate Nanocrystallized 48 Mg Tablet PO 03/22/24 07:59 48 mg DAILY BIRD Administration Furosemide 40 mg 02/21/24 09:00 02/22/24 08:44 Furosemide 40 Mg Tab PO 03/22/24 08:59 40 mg QAM BIRD Administration Gabapentin 800 mg 02/21/24 09:00 02/22/24 20:17 Gabapentin 800 Mg Tab PO 03/22/24 08:59 800 mg TID BIRD Administration Heparin Sodium (Porcine) 5,000 units 02/22/24 14:00 02/23/24 06:35 Heparin Sod 5,000 Unit/0.5 Ml Vial SQ 03/23/24 13:59 5,000 units Q8 BIRD Administration Hydromorphone HCl 1 mg 02/21/24 13:11 02/23/24 04:48 Hydromorphone Inj 1 Mg/Ml Syringe IV 03/06/24 13:10 1 mg Q6H PRN Administration Pain Insulin Aspart 0 units 02/21/24 05:35 02/22/24 21:16 Insulin Aspart Per Unit Charge SC 03/22/24 05:34 Not Given ACHS [facility] Insulin Glargine 10 units 02/22/24 21:00 02/22/24 21:50 Lantus Per Unit Charge SQ 03/23/24 20:59 5 units BID BIRD Administration Isosorbide Mononitrate 90 mg 02/21/24 09:00 02/22/24 08:44 Isosorbide [place] Extended Rel 30 Mg Tabcr PO 03/22/24 08:59 90 mg QAM BIRD Administration Levothyroxine Sodium 200 mcg 02/21/24 06:30 02/23/24 06:35 Levothyroxine Sodium 200 Mcg Tablet PO 03/22/24 06:29 200 mcg DAILYBB BIRD Administration Lidocaine 1 patch 02/21/24 04:20 02/22/24 10:46 Lidocaine 5% 1 Patch TD 03/22/24 04:19 Not Given QAM BIRD Lorazepam 0.5 mg 02/21/24 05:33 02/22/24 11:02 Lorazepam 0.5 Mg Tab PO 03/22/24 05:32 0.5 mg TID PRN Administration Anxiety Losartan Potassium 50 mg 02/22/24 09:00 02/22/24 08:44 Losartan Potassium 50 Mg Tab PO 03/23/24 08:59 50 mg QAM BIRD Administration Methylprednisolone 4 mg 02/23/24 07:00 02/23/24 06:35 Methylprednisolone 4 Mg Tab PO 02/23/24 21:01 4 mg 0700,1300,1800,2100 BIRD Administration Metoprolol Succinate 100 mg 02/21/24 09:00 02/22/24 08:44 Metoprolol Succ 50mg Ext Rel Tab PO 03/22/24 08:59 100 mg QAM BIRD Administration Miscellaneous 1 each 02/21/24 17:00 02/22/24 20:18 Remove Lidoderm Patch N/A 03/22/24 16:59 1 each DAILY@2100 BIRD Administration Oxycodone HCl 5 - 10 mg 02/21/24 04:20 02/22/24 23:08 Oxycodone Hcl Ir 5 Mg Tab (Immediate Release) PO 03/06/24 04:19 10 mg QID PRN Administration Pain Pantoprazole Sodium 40 mg 02/21/24 10:30 02/22/24 08:44 Pantoprazole 40 Mg Tab PO 03/22/24 10:29 40 mg QAM BIRD Administration Potassium Chloride 20 meq 02/21/24 09:00 02/22/24 08:43 Potassium Chloride Crtab 20 Meq Tabcr PO 03/22/24 08:59 20 meq QAM BIRD Administration Rosuvastatin Calcium 40 mg 02/21/24 21:00 02/22/24 20:17 Rosuvastatin Calcium 20 Mg Tab PO 03/22/24 20:59 40 mg QPM BIRD Administration Spironolactone 25 mg 02/21/24 09:00 02/22/24 08:45 Spironolactone 25 Mg Tab PO 03/22/24 08:59 25 mg QAM BIRD Administration Past Medical History Medical History Lower extremity dysfunction Metabolic encephalopathy Angina, class III Postoperative pulmonary edema Obesity Hx of shortness of breath "has been ongoing for the past couple of years, had told his doctors, but they have not done anything about it. mainly feels its due to weight and body changes over the last few years." RG (dyspnea on exertion) ongoing "years" Chronic ischemic heart disease Peripheral neuropathy Nausea after anesthesia Diabetes mellitus, type 2 03/07/23 Ha1c: 9.1% Depression Scrotal swelling s/p trauma 4/1/23 Acute renal failure CHAD (acute kidney injury) Chronic back pain L4-L5-S1, HERNIATED DISCS Coronary artery disease NSTEMI 2013- s/p CABG x2 (CRAIG to LAD, SVG to OM, RCA not bypassed). Cath 2016: patent bypass grafts but severe [place] vessel CAD Dyslipidemia familial hypercholesterolemia Hypothyroidism Hypertension Past Surgical History Surgical History History of hydrocelectomy 04/05/23 R scrotal hydrocelectomy, scrotal exploration R; [place]: Glidescope #3, ETT#7.5 HiLo Oral (per records, elective Glidescope / Mallampati III, thick neck) Hx of hernia repair LT INGUINAL A CHILD History of tonsillectomy and adenoidectomy Hx of CABG CABG x 2 2013, with incomplete revascularization, receiving a CRAIG graft to the LAD, saphenous vein graft to the circumflex obtuse marginal to ungrafted right coronary artery History of cardiac cath 05/19/2016 revealed patent left internal mammary artery graft to left anterior descending, patent saphenous vein graft to the circumflex obtuse marginal with excellent distal runoff, chronically occluded RCA, generally preserved LV systolic function History of incision and drainage (04/28/22) Incision and Drainage Left Submandibular Abscess, Dr. Winslow, DMD 04/28/22 ([place]: Glidescope #3, ETT# 7.5 HiLo Oral) Social History Smoking Status: Never smoker tobacco type: smokeless tobacco Smoking cigarettes per day: Vapes Do You Dip or Chew Tobacco: Yes Hx Alcohol Use: No Hx Substance Use: No substance use type: does not use Last Used Substance: Unknown Physical Exam Vital Signs Last Vital Signs Temp 97.7 F 02/23/24 04:09 Pulse 61 02/23/24 04:09 Resp 18 02/23/24 04:09 BP 118/68 02/23/24 04:39 Pulse Ox 92 02/23/24 04:39 O2 Del Method Room Air 02/23/24 04:39 O2 Flow Rate 2 02/21/24 06:23 Testing Laboratory Results 02/22/24 06:27 02/22/24 06:27 Hemoglobin A1c 7.4 % (4.5-5.6) H 02/21/24 02:33 Urine Color Yellow 02/22/24 00:05 Urine Appearance Clear (Clear) 02/22/24 00:05 Urine pH 6.5 (4.5-7.5) 02/22/24 00:05 Ur Specific [place] 1.028 (1.000-1.030) 02/22/24 00:05 Urine Protein Negative (Negative) 02/22/24 00:05 Urine Glucose (UA) 3+ (Negative) H 02/22/24 00:05 Urine Ketones Negative (Negative) 02/22/24 00:05 Urine Nitrite Negative (Negative) 02/22/24 00:05 Ur Leukocyte Esterase Negative (Negative) 02/22/24 00:05 Urine WBC (Auto) 0-5 /hpf (0-5) 02/22/24 00:05 Urine RBC (Auto) 0-2 /hpf (0-2) 02/22/24 00:05 U Hyaline Cast (Auto) 0-2 /lpf (0-2) 02/22/24 00:05 U Epithel Cells (Auto) 0-2 /hpf (0-2) 02/22/24 00:05 Urine Bacteria (Auto) None Seen (None Seen) 02/22/24 00:05 Blood Type A Positive 02/21/24 06:30 Antibody Screen NEGATIVE 02/21/24 06:30 02/22/24 20:45 POC Glucose 159 H Electrocardiogram Date: 02/21/24 Normal sinus rhythm, rate 77 bpm Rightward axis Poor R wave progression, consider anterior [place] vs. lead placement vs. LVH Abnormal ECG When compared with ECG of 18-JUL-2023 17:18, No significant change was found Confirmed by Peter Bejarano ([id number]) on 02/23/2024 5:36:30 AM Chest X-Ray Date: 02/21/24 Findings: + NAD Echocardiogram Date: 07/18/23 LV EF is grossly normal EF 60-65% Mild concentric LVH Poorly visualized valvular anatomy without significant stenosis or regurgitation
[2024-02-23 06:56] LABS: Basophils # (auto) 0.09 K/uL (0.00-0.20); Basophils % (auto) 0.8 %; Eosinophils # (auto) 0.02 K/uL (0.00-0.50); Eosinophils % (auto) 0.2 %; Hematocrit (blood only) 46.2 % (42.0-52.0); Hemoglobin 14.9 g/dl (14.0-18.0); Immature Granulocytes # (auto) 0.47 K/uL (0.01-0.20); Immature Granulocytes % (auto) 3.9 %; Lymphocytes # (auto) 1.82 K/uL (1.20-3.40); Lymphocytes % (auto) 15.2 %; Mean Corpuscular Hemoglobin 30.7 pg (25.0-34.0); Mean Corpuscular Hgb Conc 32.3 g/dL (32.0-36.0); Mean Corpuscular Volume 95.1 fL (80.0-100.0); Mean Platelet Volume 9.6 fL (9.4-12.4); Monocytes # (auto) 0.88 K/uL (0.11-0.59); Monocytes % (auto) 7.4 %; Neutrophils # (auto) 8.68 K/uL (1.40-6.50); Neutrophils % (auto) 72.5 %; Platelet Count 229 K/uL (130-400); RDW Coefficient of Variation 15.9 % (11.5-14.5); RDW Standard Deviation 55.3 fL (36.4-46.3); Red Blood Count 4.86 M/uL (4.70-6.10); White Blood Count 11.96 K/ul (4.8-10.8)
[2024-02-23 07:24] LABS: BUN Creatinine Ratio 35.5 (10-20); Calcium 8.5 mg/dl (8.6-10.3); Creatinine Clr Calc Pharmacy 121.8 ml/min; Est GFR (African American) 111.7 ml/min; Est GFR (Non-African American) 96.4 ml/min; Potassium 4.4 mmol/L (3.5-5.1)
[2024-02-23] MEDS: LANTUS PER UNIT CHARGE SQ SCH (08:56)
[2024-02-23] MEDS ORDERED: ASPIRIN 81 MG CHEW PO SCH (09:00)
[2024-02-23] MEDS ORDERED: ATROPINE SULFATE 0.1 MG/ML 10ML SYR IV PRN (12:15)
[2024-02-23] MEDS ORDERED: ePHEDrine sulfate 50 MG/ML AMP IV PRN (12:15)
[2024-02-23] MEDS ORDERED: KETAMINE HCL INJ 50 MG/ML 10 ML VIAL ONE (12:21)
[2024-02-23] MEDS ORDERED: HYDROmorphone INJ 2 MG/ML SYR/VIAL ONE (12:22)
[2024-02-23] MEDS ORDERED: MIDAZOLAM HCL 1 MG/ML 2ML VIAL ONE (12:23)
--- NOTE | 2024-02-23 12:39 | Hospitalist Progress Note ---
Date of Service February 23, 2024 Assessment & Plan (1) Chest pain: (2) Acute exacerbation of chronic low back pain: (3) Lumbar radiculopathy: Plan: Patient is a 63yoM with PMHx significant for CAD status post CABG x2, T2DM, HTN, HLD presents to the hospital with worsening back pain and lower extremity weakness along with chest pain. History of chronic back pain with radicular symptoms; presents with radiating back pain and left lower extremity weakness CT of lumbar spine do not show any bony injury MRI of the lumbar spine shows decrease extrusion at L4-L5 and severe cannel and neuroforaminal stenosis. . Images compromised by motion Discussion was done with orthospine; they recommended repeat MRI due to compromise images on the previous MRI. Discussion was done with anesthesia regarding conscious sedation for the MRI; coordination with radiology was also done. Possible surgery after MRI Continue Medrol Dosepak Continue PT OT while hospitalized Chest pain, ACS ruled out Patient had reported chest pain on presentation EKG on admission showed normal sinus rhythm; no significant ST or T wave changes High sensitive troponin negative Evaluated by cardiology. Recommended to resume aspirin, continue on beta- blair, statin, antihypertensives. Aspirin currently on hold for possible intervention Continue Telemonitoring Continue BiPAP Chronic conditions; Type 2 diabetes mellitushold oral agents. On Lantus and NovoLog while inpatient. Monitor while patient is on a steroid Hypertensioncontinue on amlodipine, Lasix, losartan, isosorbide mononitrate, spironolactone Hypothyroidismcontinue levothyroxine Hyperlipidemiacontinue on fenofibrate Mood disordercontinue on Wellbutrin DVT prophylaxis heparin Full code Time spent evaluating patient, direct bedside care, chart review, placing orders, interpretation of diagnostic studies, discussion with consultants, patient, and family members, as well as other required patient management activities is 50 minutes Please note the above document was generated using voice recognition software. It may contain grammatical, syntax or spelling errors. Any formal questions or concerns about the content, text or information contained within the body of this dictation should be directly addressed to the provider for clarification Plan Admission and Anticipated Discharge Date Admission Date: February 22, 2024 Subjective Patient seen and examined at bedside. He is comfortably sitting up on the chair at the side of the bed; not in any distress. He reports continued weakness on his left leg. No significant event overnight Review of Systems Review of Systems: All systems reviewed & are unremarkable except as noted in Subjective Physical Exam Physical Exam: Constitutional: Alert oriented x 3; not in distress. Respiratory: normal respiratory effort, lungs clear to auscultation, no wheeze, rales, rhonchi. Normal insp/exp effort, no accessory muscle use Cardiovascular: RRR, no murmur, no edema Vessels: no JVD or carotid bruit Chest: normal inspection of chest Abdomen: normal bowel sounds, soft, nontender, no hepatosplenomegaly Skin: no rashes, warm and dry normal turgor Neurologic: PERRL, EOMI, accommodation nl, no face palsy, no dysarthria CN's II- XI intact. Strength in left lower extremity3/ 5;Bruise present over the left foot Psychiatric: A+Ox3, euthymic affect Results & Data Results & Data Vital Signs (Past 12 Hours) Vital Signs Temp Pulse Pulse Resp BP BP Pulse Ox 02/23/24 11:52 36.9 C 97 H 16 115/64 97 02/23/24 09:16 65 02/23/24 09:15 02/23/24 07:23 36.7 C 68 16 124/76 93 02/23/24 04:39 118/68 92 02/23/24 04:09 36.5 C 61 18 90/49 L 90 O2 Del Method O2 Del Method O2 Flow Rate 02/23/24 11:52 Room Air 02/23/24 09:16 02/23/24 09:15 Nasal Cannula 2 02/23/24 07:23 Room Air 02/23/24 04:39 Room Air 02/23/24 04:09 Room Air
[2024-02-23] MEDS: HYDROmorphone INJ 2 MG/ML SYR/VIAL IV PRN (13:55)
--- NOTE | 2024-02-23 14:03 | Anesthesiology Progress Note ---
Date of Service February 23, 2024 Anesthesia Post Procedure Vital Signs Vital Signs: Temp Pulse Pulse Resp BP BP Pulse Ox 02/23/24 11:52 36.9 C 97 H 16 115/64 97 02/23/24 09:16 65 02/23/24 09:15 02/23/24 07:23 36.7 C 68 16 124/76 93 02/23/24 04:39 118/68 92 02/23/24 04:09 36.5 C 61 18 90/49 L 90 02/22/24 23:26 36.4 C L 67 18 104/69 92 02/22/24 22:00 65 02/22/24 20:15 02/22/24 19:00 36.5 C 69 18 106/67 93 02/22/24 16:26 36.6 C 64 18 113/66 92 02/22/24 16:00 63 O2 Del Method O2 Del Method O2 Flow Rate 02/23/24 11:52 Room Air 02/23/24 09:16 02/23/24 09:15 Nasal Cannula 2 02/23/24 07:23 Room Air 02/23/24 04:39 Room Air 02/23/24 04:09 Room Air 02/22/24 23:26 Room Air 02/22/24 22:00 02/22/24 20:15 Room Air 02/22/24 19:00 Room Air 02/22/24 16:26 Room Air 02/22/24 16:00 Pain Intensity Lower Back: Pain Intensity: 7 Transfer of Care Handoff Completed per policy Notes Mental Status: alert / awake / arousable and participated in evaluation Patient Amnestic to Procedure: Yes Nausea / Vomiting: adequately controlled Pain: adequately controlled Airway Patency, RR, SpO2: stable & adequate BP & HR: stable & adequate Hydration State: stable & adequate Anesthetic Complications: no major complications apparent and Pt Satisfied with anesthetic care
--- NOTE | 2024-02-23 14:30 | Magnetic Resonance Report ---
MRI OF THE LUMBAR SPINE WITHOUT CONTRAST CLINICAL HISTORY: Low back pain. Left leg numbness. Recent fall. COMPARISON STUDY: Lumbar spine MRIs January 26, 2014 and February 22, 2024. Lumbar spine CT February 21, 2024. TECHNIQUE: Utilizing a 1.5 Nicole magnet and dedicated coil, multiplanar, multiecho imaging of the [facility] spine was performed without IV contrast. FINDINGS: This exam is moderately compromised by motion artifact although motion artifact. Axial sequences are nearly nondiagnostic although sagittal images are diagnostic. For purposes of numbering on this exam, the L5-S1 disc space is assigned to axial image 32 of 35 there are no lumbar spine fractures. The co nus terminates at the lower L1 level. Paravertebral soft tissues are unremarkable. There is severe mu ltilevel facet arthrosis and degenerative disc disease within the lumbar spine. L1-2: Moderate disc space narrowing is noted. There is mild disc bulge. Central canal is patent. The neural foramen are grossly patent. L2-3: There is disc space narrowing with disc bulge, facet arthrosis and ligamentous hypertrophy. Mod erate to severe central canal stenosis is noted. Patent AP diameter of the canal is 4 mm. There is al so moderate to severe narrowing of the left lateral recess and left neural foramen. L3-4: Severe degenerative changes are present. There is disc space narrowing with disc bulge and larg e suspected superimposed disc extrusion. A 1.3 cm T2 hypointense focus projects over the canal. This may reflect disc material, suboptimally assessed due to motion artifact. There is severe facet arthro sis with ligamentous hypertrophy. There is severe narrowing of the central canal, lateral recesses an d the neural foramen. L4-5: Disc bulge is noted with superimposed left paracentral disc extrusion with inferior subligament ous migration. There is mild narrowing of the central canal and severe left lateral recess narrowing. There is severe narrowing of both neural foramen. L5-S1: Severe disc space narrowing is noted. There is a small central disc protrusion with inferior s ubligamentous migration. The central canal is patent. There is severe bilateral neural foraminal sten osis. IMPRESSION: 1. Exam moderately compromised by motion artifact. Severe multilevel degenerative disc disease and fa cet arthrosis within the lumbar spine, most pronounced at L3-L4. 2. Severe narrowing of the central canal, lateral recesses and neural foramen at L3-L4 due to suspect ed large disc herniation with possible disc fragment, facet arthrosis and ligamentous hypertrophy. 3. Moderate to severe central canal stenosis at L2-L3 due to disc bulge, facet arthrosis and ligament ous hypertrophy. 4. Left paracentral disc extrusion at L4-L5 which results in severe narrowing of the left lateral rec ess. 5. Multilevel neural foraminal stenosis, as above. ACT 112: Negative or not required by law. Electronically signed by: Terence Green M.D. 02/23/2024 2:29 PM
[2024-02-23] MEDS: HYDROmorphone INJ 1 MG/ML SYRINGE IV STA (15:28)
--- NOTE | 2024-02-23 15:33 | Pharmacy Report ---
Pharmacy Glycemic Short Note 2 - Date of Service February 23, 2024 - Glycemic Short BSG Results (Last 24 hours): 02/22/24 02/22/24 02/23/24 17:31 20:45 06:19 Glucose 138 H POC Glucose 142 H 159 H 02/23/24 02/23/24 02/23/24 06:44 11:41 13:48 Glucose POC Glucose 127 H 261 H 117 H OUTPATIENT ANTIDIABETIC REGIMEN: * semaglutide 0.5mg SQ weekly * empagliflozin 10mg daily * glyburide 5mg daily w/ breakfast * metformin 500mg BID * A1c 7.4% 02/21/24 ASSESSMENT: 02/22: * BSGs yesterday were [phone] mg/dl. Patient received total 22 units of insulin yesterday; 10 units basal and 12 units bolus. * Fasting BSG = 127 mg/dl. Patient is currently still NPO. * Will continue with basal 5 units BID since BSGs were within goal yesterday on this dose. * Also continued Novolog parameters the same. 02/21: * Type 2 diabetic admitted for CP, back pain, r/o ACS, LE weakness * BSGs have been well controlled thus far * Patient did start Medrol Dose Alberto * Will initiate basal/bolus SQ regimen using weight and "mild-moderate" stress level. PLAN FOR INPATIENT GLYCEMIC CONTROL: * Hold outpatient oral diabetes medications * Basal insulin * Lantus 5 units SQ BID * Bolus insulin * NovoLog per scale ACHS or Q6hrs while NPO * Goal Range: Low 110 mg/dL - High 140 mg/dL * Correction Factor: 25 mg/dL/unit * Nutritional / Prandial insulin per carb ratio of 1 unit per 8 grams CHO consumed
[2024-02-23] MEDS: LORazepam 0.5 MG in SYRINGE 0.25 ML IV ONE (15:59)
[2024-02-24] MEDS: methylPREDNISolone 4 MG TAB PO SCH (06:06)
[2024-02-24 07:05] LABS: Basophils # (auto) 0.11 K/uL (0.00-0.20); Basophils % (auto) 0.8 %; Eosinophils # (auto) 0.22 K/uL (0.00-0.50); Eosinophils % (auto) 1.6 %; Hematocrit (blood only) 43.2 % (42.0-52.0); Hemoglobin 13.8 g/dl (14.0-18.0); Immature Granulocytes # (auto) 0.42 K/uL (0.01-0.20); Immature Granulocytes % (auto) 3.1 %; Lymphocytes # (auto) 2.89 K/uL (1.20-3.40); Lymphocytes % (auto) 21.6 %; Mean Corpuscular Hemoglobin 30.3 pg (25.0-34.0); Mean Corpuscular Hgb Conc 31.9 g/dL (32.0-36.0); Mean Corpuscular Volume 94.9 fL (80.0-100.0); Mean Platelet Volume 9.8 fL (9.4-12.4); Monocytes # (auto) 1.11 K/uL (0.11-0.59); Monocytes % (auto) 8.3 %; Neutrophils # (auto) 8.61 K/uL (1.40-6.50); Neutrophils % (auto) 64.6 %; Platelet Count 208 K/uL (130-400); RDW Coefficient of Variation 15.9 % (11.5-14.5); RDW Standard Deviation 55.2 fL (36.4-46.3); Red Blood Count 4.55 M/uL (4.70-6.10); White Blood Count 13.36 K/ul (4.8-10.8)
[2024-02-24 07:24] LABS: Anion Gap 7 (3-11); BUN Creatinine Ratio 33.8 (10-20); Blood Urea Nitrogen 23 mg/dl (6-23); Calcium 8.3 mg/dl (8.6-10.3); Carbon Dioxide 28 mmol/L (21-32); Chloride 100 mmol/L (98-107); Creatinine Clr Calc Pharmacy 133.7 ml/min; Est GFR (Non-African American) 100.9 ml/min; Glucose 115 mg/dl (70-99(Fasting)); Sodium 135 mmol/L (136-145)
--- NOTE | 2024-02-24 11:13 | Hospitalist Progress Note ---
Date of Service February 24, 2024 Assessment & Plan (1) Chest pain: (2) Acute exacerbation of chronic low back pain: (3) Lumbar radiculopathy: Plan: Patient is a 63yoM with PMHx significant for CAD status post CABG x2, T2DM, HTN, HLD presents to the hospital with worsening back pain and lower extremity weakness along with chest pain. History of chronic back pain with radicular symptoms; presents with radiating back pain and left lower extremity weakness CT of lumbar spine do not show any bony injury MRI of the lumbar spine shows decrease extrusion at L4-L5 and severe cannel and neuroforaminal stenosis. . Images compromised by motion Plan for lumbar decompression on February 26, 2024 by orthospine. PT OT after surgery Continue Medrol Dosepak Continue PT OT while hospitalized Chest pain, ACS ruled out Patient had reported chest pain on presentation EKG on admission showed normal sinus rhythm; no significant ST or T wave changes High sensitive troponin negative Evaluated by cardiology. Recommended to resume aspirin, continue on beta- blair, statin, antihypertensives. Aspirin currently on hold for possible intervention Continue Telemonitoring Continue BiPAP Chronic conditions; Type 2 diabetes mellitushold oral agents. On Lantus and NovoLog while inpatient. Monitor while patient is on a steroid Hypertensioncontinue on amlodipine, Lasix, losartan, isosorbide mononitrate, spironolactone Hypothyroidismcontinue levothyroxine Hyperlipidemiacontinue on fenofibrate Mood disordercontinue on Wellbutrin DVT prophylaxis heparin Full code Please note the above document was generated using voice recognition software. It may contain grammatical, syntax or spelling errors. Any formal questions or concerns about the content, text or information contained within the body of this dictation should be directly addressed to the provider for clarification Admission and Anticipated Discharge Date Admission Date: February 22, 2024 Subjective He is comfortably sitting up on chair; not in distress He reports that pain is well-controlled on current regimen Continues to report weakness in the left leg Review of Systems Review of Systems: All systems reviewed & are unremarkable except as noted in Subjective Physical Exam Physical Exam: Constitutional: Alert oriented x 3; not in distress. Respiratory: normal respiratory effort, lungs clear to auscultation, no wheeze, rales, rhonchi. Normal insp/exp effort, no accessory muscle use Cardiovascular: RRR, no murmur, no edema Vessels: no JVD or carotid bruit Chest: normal inspection of chest Abdomen: normal bowel sounds, soft, nontender, no hepatosplenomegaly Skin: no rashes, warm and dry normal turgor Neurologic: PERRL, EOMI, accommodation nl, no face palsy, no dysarthria CN's II- XI intact. Strength in left lower extremity3/ 5;Bruise present over the left foot Psychiatric: A+Ox3, euthymic affect Results & Data Results & Data Vital Signs (Past 12 Hours) Vital Signs Temp Pulse Pulse Resp BP BP Pulse Ox 02/24/24 08:22 36.6 C 60 20 114/74 98 02/24/24 04:36 36.6 C 64 18 121/75 94 02/24/24 03:36 61 02/23/24 23:44 36.4 C L 63 18 103/65 92 O2 Del Method 02/24/24 08:22 Room Air 02/24/24 04:36 Room Air 02/24/24 03:36 02/23/24 23:44 Room Air
[2024-02-24] MEDS: ENOXAPARIN INJ 40 MG/0.4 ML SYR SQ SCH (12:42)
[2024-02-24] MEDS: tiZANidine HCL 4 MG TABLET PO PRN (12:42)
--- NOTE | 2024-02-24 12:43 | Orthopedic Progress Note ---
Date of Service February 24, 2024 Subjective Evaluation of the patient today reveals the patient to still have the same symptoms with the combination of low back pain more noted when he is supine, and the generalized thigh symptomatology which is more prominent relative the lower extremities. He has had no other new changes. Second attempt at MRI yesterday was unsuccessful in obtaining images with any improvement versus the previous. No changes on examination, still some weakness in the lower extremities prima rily ankle dorsiflexion. Review of MRI images lumbar spine from February 22, this is my separate interpretation, these reveal suboptimal images especially on the axials, the sagittals on the propeller view does show some findings at L3-4 where the main disc herniation I think is present, there is additional stenosis at L2-3 of a degenerative nature, at L4-5 there is a left disc protrusion with extrusion inferiorly. Impression: Lumbar disc herniation at the L3-4 segment, indeterminate as to exact description secondary to suboptimal MRI images. Plan: Today I spent time talking with the patient and his , I actually brought the images up on the computer showing the findings relative to one of his previous MRIs and then the current images. I related that I will discuss with the MRI as to the possibility of perhaps repeating the test with a different combination of pain meds to get better imaging. If not, we will still proceed with the surgery on Monday with decompression at least at the L3-4 segment and removal of the disc fragments, I related that I would more likely not involve the adjacent levels though consideration for decompression at L2-3 may be made at the time of surgery. Explained was the technical details of how the surgery is performed, potential risk complications including but not exclusive to chances of infection, neurologic injury, dural tear and/or leakage, need for additional surgeries, medical risks. Also discussed with his with this I would hope the patient has an improvement in his lower extremities but additional surgeries may be necessary at some point in future, they are in agreement with this plan. Review of Systems All systems reviewed & are unremarkable except as noted in HPI & below. Physical Exam . Results & Data Results & Data Laboratory Results . Diagnostic Findings . PG Care Time/CCT Total # of Minutes Spent Total Time Spent with Patient: Total time spent is greater than 50% in coordination of care (as documented) at patient's floor/unit and/or counseling patient: Coding Level of Care Code 72994 SUB INP/OBS CARE 3/50MIN
[2024-02-25] MEDS: methylPREDNISolone 4 MG TAB PO SCH (06:05)
[2024-02-25 06:49] LABS: Basophils # (auto) 0.12 K/uL (0.00-0.20); Basophils % (auto) 0.9 %; Hematocrit (blood only) 43.3 % (42.0-52.0); Hemoglobin 14.1 g/dl (14.0-18.0); Immature Granulocytes # (auto) 0.62 K/uL (0.01-0.20); Immature Granulocytes % (auto) 4.7 %; Lymphocytes # (auto) 2.82 K/uL (1.20-3.40); Lymphocytes % (auto) 21.5 %; Mean Corpuscular Hemoglobin 30.3 pg (25.0-34.0); Mean Corpuscular Hgb Conc 32.6 g/dL (32.0-36.0); Mean Corpuscular Volume 92.9 fL (80.0-100.0); Mean Platelet Volume 9.8 fL (9.4-12.4); Monocytes # (auto) 1.34 K/uL (0.11-0.59); Monocytes % (auto) 10.2 %; Neutrophils # (auto) 7.82 K/uL (1.40-6.50); Neutrophils % (auto) 59.7 %; Platelet Count 246 K/uL (130-400); RDW Coefficient of Variation 15.9 % (11.5-14.5); RDW Standard Deviation 54.2 fL (36.4-46.3); Red Blood Count 4.66 M/uL (4.70-6.10); White Blood Count 13.12 K/ul (4.8-10.8)
[2024-02-25 07:03] LABS: BUN Creatinine Ratio 34.7 (10-20); Calcium 8.6 mg/dl (8.6-10.3); Creatinine Clr Calc Pharmacy 120.8 ml/min; Est GFR (African American) 112.4 ml/min; Est GFR (Non-African American) 96.9 ml/min; Potassium 4.3 mmol/L (3.5-5.1)
--- NOTE | 2024-02-25 10:24 | Hospitalist Progress Note ---
Date of Service February 25, 2024 Assessment & Plan (1) Chest pain: (2) Acute exacerbation of chronic low back pain: (3) Lumbar radiculopathy: Plan: Patient is a 63yoM with PMHx significant for CAD status post CABG x2, T2DM, HTN, HLD presents to the hospital with worsening back pain and lower extremity weakness along with chest pain. History of chronic back pain with radicular symptoms; presents with radiating back pain and left lower extremity weakness CT of lumbar spine do not show any bony injury MRI of the lumbar spine shows decrease extrusion at L4-L5 and severe cannel and neuroforaminal stenosis. . Images compromised by motion Plan for lumbar decompression on February 26, 2024 by orthospine. PT OT after surgery Continue Medrol Dosepak Continue PT OT while hospitalized Chest pain, ACS ruled out Patient had reported chest pain on presentation EKG on admission showed normal sinus rhythm; no significant ST or T wave changes High sensitive troponin negative Evaluated by cardiology. Recommended to resume aspirin, continue on beta- blair, statin, antihypertensives. Aspirin currently on hold for possible intervention Continue Telemonitoring Continue BiPAP Chronic conditions; Type 2 diabetes mellitushold oral agents. On Lantus and NovoLog while inpatient. Monitor while patient is on a steroid Hypertensioncontinue on amlodipine, Lasix, losartan, isosorbide mononitrate, spironolactone Hypothyroidismcontinue levothyroxine Hyperlipidemiacontinue on fenofibrate Mood disordercontinue on Wellbutrin DVT prophylaxis lovenox on hold for surgery Full code Please note the above document was generated using voice recognition software. It may contain grammatical, syntax or spelling errors. Any formal questions or concerns about the content, text or information contained within the body of this dictation should be directly addressed to the provider for clarification Admission and Anticipated Discharge Date Admission Date: February 22, 2024 Subjective Comfortable; not in distress No significant events overnight Vital signs stable Review of Systems Review of Systems: All systems reviewed & are unremarkable except as noted in Subjective Physical Exam Physical Exam: Constitutional: Alert oriented x 3; not in distress. Respiratory: normal respiratory effort, lungs clear to auscultation, no wheeze, rales, rhonchi. Normal insp/exp effort, no accessory muscle use Cardiovascular: RRR, no murmur, no edema Vessels: no JVD or carotid bruit Chest: normal inspection of chest Abdomen: normal bowel sounds, soft, nontender, no hepatosplenomegaly Skin: no rashes, warm and dry normal turgor Neurologic: PERRL, EOMI, accommodation nl, no face palsy, no dysarthria CN's II- XI intact. Strength in left lower extremity3/ 5;Bruise present over the left foot Psychiatric: A+Ox3, euthymic affect Results & Data Results & Data Vital Signs (Past 12 Hours) Vital Signs Temp Pulse Pulse Resp BP Pulse Ox O2 Del Method 02/25/24 08:14 36.4 C L 78 18 113/61 92 Room Air 02/25/24 07:41 Room Air 02/25/24 07:14 56 L 02/25/24 04:08 36.7 C 61 20 113/71 91 Room Air 02/24/24 23:45 36.6 C 62 16 120/76 93 Room Air 02/24/24 23:13 56 L
--- NOTE | 2024-02-25 11:33 | Orthopedic Progress Note ---
Date of Service February 25, 2024 Subjective Patient with some slight improvement in LBP, also notes he can extend right knee slightly better. Exam unchanged except for increase in right knee extension 01/18 Plan: Will attempt one more try at MRI today with medication, selective images discussed with industrial ecology technician. Surgery tomorrow. Review of Systems All systems reviewed & are unremarkable except as noted in HPI & below. Physical Exam . Results & Data Results & Data Laboratory Results . Diagnostic Findings . PG Care Time/CCT Total # of Minutes Spent Total Time Spent with Patient: Total time spent is greater than 50% in coordination of care (as documented) at patient's floor/unit and/or counseling patient: Coding Level of Care Code 06545 SUB INP/OBS CARE 2/35MIN
[2024-02-25] MEDS: KETOROLAC 30 MG/ML VIAL IV ONE (12:08)
[2024-02-25] MEDS: HYDROmorphone INJ 2 MG/ML SYR/VIAL IV STA ×2 (12:09→12:13)
[2024-02-25] MEDS: ALPRAZolam 0.25 MG TABLET PO ONE (12:09)
[2024-02-25] MEDS: ALPRAZolam 0.5 MG TABLET PO ONE (12:14)
[2024-02-26] MEDS ORDERED: Nursing to Pharmacy Communication SCH (04:25)
[2024-02-26] MEDS: INSULIN ASPART PER UNIT CHARGE SC SCH ×2 (05:58→18:06)
[2024-02-26] MEDS: methylPREDNISolone 4 MG TAB PO SCH (06:01)
[2024-02-26 08:12] LABS: Basophils # (auto) 0.09 K/uL (0.00-0.20); Basophils % (auto) 0.5 %; Eosinophils # (auto) 0.44 K/uL (0.00-0.50); Eosinophils % (auto) 2.6 %; Hematocrit (blood only) 43.4 % (42.0-52.0); Hemoglobin 14.2 g/dl (14.0-18.0); Immature Granulocytes # (auto) 0.52 K/uL (0.01-0.20); Lymphocytes # (auto) 2.19 K/uL (1.20-3.40); Lymphocytes % (auto) 12.7 %; Mean Corpuscular Hemoglobin 30.5 pg (25.0-34.0); Mean Corpuscular Hgb Conc 32.7 g/dL (32.0-36.0); Mean Corpuscular Volume 93.3 fL (80.0-100.0); Mean Platelet Volume 9.6 fL (9.4-12.4); Monocytes # (auto) 1.26 K/uL (0.11-0.59); Monocytes % (auto) 7.3 %; Neutrophils # (auto) 12.68 K/uL (1.40-6.50); Neutrophils % (auto) 73.9 %; Platelet Count 254 K/uL (130-400); RDW Standard Deviation 54.4 fL (36.4-46.3); Red Blood Count 4.65 M/uL (4.70-6.10); White Blood Count 17.18 K/ul (4.8-10.8)
[2024-02-26 09:32] LABS: BUN Creatinine Ratio 34.1 (10-20); Calcium 8.7 mg/dl (8.6-10.3); Est GFR (African American) 102.9 ml/min; Est GFR (Non-African American) 88.8 ml/min; Potassium 4.3 mmol/L (3.5-5.1)
--- NOTE | 2024-02-26 10:57 | Cardiology Progress Note ---
Date of Service February 26, 2024 Assessment & Plan (1) Acute exacerbation of chronic low back pain: (2) ASCVD (arteriosclerotic cardiovascular disease): (3) HTN, goal below 130/80: (4) Preop cardiovascular exam: Plan Complex 63-year-old male admitted with acute on chronic back pain with known chronic CCS Class 3 angina pectoris. Recommendations: 1.ASA on hold pending spine surgery 2. Continue beta-blair therapy (metoprolol succinate), statin (rosuvastatin), amlodipine, isosorbide, losartan, spironolactone, and Jardiance 3. Continue PPI Surgery delayed until 02/27/24. Optimized from a cardiac perspective. Will continue to follow . Recommend telemetry bed post op. Admission and Anticipated Discharge Date Admission Date: February 22, 2024 Subjective Pt seen in cardiology follow up. Feels well from a cardiac perspective. Telemetry reveals SR in the 50s to 60s. Physical Exam Physical Exam: General: A&Ox3. NAD. HENT: Normocephalic. Atraumatic. Eyes: PER. Conjunctiva pink, sclera clear. Neck: No carotid bruits. Normal JVD. Heart: RRR, 68 bpm. No murmur. PMI is nondisplaced. Lungs: Diminished at the bases however clear to auscultation. Abdomen: +BS. Soft. No organomegaly. Extremities: Trace to 1+ pretibial edema. Soft tissue swelling and ecchymosis on the doral aspects of both feet. No overt cellulitis. No overt ischemia. No clubbing. Dorsalis pedis pulses are 1/4 bilaterally. Limited neurological examination is without focal deficits. Results & Data Vital Signs (Past 12 Hours) Vital Signs Temp Pulse Pulse Resp BP BP Pulse Ox 02/26/24 08:25 02/26/24 07:32 36.5 C 59 L 15 121/74 93 02/26/24 07:06 59 L 02/26/24 03:48 36.6 C 68 18 123/76 95 02/25/24 23:20 36.7 C 59 L 18 104/62 91 Pulse Ox O2 Del Method O2 Del Method 02/26/24 08:25 96 Room Air 02/26/24 07:32 Room Air 02/26/24 07:06 02/26/24 03:48 Room Air 02/25/24 23:20 Room Air
[2024-02-26] MEDS: MAGNESIUM HYDROXIDE SUSP 30 ML UDC PO SCH (11:58)
[2024-02-26] MEDS: HYDROmorphone INJ 1 MG/ML SYRINGE IV PRN (12:28)
--- NOTE | 2024-02-26 13:25 | Hospitalist Progress Note ---
Date of Service February 26, 2024 Assessment & Plan (1) Chest pain: (2) Acute exacerbation of chronic low back pain: (3) Lumbar radiculopathy: Plan: Patient is a 63yoM with PMHx significant for CAD status post CABG x2, T2DM, HTN, HLD presents to the hospital with worsening back pain and lower extremity weakness along with chest pain. History of chronic back pain with radicular symptoms; presents with radiating back pain and left lower extremity weakness CT of lumbar spine do not show any bony injury MRI of the lumbar spine shows decrease extrusion at L4-L5 and severe cannel and neuroforaminal stenosis. Images compromised by motion Plan for lumbar decompression on February 27, 2024 by orthospine.Evaluated by cardiology; patient currently optimized from cardiology perspective. PT OT after surgery s/p Medrol Dosepak. leukocytosis likely due to steroids. continue to monitor Continue PT OT while hospitalized Chest pain, ACS ruled out Patient had reported chest pain on presentation EKG on admission showed normal sinus rhythm; no significant ST or T wave changes High sensitive troponin negative Evaluated by cardiology. Recommended to resume aspirin, continue on beta- blair, statin, antihypertensives. Aspirin currently on hold for possible intervention Continue Telemonitoring Continue BiPAP Chronic conditions; Type 2 diabetes mellitushold oral agents. On Lantus and NovoLog while inpatient. Monitor while patient is on a steroid Hypertensioncontinue on amlodipine, Lasix, isosorbide mononitrate, spironolactone. Hypothyroidismcontinue levothyroxine Hyperlipidemiacontinue on fenofibrate Mood disordercontinue on Wellbutrin DVT prophylaxis lovenox on hold for surgery Full code Please note the above document was generated using voice recognition software. It may contain grammatical, syntax or spelling errors. Any formal questions or concerns about the content, text or information contained within the body of this dictation should be directly addressed to the provider for clarification Admission and Anticipated Discharge Date Admission Date: February 22, 2024 Subjective Patient seen and examined at bedside. He is comfortably sitting up on the chair. No significant events overnight Review of Systems Review of Systems: All systems reviewed & are unremarkable except as noted in Subjective Physical Exam Physical Exam: Constitutional: Alert oriented x 3; not in distress. Respiratory: normal respiratory effort, lungs clear to auscultation, no wheeze, rales, rhonchi. Normal insp/exp effort, no accessory muscle use Cardiovascular: RRR, no murmur, no edema Vessels: no JVD or carotid bruit Chest: normal inspection of chest Abdomen: normal bowel sounds, soft, nontender, no hepatosplenomegaly Skin: no rashes, warm and dry normal turgor Neurologic: PERRL, EOMI, accommodation nl, no face palsy, no dysarthria CN's II- XI intact. Strength in left lower extremity3/ 5;Bruise present over the left foot Psychiatric: A+Ox3, euthymic affect Results & Data Results & Data Vital Signs (Past 12 Hours) Vital Signs Temp Pulse Pulse Resp BP BP Pulse Ox 02/26/24 11:19 36.3 C L 69 17 113/68 94 02/26/24 08:25 02/26/24 07:32 36.5 C 59 L 15 121/74 93 02/26/24 07:06 59 L 02/26/24 03:48 36.6 C 68 18 123/76 95 Pulse Ox O2 Del Method O2 Del Method 02/26/24 11:19 Room Air 02/26/24 08:25 96 Room Air 02/26/24 07:32 Room Air 02/26/24 07:06 02/26/24 03:48 Room Air
--- NOTE | 2024-02-26 17:04 | Orthopedic Progress Note ---
Date of Service February 26, 2024 Subjective Patient without significant change, low back pain and lower extremity symptoms are stable at this time. Patient was unable to tolerate MRI trial yesterday No changes on examination. Plan: Patient is scheduled for surgery tomorrow, lumbar decompression. Review of Systems All systems reviewed & are unremarkable except as noted in HPI & below. Physical Exam . Results & Data Results & Data Laboratory Results . Diagnostic Findings . PG Care Time/CCT Total # of Minutes Spent Total Time Spent with Patient: Total time spent is greater than 50% in coordination of care (as documented) at patient's floor/unit and/or counseling patient: Coding Level of Care Code 76478 SUB INP/OBS CARE 11/09MIN
[2024-02-27] MEDS: LOSARTAN POTASSIUM 50 MG TAB PO SCH (07:33)
[2024-02-27] MEDS: INSULIN ASPART PER UNIT CHARGE SC SCH (08:48)
[2024-02-27] MEDS ORDERED: GLYCOPYRROLATE 0.2 MG/ML VIAL ONE (10:08)
[2024-02-27] MEDS ORDERED: ROCURONIUM BROMIDE 10 MG/ML 5 ML VIAL IV ONE (10:08)
[2024-02-27] MEDS ORDERED: PROPOFOL IV EMULSION 10 MG/ML 20 ML VIAL IV ONE (10:08)
[2024-02-27] MEDS ORDERED: LIDOCAINE 2% 2 ML VIAL/AMP(20MG/ML) INFIL ONE (10:08)
[2024-02-27] MEDS ORDERED: MIDAZOLAM HCL 1 MG/ML 2ML VIAL ONE (10:08)
[2024-02-27] MEDS ORDERED: DEXAMETHASONE SOD INJ 4 MG/ML VIAL ONE (10:08)
[2024-02-27] MEDS ORDERED: ONDANSETRON INJ 2 MG/ML 2 ML VIAL ONE (10:08)
[2024-02-27] MEDS ORDERED: fentaNYL citrate PF 100 MCG/2 ML VIAL ONE ×2 (10:09→14:42)
[2024-02-27] MEDS ORDERED: SUGAMMADEX SODIUM 200 MG/2 ML VIAL IV ONE (10:12)
[2024-02-27] MEDS: LACTATED RINGER'S 1,000 ML IV SCH ×2 (12:58→19:22)
--- NOTE | 2024-02-27 13:00 | Hospitalist Progress Note ---
Date of Service February 27, 2024 Assessment & Plan (1) Chest pain: (2) Acute exacerbation of chronic low back pain: (3) Lumbar radiculopathy: Plan: Patient is a 63yoM with PMHx significant for CAD status post CABG x2, T2DM, HTN, HLD presents to the hospital with worsening back pain and lower extremity weakness along with chest pain. History of chronic back pain with radicular symptoms; presents with radiating back pain and left lower extremity weakness CT of lumbar spine do not show any bony injury MRI of the lumbar spine shows decrease extrusion at L4-L5 and severe cannel and neuroforaminal stenosis. Images compromised by motion Plan for lumbar decompression today by orthospine.Evaluated by cardiology; patient currently optimized from cardiology perspective. PT OT after surgery s/p Medrol Dosepak. leukocytosis likely due to steroids. continue to monitor Continue PT OT after surgery Chest pain, ACS ruled out Patient had reported chest pain on presentation EKG on admission showed normal sinus rhythm; no significant ST or T wave changes High sensitive troponin negative Evaluated by cardiology. Recommended to resume aspirin, continue on beta- blair, statin, antihypertensives. Aspirin currently on hold for possible intervention Continue Telemonitoring Continue BiPAP Chronic conditions; Type 2 diabetes mellitushold oral agents. On Lantus and NovoLog while inpatient. Monitor while patient is on a steroid Hypertensioncontinue on amlodipine, Lasix, isosorbide mononitrate, spironolactone. Hypothyroidismcontinue levothyroxine Hyperlipidemiacontinue on fenofibrate Mood disordercontinue on Wellbutrin DVT prophylaxis lovenox on hold for surgery Full code Please note the above document was generated using voice recognition software. It may contain grammatical, syntax or spelling errors. Any formal questions or concerns about the content, text or information contained within the body of this dictation should be directly addressed to the provider for clarification Admission and Anticipated Discharge Date Admission Date: February 22, 2024 Subjective Patient seen and examined at bedside. Comfortable; not in distress. Denies fever, chills, chest pain, shortness of breath, abdominal pain or urinary symptoms. No significant overnight events Review of Systems Review of Systems: All systems reviewed & are unremarkable except as noted in Subjective Physical Exam Physical Exam: Constitutional: Alert oriented x 3; not in distress. Respiratory: normal respiratory effort, lungs clear to auscultation, no wheeze, rales, rhonchi. Normal insp/exp effort, no accessory muscle use Cardiovascular: RRR, no murmur, no edema Vessels: no JVD or carotid bruit Chest: normal inspection of chest Abdomen: normal bowel sounds, soft, nontender, no hepatosplenomegaly Skin: no rashes, warm and dry normal turgor Neurologic: PERRL, EOMI, accommodation nl, no face palsy, no dysarthria CN's II- XI intact. Strength in left lower extremity3/ 5;Bruise present over the left foot Psychiatric: A+Ox3, euthymic affect Results & Data Results & Data Vital Signs (Past 12 Hours) Vital Signs Temp Pulse Pulse Resp BP Pulse Ox Pulse Ox 02/27/24 12:50 36.8 C 71 20 118/49 L 92 02/27/24 11:39 36.6 C 73 18 118/75 92 02/27/24 08:36 98 02/27/24 07:56 36.7 C 69 18 115/73 90 02/27/24 07:07 67 02/27/24 03:39 36.9 C 72 18 108/68 92 O2 Del Method O2 Del Method 02/27/24 12:50 Room Air 02/27/24 11:39 Room Air 02/27/24 08:36 Room Air 02/27/24 07:56 Room Air 02/27/24 07:07 02/27/24 03:39 Room Air
--- NOTE | 2024-02-27 13:06 | Anesthesiology Consultation ---
Date of Service February 27, 2024 Assessment & Plan Chart Review Chart Review: Acceptable Risk for Surgery and Patient NOT seen in Pre Admission Testing Consults Requested none ASA ASA4 Proposed Anesthesia Anesthesia Type: General Risk / Benefits Reviewed With: PT / POA / Parent / Guardian, Accepts Plan and Informed Consent Obtained History Surgery Operation Date: 02/23/24 12:30 Proposed Procedures p MRI Lumbar/Spine Without Contrast With Anesthesia Sedation - Geremias Rodriguez MD Operation Date: 02/27/24 13:35 Proposed Procedures p L3-L4 Lumbar Decompression - Stanislaw Patrick MD Height/Weight Height: 5 ft 9 in Weight: 109.2 kg Allergies Allergy/AdvReac Type Severity Reaction Status Date / Time ezetimibe [From Zetia] AdvReac Intermediate HALLUCINATIONS/DIZZINESS/DISORIENTATION--PER Verified 02/21/24 01:10 GMG Medications Home Medications Medication Instructions Recorded Confirmed Last Taken amlodipine 5 mg tablet (Norvasc) 2.5 mg PO QAM 10/14/20 02/21/24 02/19/24 isosorbide mononitrate 60 mg 90 mg PO QAM 10/14/20 02/21/24 02/19/24 tablet,extended release 24 hr losartan 25 mg tablet (Cozaar) 25 mg PO QAM 10/14/20 02/21/24 02/19/24 metoprolol succinate 100 mg 100 mg PO QAM 10/14/20 02/21/24 02/19/24 tablet,extended release 24 hr nitroglycerin 0.4 mg sublingual 0.4 mg sublingual UD PRN Chest Pain 10/14/20 02/21/24 Unknown tablet potassium chloride 10 mEq 10 meq PO QAM 10/14/20 02/21/24 02/19/24 tablet,extended release(part/cryst) rosuvastatin 40 mg tablet (Crestor) 40 mg PO QPM 10/14/20 02/21/24 02/19/24 spironolactone 25 mg tablet 25 mg PO QAM 10/14/20 02/21/24 02/19/24 diclofenac sodium 75 mg 75 mg PO BID 04/27/22 02/21/24 02/19/24 tablet,delayed release fenofibrate 54 mg tablet 54 mg PO QAM 04/27/22 02/21/24 02/19/24 furosemide 40 mg tablet 40 mg PO QAM 04/27/22 02/21/24 02/19/24 metformin 500 mg tablet 500 mg PO BIDM 04/27/22 02/21/24 02/19/24 aspirin 325 mg tablet 650 mg PO QAM 02/07/23 02/21/24 02/19/24 bupropion HCl 300 mg 24 hr tablet, 300 mg PO QAM 02/07/23 02/21/24 02/19/24 extended release (Wellbutrin XL) acetaminophen 500 mg tablet 1,000 mg PO Q6H PRN Pain 04/05/23 02/21/24 07/17/23 19:00 levothyroxine 200 mcg tablet 200 mcg PO DAILYBB 07/18/23 02/21/24 02/19/24 duloxetine 30 mg capsule,delayed 30 mg PO QAM #30 caps 07/25/23 02/21/24 02/19/24 release empagliflozin 10 mg tablet 10 mg PO DAILY 09/06/23 02/21/24 02/19/24 (Jardiance) gabapentin 800 mg tablet 800 mg PO TID 09/06/23 02/21/24 02/19/24 semaglutide 0.25 mg or 0.5 mg (2 0.5 mg subcut WK 09/06/23 02/21/24 02/18/24 mg/3 mL) subcutaneous pen injector (Ozempic) glipizide 5 mg tablet, extended 5 mg PO DAILYBB 02/21/24 02/21/24 02/19/24 release 24 hr tramadol 50 mg tablet 50 mg PO Q8H PRN Pain 02/21/24 02/21/24 Unknown Active Medications Generic Name Dose Route Start Last Admin Trade Name Freq PRN Reason Stop Dose Admin Acetaminophen 650 mg 02/21/24 04:20 02/25/24 20:34 Acetaminophen 325 Mg Tab PO 03/22/24 04:19 650 mg QID PRN Administration pain/fever Amlodipine Besylate 2.5 mg 02/21/24 09:00 02/27/24 07:34 Amlodipine Besylate 5 Mg Tab PO 03/22/24 08:59 2.5 mg QAM BIRD Administration Bupropion HCl 300 mg 02/21/24 09:00 02/27/24 07:33 Bupropion Xl 300 Mg Tabcr PO 03/22/24 08:59 300 mg QAM BIRD Administration Duloxetine HCl 30 mg 02/21/24 09:00 02/27/24 07:33 Duloxetine Hcl 30 Mg Cap PO 03/22/24 08:59 30 mg QAM BIRD Administration Fenofibrate 48 mg 02/22/24 09:00 02/27/24 07:33 Fenofibrate Nanocrystallized 48 Mg Tablet PO 03/22/24 07:59 48 mg DAILY BIRD Administration Furosemide 40 mg 02/21/24 09:00 02/27/24 07:33 Furosemide 40 Mg Tab PO 03/22/24 08:59 40 mg QAM BIRD Administration Gabapentin 800 mg 02/21/24 09:00 02/27/24 07:32 Gabapentin 800 Mg Tab PO 03/22/24 08:59 800 mg TID BIRD Administration Hydromorphone HCl 1 mg 02/26/24 11:44 02/27/24 07:32 Hydromorphone Inj 1 Mg/Ml Syringe IV 03/06/24 13:10 1 mg Q4H PRN Administration Pain Lactated Ringer's 1,000 mls @ 15 mls/hr 02/27/24 13:00 02/27/24 12:58 Lr IV 03/28/24 12:59 15 mls/hr .Q24H BIRD Administration Insulin Aspart 0 units 02/27/24 08:00 02/27/24 12:25 Insulin Aspart Per Unit Charge SC 03/28/24 07:59 Not Given Q6 BIRD Insulin Glargine 5 units 02/23/24 09:00 02/27/24 07:32 Lantus Per Unit Charge SQ 03/24/24 08:59 5 units BID BIRD Administration Isosorbide Mononitrate 90 mg 02/21/24 09:00 02/27/24 07:33 Isosorbide [place] Extended Rel 30 Mg Tabcr PO 03/22/24 08:59 90 mg QAM BIRD Administration Levothyroxine Sodium 200 mcg 02/21/24 06:30 02/27/24 06:01 Levothyroxine Sodium 200 Mcg Tablet PO 03/22/24 06:29 200 mcg DAILYBB BIRD Administration Lidocaine 1 patch 02/21/24 04:20 02/27/24 07:34 Lidocaine 5% 1 Patch TD 03/22/24 04:19 1 patch QAM BIRD Administration Lorazepam 0.5 mg 02/21/24 05:33 02/26/24 00:41 Lorazepam 0.5 Mg Tab PO 03/22/24 05:32 0.5 mg TID PRN Administration Anxiety Losartan Potassium 50 mg 02/28/24 09:00 02/27/24 07:33 Losartan Potassium 50 Mg Tab PO 03/29/24 08:59 50 mg QAM BIRD Administration Magnesium Hydroxide 30 ml 02/26/24 11:45 02/27/24 07:39 Magnesium Hydroxide Susp 30 Ml Udc PO 03/27/24 11:44 30 ml BID BIRD Administration Metoprolol Succinate 100 mg 02/21/24 09:00 02/27/24 07:34 Metoprolol Succ 50mg Ext Rel Tab PO 03/22/24 08:59 100 mg QAM BIRD Administration Miscellaneous 1 each 02/21/24 17:00 02/26/24 19:52 Remove Lidoderm Patch N/A 03/22/24 16:59 1 each DAILY@2100 BIRD Administration Oxycodone HCl 5 - 10 mg 02/21/24 04:20 02/27/24 11:17 Oxycodone Hcl Ir 5 Mg Tab (Immediate Release) PO 03/06/24 04:19 10 mg QID PRN Administration Pain Pantoprazole Sodium 40 mg 02/21/24 10:30 02/27/24 07:33 Pantoprazole 40 Mg Tab PO 03/22/24 10:29 40 mg QAM BIRD Administration Potassium Chloride 20 meq 02/21/24 09:00 02/27/24 07:39 Potassium Chloride Crtab 20 Meq Tabcr PO 03/22/24 08:59 20 meq QAM BIRD Administration Rosuvastatin Calcium 40 mg 02/21/24 21:00 02/26/24 19:54 Rosuvastatin Calcium 20 Mg Tab PO 03/22/24 20:59 40 mg QPM BIRD Administration Spironolactone 25 mg 02/21/24 09:00 02/27/24 07:34 Spironolactone 25 Mg Tab PO 03/22/24 08:59 25 mg QAM BIRD Administration Tizanidine HCl 2 mg 02/22/24 13:50 02/25/24 12:08 Tizanidine Hcl 4 Mg Tablet PO 03/23/24 13:59 2 mg TID PRN Administration muscle spasm NPO Date Last Intake of Fluids: 02/26/24 Time Last Intake of Fluids: 23:00 Last Intake of Fluids Comment: sip of water 1117 w/med Date Last Intake of Solids: 02/26/24 Time Last Intake of Solids: 17:00 Past Medical History Medical History Metabolic encephalopathy Angina, class III Postoperative pulmonary edema Hx of shortness of breath "has been ongoing for the past couple of years, had told his doctors, but they have not done anything about it. mainly feels its due to weight and body changes over the last few years." RG (dyspnea on exertion) ongoing "years" Chronic ischemic heart disease Peripheral neuropathy Nausea after anesthesia Diabetes mellitus, type 2 03/07/23 Ha1c: 9.1% Depression Scrotal swelling s/p trauma 01/14/23 Acute renal failure CHAD (acute kidney injury) Chronic back pain L4-L5-S1, HERNIATED DISCS Exercise / Class Metabolic Activity III < 4 Walking/Shop/Light housework Past Surgical History Surgical History History of hydrocelectomy 04/05/23 R scrotal hydrocelectomy, scrotal exploration R; [place]: Glidescope #3, ETT#7.5 HiLo Oral (per records, elective Glidescope 2/ Mallampati III, thick neck) Hx of hernia repair LT INGUINAL A CHILD History of tonsillectomy and adenoidectomy Hx of CABG CABG x 2 2013, with incomplete revascularization, receiving a CRAIG graft to the LAD, saphenous vein graft to the circumflex obtuse marginal to ungrafted right coronary artery History of cardiac cath 05/19/2016 revealed patent left internal mammary artery graft to left anterior descending, patent saphenous vein graft to the circumflex obtuse marginal with excellent distal runoff, chronically occluded RCA, generally preserved LV systolic function History of incision and drainage (04/28/22) Incision and Drainage Left Submandibular Abscess, Dr. Winslow, DMD 04/28/22 ([place]: Glidescope #3, ETT# 7.5 HiLo Oral) Past Anesthesia History No Hx of Anesthesia Complications and No Family Hx of Anesthesia Complications History of PONV No Hx of PONV and No Hx of Motion Sickness Social History Smoking Status: Former smoker tobacco type: smokeless tobacco Smoking cigarettes per day: Vapes Do You Dip or Chew Tobacco: Yes Hx Alcohol Use: No Hx Substance Use: No substance use type: does not use Last Used Substance: Unknown Physical Exam Vital Signs Last Vital Signs Temp 36.8 C 02/27/24 12:50 Pulse 71 02/27/24 12:50 Resp 20 02/27/24 12:50 BP 118/49 L 02/27/24 12:50 Pulse Ox 92 02/27/24 12:50 O2 Del Method Room Air 02/27/24 12:50 O2 Flow Rate 2 02/23/24 14:25 Constitutional + obese; no acute distress ENMT Mouth: + dentition abnormality and + dental restorations Thyromental Distance: > or= 3.5 Finger Breadths Mallampati Class: III Neck normal visual inspection, trachea midline, + short neck, + thick neck and + facial hair; neck extension not limited Respiratory normal respiratory effort Auscultation: + diminished lung sounds Cardiovascular Rate/Rhythm: regular rate and regular rhythm Heart Sounds: no murmur Vessels: no carotid bruit Chest (Breasts) Chest: + vascular access device or port Musculoskeletal Spine: normal cervical ROM and no pain with cervical ROM Extremities: full ROM of extremities Neurologic moves all extremities Motor/Sensory: + sensory deficit (diabetic pn) Psychiatric Orientation: alert and oriented x 3 Testing Laboratory Results 02/26/24 07:16 02/26/24 07:16 Hemoglobin A1c 7.4 % (4.5-5.6) H 02/21/24 02:33 Urine Color Yellow 02/22/24 00:05 Urine Appearance Clear (Clear) 02/22/24 00:05 Urine pH 6.5 (4.5-7.5) 02/22/24 00:05 Ur Specific [place] 1.028 (1.000-1.030) 02/22/24 00:05 Urine Protein Negative (Negative) 02/22/24 00:05 Urine Glucose (UA) 3+ (Negative) H 02/22/24 00:05 Urine Ketones Negative (Negative) 02/22/24 00:05 Urine Nitrite Negative (Negative) 02/22/24 00:05 Ur Leukocyte Esterase Negative (Negative) 02/22/24 00:05 Urine WBC (Auto) 0-5 /hpf (0-5) 02/22/24 00:05 Urine RBC (Auto) 0-2 /hpf (0-2) 02/22/24 00:05 U Hyaline Cast (Auto) 0-2 /lpf (0-2) 02/22/24 00:05 U Epithel Cells (Auto) 0-2 /hpf (0-2) 02/22/24 00:05 Urine Bacteria (Auto) None Seen (None Seen) 02/22/24 00:05 Blood Type A Positive 02/21/24 06:30 Antibody Screen NEGATIVE 02/21/24 06:30 02/27/24 02/27/24 12:10 05:57 POC Glucose 125 H 119 H Electrocardiogram Date: 02/21/24 Findings: + NSR @ (@ 77;RAD;poor wave progression) Chest X-Ray Date: 02/21/24 Findings: + NAD and + cardiomegaly Echocardiogram Date: 07/18/23 EF: 60% LV Function: normal RWMA: no none Other Findings: + LVH (mild)
[2024-02-27] MEDS ORDERED: ePHEDrine sulfate 50 MG/ML AMP IV PRN (13:11)
[2024-02-27] MEDS ORDERED: FLUMAZENIL 0.1 MG/1 ML 10 ML VIAL IV PRN (13:11)
[2024-02-27] MEDS ORDERED: ONDANSETRON INJ 2 MG/ML 2 ML VIAL IV PRN ×2 (13:11→17:40)
[2024-02-27] MEDS ORDERED: LABETALOL HCL IV 5 MG/ML 20ML IV PRN (13:11)
[2024-02-27] MEDS ORDERED: HYDROmorphone INJ 1 MG/ML SYRINGE IV PRN (13:11)
[2024-02-27] MEDS ORDERED: fentaNYL citrate PF 100 MCG/2 ML VIAL IV PRN (13:11)
[2024-02-27] MEDS ORDERED: NALOXONE HCL 0.4 MG/1 ML VIAL/CARP IV PRN ×2 (13:11→17:40)
[2024-02-27] MEDS ORDERED: PROMETHAZINE HCL 6.25 MG in SODIUM CHLORIDE 0.9% 50 ML IV PRN (13:11)
--- NOTE | 2024-02-27 13:34 | History & Physical Bridge Note ---
Date of Service February 27, 2024 History & Physical Bridge Note I have examined the patient, reviewed the History & Physical and in the interval since the performance of the History & Physical I have noted the following changes of clinical significance: no changes noted
[2024-02-27] MEDS: ceFAZolin 2000MG 2,000 MG/15 ML SYR IV ONE (13:50)
[2024-02-27] MEDS: ceFAZolin 2,000 MG/15 ML IV PUSH IV ONE (13:50)
[2024-02-27] MEDS: VANCOMYCIN HCL 1000MG/20ML VIAL ONE (15:05)
[2024-02-27] MEDS: BUPIVACAINE 0.5 % 5 MG/1 ML MPF 30ML VIAL ONE (15:05)
--- NOTE | 2024-02-27 15:35 | Fluoroscopy Report ---
FL lumbar spine 2-3V CLINICAL HISTORY: L3-L4 Decompression COMPARISON STUDY: Lumbar spine MRI 02/23/2024 FLUOROSCOPY TIME: 35.6 seconds FLUOROSCOPY IMAGES: 5 EXPOSURE DOSE: 27.31 mGy FINDINGS: Retractors are present posterior to the L3-L4 levels. Spondylotic spurring with interverteb ral disc space narrowing redemonstrated. IMPRESSION: Fluoroscopic assistance as above. ACT 112: Negative or not required by law. Electronically signed by: Sabino Tidwell M.D. 02/27/2024 3:34 PM
--- NOTE | 2024-02-27 15:41 | Pharmacy Report ---
Pharmacy Glycemic Short Note 2 - Date of Service February 27, 2024 - Glycemic Short BSG Results (Last 24 hours): 02/26/24 02/26/24 02/27/24 17:00 20:47 00:40 POC Glucose 142 H 127 H 178 H 02/27/24 02/27/24 05:57 12:10 POC Glucose 119 H 125 H OUTPATIENT ANTIDIABETIC REGIMEN: * semaglutide 0.5mg SQ weekly * empagliflozin 10mg daily * glyburide 5mg daily w/ breakfast * metformin 500mg BID * A1c 7.4% 02/21/24 ASSESSMENT: 02/26: * Pt in OR today, steroids pulled - will provide scale for basal at HS 02/22: * BSGs yesterday were [phone] mg/dl. Patient received total 22 units of insulin yesterday; 10 units basal and 12 units bolus. * Fasting BSG = 127 mg/dl. Patient is currently still NPO. * Will continue with basal 5 units BID since BSGs were within goal yesterday on this dose. * Also continued Novolog parameters the same. 02/21: * Type 2 diabetic admitted for CP, back pain, r/o ACS, LE weakness * BSGs have been well controlled thus far * Patient did start Medrol Dose Alberto * Will initiate basal/bolus SQ regimen using weight and "mild-moderate" stress level. PLAN FOR INPATIENT GLYCEMIC CONTROL: * Hold outpatient oral diabetes medications * Basal insulin * Lantus 5 units SQ this AM * Lantus 5-8 units HS * Bolus insulin * NovoLog per scale ACHS or Q6hrs while NPO * Goal Range: Low 110 mg/dL - High 140 mg/dL * Correction Factor: 25 mg/dL/unit * Nutritional / Prandial insulin per carb ratio of 1 unit per 8 grams CHO consumed
[2024-02-27] MEDS ORDERED: KETOROLAC 30 MG/ML VIAL ONE (16:57)
[2024-02-27] MEDS: BUPIVACAINE/EPINEPHRINE 0.5% MPF 1:200,000 30 ML VIAL ONE (17:04)
[2024-02-27] MEDS: FLOSEAL HEMOSTATIC MATRIX 10ML TOP ONE (17:05)
[2024-02-27] MEDS: GELATIN SPONGE 12-7MM ONE (17:21)
[2024-02-27] MEDS: THROMBIN 5000 UNITS KIT ONE (17:21)
--- NOTE | 2024-02-27 17:38 | Post Operative Brief Note ---
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 L3-L4 disc herniation Drains Barragan Catheter (16 kazakh Barragan catheter inserted prior to start of procedure by Audrey Hercules.)
[2024-02-27] MEDS ORDERED: ACETAMINOPHEN 500 MG TAB PO PRN ×2 (17:40→19:13)
[2024-02-27] MEDS ORDERED: ACETAMINOPHEN 1,000 MG/100 ML VIAL IV PRN (17:40)
[2024-02-27] MEDS ORDERED: PROMETHAZINE HCL 12.5 MG in SODIUM CHLORIDE 0.9% 50 ML IV PRN (17:40)
[2024-02-27] MEDS ORDERED: LORazepam 0.5 MG TAB PO PRN (17:40)
[2024-02-27] MEDS ORDERED: ONDANSETRON 4 MG OD TAB PO PRN (17:40)
[2024-02-27] MEDS ORDERED: METOCLOPRAMIDE HCL INJ 5 MG/ML 2 ML VIAL IV PRN (17:40)
[2024-02-27] MEDS ORDERED: ALUMINUM/MAGNESIUM SUSP 30 ML UDC PO PRN (17:40)
[2024-02-27] MEDS ORDERED: hydrOXYzine HCl 25 MG TAB PO PRN (17:40)
[2024-02-27] MEDS ORDERED: LORazepam 0.5 MG in SYRINGE 0.25 ML IV PRN (17:40)
[2024-02-27] MEDS ORDERED: diphenhydrAMINE Capsule 25 MG CAP PO PRN (17:40)
[2024-02-27] MEDS ORDERED: FAMOTIDINE 20 MG TAB PO PRN (17:40)
[2024-02-27] MEDS ORDERED: DO NOT ADMINISTER FLU VACCINE PRN (17:40)
[2024-02-27] MEDS ORDERED: MAGNESIUM HYDROXIDE SUSP 30 ML UDC PO PRN (17:40)
[2024-02-27] MEDS ORDERED: DO NOT ADMINISTER PNEUMOCOCCAL VACCINE PRN (17:40)
[2024-02-27] MEDS ORDERED: bisacodyL 10 MG SUPP PR PRN (17:40)
[2024-02-27] MEDS ORDERED: SOD PHOSPHATE/SOD BIPHOSPHATE ENEMA 132 ML BTL PR PRN (17:40)
--- NOTE | 2024-02-27 18:43 | Anesthesiology Progress Note ---
Date of Service February 27, 2024 Anesthesia Post Procedure Vital Signs Vital Signs: Temp Pulse Pulse Pulse Resp BP BP 02/27/24 18:40 36.5 C 75 16 123/61 02/27/24 18:30 84 15 119/57 L 02/27/24 18:20 85 17 122/67 02/27/24 18:10 83 14 119/67 02/27/24 18:00 83 14 133/69 02/27/24 17:50 81 14 132/66 02/27/24 17:40 36.0 C L 81 12 145/68 H 02/27/24 12:50 36.8 C 71 20 118/49 L 02/27/24 11:39 36.6 C 73 18 118/75 02/27/24 08:36 02/27/24 07:56 36.7 C 69 18 115/73 02/27/24 07:07 67 02/27/24 03:39 36.9 C 72 18 108/68 02/26/24 23:34 36.3 C L 74 20 135/88 02/26/24 21:57 64 02/26/24 19:58 36.6 C 69 18 118/70 Pulse Ox Pulse Ox O2 Del Method O2 Del Method O2 Flow Rate 02/27/24 18:40 93 Nasal Cannula 3 02/27/24 18:30 94 Nasal Cannula 3 02/27/24 18:20 94 Oxymask 4 02/27/24 18:10 94 Oxymask 6 02/27/24 18:00 94 Oxymask 6 02/27/24 17:50 95 Oxymask 6 02/27/24 17:40 96 Oxymask 6 02/27/24 12:50 92 Room Air 02/27/24 11:39 92 Room Air 02/27/24 08:36 98 Room Air 02/27/24 07:56 90 Room Air 02/27/24 07:07 02/27/24 03:39 92 Room Air 02/26/24 23:34 93 Room Air 02/26/24 21:57 02/26/24 19:58 92 Room Air Pain Intensity Lower Back: Pain Intensity: 6 Transfer of Care Handoff Completed per policy Notes Mental Status: alert / awake / arousable Patient Amnestic to Procedure: Yes Nausea / Vomiting: adequately controlled Pain: adequately controlled Airway Patency, RR, SpO2: stable & adequate BP & HR: stable & adequate Hydration State: stable & adequate Anesthetic Complications: no major complications apparent
[2024-02-27] MEDS: LANTUS PER UNIT CHARGE SQ SCH (21:39)
[2024-02-27] MEDS: DOCUSATE SODIUM/SENNA 50/8.6MG TAB PO SCH (21:49)
[2024-02-27] MEDS: ceFAZolin 2000MG 2,000 MG/15 ML SYR IV SCH (21:50)
[2024-02-28] MEDS: oxyCODONE/ACETAMINOPHEN 5mg/325mg TAB PO PRN (04:10)
[2024-02-28] MEDS: POLYETHYLENE (MIRALAX) 17 GM PACK PO SCH (06:14)
[2024-02-28] MEDS: HYDROmorphone INJ 0.5 MG/0.5 ML SYR IV PRN (06:15)
[2024-02-28] MEDS ORDERED: glipiZIDE 5 MG TAB PO SCH (06:30)
[2024-02-28 07:22] LABS: Basophils # (auto) 0.05 K/uL (0.00-0.20); Basophils % (auto) 0.4 %; Eosinophils # (auto) 0.01 K/uL (0.00-0.50); Eosinophils % (auto) 0.1 %; Hematocrit (blood only) 40.3 % (42.0-52.0); Hemoglobin 12.9 g/dl (14.0-18.0); Immature Granulocytes # (auto) 0.33 K/uL (0.01-0.20); Immature Granulocytes % (auto) 2.5 %; Lymphocytes # (auto) 1.02 K/uL (1.20-3.40); Lymphocytes % (auto) 7.7 %; Mean Corpuscular Hemoglobin 30.4 pg (25.0-34.0); Mean Platelet Volume 9.7 fL (9.4-12.4); Monocytes # (auto) 0.66 K/uL (0.11-0.59); Neutrophils # (auto) 11.25 K/uL (1.40-6.50); Neutrophils % (auto) 84.3 %; Platelet Count 211 K/uL (130-400); RDW Coefficient of Variation 15.6 % (11.5-14.5); RDW Standard Deviation 54.3 fL (36.4-46.3); Red Blood Count 4.24 M/uL (4.70-6.10); White Blood Count 13.32 K/ul (4.8-10.8)
[2024-02-28 07:34] LABS: BUN Creatinine Ratio 22.1 (10-20); Calcium 8.7 mg/dl (8.6-10.3); Creatinine Clr Calc Pharmacy 118.5 ml/min; Est GFR (African American) 111.2 ml/min; Est GFR (Non-African American) 95.9 ml/min; Potassium 4.8 mmol/L (3.5-5.1)
[2024-02-28] MEDS ORDERED: metFORMIN HCL 500 MG TAB PO SCH (08:00)
--- NOTE | 2024-02-28 08:09 | Orthopedic Progress Note ---
Date of Service February 28, 2024 Subjective Patient postop day 1 from L3-4 lumbar decompression, notes a distinct im provement in his lower extremity symptoms feels he has improved. Exam reveals the patient to have improve strength in both lower extremities more so on the right with dorsiflexion now present at all at EHL and ankle, also present on the left side but not to the same degree. Impression: 1 day status post L3-4 decompression with removal of herniated disc fragment. Plan: Today at this time the patient needs to progress with physical therapy and ambulation, he is eligible for discharge in the next day or 2 as soon as he clears physical therapy and medical clearance, follow-up will be in 2 weeks. Review of Systems All systems reviewed & are unremarkable except as noted in HPI & below. Physical Exam . Results & Data Results & Data Laboratory Results . Diagnostic Findings . PG Care Time/CCT Total # of Minutes Spent Total Time Spent with Patient: Total time spent is greater than 50% in coordination of care (as documented) at patient's floor/unit and/or counseling patient: Coding Level of Care Code 78585 Post Operative Follow-Up
[2024-02-28] MEDS: LANTUS PER UNIT CHARGE SQ SCH (08:47)
[2024-02-28] MEDS: INSULIN ASPART PER UNIT CHARGE SC SCH (08:48)
[2024-02-28] MEDS: ASPIRIN 325 MG ECTAB PO SCH (08:57)
[2024-02-28] MEDS ORDERED: EMPAGLIFLOZIN 10 MG TAB PO SCH (09:00)
--- NOTE | 2024-02-28 14:30 | Cardiology Progress Note ---
Date of Service February 28, 2024 Assessment & Plan (1) Acute exacerbation of chronic low back pain: (2) ASCVD (arteriosclerotic cardiovascular disease): (3) HTN, goal below 130/80: Plan Complex 63-year-old male admitted with acute on chronic back pain with known chronic CCS Class 3 angina pectoris. Recommendations: 1.aspirin reinstated at 3 to 25 mg daily (DVT prophylaxis dose from an orthopedic surgery standpoint) can be reduced down to 81 mg daily from a cardiac perspective in a few weeks. 2. Continue beta-blair therapy (metoprolol succinate), statin (rosuvastatin), amlodipine, isosorbide, losartan, spironolactone, and Jardiance 3. Continue PPI Patient doing well from a cardiac perspective postoperatively. Admission and Anticipated Discharge Date Admission Date: February 22, 2024 Subjective Patient seen in cardiology follow-up. Underwent spine surgery yesterday. Notes strength in the right leg is a little bit improved, left leg still weak. Pain controlled. Denies any chest discomfort. Telemetry reveals sinus rhythm in the 70s. Physical Exam Physical Exam: General: A&Ox3. NAD. HENT: Normocephalic. Atraumatic. Eyes: PER. Conjunctiva pink, sclera clear. Neck: No carotid bruits. Normal JVD. Heart: RRR, No murmur. PMI is nondisplaced. Lungs: Diminished at the bases however clear to auscultation. Abdomen: +BS. Soft. No organomegaly. Extremities: Trace to 1+ pretibial edema. Soft tissue swelling and ecchymosis on the doral aspects of both feet. No overt cellulitis. No overt ischemia. No clubbing. Results & Data Vital Signs (Past 12 Hours) Vital Signs Temp Pulse Pulse Resp BP BP Pulse Ox 02/28/24 11:00 36.9 C 76 18 117/63 92 02/28/24 07:40 72 02/28/24 07:30 36.4 C L 72 18 133/68 95 02/28/24 06:00 36.7 C 77 16 120/69 93 O2 Del Method O2 Flow Rate 02/28/24 11:00 Room Air 02/28/24 07:40 02/28/24 07:30 Nasal Cannula 3 02/28/24 06:00 Nasal Cannula 3
--- NOTE | 2024-02-28 18:08 | Hospitalist Progress Note ---
Date of Service February 28, 2024 Assessment & Plan (1) Chest pain: (2) Acute exacerbation of chronic low back pain: (3) Lumbar radiculopathy: Plan: Patient is a 63yoM with PMHx significant for CAD status post CABG x2, T2DM, HTN, HLD who presented to the hospital with worsening back pain and lower extremity weakness along with chest pain. Lumbar Radiculopathy History of chronic back pain with radicular symptoms; presented with radiating back pain and left lower extremity weakness CT of lumbar spine did not show any bony injury MRI of the lumbar spine showed decreased extrusion at L4-L5 and severe cannel and neuroforaminal stenosis. Images compromised by motion on multiple attempts. Ortho spine consulted, appreciate recs -s/p lumbar decompression on 02/26 by orthospine. -Evaluated by cardiology; patient currently optimized from cardiology perspective. -PT OT after surgery -s/p Medrol Dosepak. leukocytosis likely due to steroids. continue to monitor Chest pain, ACS ruled out Patient had reported chest pain on presentation EKG on admission showed normal sinus rhythm; no significant ST or T wave changes High sensitive troponin negative Evaluated by cardiology. -Recommended to resume aspirin, continue on beta-blair, statin, antihypertensives. Aspirin was held periop, has since been resumed by ortho spine. Continue Telemonitoring Acute Blood Loss Anemia Hgb dropped from 14.2 to 12.9 Likely in postop setting Continue to monitor Chronic conditions; Type 2 diabetes mellitushold oral agents. On Lantus and NovoLog while inpatient. Monitor while patient is on a steroid Hypertensioncontinue on amlodipine, Lasix, isosorbide mononitrate, spironolactone. Hypothyroidismcontinue levothyroxine Hyperlipidemiacontinue on fenofibrate Mood disordercontinue on Wellbutrin DVT prophylaxis: per ortho spine, aspirin has been resumed at 325mg daily Full code Admission and Anticipated Discharge Date Admission Date: February 22, 2024 Subjective Pt was seen sitting in chair near bedside. States that his back is sore and left leg is numb. States looking forward to rehab Review of Systems Review of Systems: All systems reviewed & are unremarkable except as noted in Subjective Physical Exam Physical Exam: General: Alert, oriented. No acute distress Skin: surgical wound covered on back Psych: Appropriate mood and affect Neuro: numbness in LLE HEENT: NC/AT CV: RRR Resp: Breath sounds clear bilaterally, no increased effort of breathing. Abdomen: Soft, nontender, nondistended. Extremities: edema in lower extremities bilaterally. Results & Data Results & Data Vital Signs (Past 12 Hours) Vital Signs Temp Pulse Pulse Resp BP BP Pulse Ox 02/28/24 07:40 72 02/28/24 07:30 36.4 C L 72 18 133/68 95 02/28/24 06:00 36.7 C 77 16 120/69 93 02/28/24 02:10 36.5 C 80 16 126/75 93 02/27/24 22:10 36.6 C 73 18 110/68 94 02/27/24 22:07 73 02/27/24 21:10 36.5 C 77 16 112/65 94 O2 Del Method O2 Flow Rate 02/28/24 07:40 02/28/24 07:30 Nasal Cannula 3 02/28/24 06:00 Nasal Cannula 3 02/28/24 02:10 Nasal Cannula 3 02/27/24 22:10 Nasal Cannula 3 02/27/24 22:07 02/27/24 21:10 Nasal Cannula 3
[2024-02-29 06:12] LABS: Hemoglobin 11.8 g/dl (14.0-18.0); Mean Corpuscular Hemoglobin 30.3 pg (25.0-34.0); Mean Corpuscular Hgb Conc 31.9 g/dL (32.0-36.0); Mean Corpuscular Volume 94.9 fL (80.0-100.0); Mean Platelet Volume 9.6 fL (9.4-12.4); Platelet Count 198 K/uL (130-400); RDW Coefficient of Variation 15.9 % (11.5-14.5); RDW Standard Deviation 55.1 fL (36.4-46.3); White Blood Count 12.03 K/ul (4.8-10.8)
[2024-02-29 06:26] LABS: BUN Creatinine Ratio 27.6 (10-20); Calcium 8.5 mg/dl (8.6-10.3); Creatinine Clr Calc Pharmacy 119.9 ml/min; Est GFR (African American) 111.7 ml/min; Est GFR (Non-African American) 96.4 ml/min; Potassium 4.3 mmol/L (3.5-5.1)
--- NOTE | 2024-02-29 07:53 | Orthopedic Progress Note ---
Date of Service February 29, 2024 Subjective Patient seen and examined this morning, clinically improving, and less pain though he does have some incisional pain, right leg continues to slowly improve with left leg ligating slightly. Exam reveals improved strength right lower extremity especially with ankle dorsiflexion, not quite as much on the left but still improved versus preoperative. Impression: 2 days status post L3-4 decompression with removal of disc herniation fragment and decompression of the L3-4 segment. Plan: Today at this point I talk with the patient about operative site care, patient can be discharged to rehab once this is placed, follow-up in 2 weeks. Review of Systems All systems reviewed & are unremarkable except as noted in HPI & below. Physical Exam . Results & Data Results & Data Laboratory Results . Diagnostic Findings . PG Care Time/CCT Total # of Minutes Spent Total Time Spent with Patient: Total time spent is greater than 50% in coordination of care (as documented) at patient's floor/unit and/or counseling patient: Coding Level of Care Code 88190 Post Operative Follow-Up
--- NOTE | 2024-02-29 08:36 | Operative Report ---
PG Post Operative Report Pre & Post Diagnosis Operation Date: 02/27/24 13:35 Pre-Op Diagnosis: High-grade stenosis involving the lumbar spine at L3-4 due to disc herniation/extrusion Post-Op Diagnosis: High-grade stenosis involving the lumbar spine at L3-4 due to disc herni ation/extrusion I identified the patient and participated in the time-out.: Yes Procedure Operation Date: 02/27/24 13:35 Actual Procedures p L3-L4 Lumbar Decompression(Not Applicable) - Stanislaw Patrick MD Surgeon Stanislaw Patrick MD Seating Upholsterer none Estimated Blood Loss 20 Findings Consistent with Post-Op Diagnosis Specimens Lumbar disc fragment Indications Lumbar stenosis, radiculopathy Description of Procedure 1. L3-4 lumbar decompression, bilateral laminectomies, partial medial facetectomies and decompression of L3 and L4 nerve roots. ([id number]) Patient was taken the operating room after adequate anesthesia was because very positioned prone on the [place] frame. After checking all areas for positioning, preprepped was performed, I then brought in the fluoroscopy and marked for the area of the incision to be at the L3-4 segment. Prep and drape was performed, I then made a midline incision over the L3-4 segment and carried this down through the skin obtains tissues and then on either side of the spinous processes to expose the laminar area at L3 and L4. Once this was completed and I confirmed her location fluoroscopically I then moved ahead with the decompression removing the spinous process aspect of the L3 vertebral body on the superior portion of L4 exposing the interlaminar region to a further degree. I then utilized the high-speed bur to thin and remove the inferior laminar edge of L3 and across the superior laminar edge of L4. Ligamentum flavum was exposed I carefully thinned this and then removed it bilaterally to expose the dura and this included undercutting the facets bilaterally and removing the remaining ligamentum flavum. Once establishing the dura inferiorly, I then moved in the cephalad direction undercutting the remaining lamina and exposing what was a large disc fragment posteriorly located on the left which had extruded from the disc space on the left and then wrapping around the lateral aspect of the dura in this region and compressing the dura. This was somewhat adhesed with inflammatory reaction, I use a combination of Floseal along with bipolar cautery to control bleeding and carefully then mobilized this using Conner field and other instruments. The disc fragments were then removed and several large pieces, and then from there I completed decompression moving around from the central location to the lateral location and then into the disc space on the left side. Remaining disc fragments were then removed in this region, I explored the exiting L3 and a passing L4 nerve roots and completed a decompression undercutting the facet. Once I felt I could not find any additional fragments in the area appear to be decompressed, I then irrigated the operative site. No issues were noted, I then applied a combination of local anesthetic into the o perative area, some Floseal was applied to the exposed dura followed by then vancomycin powder. The fascia was reattached to the supraspinous ligament were available using interrupted 0 Vicryl sutures, additional layer of 0 Vicryl sutures and 2-0 Vicryl sutures followed by lidia for the skin. Sterile dressing was applied, the patient was taken recovery room in such a condition. I attest to the content of the Intraoperative Record and any orders documented therein. Any exceptions are noted below.
--- NOTE | 2024-02-29 12:39 | Hospitalist Progress Note ---
Date of Service February 29, 2024 Assessment & Plan (1) Chest pain: (2) Acute exacerbation of chronic low back pain: (3) Lumbar radiculopathy: Plan: Patient is a 63yoM with PMHx significant for CAD status post CABG x2, T2DM, HTN, HLD who presented to the hospital with worsening back pain and lower extremity weakness along with chest pain. Lumbar Radiculopathy History of chronic back pain with radicular symptoms; presented with radiating back pain and left lower extremity weakness CT of lumbar spine did not show any bony injury MRI of the lumbar spine showed decreased extrusion at L4-L5 and severe cannel and neuroforaminal stenosis. Images compromised by motion on multiple attempts. Ortho spine consulted, appreciate recs -s/p lumbar decompression on 02/26 by orthospine. -Evaluated by cardiology; patient currently optimized from cardiology perspective. -PT OT after surgery -s/p Medrol Dosepak. leukocytosis likely due to steroids. continue to monitor Currently awaiting inpatient rehab placement Chest pain, ACS ruled out Patient had reported chest pain on presentation EKG on admission showed normal sinus rhythm; no significant ST or T wave changes High sensitive troponin negative Evaluated by cardiology. -Recommended to resume aspirin, continue on beta-blair, statin, antihypertensives. Aspirin was held periop, has since been resumed by ortho spine. Continue Telemonitoring Acute Blood Loss Anemia Hgb dropped from 14.2 to 12.9 Likely in postop setting Continue to monitor Chronic conditions; Type 2 diabetes mellitushold oral agents. On Lantus and NovoLog while inpatient. Monitor while patient is on a steroid Hypertensioncontinue on amlodipine, Lasix, isosorbide mononitrate, spironolactone. Hypothyroidismcontinue levothyroxine Hyperlipidemiacontinue on fenofibrate Mood disordercontinue on Wellbutrin DVT prophylaxis: per ortho spine, aspirin has been resumed at 325mg daily Full code Admission and Anticipated Discharge Date Admission Date: February 22, 2024 Subjective Pt was seen sitting in chair near bedside. States that his back is still sore and left leg is still numb. Awaiting rehab Review of Systems Review of Systems: All systems reviewed & are unremarkable except as noted in Subjective Physical Exam Physical Exam: General: Alert, oriented. No acute distress Skin: surgical wound covered on back Psych: Appropriate mood and affect Neuro: numbness in LLE HEENT: NC/AT CV: RRR Resp: Breath sounds clear bilaterally, no increased effort of breathing. Abdomen: Soft, nontender, nondistended. Extremities: edema in lower extremities bilaterally. Results & Data Results & Data Vital Signs (Past 12 Hours) Vital Signs Temp Pulse Pulse Resp BP Pulse Ox O2 Del Method 02/29/24 10:58 36.4 C L 70 18 144/73 H 93 Room Air 02/29/24 07:29 36.6 C 57 L 18 123/73 91 Room Air 02/29/24 05:56 58 L 02/29/24 03:11 36.5 C 62 18 125/74 95 Room Air
[2024-03-01 06:49] LABS: Hematocrit (blood only) 37.4 % (42.0-52.0); Hemoglobin 11.9 g/dl (14.0-18.0); Mean Corpuscular Hemoglobin 30.3 pg (25.0-34.0); Mean Corpuscular Hgb Conc 31.8 g/dL (32.0-36.0); Mean Corpuscular Volume 95.2 fL (80.0-100.0); Mean Platelet Volume 9.6 fL (9.4-12.4); Platelet Count 180 K/uL (130-400); RDW Coefficient of Variation 15.9 % (11.5-14.5); RDW Standard Deviation 55.5 fL (36.4-46.3); Red Blood Count 3.93 M/uL (4.70-6.10); White Blood Count 10.03 K/ul (4.8-10.8)
[2024-03-01 07:07] LABS: BUN Creatinine Ratio 21.3 (10-20); Calcium 8.5 mg/dl (8.6-10.3); Creatinine Clr Calc Pharmacy 115.1 ml/min; Est GFR (African American) 109.4 ml/min; Est GFR (Non-African American) 94.4 ml/min; Potassium 3.9 mmol/L (3.5-5.1)
--- NOTE | 2024-03-01 10:49 | Pharmacy Report ---
Pharmacy Glycemic Short Note 2 - Date of Service March 01, 2024 - Glycemic Short BSG Results (Last 24 hours): 02/29/24 02/29/24 02/29/24 12:13 17:24 21:19 Glucose POC Glucose 109 H 110 H 120 H 03/01/24 03/01/24 06:17 08:20 Glucose 129 H POC Glucose 127 H OUTPATIENT ANTIDIABETIC REGIMEN: * semaglutide 0.5mg SQ weekly * empagliflozin 10mg daily * glyburide 5mg daily w/ breakfast * metformin 500mg BID * A1c 7.4% 02/21/24 ASSESSMENT: 03/01: * Pt received 22 units of insulin yesterday, of which 5 units were basal insulin * Fasting BSG 129, Po intake slowly increased * Continue current regimen 02/26: * Pt in OR today, steroids pulled - will provide scale for basal at HS 02/22: * BSGs yesterday were 129-222-112-159 mg/dl. Patient received total 22 units of insulin yesterday; 10 units basal and 12 units bolus. * Fasting BSG = 127 mg/dl. Patient is currently still NPO. * Will continue with basal 5 units BID since BSGs were within goal yesterday on this dose. * Also continued Novolog parameters the same. 02/21: * Type 2 diabetic admitted for CP, back pain, r/o ACS, LE weakness * BSGs have been well controlled thus far * Patient did start Medrol Dose Alberto * Will initiate basal/bolus SQ regimen using weight and "mild-moderate" stress level. PLAN FOR INPATIENT GLYCEMIC CONTROL: * Hold outpatient oral diabetes medications * Basal insulin * Lantus 5 units SQ AM * Bolus insulin * NovoLog per scale ACHS or Q6hrs while NPO * Goal Range: Low 110 mg/dL - High 140 mg/dL * Correction Factor: 30 mg/dL/unit * Nutritional / Prandial insulin per carb ratio of 1 unit per 10 grams CHO consumed
--- NOTE | 2024-03-01 12:29 | Hospitalist Progress Note ---
Date of Service March 01, 2024 Assessment & Plan (1) Chest pain: (2) Lumbar radiculopathy: Plan: Patient is a 63yoM with PMHx significant for CAD status post CABG x2, T2DM, HTN, HLD who presented to the hospital with worsening back pain and lower extremity weakness along with chest pain. Lumbar Radiculopathy History of chronic back pain with radicular symptoms; presented with radiating back pain and left lower extremity weakness CT of lumbar spine did not show any bony injury MRI of the lumbar spine showed decreased extrusion at L4-L5 and severe cannel and neuroforaminal stenosis. Images compromised by motion on multiple attempts. Ortho spine consulted, appreciate recs -s/p lumbar decompression on 02/26 by orthospine. -Evaluated by cardiology; patient currently optimized from cardiology perspective. -PT OT after surgery -s/p Medrol Dosepak. leukocytosis likely due to steroids. continue to monitor Currently awaiting inpatient rehab placement Chest pain, ACS ruled out Patient had reported chest pain on presentation EKG on admission showed normal sinus rhythm; no significant ST or T wave changes High sensitive troponin negative Evaluated by cardiology. -Recommended to resume aspirin, continue on beta-blair, statin, antihypertensives. Aspirin was held periop, has since been resumed by ortho spine. Continue Telemonitoring Acute Blood Loss Anemia Hgb dropped from 14.2 to 11.9, stable Likely in postop setting Continue to monitor Chronic conditions; Type 2 diabetes mellitushold oral agents. On Lantus and NovoLog while inpatient. Monitor while patient is on a steroid Hypertensioncontinue on amlodipine, Lasix, isosorbide mononitrate, spironolactone. Hypothyroidismcontinue levothyroxine Hyperlipidemiacontinue on fenofibrate Mood disordercontinue on Wellbutrin DVT prophylaxis: per ortho spine, aspirin has been resumed at 325mg daily Full code Admission and Anticipated Discharge Date Admission Date: February 22, 2024 Subjective Pt was seen sitting in chair near bedside. resting comfortably. States that his back is more sore today and left leg is still numb. Awaiting rehab placement Review of Systems Review of Systems: All systems reviewed & are unremarkable except as noted in Subjective Physical Exam Physical Exam: General: Alert, oriented. No acute distress Psych: Appropriate mood and affect Neuro: numbness in LLE HEENT: NC/AT CV: RRR Resp: Breath sounds clear bilaterally, no increased effort of breathing. Abdomen: Soft, nontender, nondistended. Extremities: edema in lower extremities bilaterally. Results & Data Results & Data Vital Signs (Past 12 Hours) Vital Signs Temp Pulse Pulse Resp BP BP Pulse Ox 03/01/24 10:56 36.7 C 69 18 87/51 L 95 03/01/24 07:59 36.4 C L 63 18 119/71 95 03/01/24 06:19 57 L 03/01/24 04:00 36.6 C 65 18 111/65 92 O2 Del Method 03/01/24 10:56 Room Air 03/01/24 07:59 Room Air 03/01/24 06:19 03/01/24 04:00 Room Air
[2024-03-02 07:06] LABS: Hematocrit (blood only) 37.2 % (42.0-52.0); Hemoglobin 12.2 g/dl (14.0-18.0); Mean Corpuscular Hemoglobin 30.9 pg (25.0-34.0); Mean Corpuscular Hgb Conc 32.8 g/dL (32.0-36.0); Mean Corpuscular Volume 94.2 fL (80.0-100.0); Mean Platelet Volume 9.8 fL (9.4-12.4); Platelet Count 174 K/uL (130-400); RDW Coefficient of Variation 15.7 % (11.5-14.5); RDW Standard Deviation 53.4 fL (36.4-46.3); Red Blood Count 3.95 M/uL (4.70-6.10)
[2024-03-02 07:17] LABS: BUN Creatinine Ratio 29.3 (10-20); Calcium 8.7 mg/dl (8.6-10.3); Creatinine Clr Calc Pharmacy 121.9 ml/min; Est GFR (African American) 112.4 ml/min; Est GFR (Non-African American) 96.9 ml/min
--- NOTE | 2024-03-02 16:03 | Discharge Summary ---
Discharge Summary Date of Service March 02, 2024 Notes For Next Care Provider Please ensure follow up with Orthopedic surgery in 2 weeks Please continue to monitor BP after discharge- losartan on hold. Resume as appropriate Medication Changes From Visit Holding losartan in setting of lower blood pressures/hypotension Admission HPI Per Admitting Provider History obtained from patient, family, and records. Medical history significant for CAD status post CABG, hypertension, hyperlipidemia, DM2 on oral medications, TAI on CPAP, hypothyroidism, chronic anemia (baseline hemoglobin 12-13), mood disorder Last confinement July 2023 under Urology service for right hydrocele. Postop course complicated by hypoxemia. 2 weeks ago, patient noted worsening of chronic back pain symptoms with radiation to his legs after carrying dog food over his shoulder. No fever, no chills, no incontinence symptoms. Patient consulted ER [address] ago. Lumbar spine CT showed 1. Degenerative changes, as detailed above. 2. At L3-L4, moderate-severe central canal narrowing, effacement of the lateral recesses, and severe bilateral foraminal narrowing. 3. At L4-L5, severe bilateral foraminal narrowing with only mild central spinal canal narrowing. 4. At L5-S1, left central disc extrusion as detailed above. Mild canal narrowing with effacement of the left lateral recess, possibly impinging on the traversing left S1 nerve root. Severe bilateral foraminal narrowing. Patient discharged home with Flexeril prescription. Patient later started by PCP a few days later on prednisone course after follow- up visit. Last week, patient noted intermittent chest tightness occasionally going to his left arm. Some shortness of breath. Symptoms somewhat similar to heart attack in the past. Chest pain precipitated by uncontrolled back pain. Denies headache symptoms. Some fluid retention. Symptoms improved by nitroglycerin intake at home. Patient eventually ran out of nitro tabs as per . Worsening back pain causing patient to fall down the stairs at home yesterday. Patient unable to stand and walk because of fall. Painful bruising noted at the low back post fall as per . Bruising and swelling noted in the feet. Left leg somewhat weak No head trauma. Intractable discomfort at the ER. Highest SBP of 170s documented at the ER. Medical History as above Surgical History : CABG, hydrocele surgery, tonsillectomy, hernia repair Family History : Heart disease Personal/Social history : Non-smoker, no EtOH intake, disabled Admission Exam Per Admitting Provider GENERAL: Slightly uncomfortable, pleasant, obese, no respiratory distress SKIN: Pallor, warm HEENT: Pale palpebral conjunctivae, no ptosis, dry buccal mucosa, nasal cannula in place NECK : Supple, short neck, no tenderness CHEST : CTA, no tenderness HEART : RRR, no obvious murmurs ABDOMEN: Marked distention, nontender BACK : Low back tenderness, positive bilateral straight leg raise test EXTREMITIES : Bilateral LE swelling, bipedal edema with overlying ecchymosis, multiple abrasions over upper and lower extremities NEUROLOGIC : Coherent, no facial asymmetry, gait and stance not assessed Principal Dx & Hospital Course #1 = Principal Diagnosis (1) Chest pain: (2) Lumbar radiculopathy: Patient is a 63yoM with PMHx significant for CAD status post CABG x2, T2DM, HTN, HLD who presented to the hospital with worsening back pain and lower extremity weakness along with chest pain. Pt is s/p L3-4 lumbar decompression on 02/26 with orthopedic surgery. Lumbar Radiculopathy History of chronic back pain with radicular symptoms; presented with radiating back pain and left lower extremity weakness CT of lumbar spine did not show any bony injury MRI of the lumbar spine showed extrusion at L4-L5 and severe cannel and neuroforaminal stenosis. Images compromised by motion on multiple attempts. Ortho spine consulted, appreciate recs -s/p lumbar decompression on 02/26 by orthospine. -Evaluated by cardiology; patient was optimized from cardiology perspective. -PT OT after surgery -s/p Medrol Dosepak. leukocytosis likely due to steroids. continue to monitor -DVT prophylaxis with aspirin 325mg daily Discharged to inpatient rehab placement at [facility] on 03/02. Orthopedic Surgery followup in 2 weeks. Chest pain, ACS ruled out Patient had reported chest pain on presentation EKG on admission showed normal sinus rhythm; no significant ST or T wave changes High sensitive troponin negative Evaluated by cardiology. -Recommended to resume aspirin, continue on beta-blair, statin, antihypertensives. Aspirin was held periop, has since been resumed by ortho spine. 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 No acute distress Psych: Appropriate mood and affect Neuro: numbness in LLE HEENT: NC/AT CV: RRR Resp: Breath sounds clear bilaterally, no increased effort of breathing. Abdomen: Soft, nontender, nondistended. Extremities: edema in lower extremities bilaterally. Updated Medication List Medication Instructions Recorded Confirmed Type amlodipine 5 mg tablet (Norvasc) 2.5 mg PO QAM 10/14/20 02/21/24 History isosorbide mononitrate 60 mg 90 mg PO QAM 10/14/20 02/21/24 History tablet,extended release 24 hr metoprolol succinate 100 mg 100 mg PO QAM 10/14/20 02/21/24 History tablet,extended release 24 hr nitroglycerin 0.4 mg sublingual 0.4 mg sublingual UD PRN Chest Pain 10/14/20 02/21/24 History tablet potassium chloride 10 mEq 10 meq PO QAM 10/14/20 02/21/24 History tablet,extended release(part/cryst) rosuvastatin 40 mg tablet (Crestor) 40 mg PO QPM 10/14/20 02/21/24 History spironolactone 25 mg tablet 25 mg PO QAM 10/14/20 02/21/24 History diclofenac sodium 75 mg 75 mg PO BID 04/27/22 02/21/24 History tablet,delayed release fenofibrate 54 mg tablet 54 mg PO QAM 04/27/22 02/21/24 History furosemide 40 mg tablet 40 mg PO QAM 04/27/22 02/21/24 History metformin 500 mg tablet 500 mg PO BIDM 04/27/22 02/21/24 History bupropion HCl 300 mg 24 hr tablet, 300 mg PO QAM 02/07/23 02/21/24 History extended release (Wellbutrin XL) acetaminophen 500 mg tablet 1,000 mg PO Q6H PRN Pain 04/05/23 02/21/24 History levothyroxine 200 mcg tablet 200 mcg PO DAILYBB 07/18/23 02/21/24 History duloxetine 30 mg capsule,delayed 30 mg PO QAM #30 caps 07/25/23 02/21/24 Rx release empagliflozin 10 mg tablet 10 mg PO DAILY 09/06/23 02/21/24 History (Jardiance) gabapentin 800 mg tablet 800 mg PO TID 09/06/23 02/21/24 History semaglutide 0.25 mg or 0.5 mg (2 0.5 mg subcut WK 09/06/23 02/21/24 History mg/3 mL) subcutaneous pen injector (Ozempic) glipizide 5 mg tablet, extended 5 mg PO DAILYBB 02/21/24 02/21/24 History release 24 hr tramadol 50 mg tablet 50 mg PO Q8H PRN Pain 02/21/24 02/21/24 History aspirin 325 mg tablet,delayed 325 mg PO QAM #30 tabs 03/02/24 Rx release (Ecotrin) Hospital Stay Data Consultations 02/21/24 04:14 ED Decision to Admit Stat 02/21/24 06:15 Consult Cardiology Routine 02/21/24 06:50 Consult Orthopedic Spine Surgery Routine 02/27/24 17:40 Consult Hospitalist Routine Procedures Performed Operation Date: 02/27/24 13:35 Actual Procedures p L3-L4 Lumbar Decompression(Not Applicable) - Stanislaw Patrick MD Diagnostic Imagining Performed 02/21/24 05:26 CT foot LT wo con Stat CT foot RT wo con Stat CT lumbar spine wo con Stat 02/22/24 11:51 MR lumbar spine wo/w con Stat 02/23/24 14:24 MR lumbar spine wo con Stat 02/27/24 07:00 FL lumbar spine 2-3V Routine Foot X-Ray 02/21/24 00:46 XR foot LT min 3V routine CLINICAL HISTORY: fall TECHNIQUE: 3 views of the left foot were obtained. Comparison: None available at the time of this dictation. FINDINGS: No fractures are present. Mild degenerative changes are seen with a plantar enthesophyte noted. Os trigonum is incidentally noted. Dorsal soft tissue swelling is seen. IMPRESSION: Soft tissue swelling is seen without evidence of underlying bony abnormality. ACT 112: Negative or not required by law. Electronically signed by: Vik House M.D. 02/21/2024 7:27 AM Foot X-Ray 02/21/24 00:46 XR foot RT min 3V routine CLINICAL HISTORY: fall COMPARISON: None FINDINGS: Alignment of the right foot is anatomic. Tarsometatarsal joints are intact. There are no acute fractures within the right foot. Dorsal forefoot soft tissue swelling is present. There are no osseous lesions. There are no erosions. IMPRESSION: 1. No fracture or dislocation within the right foot. 2. Dorsal forefoot soft tissue swelling. ACT 112: Negative or not required by law. Electronically signed by: Terence Green M.D. 02/21/2024 6:54 AM Chest X-Ray 02/21/24 00:48 XR chest 1V portable CLINICAL HISTORY: fall TECHNIQUE: Single frontal radiograph of the chest was obtained. Comparison: Comparison is made to chest radiograph 07/19/2023 FINDINGS: Median sternotomy wires are unchanged. Cardiomegaly is noted. The lungs are clear. No evidence of pleural effusion or pneumothorax. IMPRESSION: No acute chest disease. ACT 112: Negative or not required by law. Electronically signed by: Vik House M.D. 02/21/2024 7:[address] 02/21/24 05:26 CT foot RT wo con, CT foot LT wo con CLINICAL HISTORY: swelling, hematoma TECHNIQUE: Multidetector row helical CT of the bilateral feet was performed without intravenous contrast. Coronal and sagittal reformations were obtained. Automated dose lowering techniques and/or adjustment according to patient size were utilized for this examination. CT DOSE: 2731.56 mGy.cm Comparison: None available at the time of this dictation. FINDINGS: The osseous structures are without fracture or dislocation. Mild degenerative changes are seen bilaterally. There is incidental note of bilateral os trigonum. Soft tissue swelling is seen on the dorsal aspect of the bilateral feet. IMPRESSION: Soft tissue swelling predominantly on the dorsal aspect of the bilateral feet. No acute bony abnormalities. ACT 112: Negative or not required by law. Electronically signed by: Vik House M.D. 02/21/2024 6:[address] 02/21/24 05:26 CT foot RT wo con, CT foot LT wo con CLINICAL HISTORY: swelling, hematoma TECHNIQUE: Multidetector row helical CT of the bilateral feet was performed without intravenous contrast. Coronal and sagittal reformations were obtained. Automated dose lowering techniques and/or adjustment according to patient size were utilized for this examination. CT DOSE: 2731.56 mGy.cm Comparison: None available at the time of this dictation. FINDINGS: The osseous structures are without fracture or dislocation. Mild degenerative changes are seen bilaterally. There is incidental note of bilateral os trigonum. Soft tissue swelling is seen on the dorsal aspect of the bilateral feet. IMPRESSION: Soft tissue swelling predominantly on the dorsal aspect of the bilateral feet. No acute bony abnormalities. ACT 112: Negative or not required by law. Electronically signed by: Vik House M.D. 02/21/2024 6:[address] 02/21/24 05:26 CT lumbar spine wo con CLINICAL HISTORY: worseing pain, contusion TECHNIQUE: Multidetector row helical CT of the lumbar spine was performed without administration of intravenous contrast. Coronal and sagittal reformations were obtained. Automated dose lowering techniques and/or adjustment according to patient size were utilized for this exam. Comparison: Comparison is made to CT lumbar spine 02/12/2024 FINDINGS: For counting purposes, the last complete intervertebral disc space is considered L5-S1. No acute fractures are identified. Degenerative changes are noted in the visualized spine. Vertebral body alignment is within normal limits. Surrounding soft tissues are unremarkable. IMPRESSION: Degenerative changes without evidence of acute bony injury. ACT 112: Negative or not required by law. Electronically signed by: Vik House M.D. 02/21/2024 6:42 AM Lumbar Spine MRI 02/22/24 11:51 MR lumbar spine wo/w con CLINICAL HISTORY: Left lower extremity weakness TECHNIQUE: 3 plane localizer images, sagittal T2, sagittal T1, sagittal STIR, axial T1, axial T2 along with postcontrast axial T1 and sagittal T1 fat- saturated sequences were obtained of the lumbar spine, before and after intravenous administration of 12 mL of MultiHance. Comparison: Comparison is made to lumbar spine MRI 01/26/2014 FINDINGS: Exam is highly limited by patient motion. L1-L2: No significant abnormality. L2-L3: There is a broad-based posterior disc bulge with moderate canal and neural foraminal stenosis. L3-L4: There is a large posterior disc bulge with severe canal stenosis and likely severe bilateral neural foraminal stenosis. L4-L5: Prominent disc extrusion is seen, left greater than right. There is severe bilateral neural foraminal stenosis without significant canal stenosis. L5-S1: No significant abnormality. The spinal ligaments are intact, without evidence of disruption or abnormal signal intensity. The spinal cord is normal in signal intensity and there is no evidence of cord contusion. There is no evidence of an extradural, intradural, extramedullary or intramedullary lesion. Visualized soft tissues are normal. IMPRESSION: Highly limited exam due to patient motion. There is disc extrusion at L4-L5, new from 2013, and up to severe canal and neuroforaminal stenosis ACT 112: Negative or not required by law. Electronically signed by: Vik House M.D. 02/22/2024 1:16 PM Lumbar Spine MRI 02/23/24 14:24 MRI OF THE LUMBAR SPINE WITHOUT CONTRAST CLINICAL HISTORY: Low back pain. Left leg numbness. Recent fall. COMPARISON STUDY: Lumbar spine MRIs January 26, 2014 and February 22, 2024. Lumbar spine CT February 21, 2024. TECHNIQUE: Utilizing a 1.5 Nicole magnet and dedicated coil, multiplanar, multiecho imaging of the lumbar spine was performed without IV contrast. FINDINGS: This exam is moderately compromised by motion artifact although motion artifact. Axial sequences are nearly nondiagnostic although sagittal images are diagnostic. For purposes of numbering on this exam, the L5-S1 disc space is assigned to axial image 32 of 35 there are no lumbar spine fractures. The conus terminates at the lower L1 level. Paravertebral soft tissues are unremarkable. There is severe multilevel facet arthrosis and degenerative disc disease within the lumbar spine. L1-2: Moderate disc space narrowing is noted. There is mild disc bulge. Central canal is patent. The neural foramen are grossly patent. L2-3: There is disc space narrowing with disc bulge, facet arthrosis and ligamentous hypertrophy. Moderate to severe central canal stenosis is noted. Patent AP diameter of the canal is 4 mm. There is also moderate to severe narrowing of the left lateral recess and left neural foramen. L3-4: Severe degenerative changes are present. There is disc space narrowing with disc bulge and large suspected superimposed disc extrusion. A 1.3 cm T2 hypointense focus projects over the canal. This may reflect disc material, suboptimally assessed due to motion artifact. There is severe facet arthrosis with ligamentous hypertrophy. There is severe narrowing of the central canal, lateral recesses and the neural foramen. L4-5: Disc bulge is noted with superimposed left paracentral disc extrusion with inferior subligamentous migration. There is mild narrowing of the central canal and severe left lateral recess narrowing. There is severe narrowing of both neural foramen. L5-S1: Severe disc space narrowing is noted. There is a small central disc protrusion with inferior subligamentous migration. The central canal is patent. There is severe bilateral neural foraminal stenosis. IMPRESSION: 1. Exam moderately compromised by motion artifact. Severe multilevel degenerative disc disease and facet arthrosis within the lumbar spine, most pronounced at L3-L4. 2. Severe narrowing of the central canal, lateral recesses and neural foramen at L3-L4 due to suspected large disc herniation with possible disc fragment, facet arthrosis and ligamentous hypertrophy. 3. Moderate to severe central canal stenosis at L2-L3 due to disc bulge, facet arthrosis and ligamentous hypertrophy. 4. Left paracentral disc extrusion at L4-L5 which results in severe narrowing of the left lateral recess. 5. Multilevel neural foraminal stenosis, as above. ACT 112: Negative or not required by law. Electronically signed by: Terence Green M.D. 02/23/2024 2:29 PM Lumbar Spine X-Ray 02/27/24 07:00 FL lumbar spine 2-3V CLINICAL HISTORY: L3-L4 Decompression COMPARISON STUDY: Lumbar spine MRI 02/23/2024 FLUOROSCOPY TIME: 35.6 seconds FLUOROSCOPY IMAGES: 5 EXPOSURE DOSE: 27.31 mGy FINDINGS: Retractors are present posterior to the L3-L4 levels. Spondylotic spurring with intervertebral disc space narrowing redemonstrated. IMPRESSION: Fluoroscopic assistance as above. ACT 112: Negative or not required by law. Electronically signed by: Sabino Tidwell M.D. 02/27/2024 3:34 PM Pending Results Patient Have Any Pending Studies at Discharge: No Discharge Instructions Given to Patient (Per Discharging Provider) Mr Frias, You are being discharged to acute rehab at [facility] after having lumbar decompression surgery. We are holding your home losartan as your blood pressure was on the lower end. Please follow up at [facility] to determine when to resume. Orthopedic Surgery would like to follow up with you in 2 weeks after discharge. Please also keep close follow up with your primary care provider after discharge. Please do not hesitate to come back to the emergency room if your symptoms worsen or return. It was a pleasure taking care of you while you were here. Total Time Total Time Spent Total Time Spent (In Minutes): 75
== END 2024-03-02 16:55 | DRG 516 ==
LOC: ED 00:33 → EDINP 00:33 → 2E 06:15 → SUATTDRO 02-22 13:34 → 2N 02-22 15:21